=== PATIENT | female | born 1950 | race Caucasian/White ===

== ENCOUNTER 2019-06-22 16:59 | Outpatient (CLI) | payer MEDICARE, SELFPAY ==
--- NOTE | 2019-06-22 17:41 | XR_ITS ---
WS: [id number] ABDOMEN KUB CLINICAL INFORMATION: Renal/ureteral calculi. COMPARISON: None. FINDINGS: Normal bowel gas pattern. Scattered air and normal caliber small and large bowel. No significant irina l distention. Surgical wires overlying the lower abdomen and pelvis. Right pelvic phlebolith. XR/XR KUB [id number] Impression: Normal bowel gas pattern
== END 2019-06-22 17:00 | disposition home or self-care (01) ==
PROVIDERS: Family Provider Family Medicine; PCP Family Medicine; Visit Provider Family Medicine
DX: R10.9 Unspecified abdominal pain (principal); R39.9 Unspecified symptoms and signs involving the genitourinary system
CPT/HCPCS: 74018

== ENCOUNTER 2019-08-09 11:44 | Inpatient (IN) | payer MEDICARE, SELFPAY ==
[2019-08-09] VITALS (12 sets, daily range): BP systolic 104–156; BP diastolic 58–124; PULSE 66–80; RESP 16–20; TEMP 36.8–37.3; O2SAT 92–98; BMI 39.9
--- NOTE | 2019-08-09 11:59 | CT_ITS ---
WS: [id number] CT ABDOMEN AND PELVIS WITH CONTRAST HISTORY: diffuse abdominal pain; hx of SBO, history of cervical and ovarian carcinoma. TECHNIQUE: Imaging performed of the abdomen and pelvis with IV contrast. Single phase imaging of the abdomen. Coronal and sagittal reformats are submitted. All CT scans at [facility] use at least one of these dose optimization techniques: automated exposure control; mA and/or kV adjustment per patient size (includes targeted exams where dose is matched to clinical indication); or iterativ e reconstruction. IV CONTRAST: Omnipaque 300; 95 mL IV. Oral contrast: No DLP: 2051.66 mGy.cm COMPARISON: None available. Lower thorax: Dependent changes and atelectasis at the lung bases. Heart is normal size. Small hiatal hernia. Liver/biliary system: Normal size liver. Low-attenuation mass in the periphery of the RIGHT lobe betina ures 10 mm. Stable since 09/20/2013. Gallbladder: Normal. No gallstones or wall thickening. No pericholecystic fluid. Pancreas: Fatty replacement of the pancreas. No evidence for acute pancreatitis. Spleen: Normal. Adrenal glands: Normal. Right kidney: Several hypodensities. No solid mass or obstruction. Left kidney: Several hypodensities with no solid mass or obstruction. Aorta: Normal. Lymphadenopathy: None. Free fluid: Small amount of free fluid in the pelvis on the RIGHT. GI tract: There is marked dilatation of the stomach with fluid. Proximal and mid small bowel was dila margarita. Distal small bowel is collapsed. Findings are consistent with a high-grade distal small bowel ob struction. Transition point is probably in the RIGHT lower quadrant. The appendix is not identified. Abdominal wall: Surgical clips along the anterior abdominal wall. Pelvis: Small amount of free fluid. Urinary bladder is negative. No adenopathy. Prior hysterectomy. Bones: Increase in the lumbar lordosis. Mild thoracolumbar curvature. CT/CT abdomen pelvis w con* [id number] IMPRESSION: 1. High-grade distal small bowel obstruction. May be due to adhesions. No mass es are identified. 2. No adenopathy. 3. Small amount of free fluid in the pelvis. 4. Prior hysterectomy.
--- NOTE | 2019-08-09 12:00 | ED_ITS ---
HPI - Abdominal Pain General: Chief Complaint: Abdominal Pain Stated Complaint: ABD PAIN, VOMIT BLOOD Time Seen by Provider: 08/09/19 11:45 Source: patient Mode of arrival: ambulatory Limitations: no limitations History of Present Illness: HPI narrative: Patient is a 69-year-old female who presents to ED today with a complaint of diffuse abdominal pain that began approximately 2 days ago. She tells me she had 3 episodes of what she believes to be a bloody vomit yesterday (reports red streaking) and 2 episodes today. She has had normal bowel movements. She tells me she has an extensive history of small bowel obstructions. She reports 9 previous abdominal surgeries (lysis of adhesions, bowel resections, hysterectomy). Patient is anticoagulated on Coumadin for atrial fibrillation. Her last INR was checked yesterday and was 3.5. Other PMH includes asthma, TIA, HTN, DM2, and essential tremor. MD elicited complaint: abdominal pain Pertinent past history: other (SBO) Onset (ago): day(s) Pain Consistency: constant Location: Diffuse Quality: cramping and aching Radiation: none Migration to: no migration Relieving factors: nothing Associated Symptoms: Reports hematemesis, nausea and vomiting; Denies change in stool character, chills, coffee ground emesis, constipation, diarrhea, dysuria, fever(s), heartburn, hematochezia, melena and syncope Review of Systems Const: Denies: fever(s), chills, body aches, fatigue or malaise Eyes: Denies: change in vision or blurry vision Card: Denies: chest pain, palpitations, irregular heart rhythm, lightheadedness, syncope or dyspnea on exertion Resp: Denies: dyspnea, productive cough or pain on inspiration GI: Reports: abdominal pain, nausea, vomiting and hematemesis; Denies: coffee ground emesis, dysphagia, heartburn, diarrhea, constipation, change in stool character, hematochezia, melena, white/light colored stool or steatorrhea : Denies: flank pain, difficulty voiding, dysuria, urinary frequency or urinary urgency Musc: Denies: neck pain, back pain or joint pain Skin/Breast: Denies: rash Neuro: Denies: headache(s), numbness in extremities, weakness in extremities or sensory changes PFS ED PFSH: Medical History (Updated 08/09/19 @ 16:18 by OLIVIER Irene) Atrial fibrillation SVT (supraventricular tachycardia) Family History Sister Asthma Brother Asthma Cancer Grandmother Asthma Father Cancer Emphysema lung Social History Smoking and tobacco status: never smoked Physical Exam Const: COMMON NORMALS: no acute distress, patient oriented x3, no limitations and alert GENERAL APPEARANCE: cooperative NUTRITIONAL APPEARANCE: obese morbidly obese Resp: COMMON NORMALS: normal respiratory effort and clear to auscultation bilaterally AUSCULTATION: clear to auscultation bilaterally Cardio: COMMON NORMALS: regular rate and regular rhythm RATE: regular rate RHYTHM: regular rhythm GI: COMMON NORMALS: Soft to palpation AUSCULTATION: Yes normoactive bowel sounds PALPATION: Yes Soft to palpation, Yes Tenderness to palpation present (GI) (diffuse) and Yes Guarding due to palpation present (GI) (diffuse) OTHER: exam limited due to morbid obesity : COMMON NORMALS: Yes no CVA tenderness BLADDER/KIDNEY EXAM: Yes no CVA tenderness Back/Pelvis: COMMON NORMALS: no CVA tenderness Extremity: COMMON NORMALS: normal to inspection Neuro: COMMON NORMALS: patient oriented x3 SENSORIUM/ORIENTATION: Yes alert Skin: COMMON NORMALS: no rashes or lesions noted GENERAL SKIN EXAM: no rash es or lesions noted Course ED course: pt had extremely small amount of mucous vomit in bag upon arrival; this was gastrocculted and faintly positive Vital Signs: Vital signs: Vital Signs Temperature 98.2 F 08/09/19 12:02 Pulse Rate 74 08/09/19 12:02 Respiratory Rate 18 08/09/19 14:55 Blood Pressure 140/87 08/09/19 12:02 Pulse Oximetry 94 08/09/19 14:55 MDM - Abdominal Pain MDM Narrative: Medical decision making narrative: spoke to Dr. Ervin who will see patient and speak to surgeon and hospitalist for admission Lab Data: Labs: Lab Results 08/09/19 08/09/19 08/09/19 Range/Units 12:27 12:27 12:27 WBC 10.3 H (4.0-10.0) 10^3/ uL RBC 4.80 (4.1-5.3) 10^6/u L Hgb 14.7 (11.5-15.3) g/dL Hct 44.0 (37.0-47.0) % MCV 91.7 (81-99) fL MCH 30.6 (28.0-34.0) pg MCHC 33.4 (30.0-36.0) g/dL RDW 13.1 (12.1-15.1) % Plt Count 235 (130-400) 10^3/c mm MPV 11.1 H (7.4-10.4) fL Neut % (Auto) 77.6 % Lymph % (Auto) 12.3 % Jenkins % (Auto) 8.1 % Eos % (Auto) 1.4 % Baso % (Auto) 0.3 % Neut # (Auto) 8.0 H (1.8-7.7) 10^3/u L Lymph # (Auto) 1.3 (0.8-4.8) 10^3/u L Jenkins # (Auto) 0.8 (0.2-0.9) 10^3/u L Eos # (Auto) 0.1 (0.0-0.8) 10^3/u L Baso # (Auto) 0.0 (0.0-0.1) 10^3/u L Nucleated RBC % (a uto) 0 % Nucleated RBCs # 0.0 /100WBC PT 24.60 H (10.5-13.3) SECO NDS INR 2.13 H (0.8-1.2) APTT 38.0 H (23.9-36.7) SECO NDS Sodium 140 (136-145) mmol/L Potassium 3.9 (3.5-5.1) mmol/L Chloride 98 (98-107) mmol/L Carbon Dioxide 26 (22-29) mmol/L Anion Gap 19.9 H (5-19) BUN 19 (8-23) mg/dL Creatinine 0.7 (0.5-0.9) mg/dL GFR Calculation 82.7 L (90-130) mL/min Glucose 179 H (65-115) mg/dL Calculated Osmolal ity 291 (285-295) mOsm/k g Lactate (0.5-2.2) mmol/L Calcium 9.8 (8.5-10.5) mg/dL Total Bilirubin 0.3 (0.15-1.2) mg/dL AST 19 (0-32) U/L ALT 19 (0-33) U/L Alkaline Phosphata se 80 (35-105) IU/L Total Protein 5.9 L (6.6-8.7) g/dL Albumin 4.3 (3.5-5.2) g/dL Globulin 1.6 (1.3-4.6) g/dL Lipase 22 (13-60) U/L Urine Color (Yellow) Urine Appearance (CLEAR) Urine pH (5-7) Ur Specific Gravit y (1.005-1.030) Urine Protein (Negative) Urine Glucose (UA) (Normal) Urine Ketones (Negative) Urine Blood (Negative) Urine Nitrate (Negative) Urine Bilirubin (NEGATIVE) Urine Urobilinogen (Negative) mg/dL Ur Leukocyte Apoorva ase (Negative) Urine RBC (0-2) /hpf Urine WBC (0-5) /hpf Ur Squamous Epith Cells (0-5) Urine Bacteria (NONE) Urine Mucus 08/09/19 08/09/19 Range/Units 12:58 13:24 WBC (4.0-10.0) 10^3/ uL RBC (4.1-5.3) 10^6/u L Hgb (11.5-15.3) g/dL Hct (37.0-47.0) % MCV (81-99) fL MCH (28.0-34.0) pg MCHC (30.0-36.0) g/dL RDW (12.1-15.1) % Plt Count (130-400) 10^3/c mm MPV (7.4-10.4) fL Neut % (Auto) % Lymph % (Auto) % Jenkins % (Auto) % Eos % (Auto) % Baso % (Auto) % Neut # (Auto) (1.8-7.7) 10^3/u L Lymph # (Auto) (0.8-4.8) 10^3/u L Jenkins # (Auto) (0.2-0.9) 10^3/u L Eos # (Auto) (0.0-0.8) 10^3/u L Baso # (Auto) (0.0-0.1) 10^3/u L Nucleated RBC % (a uto) % Nucleated RBCs # /100WBC PT (10.5-13.3) SECO NDS INR (0.8-1.2) APTT (23.9-36.7) SECO NDS Sodium (136-145) mmol/L Potassium (3.5-5.1) mmol/L Chloride (98-107) mmol/L Carbon Dioxide (22-29) mmol/L Anion Gap (5-19) BUN (8-23) mg/dL Creatinine (0.5-0.9) mg/dL GFR Calculation (90-130) mL/min Glucose (65-115) mg/dL Calculated Osmolal ity (285-295) mOsm/k g Lactate 1.5 (0.5-2.2) mmol/L Calcium (8.5-10.5) mg/dL Total Bilirubin (0.15-1.2) mg/dL AST (0-32) U/L ALT (0-33) U/L Alkaline Phosphata se (35-105) IU/L Total Protein (6.6-8.7) g/dL Albumin (3.5-5.2) g/dL Globulin (1.3-4.6) g/dL Lipase (13-60) U/L Urine Color Yellow (Yellow) Urine Appearance Clear (CLEAR) Urine pH 5 (5-7) Ur Specific Gravit y 1.015 (1.005-1.030) Urine Protein Neg (Negative) Urine Glucose (UA) Norm (Normal) Urine Ketones Negative (Negative) Urine Blood Neg (Negative) Urine Nitrate Negative (Negative) Urine Bilirubin Neg (NEGATIVE) Urine Urobilinogen Neg (Negative) mg/dL Ur Leukocyte Apoorva ase 1+ H (Negative) Urine RBC None (0-2) /hpf Urine WBC 5-10 H (0-5) /hpf Ur Squamous Epith Cells 5-10 H (0-5) Urine Bacteria Trace (NONE) Urine Mucus 1+ Imaging Data ^: CT Abd/Pel: Radiologist's impression: [address] [id number] [address] Scan Report Signed Patient: Nathaly Jiang Unit #: [id number] : 1950 Age/Sex: 69 / F ADM Date: 08/09/19 Loc: ER Room/Bed: Attending Dr: Ordering Provider/Ordering MD: Ruma Mcmahan Date of Service: 08/09/19 Procedure(s): CT abdomen pelvis w con* [id number] Accession Number(s): [id number] Report Number: [id number] WS: [id number] CT ABDOMEN AND PELVIS WITH CONTRAST HISTORY: diffuse abdominal pain; hx of SBO, history of cervical and ovarian carcinoma. TECHNIQUE: Imaging performed of the abdomen and pelvis with IV contrast. Single phase imaging of the abdomen. Coronal and sagittal reformats are submitted. All CT scans at [facility] use at least one of these dose optimization techniques: automated exposure control; mA and/or kV adjustment per patient size (includes targeted exams where dose is matched to clinical indication); or iterative reconstruction. IV CONTRAST: Omnipaque 300; 95 mL IV. Oral contrast: No DLP: 2051.66 mGy.cm COMPARISON: None available. Lower thorax: Dependent changes and atelectasis at the lung bases. Heart is normal size. Small hiatal hernia. Liver/biliary system: Normal size liver. Low-attenuation mass in the periphery of the RIGHT lobe measures 10 mm. Stable since 09/20/2013. Gallbladder: Normal. No gallstones or wall thickening. No pericholecystic fluid. Pancreas: Fatty replacement of the pancreas. No evidence for acute pancrea titis. Spleen: Normal. Adrenal glands: Normal. Right kidney: Several hypodensities. No solid mass or obstruction. Left kidney: Several hypodensities with no solid mass or obstruction. Aorta: Normal. Lymphadenopathy: None. Free fluid: Small amount of free fluid in the pelvis on the RIGHT. GI tract: There is marked dilatation of the stomach with fluid. Proximal and mid small bowel was dilated. Distal small bowel is collapsed. Findings are consistent with a high- grade distal small bowel obstruction. Transition point is probably in the RIGHT lower quadrant. The appendix is not identified. Abdominal wall: Surgical clips along the anterior abdominal wall. Pelvis: Small amount of free fluid. Urinary bladder is negative. No adenopathy. Prior hysterectomy. Bones: Increase in the lumbar lordosis. Mild thoracolumbar curvature. CT/CT abdomen pelvis w con* [id number] IMPRESSION: 1. High-grade distal small bowel obstruction. May be due to adhesions. No masses are identified. 2. No adenopathy. 3. Small amount of free fluid in the pelvis. 4. Prior hysterectomy. Dictated By: Cande Mares DO Signed By: Cande Mares DO Signed Date/Time: 08/09/191518 DD/ 10 Discharge Plan Discharge Patient Disposition: Admitted As Inpatient Clinical Impression: SBO (small bowel obstruction) Condition: Stable Referrals: Masha Carrillo MD [Primary Care Provider] - Coding Level of Care Code ED Mental Health Program Manager for Chg Fwd Exam Detailed
[2019-08-09 12:33] LABS: Basophils % 0.3 %; Eosinophils # 0.1 10^3/uL (0.0-0.8); Eosinophils % 1.4 %; Hemoglobin 14.7 g/dL (11.5-15.3); Lymphocytes # 1.3 10^3/uL (0.8-4.8); Lymphocytes % 12.3 %; Mean Corpuscular HGB Conc 33.4 g/dL (30.0-36.0); Mean Corpuscular Hemoglobin 30.6 pg (28.0-34.0); Mean Corpuscular Volume 91.7 fL (81-99); Mean Platelet Volume 11.1 fL (7.4-10.4); Monocytes # 0.8 10^3/uL (0.2-0.9); Monocytes % 8.1 %; Neutrophils % 77.6 %; Nucleated Red Blood Cells % 0 %; Platelet Count 235 10^3/cmm (130-400); Red Cell Distribution Width 13.1 % (12.1-15.1); White Blood Count 10.3 10^3/uL (4.0-10.0)
[2019-08-09 12:47] LABS: INR 2.13 (0.8-1.2)
[2019-08-09 13:00] LABS: Alanine Aminotransferase 19 U/L (0-33); Albumin Level 4.3 g/dL (3.5-5.2); Alkaline Phosphatase 80 IU/L (35-105); Anion Gap 19.9 (5-19); Aspartate Amino Transferase 19 U/L (0-32); Blood Urea Nitrogen 19 mg/dL (8-23); Calcium 9.8 mg/dL (8.5-10.5); Carbon Dioxide 26 mmol/L (22-29); Chloride 98 mmol/L (98-107); Creatinine Clr Calc Pharmacy 80.3093; Globulin 1.6 g/dL (1.3-4.6); Glomerular Filtration Rate 82.7 mL/min (90-130); Glucose 179 mg/dL (65-115); Lipase 22 U/L (13-60); Osmolality Calculated 291 mOsm/kg (285-295); Potassium 3.9 mmol/L (3.5-5.1); Sodium 140 mmol/L (136-145); Total Bilirubin 0.3 mg/dL (0.15-1.2); Total Protein 5.9 g/dL (6.6-8.7)
[2019-08-09] MEDS: morphine 4 mg/mL SDV 1 mL IVP ×2 (13:16→17:22)
[2019-08-09] MEDS: ondansetron 2 mg/ML SDV 2 mL 4 MG IVP ×3 (13:16→17:21)
[2019-08-09 13:24] LABS: Add Urine Microscopic? YES; Bilirubin Urine Neg (NEGATIVE); Blood Urine Neg (Negative); Glucose Urine UA Norm (Normal); Ketones Urine Negative (Negative); Leukocyte Esterase Urine 1+ (Negative); Nitrate Urine Negative (Negative); Protein Urine Neg (Negative); Specific Gravity, Urine 1.015 (1.005-1.030); Urine Appearance Clear (CLEAR); Urine Color Yellow (Yellow); Urobilinogen Urine Neg (Negative); pH Urine 5 (5-7)
[2019-08-09 13:30] LABS: Add Urine Culture? No; Bacteria Urine TRACE; Mucus Urine 1+
[2019-08-09 13:46] LABS: Lactate (Lactic Acid level) 1.5 mmol/L (0.5-2.2)
[2019-08-09] MEDS: iohexol 300 mg/mL 100 mL Btl IV (14:26)
[2019-08-09] MEDS: HYDROmorphone 1 mg/mL INJ 1 mL 0.5 MG IVP (14:55)
--- NOTE | 2019-08-09 18:13 | P.HP_ITS ---
Providers/Chief Complaint Admitting Physician: Tyree Fraser MD Primary Care Provider: Masha Carrillo MD Chief Complaint: ABD PAIN, VOMIT BLOOD History of Present Illness Nathaly Jiang is a 69 year old female type 2 diabetes mellitus on insulin, bilateral lower extremity on Lasix, diastolic heart failure, history of atrial fibrillation on Coumadin, hypertension, history of TIA, depression anxiety, history of multiple small bowel obstructions in the past status post surgical interventions who presents to [facility] due to a 4-day history of nausea, vomiting, abdominal pain. Patient states that starting on Wednesday, she started to develop diffuse abdominal pain, associate with nausea, vomiting, decreased appetite. No fevers, no chills, no recent travel, no exposure to COVID-19, no history of food poisoning. Patient states that abdominal pain has worsened, feels nauseous after every meal, last meal was last night and was unable to keep it down, is having bowel movements, last bowel movement was last night, is passing gas today. Has not been able to keep down liquids. Patient states that roughly 30 years ago she had a hysterectomy, but had complications from the hysterectomy including internal bleeding, graft rejection, requiring multiple surgeries, including bowel perforation. Patient has had multiple small bowel obstructions she says, she has had roughly 10 last small bowel obstruction was 6 years ago, she is required lysis of adhesions in roughly 2013 for her small bowel obstruction. Review of Systems Const: Denies: fever(s), chills, fatigue or malaise Eyes: Denies: change in vision or blurry vision ENMT: Denies: nasal congestion Resp: Denies: dyspnea, productive cough, non-productive cough or wheezing GI: Reports: abdominal pain, nausea and vomiting; Denies: hematemesis, diarrhea, constipation, hematochezia or melena : Denies: flank pain, dysuria or urinary frequency Musc: Denies: neck pain or back pain Skin/Breast: Denies: rash Neuro: Denies: headache(s), dizziness or vertigo Psych: Denies: anxiety or depression Endo: Denies: polyuria or polydipsia Medications/Allergies Home Medications Medication Instructions Recorded Confirmed Last Taken Type warfarin 6 mg tablet 6 mg PO DAILY tab 03/06/19 08/09/19 08/08/19 History isosorbide mononitrate 60 mg 60 mg PO DAILY 90 Days #90 tab 05/17/19 08/09/19 08/09/19 Rx tablet,extended release 24 hr albuterol sulfate 2.5 mg INHALATION Q4H PRN 07/26/19 08/09/19 Unknown History aspirin 81 mg tablet,delayed 81 mg PO DAILY 07/26/19 08/09/19 08/08/19 History release fluticasone furoate 100 1 inh INHALATION DAILY PRN 07/26/19 08/09/19 08/09/19 History mcg-vilanterol 25 mcg/dose inhalation powder furosemide 40 mg tablet 80 mg PO BID tab 07/26/19 08/09/19 08/09/19 History glimepiride 2 mg tablet 8 mg PO DAILY tab 07/26/19 08/09/19 08/09/19 History hydrocodone 5 mg-acetaminophen 325 1 tab PO Q6H PRN 07/26/19 08/09/19 08/09/19 History mg tablet insulin glargine 100 unit/mL 34 unit SUBCUT BEDTIME ml 07/26/19 08/09/19 08/08/19 History subcutaneous solution montelukast 10 mg tablet 10 mg PO DAILY 07/26/19 08/09/19 08/09/19 History nitroglycerin 0.4 mg sublingual 0.4 mg SUBLINGUAL Q5M PRN 07/26/19 08/09/19 Unknown History tablet omeprazole 20 mg capsule,delayed 20 mg PO DAILY 07/26/19 08/09/19 08/09/19 History release primidone 50 mg tablet 300 mg PO DAILY tab 07/26/19 08/09/19 08/08/19 History propranolol 10 mg tablet 10 mg PO TID 07/26/19 08/09/19 08/09/19 History ropinirole 1 mg tablet 1 mg PO DAILY 07/26/19 08/09/19 08/09/19 History sertraline 50 mg tablet 100 mg PO DAILY tab 07/26/19 08/09/19 08/09/19 History verapamil 360 mg 24 hr 360 mg PO DAILY 90 Days #90 cap 07/27/19 08/09/19 08/09/19 Rx capsule,extended release Allergies Allergy/AdvReac Type Severity Reaction Status Date / Time budesonide Allergy Unknown Verified 08/09/19 12:06 metformin Allergy Unknown Unverified 03/06/19 14:02 penicillin V Allergy Unknown Unverified 03/06/19 14:02 propoxyphene Allergy Unknown Unverified 03/06/19 14:02 [From ByronC[facility]] streptomycin Allergy Unknown Verified 08/09/19 12:06 PFSH Acute PFSH: Medical History (Updated 08/09/19 @ 18:21 by Tyree Fraser MD) Atrial fibrillation Bilateral lower extremity edema Diabetes mellitus Diastolic heart failure GERD (gastroesophageal reflux disease) History of stroke Hx of small bowel obstruction Hyperlipidemia Migraines SVT (supraventricular tachycardia) Surgical History (Updated 08/09/19 @ 18:20 by Tyree Fraser MD) S/P hysterectomy Family History Sister Asthma Brother Asthma Cancer Grandmother Asthma Father Cancer Emphysema lung Social History Smoking and tobacco status: never smoked Vitals/I&O/Wt Last Vital Signs Temp 98.2 F 08/09/19 12:02 Pulse 74 08/09/19 12:02 Resp 17 08/09/19 17:22 BP 140/87 08/09/19 12:02 Pulse Ox 98 08/09/19 17:22 Weight last 48 hrs Weight 108.862 kg Physical Exam Const: COMMON NORMALS: no acute distress and patient oriented x3 HENMT: COMMON NORMALS: normocephalic HEAD & SCALP: normocephalic Neck/C-Spine: COMMON NORMALS: no JVD Resp: COMMON NORMALS: normal respiratory effort, No retractions, No use of accessory muscles and clear to auscultation bilaterally AUSCULTATION: clear to auscultation bilaterally Cardio: COMMON NORMALS: no JVD, regular rate, regular rhythm, S1 normal heart sound present and S2 normal heart sound present RATE: regular rate RHYTHM: regular rhythm HEART SOUNDS: S1 normal heart sound present and S2 normal heart sound present GI: COMMON NORMALS: No hepatosplenomegaly present and no bruits INSPECTION: Yes abdominal distension AUSCULTATION: Yes Hypoactive bowel sounds present PALPATION: Yes Soft to palpation, Yes Tenderness to palpation present (GI), No Guarding due to palpation present (GI), No Rigid due to palpation, Yes No hepatosplenomegaly present and No Rebound tenderness present PERCUSSION: tympanic to percussion OTHER: Abdomen distended Extremity: COMMON NORMALS: capillary refill normal, no clubbing, cyanosis or edema, no calf tenderness and no pedal edema Neuro: COMMON NORMALS: patient oriented x3 Psych: COMMON NORMALS: mental status grossly normal Data : 08/09/19 12:27 08/09/19 12:27 A&P Assessment and plan (1) SBO (small bowel obstruction): -History of multiple small bowel obstructions in the past, history of lysis of adhesions surgeries -Likely etiology of small bowel obstruction is multiple surgeries, abdominal -Does have a family history of colon cancer,, had a colonoscopy a few months ago which was unremarkable -CT scan shows high-grade distal small bowel obstruction Plan; -Very gentle IV hydration given diastolic heart failure and bilateral lower extremity edema -NG tube placement -Pain control, nausea control -Keep n.p.o. -Surgery has been consulted by the ER, Dr. Díaz on consult Status: Acute (2) Atrial fibrillation: -INR 2.0, takes 10 to 12 mg of Coumadin daily -Start therapeutic Lovenox tomorrow, no plans for surgery at this time Status: Acute Qualifiers: Atrial fibrillation type: longstanding persistent Qualified Code(s): I48.11 - Longstanding persistent atrial fibrillation (3) Diabetes mellitus: -Uses Lantus 34 units at bedtime, hold as n.p.o. -Low-dose sliding scale Status: Acute (4) Hyperlipidemia: Status: Acute (5) GERD (gastroesophageal reflux disease): Status: Acute (6) History of Coumadin therapy: Status: Acute Attestations Medical Necessity Statement*: Patient requires hospitalization, inpatient, greater than 2 midnights for distal small bowel obstruction Coding Level of Care Code Acute Clothing Busheler for [facility] Diagnoses SBO (small bowel obstruction) K56.609 Atrial fibrillation I48.11 Atrial fibrillation type: longstanding persistent Diabetes mellitus E11.9 Hyperlipidemia E78.5 GERD (gastroesophageal reflux disease) K21.9 History of Coumadin therapy Z92.29
[2019-08-09] MEDS: dextrose 5%-sod chloride 0.45% 1,000 ML 50 ML IV (20:26)
[2019-08-09] MEDS: morphine 4 mg/mL SDV 1 mL 2 MG IVP (21:00)
[2019-08-09] MEDS: pantoprazole 40 mg SDV IVP (21:03)
[2019-08-09 21:06] LABS: Glucose Point of Care 145 mg/dL (70-110)
[2019-08-09] MEDS: nitroglycerin 0.4 mg sublingual Tablet SUBLINGUAL ×2 (22:08→22:15)
[2019-08-10] VITALS (10 sets, daily range): BP systolic 95–125; BP diastolic 56–81; PULSE 67–82; RESP 16–20; TEMP 36.7–37.2; O2SAT 89–93
[2019-08-10] MEDS: morphine 4 mg/mL SDV 1 mL 2 MG IVP ×2 (01:23→06:12)
[2019-08-10] MEDS: ondansetron 2 mg/ML SDV 2 mL 4 MG IVP ×4 (01:23→20:01)
--- NOTE | 2019-08-10 03:00 | ECG_ITS ---
Measurements Intervals [place] Rate: 72 P: 17 WA: 158 QRS: -24 QRSD: 88 T: 18 QT: 373 QTc: 408 SINUS RHYTHM BORDERLINE LEFT AXIS DEVIATION [QRS AXIS < -20] MODERATE VOLTAGE CRITERIA FOR LVH, CONSIDER NORMAL VARIANT [MEETS CRITERIA IN ONE OF: R(aVL), S(V1), R(V5), R(V5/V6)+S(V1)] NONSPECIFIC ST & T-WAVE ABNORMALITY Compared to ECG 01/25/2019 15:47:04 T-wave abnormality now present Electronically Signed On 08-10-2019 20:53:36 CDT by Renata Kan M.D. [email or web address]
--- NOTE | 2019-08-10 03:01 | PC.NURSE ---
Chest Pain Patient experiencing chest pain she describes as 8/10 stabbing, crushing pain over the sternum area. No radiating of pain to other areas. Patient given Nitro SL tabs x2, 5 minutes apart with pain decreasing to 3/10. All vital signs normal. EKG ordered for as no EKG was performed in ER. Patient did state she had to take Nitro SL at home on Sunday 08/06 for chest pain which was alleviated with 2 doses.
[2019-08-10 04:21] LABS: Basophils % 0.3 %; Eosinophils # 0.2 10^3/uL (0.0-0.8); Eosinophils % 2.2 %; Hematocrit 48.1 % (37.0-47.0); Hemoglobin 15.9 g/dL (11.5-15.3); Lymphocytes # 1.3 10^3/uL (0.8-4.8); Lymphocytes % 16.9 %; Mean Corpuscular HGB Conc 33.1 g/dL (30.0-36.0); Mean Corpuscular Hemoglobin 30.9 pg (28.0-34.0); Mean Corpuscular Volume 93.4 fL (81-99); Mean Platelet Volume 11.8 fL (7.4-10.4); Monocytes # 0.7 10^3/uL (0.2-0.9); Monocytes % 9.7 %; Neutrophils # 5.2 10^3/uL (1.8-7.7); Neutrophils % 70.8 %; Nucleated Red Blood Cells % 0 %; Platelet Count 132 10^3/cmm (130-400); Red Blood Count 5.15 10^6/uL (4.1-5.3); Red Cell Distribution Width 13.2 % (12.1-15.1); White Blood Count 7.4 10^3/uL (4.0-10.0)
[2019-08-10 04:26] LABS: INR 2.06 (0.8-1.2)
[2019-08-10 04:33] LABS: Alanine Aminotransferase 24 U/L (0-33); Alkaline Phosphatase 70 IU/L (35-105); Anion Gap 15.6 (5-19); Aspartate Amino Transferase 26 U/L (0-32); Blood Urea Nitrogen 19 mg/dL (8-23); Calcium 10.2 mg/dL (8.5-10.5); Carbon Dioxide 29 mmol/L (22-29); Chloride 98 mmol/L (98-107); Creatinine Clr Calc Pharmacy 80.3093; Globulin 1.6 g/dL (1.3-4.6); Glomerular Filtration Rate 82.7 mL/min (90-130); Glucose 156 mg/dL (65-115); Magnesium 1.9 mg/dL (1.7-2.3); Osmolality Calculated 288 mOsm/kg (285-295); Phosphorus 4.4 mg/dL (2.5-4.5); Potassium 3.6 mmol/L (3.5-5.1); Sodium 139 mmol/L (136-145); Total Bilirubin 0.4 mg/dL (0.15-1.2); Total Protein 5.6 g/dL (6.6-8.7)
[2019-08-10 06:22] LABS: Glucose Point of Care 173 mg/dL (70-110)
--- NOTE | 2019-08-10 06:49 | XR_ITS ---
WS: [id number] Abdomen series, Flat and upright 08/10/2019 Clinical Data: sbo Comparison: KUB, 06/22/2019. CT abdomen and pelvis, 08/09/2019 Findings: There are air-fluid levels in the stomach small bowel and colon. The nasogastric tube barel y enters the fundus of the stomach. The proximal small bowel loops are still dilated. No abnormal int ra-abdominal masses or calcifications are seen. There are midline abdominal sutures. Contrast materia l is within the bladder from the CT abdomen pelvis. XR/XR abdomen min 2V [id number] Impression: 1. Small bowel obstruction with dilatation of the small bowel up to 5 cm but th ere is now distal air within the colon. 2. Nasogastric tube barely ends within the fundus of the stomach and may be adv anced 5 cm.
[2019-08-10] MEDS: verapamil ER 180 mg Tablet 360 MG PO (08:37)
[2019-08-10] MEDS: propranolol 20 mg Tablet 10 MG PO ×2 (08:37→20:03)
[2019-08-10] MEDS: FUROsemide 40 mg Tablet 80 MG PO ×2 (08:38→17:07)
[2019-08-10] MEDS: montelukast sodium 10 mg Tablet PO (08:38)
[2019-08-10] MEDS: isosorbide mononitrate ER 60 mg Tablet PO (08:39)
[2019-08-10] MEDS: ropinirole 1 mg Tablet PO (08:39)
[2019-08-10] MEDS: primidone 50 mg Tablet PO (08:39)
[2019-08-10] MEDS: pantoprazole DR 40 mg Tablet PO (08:39)
[2019-08-10] MEDS: sertraline 50 mg Tablet 100 MG PO (08:39)
[2019-08-10] MEDS: enoxaparin 120 mg/0.8 mL Syringe 110 MG SUBCUT ×2 (08:40→20:01)
[2019-08-10] MEDS: HYDROmorphone 1 mg/mL INJ 1 mL 0.5 MG IVP (09:32)
[2019-08-10 12:12] LABS: Glucose Point of Care 142 mg/dL (70-110)
--- NOTE | 2019-08-10 16:01 | P.PN_ITS ---
Subjective Subjective: Interval history: This morning patient states that she continues to have abdominal pain, she did pass gas, no fevers, no chills, no nausea, no vomiting Vitals/I&O/Wt Last Vital Signs Temp 98.0 F 08/10/19 15:43 Pulse 67 08/10/19 15:43 Resp 18 08/10/19 15:43 BP 120/74 08/10/19 15:43 Pulse Ox 90 08/10/19 15:43 08/10/19 08/10/19 08/10/19 06:59 14:59 22:59 Output Total 700 / 700 Balance -700 / -700 Weight last 48 hrs Weight 108.862 kg Physical Exam Const: COMMON NORMALS: no acute distress and patient oriented x3 HENMT: COMMON NORMALS: normocephalic HEAD & SCALP: normocephalic Neck/C-Spine: COMMON NORMALS: no JVD Resp: COMMON NORMALS: normal respiratory effort, No retractions, No use of ac cessory muscles and clear to auscultation bilaterally AUSCULTATION: clear to auscultation bilaterally Cardio: COMMON NORMALS: no JVD, regular rate, regular rhythm, S1 normal heart sound present and S2 normal heart sound present RATE: regular rate RHYTHM: regular rhythm HEART SOUNDS: S1 normal heart sound present and S2 normal heart sound present GI: COMMON NORMALS: No hepatosplenomegaly present and no bruits INSPECTION: Yes abdominal distension AUSCULTATION: Yes Hypoactive bowel sounds present PALPATION: Yes Tenderness to palpation present (GI), No Guarding due to palpation present (GI), No Rigid due to palpation, Yes No hepatosplenomegaly present and No Rebound tenderness present PERCUSSION: tympanic to percussion OTHER: Abdomen distended Extremity: COMMON NORMALS: capillary refill normal, no clubbing, cyanosis or edema, no calf tenderness and no pedal edema Neuro: COMMON NORMALS: patient oriented x3 Psych: COMMON NORMALS: mental status grossly normal Data : 08/10/19 03:47 08/10/19 03:47 A&P Assessment and plan (1) SBO (small bowel obstruction): -History of multiple small bowel obstructions in the past, history of lysis of adhesions surgeries -Likely etiology of small bowel obstruction is multiple surgeries, abdominal -Does have a family history of colon cancer,, had a colonoscopy a few months ago which was unremarkable -CT scan shows high-grade distal small bowel obstruction Plan; -Very gentle IV hydration given diastolic heart failure and bilateral lower extremity edema -NG tube placement -Pain control, nausea control -Keep n.p.o. -Surgery has been consulted by the ER, Dr. Díaz on consult Status: Acute (2) Atrial fibrillation: -INR 2.0, takes 10 to 12 mg of Coumadin daily -Start therapeutic Lovenox tomorrow, no plans for surgery at this time Status: Acute Qualifiers: Atrial fibrillation type: longstanding persistent Qualified Code(s): I48.11 - Longstanding persistent atrial fibrillation (3) Diabetes mellitus: -Uses Lantus 34 units at bedtime, hold as n.p.o. -Low-dose sliding scale Status: Acute (4) Hyperlipidemia: Status: Acute (5) GERD (gastroesophageal reflux disease): Status: Acute (6) History of Coumadin therapy: Status: Acute Attestations Medical Necessity Statement*: Patient requires continued hospitalization for small bowel obstruction Coding Level of Care Code Acute Fitness Floor Attendant for [facility] F[facility] Diagnoses SBO (small bowel obstruction) K56.609 Atrial fibrillation I48.11 Atrial fibrillation type: longstanding persistent Diabetes mellitus E11.9 Hyperlipidemia E78.5 GERD (gastroesophageal reflux disease) K21.9 History of Coumadin therapy Z92.29
[2019-08-10] MEDS: morphine 4 mg/mL SDV 1 mL IVP ×2 (16:12→20:02)
[2019-08-10 16:36] LABS: Glucose Point of Care 138 mg/dL (70-110)
[2019-08-10] MEDS: dextrose 5%-sod chloride 0.45% 1,000 ML 50 ML IV (17:06)
--- NOTE | 2019-08-10 17:07 | PM.CONSULT ---
Providers/Reason For Consult Consulting Physican/Specialty*: Tyree Fraser MD Reason for Consult*: Small bowel obstruction Attending Physician: Tyree Fraser MD Primary Care Provider: Masha Carrillo MD History of Present Illness History of Present Illness Nathaly Jiang is a 69 year old female who presented to the ER with severe generalized abdominal pain, distention, nausea and vomiting. Patient states that she has had 10 hospitalizations for small bowel obstruction and required surgery on 4 occasions. Her last surgery was in 2013. She states that she usually has 2 bowel movements a day and she had 3 bowel movements a day before she was admitted. She continues to pass flatus and today she had a loose bowel movement. No nausea or vomiting. Review of Systems General: Reports: 10 or more systems reviewed and unremarkable except in HPI and below Meds/Allergies Home Medications and Allergies Home Medications Medication Instructions Recorded Confirmed Last Taken Type warfarin 6 mg tablet 6 mg PO DAILY tab 03/06/19 08/09/19 08/08/19 History isosorbide mononitrate 60 mg 60 mg PO DAILY 90 Days #90 tab 05/17/19 08/09/19 08/09/19 Rx tablet,extended release 24 hr albuterol sulfate 2.5 mg INHALATION Q4H PRN 07/26/19 08/09/19 Unknown History aspirin 81 mg tablet,delayed 81 mg PO DAILY 07/26/19 08/09/19 08/08/19 History release fluticasone furoate 100 1 inh INHALATION DAILY PRN 07/26/19 08/09/19 08/09/19 History mcg-vilanterol 25 mcg/dose inhalation powder furosemide 40 mg tablet 80 mg PO BID tab 07/26/19 08/09/19 08/09/19 History glimepiride 2 mg tablet 8 mg PO DAILY tab 07/26/19 08/09/19 08/09/19 History hydrocodone 5 mg-acetaminophen 325 1 tab PO Q6H PRN 07/26/19 08/09/19 08/09/19 History mg tablet insulin glargine 100 unit/mL 34 unit SUBCUT BEDTIME ml 07/26/19 08/09/19 08/08/19 History subcutaneous solution montelukast 10 mg tablet 10 mg PO DAILY 07/26/19 08/09/19 08/09/19 History nitroglycerin 0.4 mg sublingual 0.4 mg SUBLINGUAL Q5M PRN 07/26/19 08/09/19 Unknown History tablet omeprazole 20 mg capsule,delayed 20 mg PO DAILY 07/26/19 08/09/19 08/09/19 History release primidone 50 mg tablet 300 mg PO DAILY tab 07/26/19 08/09/19 08/08/19 History propranolol 10 mg tablet 10 mg PO TID 07/26/19 08/09/19 08/09/19 History ropinirole 1 mg tablet 1 mg PO DAILY 07/26/19 08/09/19 08/09/19 History sertraline 50 mg tablet 100 mg PO DAILY tab 07/26/19 08/09/19 08/09/19 History verapamil 360 mg 24 hr 360 mg PO DAILY 90 Days #90 cap 07/27/19 08/09/19 08/09/19 Rx capsule,extended release Allergies Allergy/AdvReac Type Severity Reaction Status Date / Time budesonide Allergy Unknown Verified 08/09/19 12:06 metformin Allergy Unknown Unverified 03/06/19 14:02 penicillin V Allergy Unknown Unverified 03/06/19 14:02 propoxyphene Allergy Unknown Unverified 03/06/19 14:02 [From ByronCindy] streptomycin Allergy Unknown Verified 08/09/19 12:06 Current Medications Current Medications Generic Name Dose Route Start Last Admin Trade Name Freq PRN Reason Stop Dose Admin Enoxaparin Sodium 110 mg 08/10/19 09:00 08/10/19 08:40 Lovenox SUBCUT 110 mg Q12H SHERIDAN Administration Furosemide 80 mg 08/10/19 09:00 08/10/19 17:07 Lasix PO 80 mg BID SHERIDAN Administration Dextrose/Sodium Chloride 1,000 mls @ 50 mls/hr 08/09/19 19:57 08/10/19 17:06 Dextrose 5%-Sod Chloride 0.45% IV 50 mls/hr .Q20H SHERIDAN Administration Insulin Aspart 0 unit 08/10/19 08:00 08/10/19 16:51 Novolog SUBCUT Not Given TIDWM SHERIDAN Protocol Isosorbide Mononitrate 60 mg 08/10/19 09:00 08/10/19 08:39 Imdur PO 60 mg DAILY SHERIDAN Administration Montelukast Sodium 10 mg 08/10/19 09:00 08/10/19 08:38 Singulair PO 10 mg DAILY SHERIDAN Administration Morphine Sulfate 4 mg 08/10/19 16:04 08/10/19 16:12 Morphine IVP 4 mg Q4H PRN Administration SEVERE PAIN Nitroglycerin 0.4 mg 08/09/19 19:57 08/09/19 22:15 Nitrostat SUBLINGUAL 1 tab Q5M PRN Administration Chest Pain Ondansetron HCl 4 mg 08/09/19 20:55 08/10/19 12:26 Zofran IVP 4 mg Q6H PRN Administration NAUSEA AND VOMITING Pantoprazole Sodium 40 mg 08/10/19 09:00 08/10/19 08:39 Protonix PO 40 mg DAILY SHERIDAN Administration Pantoprazole Sodium 40 mg 08/09/19 21:00 08/10/19 08:40 Protonix IVP Not Given Q12H SHERIDAN Primidone 250 mg 08/10/19 09:00 08/10/19 08:43 Mysoline PO 250 mg DAILY SHERIDAN Administration Primidone 50 mg 08/10/19 09:00 08/10/19 08:39 Mysoline PO 50 mg DAILY SHERIDAN Administration Propranolol HCl 10 mg 08/09/19 21:00 08/10/19 14:57 Inderal PO Not Given TID SHERIDAN Ropinirole HCl 1 mg 08/10/19 09:00 08/10/19 08:39 Requip PO 1 mg DAILY SHERIDAN Administration Sertraline HCl 100 mg 08/10/19 09:00 08/10/19 08:39 Zoloft PO 100 mg DAILY SHERIDAN Administration Verapamil HCl 360 mg 08/10/19 09:00 08/10/19 08:37 Verapamil Er PO 360 mg DAILY SHERIDAN Administration PFSH Acute PFSH: Medical History Atrial fibrillation Bilateral lower extremity edema Diabetes mellitus Diastolic heart failure GERD (gastroesophageal reflux disease) History of stroke Hx of small bowel obstruction Hyperlipidemia Migraines SVT (supraventricular tachycardia) Surgical History S/P hysterectomy Family History Sister Asthma Brother Asthma Cancer Grandmother Asthma Father Cancer Emphysema lung Social History Smoking and tobacco status: never smoked Vitals/I&O/Wt Last Vital Signs Temp 98.0 F 08/10/19 15:43 Pulse 67 08/10/19 15:43 Resp 18 08/10/19 16:12 BP 120/74 08/10/19 15:43 Pulse Ox 90 08/10/19 15:43 08/10/19 08/10/19 08/10/19 06:59 14:59 22:59 Intake Total 1000 / 1000 Output Total 700 / 700 Balance -700 / -700 1000 / 1000 Weight last 48 hrs Weight 240 lb Physical Exam Narrative: EXAM NARRATIVE: HEENT: Normocephalic Eye: Sclera /conjunctiva normal Respiratory and chest: Bilateral clear breath sounds on auscultation Cardiovascular: Normal S1 and S2 heart sounds Abdomen: Soft to palpation, generalized tenderness, no guarding or rigidity, well-healed midline laparotomy scar Neurological: Oriented to place person and time Skin: Intact, no lesions appreciated on gross exam A&P Assessment and plan (1) SBO (small bowel obstruction): This is a 69-year-old female who has had 10 previous admissions for small bowel obstructions secondary to adhesions from prior laparotomy. She has had surgery on 4 occasions. Today she presents with persistent abdominal pain nausea and vomiting and CT scan findings consistent with obstruction. Patient is tender but no guarding or rigidity. At this point there is no indication for surgical intervention and will try to manage her conservatively Bowel rest with NG tube IV fluids Protonix for GI prophylaxis Lovenox for DVT prophylaxis Ambulate with physical therapy Abdominal series in the morning Status: Acute Coding Level of Care Code Acute Protective Services Case Worker for [facility] Diagnoses SBO (small bowel obstruction) K56.609
[2019-08-10] MEDS: pantoprazole 40 mg SDV IVP (20:02)
[2019-08-10 21:19] LABS: Glucose Point of Care 149 mg/dL (70-110)
[2019-08-11] VITALS (14 sets, daily range): BP systolic 96–137; BP diastolic 56–78; PULSE 60–78; RESP 14–20; TEMP 36.9–38.1; O2SAT 87–97
[2019-08-11] MEDS: morphine 4 mg/mL SDV 1 mL IVP ×6 (00:07→21:20)
[2019-08-11] MEDS: ondansetron 2 mg/ML SDV 2 mL 4 MG IVP ×2 (02:19→09:42)
[2019-08-11 06:10] LABS: Glucose Point of Care 140 mg/dL (70-110)
[2019-08-11 06:38] LABS: Basophils % 0.3 %; Eosinophils # 0.2 10^3/uL (0.0-0.8); Eosinophils % 2.6 %; Hematocrit 40.9 % (37.0-47.0); Lymphocytes # 1.8 10^3/uL (0.8-4.8); Lymphocytes % 25.8 %; Mean Corpuscular HGB Conc 31.8 g/dL (30.0-36.0); Mean Corpuscular Hemoglobin 30.7 pg (28.0-34.0); Mean Corpuscular Volume 96.7 fL (81-99); Monocytes # 0.9 10^3/uL (0.2-0.9); Monocytes % 12.7 %; Neutrophils # 4.1 10^3/uL (1.8-7.7); Neutrophils % 58.3 %; Nucleated Red Blood Cells % 0 %; Platelet Count 181 10^3/cmm (130-400); Red Blood Count 4.23 10^6/uL (4.1-5.3); Red Cell Distribution Width 13.2 % (12.1-15.1); White Blood Count 6.9 10^3/uL (4.0-10.0)
[2019-08-11 06:51] LABS: Alanine Aminotransferase 28 U/L (0-33); Albumin Level 3.9 g/dL (3.5-5.2); Alkaline Phosphatase 73 IU/L (35-105); Anion Gap 13.9 (5-19); Aspartate Amino Transferase 24 U/L (0-32); Blood Urea Nitrogen 11 mg/dL (8-23); Calcium 8.9 mg/dL (8.5-10.5); Carbon Dioxide 27 mmol/L (22-29); Chloride 104 mmol/L (98-107); Creatinine Clr Calc Pharmacy 80.3093; Globulin 1.6 g/dL (1.3-4.6); Glomerular Filtration Rate 98.8 mL/min (90-130); Glucose 151 mg/dL (65-115); Magnesium 1.9 mg/dL (1.7-2.3); Osmolality Calculated 291 mOsm/kg (285-295); Phosphorus 2.1 mg/dL (2.5-4.5); Potassium 3.9 mmol/L (3.5-5.1); Sodium 141 mmol/L (136-145); Total Bilirubin 0.3 mg/dL (0.15-1.2); Total Protein 5.5 g/dL (6.6-8.7)
--- NOTE | 2019-08-11 07:03 | XR_ITS ---
WS: [id number] ABDOMEN 2 VIEW(S) HISTORY: sbo COMPARISON: 08/10/[address] has been place with tip in the stomach. Proximal port is at the level of the diaphra gm. Continued small bowel dilatation with a few air-fluid levels in the RIGHT lower quadrant. Small bowel dilatation has very slightly improved. No free air is identified. There is a row prior surgical sutu res along the mid abdomen. Mild LEFT convex curvature lumbar spine. XR/XR abdomen min 2V [id number] IMPRESSION: Persistent high-grade small bowel obstruction but slightly improved. Recommend advancing nasogastric tube 10 cm.
[2019-08-11] MEDS: propranolol 20 mg Tablet 10 MG PO ×3 (08:57→21:21)
[2019-08-11] MEDS: ropinirole 1 mg Tablet PO (08:57)
[2019-08-11] MEDS: sertraline 50 mg Tablet 100 MG PO (08:58)
[2019-08-11] MEDS: primidone 50 mg Tablet PO (08:58)
[2019-08-11] MEDS: pantoprazole DR 40 mg Tablet PO (08:58)
[2019-08-11] MEDS: FUROsemide 40 mg Tablet 80 MG PO ×2 (08:58→17:43)
[2019-08-11] MEDS: isosorbide mononitrate ER 60 mg Tablet PO (08:58)
[2019-08-11] MEDS: montelukast sodium 10 mg Tablet PO (08:58)
[2019-08-11] MEDS: verapamil ER 180 mg Tablet 360 MG PO (09:02)
[2019-08-11] MEDS: pantoprazole 40 mg SDV IVP ×2 (09:40→21:20)
--- NOTE | 2019-08-11 09:42 | PC.CHAP ---
Pastoral Care Encounter/Spiritual Assessment Type of Contact [] Declined instructional technology director visit [] Patient/Family/Request visit [] Outpatient visit [] Follow-up visit [] Physician referral [] Code/Alert [x] Routine visit [] Staff referral [] Actively dying [] Patient sleeping [] Family support [] [] Out of room [] Palliative care [] [] Receiving care in room [] Pre-surgical visit [] Trauma [] Long length of stay [] ICU visit [] Other: Relational/Emotional Strength [] Patient feels connected with others/family/visitors/staff [] Distress [] Loneliness/isolation [] Abandonment Spirituality of Patient [] Person of Sanjuana [] Attends Restorationism of their Sanjuana [] Believes in Prayer [] Reads Bible or Yazidism materials [] There are Spiritual issues to be addressed Assistant Clinical Director Interventions [x] Prayer [] Active listening [] Non-anxious presence [] Spiritual/emotional support [] Crisis/trauma care [] Spiritual counseling [] Bereavement support [] Provided bereavement packet [] Provided Bible/devotional materials [] Provided toy/stuffed animal, coloring book to patient or family member [] Provided Communion [] Anointing/[place] [] Salvation [x] Completed spiritual assessment [] Other: Impact on Illness or Injury [] Angry [] Fearful [] Anxious [] Often cries [] Exhaustion [] Unable to work [] Unable to attend mormonism [] Unable to walk/stand [] Unable to read [] Unable to drive [] Unable to eat/drink [] Unable to sleep [] Unable to be with family [] Patient intubated [] Other: Summary Visited with Patient. She resting ok Time spent with patient 5 min
[2019-08-11] MEDS: enoxaparin 120 mg/0.8 mL Syringe 110 MG SUBCUT ×2 (09:47→20:44)
--- NOTE | 2019-08-11 10:45 | XRR_ITS ---
PROCEDURE INFORMATION: Exam: XR Chest, 1 View Exam date and time: 08/11/2019 12:06 PM Age: 69 years old Clinical indication: Shortness of breath; Prior surgery; Surgery type: Heart; Additional info: SOB TECHNIQUE: Imaging protocol: XR of the chest Views: 1 view. COMPARISON: No relevant prior studies available. FINDINGS: Tubes, catheters and devices: Nasogastric tube overlies the body of the stomach. Lungs: Mild airspace disease within the left lung base. Pleural space: Unremarkable. No pleural effusion. No pneumothorax. Heart/Mediastinum: Unremarkable. No cardiomegaly. Bones/joints: Unremarkable. XR/XR chest 1V portable [id number] IMPRESSION: Mild airspace disease within the left lung base. Small subpulmonic effusion.
[2019-08-11 11:50] LABS: Glucose Point of Care 125 mg/dL (70-110)
[2019-08-11] MEDS: ciprofloxacin 400 MG/200 ML PREMIX 200 MG IV ×2 (12:16→23:45)
[2019-08-11] MEDS: metroNIDAZOLE IV 500 MG/100 ML PREMIX 100 MG IV ×2 (13:44→20:44)
--- NOTE | 2019-08-11 14:27 | XR_ITS ---
WS: [id number] PORTABLE CHEST HISTORY: NG PLACEMENT COMPARISON: None available. Nasogastric tube is been placed with tip extending below the GE junction. Tip is within the fundus of the stomach. Nasogastric tube has been advanced since 08/11/2019 at 11:58 AM. Lung volumes are decreased. Slight elevation of the LEFT hemidiaphragm. No pleural effusion or pneumo thorax. Cardiac size: Mildly enlarged cardiac silhouette. Mediastinum/Aorta: Ectatic aorta. Diffuse osteopenia. XR/XR chest 1V portable [id number] IMPRESSION: Nasogastric tube has been advanced with tip in the stomach.
--- NOTE | 2019-08-11 15:08 | PM.PN ---
Subjective Subjective: Interval history: Patient continues to complain of abdominal pain, passing flatus, 250 cc through the NG tube. No BM Vitals/I&O/Wt Last Vital Signs Temp 99.4 F 08/11/19 12:00 Pulse 62 08/11/19 12:00 Resp 20 H 08/11/19 12:13 BP 119/70 08/11/19 12:00 Pulse Ox 96 08/11/19 12:13 08/11/19 08/11/19 08/11/19 06:59 14:59 22:59 Output Total 100 / 370 200 / 200 Balance -100 / 684.167 -200 / -200 Physical Exam Narrative: EXAM NARRATIVE: Abdomen: Soft, nondistended, tender right lower quadrant Data : 08/11/19 06:16 08/11/19 06:16 Micro: Microbiology 08/11/19 12:30 Blood Culture - Preliminary Blood SPECIMEN COLLECTED 08/11/19 12:27 Blood Culture - Preliminary Blood SPECIMEN COLLECTED A&P Assessment and plan (1) SBO (small bowel obstruction): 69-year-old female with multiple episodes of small bowel obstruction who continues to have right lower quadrant pain. NG output is minimal. There is more air noted in the colon though she still has dilated small bowel loops. I will clamp her NG tube, start clear liquid diet, give milk of molasses enema and 1 bottle of magnesium citrate to see if we can get her to open up Status: Acute Attestations Medical Necessity Statement*: Small bowel obstruction Coding Level of Care Code Acute Bus Operator for [facility] Diagnoses SBO (small bowel obstruction) K56.609
--- NOTE | 2019-08-11 16:34 | P.PN_ITS ---
Subjective Subjective: Interval history: Patient states that she continues to have abdominal pain this morning, continues to have abdominal distention, passing gas, has not had a bowel movement, has had T-max of 100.5, no nausea, no vomiting, has a headache, states that the pain medication does not last long enough, Vitals/I&O/Wt Last Vital Signs Temp 98.9 F 08/11/19 15:20 Pulse 60 08/11/19 15:20 Resp 18 08/11/19 15:20 BP 107/60 08/11/19 15:20 Pulse Ox 92 08/11/19 15:20 08/11/19 08/11/19 08/11/19 06:59 14:59 22:59 Output Total 100 / 370 200 / 200 Balance -100 / 684.167 -200 / -200 Physical Exam Const: COMMON NORMALS: no acute distress and patient oriented x3 HENMT: COMMON NORMALS: normocephalic HEAD & SCALP: normocephalic Neck/C-Spine: COMMON NORMALS: no JVD Resp: COMMON NORMALS: normal respiratory effort, No retractions, No use of accessory muscles and clear to auscultation bilaterally AUSCULTATION: clear to auscultation bilaterally Cardio: COMMON NORMALS: no JVD, regular rate, regular rhythm, S1 normal heart sound present and S2 normal heart sound present RATE: regular rate RHYTHM: regular rhythm HEART SOUNDS: S1 normal heart sound present and S2 normal heart sound present GI: COMMON NORMALS: Normal to inspection, nondistended, normoactive bowel sounds present, Soft to palpation, non-tender, No hepatosplenomegaly present, no masses and no bruits PALPATION: Yes Soft to palpation and Yes No hepatosplenomegaly present Extremity: COMMON NORMALS: capillary refill normal, no clubbing, cyanosis or edema, no calf tenderness and no pedal edema Neuro: COMMON NORMALS: patient oriented x3 Psych: COMMON NORMALS: mental status grossly normal Data : 08/11/19 06:16 08/11/19 06:16 Micro: Microbiology 08/11/19 12:30 Blood Culture - Preliminary Blood SPECIMEN COLLECTED 08/11/19 12:27 Blood Culture - Preliminary Blood SPECIMEN COLLECTED A&P Assessment and plan (1) SBO (small bowel obstruction): -History of multiple small bowel obstructions in the past, history of lysis of adhesions surgeries -Likely etiology of small bowel obstruction is multiple surgeries, abdominal -Does have a family history of colon cancer,, had a colonoscopy a few months ago which was unremarkable -CT scan shows high-grade distal small bowel obstruction Plan; -Very gentle IV hydration given diastolic heart failure and bilateral lower ext remity edema -NG tube placement -Pain control, nausea control -Keep n.p.o. -Given her her fevers, start Cipro and Flagyl -Surgery has been consulted by the ER, Dr. Díaz on consult Status: Acute (2) Atrial fibrillation: -INR 2.0, takes 10 to 12 mg of Coumadin daily -Start therapeutic Lovenox today, no plans for surgery at this time Status: Acute Qualifiers: Atrial fibrillation type: longstanding persistent Qualified Code(s): I48.11 - Longstanding persistent atrial fibrillation (3) Diabetes mellitus: -Uses Lantus 34 units at bedtime, hold as n.p.o. -Low-dose sliding scale Status: Acute (4) Hyperlipidemia: Status: Acute (5) GERD (gastroesophageal reflux disease): Status: Acute (6) History of Coumadin therapy: Status: Acute Attestations Medical Necessity Statement*: Patient requires continued hospitalization for small bowel obstruction Coding Level of Care Code Acute Medical Typist for [facility] Diagnoses SBO (small bowel obstruction) K56.609 Atrial fibrillation I48.11 Atrial fibrillation type: longstanding persistent Diabetes mellitus E11.9 Hyperlipidemia E78.5 GERD (gastroesophageal reflux disease) K21.9 History of Coumadin therapy Z92.29
[2019-08-11] MEDS: magnesium citrate Btl 296 mL 150 ML PO (17:43)
[2019-08-11 17:46] LABS: Glucose Point of Care 164 mg/dL (70-110)
[2019-08-11 22:41] LABS: Glucose Point of Care 132 mg/dL (70-110)
[2019-08-12] VITALS (10 sets, daily range): BP systolic 92–122; BP diastolic 53–79; PULSE 59–66; RESP 16–19; TEMP 36.8–37.1; O2SAT 92–97
[2019-08-12] MEDS: morphine 4 mg/mL SDV 1 mL IVP ×4 (00:23→11:52)
[2019-08-12] MEDS: ondansetron 2 mg/ML SDV 2 mL 4 MG IVP ×2 (02:35→08:46)
[2019-08-12] MEDS: metroNIDAZOLE IV 500 MG/100 ML PREMIX 100 MG IV ×3 (04:17→20:18)
--- NOTE | 2019-08-12 04:26 | PC.NURSE ---
pt stated that he tape and NG seemed to be slipping - while advancing the patient started to gag and through up, with charge nurse, we discovered the tubing was coiled in the back of her throat after shining a light to look. Due to the NG starting to come out of he mouth we pulled the NG tube. Pt refused to have it put back in unless she was sedated. Hospitalist notified. Patient currently comfortable and trying to rest.
[2019-08-12 05:45] LABS: Basophils % 0.4 %; Eosinophils # 0.1 10^3/uL (0.0-0.8); Eosinophils % 1.3 %; Hematocrit 40.3 % (37.0-47.0); Lymphocytes # 2.1 10^3/uL (0.8-4.8); Lymphocytes % 24.8 %; Mean Corpuscular HGB Conc 32.3 g/dL (30.0-36.0); Mean Corpuscular Hemoglobin 30.6 pg (28.0-34.0); Mean Corpuscular Volume 94.8 fL (81-99); Mean Platelet Volume 11.4 fL (7.4-10.4); Monocytes # 0.9 10^3/uL (0.2-0.9); Monocytes % 10.4 %; Neutrophils # 5.4 10^3/uL (1.8-7.7); Neutrophils % 62.9 %; Nucleated Red Blood Cells % 0 %; Platelet Count 252 10^3/cmm (130-400); Red Blood Count 4.25 10^6/uL (4.1-5.3); White Blood Count 8.5 10^3/uL (4.0-10.0)
--- NOTE | 2019-08-12 06:11 | XRR_ITS ---
PROCEDURE INFORMATION: Exam: XR Abdomen, 2 Views Exam date and time: 08/12/2019 6:17 AM Age: 69 years old Clinical indication: Other: Sbo; Prior surgery; Surgery date: 6+ months; Surgery type: Hystorectomy TECHNIQUE: Imaging protocol: XR of the abdomen. Views: 2 Views. COMPARISON: No relevant prior studies available. FINDINGS: Gastrointestinal tract: Small bowel dilatation and air-fluid levels, in a pattern suggesting small bowel obstruction. Intraperitoneal space: Left-sided surgical sutures. Vasculature: Subcentimeter pelvic calcifications, presumably vascular in etiology. Bones/joints: Osteopenia, degenerative change, and scoliosis. XR/XR abdomen min 2V [id number] IMPRESSION: Small bowel dilatation and air-fluid levels, in a pattern suggesting small bowel obstruction.
[2019-08-12 06:12] LABS: Alanine Aminotransferase 30 U/L (0-33); Albumin Level 3.9 g/dL (3.5-5.2); Alkaline Phosphatase 75 IU/L (35-105); Anion Gap 19.1 (5-19); Aspartate Amino Transferase 26 U/L (0-32); Blood Urea Nitrogen 8 mg/dL (8-23); Calcium 9.1 mg/dL (8.5-10.5); Carbon Dioxide 27 mmol/L (22-29); Chloride 100 mmol/L (98-107); Creatinine Clr Calc Pharmacy 80.3093; Globulin 2.3 g/dL (1.3-4.6); Glomerular Filtration Rate 98.8 mL/min (90-130); Glucose 154 mg/dL (65-115); Magnesium 2.5 mg/dL (1.7-2.3); Osmolality Calculated 295 mOsm/kg (285-295); Phosphorus 1.5 mg/dL (2.5-4.5); Potassium 3.1 mmol/L (3.5-5.1); Sodium 143 mmol/L (136-145); Total Bilirubin 0.3 mg/dL (0.15-1.2); Total Protein 6.2 g/dL (6.6-8.7)
[2019-08-12 06:55] LABS: Glucose Point of Care 127 mg/dL (70-110)
[2019-08-12] MEDS: FUROsemide 40 mg Tablet 80 MG PO ×2 (08:04→15:57)
[2019-08-12] MEDS: enoxaparin 120 mg/0.8 mL Syringe 110 MG SUBCUT ×2 (08:04→20:19)
[2019-08-12] MEDS: ropinirole 1 mg Tablet PO (08:04)
[2019-08-12] MEDS: sertraline 50 mg Tablet 100 MG PO (08:05)
[2019-08-12] MEDS: propranolol 20 mg Tablet 10 MG PO ×3 (08:05→20:19)
[2019-08-12] MEDS: isosorbide mononitrate ER 60 mg Tablet PO (08:06)
[2019-08-12] MEDS: primidone 50 mg Tablet PO (08:06)
[2019-08-12] MEDS: pantoprazole DR 40 mg Tablet PO (08:06)
[2019-08-12] MEDS: verapamil ER 180 mg Tablet 360 MG PO (08:06)
[2019-08-12] MEDS: montelukast sodium 10 mg Tablet PO (08:06)
[2019-08-12] MEDS: dextrose 5%-sod chloride 0.45% 1,000 ML 50 ML IV (08:08)
[2019-08-12] MEDS: pantoprazole 40 mg SDV IVP (08:46)
[2019-08-12 11:17] LABS: Glucose Point of Care 157 mg/dL (70-110)
--- NOTE | 2019-08-12 11:30 | PM.PN ---
Subjective Subjective: Interval history: Patient had couple of bowel movements today, no nausea or vomiting, still has some abdominal pain but feeling better. She pulled out her NG tube today by mistake and does not want it back Vitals/I&O/Wt Last Vital Signs Temp 98.2 F 08/12/19 11:28 Pulse 59 L 08/12/19 11:28 Resp 18 08/12/19 11:28 BP 105/69 08/12/19 11:28 Pulse Ox 96 08/12/19 11:28 08/11/19 08/12/19 08/12/19 22:59 06:59 14:59 Intake Total 100 / 1545.833 200 / 0081.823 5751 / 1000 Output Total 1200 / 1400 Balance 100 / 145.833 -1000 / 834.890 5841 / 1000 Physical Exam Narrative: EXAM NARRATIVE: Abdomen: Soft, tender right lower quadrant, no, less distended today Data : 08/12/19 05:05 08/12/19 05:05 Micro: Microbiology 08/11/19 12:30 Blood Culture - Preliminary Blood SPECIMEN COLLECTED 08/11/19 12:27 Blood Culture - Preliminary Blood SPECIMEN COLLECTED A&P Assessment and plan (1) SBO (small bowel obstruction): 69-year-old female with multiple episodes of small bowel obstruction who continues to have right lower quadrant pain., She tolerated the clamping of NG tube well and now she is having bowel movements continue clear liquid diet, give milk of molasses enema and 1 bottle of magnesium citrate to see if we can get her to open up Status: Acute Attestations Medical Necessity Statement*: Small bowel obstruction requiring continued inpatient stay Coding Level of Care Code Acute [place] Strip Inspector for [facility] Diagnoses SBO (small bowel obstruction) K56.609
[2019-08-12] MEDS: magnesium citrate Btl 296 mL PO (11:53)
[2019-08-12] MEDS: ciprofloxacin 400 MG/200 ML PREMIX 200 MG IV ×3 (11:53→22:08)
--- NOTE | 2019-08-12 11:53 | PC.SOCIAL ---
IMM Update Pg. 2 of IMM given and explained to patient, who verbalized understanding. Initialed, dated, and timed and placed in chart.
--- NOTE | 2019-08-12 13:39 | P.PN_ITS ---
Subjective Subjective: Interval history: This morning patient is feeling a bit better, had 2 bowel movements, feels a bit nauseous, passing gas, abdomen is still distended, bowel sounds have improved, feels better after the enema, remains afebrile Vitals/I&O/Wt Last Vital Signs Temp 98.2 F 08/12/19 11:28 Pulse 59 L 08/12/19 11:28 Resp 18 08/12/19 11:52 BP 105/69 08/12/19 11:28 Pulse Ox 97 08/12/19 11:52 08/11/19 08/12/19 08/12/19 22:59 06:59 14:59 Intake Total 100 / 1345.833 500 / 0172.466 0130 / 1000 Output Total 1200 / 1400 Balance 100 / 1145.833 -700 / 983.209 3139 / 1000 Physical Exam Const: COMMON NORMALS: no acute distress and patient oriented x3 HENMT: COMMON NORMALS: normocephalic HEAD & SCALP: normocephalic Neck/C-Spine: COMMON NORMALS: no JVD Resp: COMMON NORMALS: normal respiratory effort, No retractions, No use of accessory muscles and clear to auscultation bilaterally AUSCULTATION: clear to auscultation bilaterally Cardio: COMMON NORMALS: no JVD, regular rate, regular rhythm, S1 normal heart sound present and S2 normal heart sound present RATE: regular rate RHYTHM: regular rhythm HEART SOUNDS: S1 normal heart sound present and S2 normal heart sound present GI: COMMON NORMALS: Soft to palpation, non-tender, No hepatosplenomegaly present, no masses and no bruits INSPECTION: Yes abdominal distension AUSCULTATION: Yes normoactive bowel sounds PALPATION: Yes Soft to palpation, Yes Tenderness to palpation present (GI), No Guarding due to palpation present (GI), No Rigid due to palpation, Yes No hepatosplenomegaly present and No Ping ound tenderness present PERCUSSION: tympanic to percussion OTHER: Abdomen distended Extremity: COMMON NORMALS: capillary refill normal, no clubbing, cyanosis or edema, no calf tenderness and no pedal edema Neuro: COMMON NORMALS: patient oriented x3 Psych: COMMON NORMALS: mental status grossly normal Data : 08/12/19 05:05 08/12/19 05:05 Micro: Microbiology 08/11/19 12:30 Blood Culture - Preliminary Blood NEGATIVE TO DATE 08/11/19 12:27 Blood Culture - Preliminary Blood NEGATIVE TO DATE A&P Assessment and plan (1) SBO (small bowel obstruction): -History of multiple small bowel obstructions in the past, history of lysis of adhesions surgeries -Likely etiology of small bowel obstruction is multiple surgeries, abdominal -Does have a family history of colon cancer,, had a colonoscopy a few months ago which was unremarkable -CT scan shows high-grade distal small bowel obstruction, repeat KUB shows small bowel dilatation with air-fluid levels, in a pattern suggesting small bowel obstruction -Has had 2 bowel movements, responded to enema, feeling better, afebrile Plan; -Replace potassium phosphate today -Very gentle IV hydration given diastolic heart failure and bilateral lower extremity edema -NG tube placement -Pain control, nausea control -Transition to clear liquids -Continue Cipro Flagyl for the next 24 hours -Surgery has been consulted by the ER, Dr. Díaz on consult Status: Acute (2) Atrial fibrillation: -INR 2.0, takes 10 to 12 mg of Coumadin daily -Continue therapeutic Lovenox today, no plans for surgery at this time Status: Acute Qualifiers: Atrial fibrillation type: longstanding persistent Qualified Code(s): I4 8.11 - Longstanding persistent atrial fibrillation (3) Diabetes mellitus: -Uses Lantus 34 units at bedtime, hold as n.p.o. -Low-dose sliding scale Status: Acute (4) Hyperlipidemia: Status: Acute (5) GERD (gastroesophageal reflux disease): Status: Acute (6) History of Coumadin therapy: Status: Acute Attestations Medical Necessity Statement*: Patient requires continued hospitalization due to small bowel obstruction Coding Level of Care Code Acute Pharmacy Associate for [facility] Diagnoses SBO (small bowel obstruction) K56.609 Atrial fibrillation I48.11 Atrial fibrillation type: longstanding persistent Diabetes mellitus E11.9 Hyperlipidemia E78.5 GERD (gastroesophageal reflux disease) K21.9 History of Coumadin therapy Z92.29
[2019-08-12 14:29] LABS: Add Urine Microscopic? NO
[2019-08-12 14:40] LABS: Urine Appearance Clear (CLEAR); Urine Color Straw (Yellow); pH Urine 7 (5-7)
[2019-08-12 14:42] LABS: Bilirubin Urine Neg (NEGATIVE); Blood Urine Neg (Negative); Glucose Urine UA Norm (Normal); Ketones Urine Negative (Negative); Leukocyte Esterase Urine Negative (Negative); Nitrate Urine Negative (Negative); Protein Urine Neg (Negative); Urobilinogen Urine Norm (Negative)
[2019-08-12 16:55] LABS: Glucose Point of Care 158 mg/dL (70-110)
[2019-08-12] MEDS: lactulose oral liq 20 gm/30 mL UDC 10 GM PO (18:31)
[2019-08-12] MEDS: zolpidem 5 mg Tablet PO (20:23)
[2019-08-12 21:32] LABS: Glucose Point of Care 159 mg/dL (70-110)
[2019-08-13] VITALS (11 sets, daily range): BP systolic 100–142; BP diastolic 51–76; PULSE 56–62; RESP 16–24; TEMP 36.9–37.2; O2SAT 90–97
[2019-08-13] MEDS: metroNIDAZOLE IV 500 MG/100 ML PREMIX 100 MG IV ×2 (04:27→17:32)
[2019-08-13] MEDS: morphine 4 mg/mL SDV 1 mL IVP ×5 (05:34→22:35)
[2019-08-13] MEDS: ondansetron 2 mg/ML SDV 2 mL 4 MG IVP ×3 (05:34→22:38)
[2019-08-13] MEDS: lactulose oral liq 20 gm/30 mL UDC 10 GM PO ×2 (05:47→17:43)
[2019-08-13 06:10] LABS: Basophils % 0.3 %; Eosinophils # 0.3 10^3/uL (0.0-0.8); Eosinophils % 4.3 %; Hematocrit 39.9 % (37.0-47.0); Hemoglobin 12.8 g/dL (11.5-15.3); Lymphocytes # 1.9 10^3/uL (0.8-4.8); Lymphocytes % 29.4 %; Mean Corpuscular HGB Conc 32.1 g/dL (30.0-36.0); Mean Corpuscular Hemoglobin 30.5 pg (28.0-34.0); Mean Corpuscular Volume 95.2 fL (81-99); Mean Platelet Volume 11.4 fL (7.4-10.4); Monocytes # 0.5 10^3/uL (0.2-0.9); Monocytes % 7.8 %; Neutrophils # 3.8 10^3/uL (1.8-7.7); Neutrophils % 57.7 %; Nucleated Red Blood Cells % 0 %; Platelet Count 221 10^3/cmm (130-400); Red Blood Count 4.19 10^6/uL (4.1-5.3); White Blood Count 6.5 10^3/uL (4.0-10.0)
[2019-08-13 06:13] LABS: Glucose Point of Care 108 mg/dL (70-110)
[2019-08-13 06:38] LABS: Alanine Aminotransferase 29 U/L (0-33); Albumin Level 3.6 g/dL (3.5-5.2); Alkaline Phosphatase 67 IU/L (35-105); Anion Gap 14.8 (5-19); Aspartate Amino Transferase 27 U/L (0-32); Blood Urea Nitrogen 6 mg/dL (8-23); Calcium 9.4 mg/dL (8.5-10.5); Carbon Dioxide 29 mmol/L (22-29); Chloride 103 mmol/L (98-107); Creatinine Clr Calc Pharmacy 80.3093; Globulin 2.8 g/dL (1.3-4.6); Glucose 141 mg/dL (65-115); Magnesium 2.3 mg/dL (1.7-2.3); Osmolality Calculated 296 mOsm/kg (285-295); Phosphorus 1.7 mg/dL (2.5-4.5); Sodium 144 mmol/L (136-145); Total Bilirubin 0.2 mg/dL (0.15-1.2); Total Protein 6.4 g/dL (6.6-8.7)
[2019-08-13 06:46] LABS: Potassium 2.8 mmol/L (3.5-5.1)
--- NOTE | 2019-08-13 07:55 | CTR_ITS ---
PROCEDURE INFORMATION: Exam: CT Abdomen And Pelvis With Contrast Exam date and time: 08/13/2019 3:49 PM Age: 69 years old Clinical indication: Abdominal pain; Localized; Right lower quadrant (rlq); Prior surgery; Surgery date: 6+ months; Surgery type: Hyst, colon; Patient HX: Rlq pain w sbo; Additional info: Sbo with rlq pain TECHNIQUE: Imaging protocol: Computed tomography of the abdomen and pelvis with intravenous contrast. Radiation optimization: All CT scans at this facility use at least one of these dose optimization techniques: automated exposure control; mA and/or kV adjustment per patient size (includes targeted exams where dose is matched to clinical indication); or iterative reconstruction. Contrast material: OMNI 300; Contrast volume: 95 ml; Contrast route: 20G; Other contrast: Oral, dilute Omni 300, 450ml; COMPARISON: CR XR abdomen min 2V [id number] 08/12/2019 9:44 AM RADIATION DOSE METRICS: Total DLP: 2006.06 mGy-cm FINDINGS: Liver: 10 mm low density at the posterior aspect of the right hepatic lobe has benign features. No follow-up is necessary. Gallbladder and bile ducts: Normal. No calcified stones. No ductal dilation. Pancreas: Moderate fatty atrophy of the pancreas. Spleen: Normal. No splenomegaly. Adrenals: Normal. No mass. Kidneys and ureters: There are subcentimeter bilateral renal cysts with benign features. No follow-up is necessary. Stomach and bowel: There is diverticulosis of the colon without evidence of diverticulitis. There is fluid in multiple nondilated small bowel loops. Mildly dilated small bowel loops are present in the left upper quadrant, consistent with residual partial mid small bowel obstruction. This to be less prominent when compared to the prior abdominal radiographs from 08/12/2019. Appendix: No evidence of appendicitis. Intraperitoneal space: Unremarkable. No free air. No significant fluid collection. Vasculature: Unremarkable. No abdominal aortic aneurysm. Lymph nodes: Unremarkable. No enlarged lymph nodes. Bladder: Unremarkable as visualized. Reproductive: The uterus is not visualized, consistent with hysterectomy. Bones/joints: Unremarkable. No acute fracture. Soft tissues: There are postoperative changes in the ventral abdominal wall. There is hematoma and emphysema in the subcutaneous soft tissues of the right lower quadrant ventral abdomen consistent with a recent injection sites. Multiple left prominent injection sites are present in the ventral abdominal subcutaneous soft tissues. CT/CT abdomen pelvis w con* [id number] IMPRESSION: Findings as stated above are consistent with partial mid small bowel obstruction which is less prominent when compared to the prior abdominal radiographs. Radiation Dose CTDIVOL = (mGy): DLP = 2006.06 (mGy-cm)
--- NOTE | 2019-08-13 07:56 | P.PN_ITS ---
Subjective Subjective: Interval history: Patient appears to have worsening abdominal pain today, had bowel movements yesterday. Denies any nausea or vomiting Vitals/I&O/Wt Last Vital Signs Temp 98.5 F 08/13/19 07:50 Pulse 62 08/13/19 07:50 Resp 18 08/13/19 07:50 BP 131/66 08/13/19 07:50 Pulse Ox 93 08/13/19 07:50 08/12/19 08/13/19 08/13/19 22:59 06:59 14:59 Intake Total 1443.334 / 3583.334 600 / 3583.334 Output Total 2650 / 2650 Balance -1206.666 / 933.334 600 / 933.334 Physical Exam Narrative: EXAM NARRATIVE: Abdomen: Soft, nondistended, tender Data : 08/14/19 03:35 08/14/19 03:35 Micro: Microbiology 08/11/19 12:30 Blood Culture - Preliminary Blood NEGATIVE TO DATE 08/11/19 12:27 Blood Culture - Preliminary Blood NEGATIVE TO DATE A&P Assessment and plan (1) SBO (small bowel obstruction): 69-year-old female with multiple episodes of small bowel obstruction who continues to have right lower quadrant pain., Today she complains of worsening right lower quadrant pain, passing flatus. Will obtain CT abdomen pelvis with p.o. and IV contrast Status: Acute Attestations Medical Necessity Statement*: Small bowel obstruction requiring continued inpatient stay Coding Level of Care Code Acute Loop Machine Operator for [facility] Diagnoses SBO (small bowel obstruction) K56.609
[2019-08-13] MEDS: montelukast sodium 10 mg Tablet PO (09:14)
[2019-08-13] MEDS: verapamil ER 180 mg Tablet 360 MG PO (09:14)
[2019-08-13] MEDS: primidone 50 mg Tablet PO (09:14)
[2019-08-13] MEDS: ropinirole 1 mg Tablet PO (09:14)
[2019-08-13] MEDS: sertraline 50 mg Tablet 100 MG PO (09:14)
[2019-08-13] MEDS: isosorbide mononitrate ER 60 mg Tablet PO (09:14)
[2019-08-13] MEDS: propranolol 20 mg Tablet 10 MG PO ×3 (09:15→22:48)
[2019-08-13] MEDS: FUROsemide 40 mg Tablet 80 MG PO ×2 (09:15→17:40)
[2019-08-13] MEDS: pantoprazole DR 40 mg Tablet PO (09:15)
[2019-08-13] MEDS: enoxaparin 120 mg/0.8 mL Syringe 110 MG SUBCUT ×2 (09:15→22:50)
[2019-08-13] MEDS: lidocaine 1% INJ 20 mL 5 ML IV (10:22)
[2019-08-13 11:22] LABS: Glucose Point of Care 185 mg/dL (70-110)
[2019-08-13] MEDS: ciprofloxacin 400 MG/200 ML PREMIX 200 MG IV ×2 (11:53→23:00)
--- NOTE | 2019-08-13 12:50 | PM.PN ---
Subjective Subjective: Interval history: Patient was afebrile overnight, but has not had a bowel movement in the last 24 hours, did not really respond to that enemas, abdomen is a bit more distended today, abdominal pain persistence has slightly worsened, she is not feeling well this morning Vitals/I&O/Wt Last Vital Signs Temp 98.7 F 08/13/19 11:51 Pulse 59 L 08/13/19 11:51 Resp 17 08/13/19 11:51 BP 117/68 08/13/19 11:51 Pulse Ox 92 08/13/19 11:51 08/12/19 08/13/19 08/13/19 22:59 06:59 14:59 Intake Total 1443.334 / 2983.334 600 / 3583.334 Output Total 2650 / 2650 Balance -1206.666 / 333.334 600 / 933.334 Physical Exam Const: COMMON NORMALS: no acute distress and patient oriented x3 Neck/C-Spine: COMMON NORMALS: no JVD Resp: COMMON NORMALS: normal respiratory effort, No retractions, No use of accessory muscles and clear to auscultation bilaterally AUSCULTATION: clear to auscultation bilaterally Cardio: COMMON NORMALS: no JVD, regular rate, regular rhythm, S1 normal heart sound present and S2 normal heart sound present RATE: regular rate RHYTHM: regular rhythm HEART SOUNDS: S1 normal heart sound present and S2 normal heart sound present GI: COMMON NORMALS: Soft to palpation, No hepatosplenomegaly present, no masses and no bruits INSPECTION: Yes abdominal distension AUSCULTATION: Yes normoactive bowel sounds PALPATION: Yes Soft to palpation, Yes Tenderness to palpation present (GI), No Guarding due to palpation present (GI), No Rigid due to palpation, Yes No hepatosplenomegaly present and No Rebound tenderness present PERCUSSION: tympanic to percussion OTHER: Abdomen distended Extremity: COMMON NORMALS: capillary refill normal, no clubbing, cyanosis or edema, no calf tenderness and no pedal edema Neuro: COMMON NORMALS: patient oriented x3 Psych: COMMON NORMALS: mental status grossly normal Data : 08/13/19 05:33 08/13/19 05:33 Micro: Microbiology 08/11/19 12:30 Blood Culture - Preliminary Blood NEGATIVE TO DATE 08/11/19 12:27 Blood Culture - Preliminary Blood NEGATIVE TO DATE A&P Assessment and plan (1) SBO (small bowel obstruction): -History of multiple small bowel obstructions in the past, history of lysis of adhesions surgeries -Likely etiology of small bowel obstruction is multiple surgeries, abdominal -Does have a family history of colon cancer,, had a colonoscopy a few months ago which was unremarkable -CT scan shows high-grade distal small bowel obstruction, repeat KUB shows small bowel dilatation with air-fluid levels, in a pattern suggesting small bowel obstruction -Has had 2 bowel movements after 2 enemas yesterday morning, is feeling better, but has slid backwards -Worsening abdominal pain this morning, abdominal distention, no bowel movements in the last 24 hours Plan; -Replace potassium phosphate today -Very gentle IV hydration given diastolic heart failure and bilateral lower extremity edema -Pain control, nausea control -Keep n.p.o. -Continue Cipro and Flagyl, but afebrile for the last 24 hours -Repeat CT scan today -Surgery has been consulted by the ER, Dr. Díaz on consult Status: Acute (2) Atrial fibrillation: -INR 2.0, takes 10 to 12 mg of Coumadin daily -Continue therapeutic Lovenox today, hold evening dose of Lovenox if there is plans for surgery Status: Acute Qualifiers: Atrial fibrillation type: longstanding persistent Qualified Code(s): I48.11 - Longstanding persistent atrial fibrillation (3) Diabetes mellitus: -Uses Lantus 34 units at bedtime, hold as n.p.o. -Low-dose sliding scale Status: Acute (4) Hyperlipidemia: Status: Acute (5) GERD (gastroesophageal reflux disease): Status: Acute (6) History of Coumadin therapy: Status: Acute Attestations Medical Necessity Statement*: Patient requires continued hospitalization due to small bowel obstruction Coding Level of Care Code Acute Social Studies Department Chair for [facility] Diagnoses SBO (small bowel obstruction) K56.609 Atrial fibrillation I48.11 Atrial fibrillation type: longstanding persistent Diabetes mellitus E11.9 Hyperlipidemia E78.5 GERD (gastroesophageal reflux disease) K21.9 History of Coumadin therapy Z92.29
[2019-08-13 16:49] LABS: Glucose Point of Care 127 mg/dL (70-110)
[2019-08-13] MEDS: iohexol 300 mg/mL 100 mL Btl IV (20:20)
[2019-08-13 21:34] LABS: Glucose Point of Care 151 mg/dL (70-110)
[2019-08-13] MEDS: zolpidem 5 mg Tablet PO (22:50)
[2019-08-14] VITALS (10 sets, daily range): BP systolic 105–132; BP diastolic 61–73; PULSE 51–62; RESP 16–20; TEMP 36.6–37; O2SAT 92–95
[2019-08-14] MEDS: metroNIDAZOLE IV 500 MG/100 ML PREMIX 100 MG IV ×3 (00:17→17:39)
[2019-08-14 04:24] LABS: Basophils % 0.5 %; Eosinophils # 0.3 10^3/uL (0.0-0.8); Eosinophils % 3.3 %; Hematocrit 38.6 % (37.0-47.0); Hemoglobin 12.1 g/dL (11.5-15.3); Lymphocytes # 2.8 10^3/uL (0.8-4.8); Lymphocytes % 35.8 %; Mean Corpuscular HGB Conc 31.3 g/dL (30.0-36.0); Mean Corpuscular Hemoglobin 29.6 pg (28.0-34.0); Mean Corpuscular Volume 94.4 fL (81-99); Mean Platelet Volume 11.4 fL (7.4-10.4); Monocytes # 0.7 10^3/uL (0.2-0.9); Monocytes % 8.6 %; Neutrophils % 51.4 %; Nucleated Red Blood Cells % 0 %; Platelet Count 229 10^3/cmm (130-400); Red Blood Count 4.09 10^6/uL (4.1-5.3); White Blood Count 7.8 10^3/uL (4.0-10.0)
[2019-08-14 04:43] LABS: Alanine Aminotransferase 28 U/L (0-33); Albumin Level 3.5 g/dL (3.5-5.2); Alkaline Phosphatase 68 IU/L (35-105); Aspartate Amino Transferase 31 U/L (0-32); Blood Urea Nitrogen 5 mg/dL (8-23); Calcium 8.9 mg/dL (8.5-10.5); Carbon Dioxide 28 mmol/L (22-29); Chloride 104 mmol/L (98-107); Creatinine Clr Calc Pharmacy 80.3093; Globulin 1.9 g/dL (1.3-4.6); Glomerular Filtration Rate 98.8 mL/min (90-130); Glucose 136 mg/dL (65-115); Magnesium 1.9 mg/dL (1.7-2.3); Osmolality Calculated 294 mOsm/kg (285-295); Sodium 143 mmol/L (136-145); Total Bilirubin 0.2 mg/dL (0.15-1.2); Total Protein 5.4 g/dL (6.6-8.7)
[2019-08-14 06:54] LABS: Glucose Point of Care 135 mg/dL (70-110)
[2019-08-14] MEDS: FUROsemide 40 mg Tablet 80 MG PO ×2 (08:34→17:38)
[2019-08-14] MEDS: isosorbide mononitrate ER 60 mg Tablet PO (08:34)
[2019-08-14] MEDS: lactulose oral liq 20 gm/30 mL UDC 10 GM PO ×2 (08:36→21:09)
[2019-08-14] MEDS: pantoprazole DR 40 mg Tablet PO (08:37)
[2019-08-14] MEDS: montelukast sodium 10 mg Tablet PO (08:37)
[2019-08-14] MEDS: propranolol 20 mg Tablet 10 MG PO ×3 (08:37→21:09)
[2019-08-14] MEDS: sertraline 50 mg Tablet 100 MG PO (08:38)
[2019-08-14] MEDS: ropinirole 1 mg Tablet PO (08:38)
[2019-08-14] MEDS: verapamil ER 180 mg Tablet 360 MG PO (08:45)
[2019-08-14] MEDS: morphine 4 mg/mL SDV 1 mL IVP ×4 (08:49→20:57)
[2019-08-14] MEDS: ondansetron 2 mg/ML SDV 2 mL 4 MG IVP (08:49)
[2019-08-14] MEDS: ciprofloxacin 400 MG/200 ML PREMIX 200 MG IV ×2 (10:00→23:10)
[2019-08-14 12:06] LABS: Glucose Point of Care 225 mg/dL (70-110)
--- NOTE | 2019-08-14 12:08 | PC.SOCIAL ---
IMM Updated Pg 2 of IMM given and explained to patient who verbalized understanding. Initialed, dated, and timed, and placed in chart. Copy provided.
--- NOTE | 2019-08-14 13:58 | PM.PN ---
Subjective Subjective: Interval history: She had a CT abdomen pelvis yesterday which showed improvement in her small bowel obstruction with contrast in the colon. No nausea or vomiting. No history of abdominal pain, had couple of bowel movements Vitals/I&O/Wt Last Vital Signs Temp 97.9 F 08/14/19 11:43 Pulse 62 08/14/19 11:43 Resp 19 H 08/14/19 11:43 BP 112/62 08/14/19 11:43 Pulse Ox 92 08/14/19 11:43 08/13/19 08/14/19 08/14/19 22:59 06:59 14:59 Intake Total 100 / 709.0909 300 / 709.0909 860 / 860 Output Total 0 / 0 400 / 400 Balance 100 / 709.0909 300 / 709.0909 460 / 460 Physical Exam Narrative: EXAM NARRATIVE: Abdomen: Soft, tender right lower quadrant, no guarding or rigidity Data : 08/14/19 03:35 08/14/19 03:35 A&P Assessment and plan (1) SBO (small bowel obstruction): 69-year-old female with multiple episodes of small bowel obstruction who continues to have right lower quadrant pain. CT abdomen pelvis revealed improvement in her bowel obstruction with contrast in the colon. Discussed the findings with the patient and she thinks that she might be ready to go home tomorrow. Patient states that she usually has a few days of abdominal pain after hospitalization and this is kind of normal for her. Status: Acute Attestations Medical Necessity Statement*: Small bowel obstruction, improved Coding Level of Care Code Acute Workforce Consultant for [facility] Diagnoses SBO (small bowel obstruction) K56.609
[2019-08-14 16:31] LABS: Glucose Point of Care 154 mg/dL (70-110)
--- NOTE | 2019-08-14 17:34 | PM.PN ---
Subjective Subjective: Interval history: Continues to have ongoing pain, particularly R side of abdomen. S/p repeat CT abdomen pelvis yesterday which showed improvement in her small bowel obstruction with contrast in the colon. No nausea or vomiting. Able to pass flatus, no BM. Was able to walk 4 laps in the hallway today without issues Medications: Reviewed: Yes Vitals/I&O/Wt Last Vital Signs Temp 98.4 F 08/14/19 15:48 Pulse 55 L 08/14/19 15:48 Resp 16 08/14/19 15:48 BP 105/61 08/14/19 15:48 Pulse Ox 92 08/14/19 15:48 08/14/19 08/14/19 08/14/19 06:59 14:59 22:59 Intake Total 300 / 709.0909 860 / 860 Output Total 400 / 400 Balance 300 / 709.0909 460 / 460 Physical Exam Narrative: EXAM NARRATIVE: GEN: Awake, alert and oriented, no acute distress CVS: S1S2 N RS: CTA B/L Abd: Soft, non distended, TTP R periumbilical area without guarding or rigidity HEALTH SCIENCES PROGRAM COORDINATOR: no focal neuro deficits Data : 08/14/19 03:35 08/14/19 03:35 A&P Assessment and plan (1) SBO (small bowel obstruction): -History of multiple small bowel obstructions in the past, history of lysis of adhesions surgeries -Likely etiology of small bowel obstruction is multiple surgeries, abdominal -Very gentle IV hydration given diastolic heart failure and bilateral lower extremity edema -Pain control, nausea control -Currently tolerating full liquid diet, continue same for now -Repeat CT scan with improving SBO, passage of contrast -Appreciate gen/surg recommendations-no current acute surgical intervention planned Status: Acute (2) Atrial fibrillation: -INR 2.0, takes 10 to 12 mg of Coumadin daily -Continue therapeutic Lovenox today for now, INR with am labs Status: Acute Qualifiers: Atrial fibrillation type: longstanding persistent Qualified Code(s): I48.11 - Longstanding persistent atrial fibrillation (3) Diabetes mellitus: -Currently on insulin sliding scale Status: Acute (4) Hyperlipidemia: Status: Acute (5) GERD (gastroesophageal reflux disease): Status: Acute (6) History of Coumadin therapy: Status: Acute Attestations Medical Necessity Statement*: awaiting improvement in bowel function Coding Level of Care Code 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
[2019-08-14] MEDS: enoxaparin 120 mg/0.8 mL Syringe 110 MG SUBCUT (21:05)
[2019-08-14] MEDS: zolpidem 5 mg Tablet PO (21:05)
[2019-08-14 21:44] LABS: Glucose Point of Care 167 mg/dL (70-110)
[2019-08-15] VITALS (8 sets, daily range): BP systolic 99–137; BP diastolic 62–76; PULSE 54–76; RESP 16–24; TEMP 36.7–37.2; O2SAT 93–98
[2019-08-15] MEDS: morphine 4 mg/mL SDV 1 mL IVP ×2 (00:24→08:25)
[2019-08-15] MEDS: metroNIDAZOLE IV 500 MG/100 ML PREMIX 100 MG IV ×2 (01:25→08:36)
[2019-08-15 05:26] LABS: Basophils % 0.5 %; Eosinophils # 0.3 10^3/uL (0.0-0.8); Eosinophils % 3.2 %; Hematocrit 40.8 % (37.0-47.0); Lymphocytes # 2.4 10^3/uL (0.8-4.8); Lymphocytes % 28.5 %; Mean Corpuscular HGB Conc 31.9 g/dL (30.0-36.0); Mean Corpuscular Hemoglobin 29.9 pg (28.0-34.0); Mean Corpuscular Volume 93.8 fL (81-99); Mean Platelet Volume 11.4 fL (7.4-10.4); Monocytes # 0.6 10^3/uL (0.2-0.9); Monocytes % 7.5 %; Neutrophils # 5.1 10^3/uL (1.8-7.7); Neutrophils % 59.6 %; Nucleated Red Blood Cells % 0 %; Platelet Count 227 10^3/cmm (130-400); Red Blood Count 4.35 10^6/uL (4.1-5.3); Red Cell Distribution Width 12.9 % (12.1-15.1); White Blood Count 8.6 10^3/uL (4.0-10.0)
[2019-08-15 06:06] LABS: Alanine Aminotransferase 48 U/L (0-33); Albumin Level 3.4 g/dL (3.5-5.2); Alkaline Phosphatase 70 IU/L (35-105); Aspartate Amino Transferase 50 U/L (0-32); Blood Urea Nitrogen 4 mg/dL (8-23); Calcium 8.9 mg/dL (8.5-10.5); Carbon Dioxide 27 mmol/L (22-29); Creatinine Clr Calc Pharmacy 80.3093; Globulin 2.5 g/dL (1.3-4.6); Glomerular Filtration Rate 98.8 mL/min (90-130); Glucose 176 mg/dL (65-115); Magnesium 1.7 mg/dL (1.7-2.3); Phosphorus 3.4 mg/dL (2.5-4.5); Total Bilirubin 0.2 mg/dL (0.15-1.2); Total Protein 5.9 g/dL (6.6-8.7)
[2019-08-15 06:26] LABS: Anion Gap 16.6 (5-19); Chloride 101 mmol/L (98-107); Osmolality Calculated 294 mOsm/kg (285-295); Sodium 142 mmol/L (136-145)
[2019-08-15 06:32] LABS: Potassium 2.6 mmol/L (3.5-5.1)
--- NOTE | 2019-08-15 06:49 | PC.NURSE ---
SHIFT SUMMARY Rested well. Received IV Morphine X2 for abd pain c/o. No c/o nausea this shift. Is hoping to go home today. Critical BUN 83 and K+ 2.6 this am reported to
[2019-08-15 07:09] LABS: Glucose Point of Care 174 mg/dL (70-110)
[2019-08-15] MEDS: potassium chloride ER 10 mEq Tablet 40 MEQ PO (07:14)
[2019-08-15] MEDS: enoxaparin 120 mg/0.8 mL Syringe 110 MG SUBCUT ×2 (08:27→20:26)
[2019-08-15] MEDS: montelukast sodium 10 mg Tablet PO (08:29)
[2019-08-15] MEDS: verapamil ER 180 mg Tablet 360 MG PO (08:29)
[2019-08-15] MEDS: sertraline 50 mg Tablet 100 MG PO (08:30)
[2019-08-15] MEDS: propranolol 20 mg Tablet 10 MG PO ×3 (08:30→20:24)
[2019-08-15] MEDS: ropinirole 1 mg Tablet PO (08:30)
[2019-08-15] MEDS: isosorbide mononitrate ER 60 mg Tablet PO (08:30)
[2019-08-15] MEDS: FUROsemide 40 mg Tablet 80 MG PO ×2 (08:31→17:22)
[2019-08-15] MEDS: lactulose oral liq 20 gm/30 mL UDC 10 GM PO ×2 (08:31→20:25)
[2019-08-15] MEDS: pantoprazole DR 40 mg Tablet PO (08:31)
[2019-08-15] MEDS: ciprofloxacin 400 MG/200 ML PREMIX 200 MG IV (10:10)
[2019-08-15 11:45] LABS: Glucose Point of Care 203 mg/dL (70-110)
--- NOTE | 2019-08-15 12:16 | P.PN_ITS ---
Subjective Subjective: Interval history: Feels better today. States appetite is improving. would like to advance diet today beyond full liquid. Potassium this mornign at 2.6, supplemented, recheck this afternoon. No vomiting. Nausea persisting but better. had 2 BM which were semi soft, no tenesmus or pain. No bleeding with stools. RLQ pain persisting, unchanged, however states this feels similar to previous episodes. Medications: Reviewed: Yes Vitals/I&O/Wt Last Vital Signs Temp 98.5 F 08/15/19 11:36 Pulse 61 08/15/19 11:36 Resp 18 08/15/19 11:36 BP 99/62 08/15/19 11:36 Pulse Ox 95 08/15/19 11:36 08/14/19 08/15/19 08/15/19 22:59 06:59 14:59 Intake Total 820 / 1980 600 / 2580 480 / 480 Output Total 800 / 1200 Balance 20 / 780 600 / 1380 480 / 480 Physical Exam Narrative: EXAM NARRATIVE: GEN: Awake, alert and oriented, no acute distress, clinically euvolemic CVS: S1S2 N RS: CTA B/L Abd: Soft, non distended, mild TTP RLQ, no focal guarding or tenderness REHABILITATOR: no focal neuro deficits Data : 08/15/19 04:35 08/15/19 04:35 A&P Assessment and plan (1) SBO (small bowel obstruction): -History of multiple small bowel obstructions in the past, history of lysis of adhesions surgeries -Likely etiology of small bowel obstruction is multiple surgeries, abdominal -Discontinued iv hydration, tolerating po intake consistently, would like to try advancing diet to GI soft -Pain control, nausea control -Repeat CT scan on 08/12 with improving SBO, passage of contrast -Appreciate gen/surg recommendations-no current acute surgical intervention planned - had 2 BM today - overall improving - discontinue empiric antibiotics today (day 5) Status: Acute (2) Atrial fibrillation: -INR 2.0, takes 10 to 12 mg of Coumadin daily -Continue therapeutic Lovenox today for now, INR with next labs -currently rate is well controlled, mostly ranging between 55-60, asymptomatic - continue propranolol and diltiazem Status: Acute Qualifiers: Atrial fibrillation type: longstanding persistent Qualified Code(s): I48.11 - Longstanding persistent atrial fibrillation (3) Diabetes mellitus: -Currently on insulin sliding scale, fingersticks well controlled Status: Acute (4) Hyperlipidemia: Do not currently see any statins on her medication list, willl need to confirm Status: Acute (5) GERD (gastroesophageal reflux disease): continue protonix 40mg po qd Status: Acute (6) History of Coumadin therapy: Status: Acute (7) Hypokalemia: Supplement 80 meq po today, recheck at 4pm Status: Acute (8) H/O CHF: Currently euvolemic on home dose of lasix 80mg BID Continue Imdur 60mg qd Status: Acute Attestations Medical Necessity Statement*: replete potassium, slowly improving bowel function Coding Level of Care Code Acute 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
[2019-08-15] MEDS: potassium chloride oral liq 20 mEq/15 mL UDC 40 MEQ PO (13:01)
[2019-08-15] MEDS: HYDROcodone-acetaminophen 5-325 mg Tablet 1 TAB PO ×3 (14:46→23:37)
[2019-08-15 16:29] LABS: INR 0.98 (0.8-1.2)
[2019-08-15 16:34] LABS: Potassium 3.4 mmol/L (3.5-5.1)
[2019-08-15 16:46] LABS: Glucose Point of Care 198 mg/dL (70-110)
[2019-08-15] MEDS: dextrose 5%-sod chloride 0.45% 1,000 ML 50 ML IV (19:03)
[2019-08-15] MEDS: zolpidem 5 mg Tablet PO (20:25)
[2019-08-15 22:04] LABS: Glucose Point of Care 198 mg/dL (70-110)
[2019-08-16] VITALS: BP 167/92; PULSE 62; RESP 20; TEMP 37.1; O2SAT 94
[2019-08-16 04:00] VITALS: BP 152/88; PULSE 55; RESP 20; TEMP 36.9; O2SAT 96
[2019-08-16 05:47] LABS: Basophils # 0.1 10^3/uL (0.0-0.1); Basophils % 0.8 %; Eosinophils # 0.2 10^3/uL (0.0-0.8); Eosinophils % 2.8 %; Hematocrit 44.4 % (37.0-47.0); Hemoglobin 14.4 g/dL (11.5-15.3); Lymphocytes # 2.5 10^3/uL (0.8-4.8); Lymphocytes % 30.7 %; Mean Corpuscular HGB Conc 32.4 g/dL (30.0-36.0); Mean Corpuscular Hemoglobin 30.5 pg (28.0-34.0); Mean Corpuscular Volume 94.1 fL (81-99); Mean Platelet Volume 11.4 fL (7.4-10.4); Monocytes # 0.6 10^3/uL (0.2-0.9); Monocytes % 7.5 %; Neutrophils # 4.6 10^3/uL (1.8-7.7); Neutrophils % 57.2 %; Nucleated Red Blood Cells % 0 %; Platelet Count 222 10^3/cmm (130-400); Red Blood Count 4.72 10^6/uL (4.1-5.3); Red Cell Distribution Width 13.2 % (12.1-15.1)
[2019-08-16 06:00] LABS: INR 0.95 (0.8-1.2)
[2019-08-16 06:11] LABS: Alanine Aminotransferase 67 U/L (0-33); Albumin Level 3.4 g/dL (3.5-5.2); Alkaline Phosphatase 86 IU/L (35-105); Anion Gap 17.6 (5-19); Aspartate Amino Transferase 52 U/L (0-32); Blood Urea Nitrogen 6 mg/dL (8-23); Calcium 9.3 mg/dL (8.5-10.5); Carbon Dioxide 25 mmol/L (22-29); Chloride 102 mmol/L (98-107); Chol HDL Ratio 6.68 mg/dL (0.0-4.40); Cholesterol 167 mg/dL (0-200); Creatinine Clr Calc Pharmacy 80.3093; Glucose 213 mg/dL (65-115); HDL Cholesterol 25 mg/dL (60-100); LDL Cholesterol Calculated 87 mg/dL (50-129); LDL HDL Ratio 3.48 RATIO (0.00-3.22); Osmolality Calculated 296 mOsm/kg (285-295); Sodium 142 mmol/L (136-145); Total Bilirubin 0.2 mg/dL (0.15-1.2); Total Protein 6.4 g/dL (6.6-8.7); Triglycerides 276 mg/dL (0-150)
[2019-08-16 06:14] LABS: Potassium 2.6 mmol/L (3.5-5.1)
[2019-08-16] MEDS: potassium chloride oral liq 20 mEq/15 mL UDC 40 MEQ PO ×2 (06:26→08:17)
[2019-08-16 06:41] LABS: Glucose Point of Care 207 mg/dL (70-110)
[2019-08-16 07:29] VITALS: BP 167/83; PULSE 63; RESP 18; TEMP 37; O2SAT 97
[2019-08-16] MEDS: enoxaparin 120 mg/0.8 mL Syringe 110 MG SUBCUT (08:15)
[2019-08-16] MEDS: FUROsemide 40 mg Tablet 80 MG PO (08:16)
[2019-08-16] MEDS: propranolol 20 mg Tablet 10 MG PO ×2 (08:17→14:12)
[2019-08-16] MEDS: pantoprazole DR 40 mg Tablet PO (08:17)
[2019-08-16] MEDS: ropinirole 1 mg Tablet PO (08:17)
[2019-08-16] MEDS: sertraline 50 mg Tablet 100 MG PO (08:17)
[2019-08-16] MEDS: montelukast sodium 10 mg Tablet PO (08:18)
[2019-08-16] MEDS: lactulose oral liq 20 gm/30 mL UDC 10 GM PO (08:18)
[2019-08-16] MEDS: isosorbide mononitrate ER 60 mg Tablet PO (08:18)
[2019-08-16] MEDS: verapamil ER 180 mg Tablet 360 MG PO (08:25)
--- NOTE | 2019-08-16 10:18 | DCPLANNER ---
Pg 2 of IM updated and reviewed with pt. She is very familiar with it, no questions, copy provided.
--- NOTE | 2019-08-16 10:52 | PM.PN ---
Subjective Subjective: Interval history: Patient has been doing well, had 4 bowel movements this morning, she has a right lower quadrant pain but no nausea or vomiting Vitals/I&O/Wt Last Vital Signs Temp 98.6 F 08/16/19 07:29 Pulse 63 08/16/19 07:29 Resp 18 08/16/19 07:29 BP 167/83 08/16/19 07:29 Pulse Ox 97 08/16/19 07:29 08/15/19 08/16/19 08/16/19 22:59 06:59 14:59 Intake Total 300 / 1260 480 / 480 Output Total 500 / 500 400 / 400 Balance 300 / 760 -500 / 760 80 / 80 Physical Exam Narrative: EXAM NARRATIVE: Abdomen: Soft, slightly tender right lower quadrant, no guarding or rigidity Data : 08/16/19 05:18 08/16/19 05:18 A&P Assessment and plan (1) SBO (small bowel obstruction): 69-year-old female with multiple episodes of small bowel obstruction who continues to have right lower quadrant pain. CT abdomen pelvis revealed improvement in her bowel obstruction with contrast in the colon. History appears to have resolved with conservative measures DC home today on aggressive bowel regimen. She is up-to-date on her colonoscopy. She does not need to follow-up with me. Status: Acute Attestations Medical Necessity Statement*: Small bowel obstruction, resolved Coding Level of Care Code Acute Maintenance Technician [address] Shift for [facility] Diagnoses SBO (small bowel obstruction) K56.609
[2019-08-16 11:18] VITALS: BP 135/79; PULSE 72; RESP 18; TEMP 36.8; O2SAT 96
[2019-08-16 11:33] LABS: Glucose Point of Care 219 mg/dL (70-110)
[2019-08-16] MEDS: potassium chloride oral liq 20 mEq/15 mL UDC 60 MEQ PO (14:11)
--- NOTE | 2019-08-16 14:12 | PM.DCS ---
Discharge Providers Date of Admission: 08/09/19 16:43 Date of Discharge: August 16, 2019 Attending Provider at Admission: Tyree Fraser MD Attending Provider at Discharge: Yesenia Reed MD Primary Care Provider: Masha Carrillo MD Diagnoses at Discharge Discharge Diagnosis (1) SBO (small bowel obstruction): Status: Acute (2) H/O CHF: Status: Acute (3) Hypokalemia: Status: Acute (4) Diastolic heart failure: Status: Acute (5) History of Coumadin therapy: Status: Acute (6) GERD (gastroesophageal reflux disease): Status: Acute (7) Hyperlipidemia: Status: Acute (8) Diabetes mellitus: Status: Acute (9) Atrial fibrillation: Status: Acute Qualifiers: Atrial fibrillation type: longstanding persistent Qualified Code(s): I48.11 - Longstanding persistent atrial fibrillation Reason for Visit Reason for Visit: ABD PAIN, VOMIT BLOOD Hospital Course Discharge Summary: 69 year old female type 2 diabetes mellitus on insulin, bilateral lower extremity on Lasix, diastolic heart failure, history of atrial fibrillation on Coumadin, hypertension, history of TIA, depression anxiety, history of multiple small bowel obstructions in the past status post surgical interventions who presents to [facility] due to a 4-day history of nausea, vomiting, abdominal pain in the setting of having had multiple abdominal surgeries and SBO in the past. CT abdomen showed evidence of SBO. She was managed conservatively, initially with bowel rest, IV fluids and showed improvement. Diet has been slowly advanced, she is currently tolerating GI soft diet. Abdominal pain has improved./ there is nop more vomiting. She is able to pass flatus and feces- last had 4 BM today. She is feeling well overall. Other hospital course notable for low grade fever on 08/12 with some increased pain at which point C abdomen was repeated and was overall showing improvement. She received a short course of ciprofloxacin and flagyl since the fever, however this has since been discontinued after an empiric 5 day course. Her coumadin had bene on hold during admisison in case she needs surgical intervention and therefore INR has dropped to subtherpeutic. She received full dose lovenox inpatient and is being discharged now back on COumadin. Advised to take 10mg po qd for now and recheck INR in 2 days. of note, LFT trending up to AST/ALT of 48/67 without any rise in T.bili or ALP. GB, pancreas and liver appear normal on recent CT. May be related to antibiotic use which has since been discontinued. This test would also need to be repeated in 2 days. Above discussed with patient's daughter. Dose of Lasix being reduced to 40mg BID for now with f/up with PCP in 2 days. Patient has been euvolemic during her course of admission here. Physical Exam Narrative: EXAM NARRATIVE: GEN: Awake, alert and oriented, no acute distress CVS: S1S2 N RS: CTA B/L Abd: Soft, nt/nd , bs+, mild discomfort to palpation RLQ area, otherwise unremarkable SECONDARY MARKET MANAGER: no focal neuro deficits Discharge Data Data Completed and Pending: Completed Studies During Hospitalization Category Date Time Status CT abdomen pelvis w con* [id number] Rout ine Cat Scan 08/13/19 07:[address] abdomen pelvis w con* [id number] Urge nt Cat Scan 08/09/19 11:59 Completed XR abdomen min 2V [id number] Routine Exams 08/10/19 06:49 Completed XR abdomen min 2V [id number] Routine Exams 08/11/19 07:03 Completed XR abdomen min 2V [id number] Routine Exams 08/12/19 06:11 Completed XR chest 1V branden ble [id number] Routine Exams 08/11/19 10:45 Completed XR chest 1V branden ble [id number] Stat Exams 08/11/19 14:27 Completed Labs from last 24 hours 08/16/19 08/16/19 08/16/19 11:17 06:24 05:18 WBC RBC Hgb Hct MCV MCH MCHC RDW Plt Count MPV Neut % (Auto) Lymph % (Auto) [place] % (Auto) Eos % (Auto) Baso % (Auto) Neut # (Auto) Lymph # (Auto) [place] # (Auto) Eos # (Auto) Baso # (Auto) Nucleated RBC % (a uto) Nucleated RBCs # PT INR Sodium 142 Potassium 2.6 L* D Chloride 102 Carbon Dioxide 25 Anion Gap 17.6 BUN 6 L Creatinine 0.5 GFR Calculation 122.0 Glucose 213 H POC Glucose 219 207 Calculated Osmolal ity 296 H Calcium 9.3 Total Bilirubin 0.2 AST 52 H ALT 67 H Alkaline Phosphata se 86 Total Protein 6.4 L Albumin 3.4 L Globulin 3.0 Triglycerides 276 H Cholesterol 167 LDL Cholesterol, C alc 87 HDL Cholesterol 25 L LDL/HDL Ratio 3.48 H Cholesterol/HDL Ra alisia 6.68 H 08/16/19 08/16/19 08/15/19 05:18 05:18 20:14 WBC 8.0 RBC 4.72 Hgb 14.4 Hct 44.4 MCV 94.1 MCH 30.5 MCHC 32.4 RDW 13.2 Plt Count 222 MPV 11.4 H Neut % (Auto) 57.2 Lymph % (Auto) 30.7 [place] % (Auto) 7.5 Eos % (Auto) 2.8 Baso % (Auto) 0.8 Neut # (Auto) 4.6 Lymph # (Auto) 2.5 [place] # (Auto) 0.6 Eos # (Auto) 0.2 Baso # (Auto) 0.1 Nucleated RBC % (a uto) 0 Nucleated RBCs # 0.0 PT 13.00 INR 0.95 Sodium Potassium Chloride Carbon Dioxide Anion Gap BUN Creatinine GFR Calculation Glucose POC Glucose 198 Calculated Osmolal ity Calcium Total Bilirubin AST ALT Alkaline Phosphata se Total Protein Albumin Globulin Triglycerides Cholesterol LDL Cholesterol, C alc HDL Cholesterol LDL/HDL Ratio Cholesterol/HDL Ra alisia 08/15/19 08/15/19 08/15/19 16:32 16:10 16:10 WBC RBC Hgb Hct MCV MCH MCHC RDW Plt Count MPV Neut % (Auto) Lymph % (Auto) [place] % (Auto) Eos % (Auto) Baso % (Auto) Neut # (Auto) Lymph # (Auto) [place] # (Auto) Eos # (Auto) Baso # (Auto) Nucleated RBC % (a uto) Nucleated RBCs # PT 13.20 INR 0.98 Sodium Potassium 3.4 L Chloride Carbon Dioxide Anion Gap BUN Creatinine GFR Calculation Glucose POC Glucose 198 Calculated Osmolal ity Calcium Total Bilirubin AST ALT Alkaline Phosphata se Total Protein Albumin Globulin Triglycerides Cholesterol LDL Cholesterol, C alc HDL Cholesterol LDL/HDL Ratio Cholesterol/HDL Ra alisia Vitals: Last Vital Signs Temp 98.2 F 08/16/19 11:18 Pulse 72 08/16/19 11:18 Resp 18 08/16/19 11:18 BP 135/79 08/16/19 11:18 Pulse Ox 96 08/16/19 11:18 Discharge Plan Discharge Patient Disposition: Home, Self-Care Condition: Stable Prescriptions: New potassium chloride 20 mEq tablet,ER particles/crystals 20 meq PO BID 14 Days Qty: 28 RF: 0 lactulose 20 gram/30 mL Solution 10 g PO Q12H PRN (Reason: prn) 14 Days Qty: 14 RF: 0 Continued omeprazole 20 mg capsule,delayed release(DR/EC) 20 mg PO DAILY RF: 0 ropinirole 1 mg tablet 1 mg PO DAILY RF: 0 montelukast 10 mg tablet 10 mg PO DAILY RF: 0 propranolol 10 mg tablet 10 mg PO TID RF: 0 aspirin [Adult Low Dose Aspirin] 81 mg tablet,delayed release (DR/EC) 81 mg PO DAILY RF: 0 albuterol sulfate 2.5 mg /3 mL (0.083 %) solution for nebulization 2.5 mg INHALATION Q4H PRN (Reason: Shortness Of Breath) RF: 0 hydrocodone-acetaminophen 5-325 mg tablet 1 tab PO Q6H PRN (Reason: Pain) RF: 0 nitroglycerin [Nitrostat] 0.4 mg tablet, sublingual 0.4 mg SUBLINGUAL Q5M PRN (Reason: Chest Pain) RF: 0 Breo Ellipta 100-25 mcg/dose blister with device 1 inh INHALATION DAILY PRN (Reason: Shortness Of Breath) RF: 0 glimepiride 2 mg tablet 8 mg PO DAILY RF: 0 primidone 50 mg tablet 300 mg PO DAILY RF: 0 sertraline 50 mg tablet 100 mg PO DAILY RF: 0 Lantus U-100 Insulin 100 unit/mL solution 34 unit SUBCUT BEDTIME RF: 0 isosorbide mononitrate 60 mg tablet extended release 24 hr 60 mg PO DAILY 90 Days Qty: 90 RF: 3 verapamil 360 mg capsule,ext rel. pellets 24 hr 360 mg PO DAILY 90 Days Qty: 90 RF: 3 Changed furosemide 40 mg tablet 40 mg PO BID Qty: 0 RF: 0 warfarin 6 mg tablet 10 mg PO DAILY 3 Days Qty: 0 RF: 0 Discharge Orders: Discharge Order (Routine); Ordered 08/16/19 Ordered By: Yesenia Reed Other Ambulatory Orders: Liver Panel (Routine) Timeframe: 20190818 Location: Determined by Patient Ordered By: Yesenia Reed Prothrombin Time INR (Routine) Timeframe: 20190818 Location: Determined by Patient Ordered By: Yesenia Reed Referrals: Masha Carrillo MD [Primary Care Provider] - 1-3 days Discharge Diet: GI Soft Discharge Activity: Resume usual activity Discharge Attestations Time Spent in Discharge Care*: greater than 30 min Quality Metrics Clinical Quality Measures During this hospital stay, did patient experience: None Coding Level of Care Code Acute Customer Supply Chain Analyst for Chg Fwd Diagnoses SBO (small bowel obstruction) K56.609 H/O CHF Z86.79 Hypokalemia E87.6 Diastolic heart failure I50.30 History of Coumadin therapy Z92.29 GERD (gastroesophageal reflux disease) K21.9 Hyperlipidemia E78.5 Diabetes mellitus E11.9 Atrial fibrillation I48.11 Atrial fibrillation type: longstanding persistent
[2019-08-16] MEDS: warfarin 10 mg Tablet PO (14:28)
[2019-08-16 15:52] VITALS: BP 135/79; PULSE 72; RESP 18; TEMP 36.8; O2SAT 96
== END 2019-08-16 19:00 | disposition home or self-care (01) | DRG 389 ==
LOC: ER 16:19 → MEDSURG 17:12
PROVIDERS: Family Medicine; Physician Assistant; Admitting Provider Family Medicine; PCP Family Medicine; Visit Provider Student in an Organized Health Care Education/Training Program
DX: K56.609 Unspecified intestinal obstruction, unspecified as to partial versus complete obstruction (principal); I48.11 Longstanding persistent atrial fibrillation; E11.9 Type 2 diabetes mellitus without complications; Z79.4 Long term (current) use of insulin; I50.9 Heart failure, unspecified; I11.0 Hypertensive heart disease with heart failure; Z79.01 Long term (current) use of anticoagulants; Z86.73 Personal history of transient ischemic attack (TIA), and cerebral infarction without residual deficits; F41.8 Other specified anxiety disorders; K21.9 Gastro-esophageal reflux disease without esophagitis; E78.5 Hyperlipidemia, unspecified; E87.6 Hypokalemia; Z79.82 Long term (current) use of aspirin; Z79.891 Long term (current) use of opiate analgesic
CPT/HCPCS: 12345; 36415; 36416; 71045; 74019; 74177; 80053; 80061; 81001; 81003; 82962; 83605; 83690; 83735; 84100; 84132; 85025; 85610; 85730; 87040; 93005; 94664; 96372; 96375; 97116; 97161; 97165; 97530; 97535; 99282; C9113; J0744; J1170; J1650; J1815; J2001; J2270; J2405; J7799; Q9967; S0030

== ENCOUNTER 2019-11-08 11:48 | Inpatient (IN) | payer MEDICARE, SELFPAY ==
[2019-11-08] VITALS (9 sets, daily range): BP systolic 135–202; BP diastolic 67–147; PULSE 69–86; RESP 15–28; TEMP 36.6–37.3; O2SAT 95–98; BMI 39.9
--- NOTE | 2019-11-08 11:50 | XRR_ITS ---
PROCEDURE INFORMATION: Exam: XR Chest, 1 View Exam date and time: 11/08/2019 12:29 PM Age: 69 years old Clinical indication: Dyspnea; Prior surgery; Surgery type: Heart; Additional info: Dyspnea x 5 weeks TECHNIQUE: Imaging protocol: XR of the chest Views: 1 view. COMPARISON: CR XR chest 1V portable [id number] 08/11/2019 2:34 PM FINDINGS: Lungs: Unremarkable. No consolidation. Pleural space: Unremarkable. No pleural effusion. No pneumothorax. Heart/Mediastinum: Unremarkable. No cardiomegaly. Bones/joints: Unremarkable. XR/XR chest 1V portable [id number] IMPRESSION: No acute findings.
--- NOTE | 2019-11-08 11:51 | ECG_ITS ---
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 Measurements Intervals [place] Rate: 84 P: -20 NV: 155 QRS: -36 QRSD: 134 T: 33 QT: 403 QTc: 477 Interpretive Statements SINUS RHYTHM MARKED LEFT AXIS DEVIATION [QRS AXIS < -30] RIGHT BUNDLE BRANCH BLOCK [120+ ms QRS DURATION, UPRIGHT V1, 40+ ms S IN I/aVL/V4/V5/V6] MODERATE VOLTAGE CRITERIA FOR LVH, CONSIDER NORMAL VARIANT [MEETS CRITERIA IN ONE OF: R(aVL), S(V1), R(V5), R(V5/V6)+S(V1)] POSSIBLE SEPTAL MYOCARDIAL INFARCTION [30 ms Q WAVE IN V1/V2], OF INDETERMINATE AGE Compared to ECG 08/10/2019 03:35:46 Right bundle-branch block now present Myocardial infarct finding now present T-wave abnormality no longer present Electronically Signed On 11-08-2019 19:53:18 CDT by Renata Kan M.D. [id number] f
--- NOTE | 2019-11-08 12:56 | ED_ITS ---
Documented by User: Dino Guevara DO 11/08/19 15:49 HPI - Chest Pain General: Chief Complaint: Chest Pain Stated Complaint: heart problems Time Seen by Provider: 11/08/19 12:48 History of Present Illness: HPI narrative: -year-old female presents to the emergency room with complaints of irregular heart rate and occasional chest discomfort. She was directed here by Dr. Blas to be admitted for possible cardioversion or starting antiarrhythmic after failure of other routine medications. She denies any recent illness no respiratory symptoms no sinus congestion no fever she has no known exposure to COVID and she is asymptomatic. Including no GI symptoms. MD complaint: chest discomfort Pertinent past history: other (Atrial fibrillation) Onset (ago): week(s) Timing of current episode: episodic Prior episodes: Yes Onset: during rest Relieving factors: nothing Exacerbating factors: nothing Associated symptoms: Reports dyspnea and palpitations; Deny abdominal pain, diaphoresis, fever(s), leg edema, nausea, sense of impending doom, syncope or vomiting Treatment prior to arrival: none Review of Systems Const: Denies: fever(s) or diaphoresis ENMT: Denies: throat pain, ear or mastoid pain, nasal discharge or nasal congestion Card: Reports: palpitations; Denies: syncope Resp: Reports: dyspnea GI: Denies: abdominal pain, nausea or vomiting : Denies: flank pain, difficulty voiding, dysuria, urinary frequency or urinary urgency Skin/Breast: Denies: rash or pruritus [facility] ED PFSH: Medical History Atrial fibrillation Bilateral lower extremity edema Diabetes mellitus Diastolic heart failure GERD (gastroesophageal reflux disease) History of stroke Hx of small bowel obstruction Hyperlipidemia Migraines SVT (supraventricular tachycardia) Surgical History S/P hysterectomy Family History Sister Asthma Brother Asthma Cancer Grandmother Asthma Father Cancer Emphysema lung Social History Smoking and tobacco status: never smoked Physical Exam Const: COMMON NORMALS: no acute distress GENERAL APPEARANCE: cooperative and comfortable ORIENTATION/CONSCIOUSNESS: Yes awake, Yes oriented to person, Yes oriented to place and Yes oriented to time HENMT: COMMON NORMALS: normocephalic, atraumatic and hearing grossly normal bilaterally HEAD & SCALP: normocephalic and atraumatic Neck/C-Spine: COMMON NORMALS: no JVD Resp: COMMON NORMALS: normal respiratory effort, No retractions, No use of accessory muscles and clear to auscultation bilaterally AUSCULTATION: clear to auscultation bilaterally Cardio: COMMON NORMALS: no JVD, regular rate, regular rhythm and No murmurs present (Cardio) RATE: regular rate RHYTHM: regular rhythm GI: COMMON NORMALS: Soft to palpation and No hepatosplenomegaly present AUSCULTATION: Yes normoactive bowel sounds PALPATION: Yes Soft to palpation, No Tenderness to palpation present (GI), No Guarding due to palpation present (GI) and Yes No hepatosplenomegaly present Extremity: COMMON NORMALS: normal to inspection, capillary refill normal, no clubbing, cyanosis or edema, no calf tenderness and no pedal edema Neuro: SENSORIUM/ORIENTATION: Yes oriented to person, Yes oriented to place and Yes oriented to time Skin: COMMON NORMALS: no rashes or lesions noted GENERAL SKIN EXAM: no rashes or lesions noted Course Vital Signs: Vital signs: Vital Signs Temperature 98.0 F 11/08/19 11:53 Pulse Rate 77 11/08/19 15:36 Respiratory Rate 19 H 11/08/19 15:36 Blood Pressure 135/67 11/08/19 15:36 Pulse Oximetry 97 11/08/19 13:24 MDM - Chest Pain MDM Narrative: Medical decision making narrative: Discussed with Dr. Blas he intended for the patient to be a direct admission. Will go ahead and write orders to the floor. She is not having any chest pain at this time. Lab Data: Labs: Lab Results 11/08/19 11/08/19 11/08/19 Range/Units 13:05 13:05 13:05 WBC 9.1 (4.0-10.0) 10^3/ uL RBC 4.45 (4.1-5.3) 10^6/u L Hgb 13.4 (11.5-15.3) g/dL Hct 42.0 (37.0-47.0) % MCV 94.4 (81-99) fL MCH 30.1 (28.0-34.0) pg MCHC 31.9 (30.0-36.0) g/dL RDW 13.6 (12.1-15.1) % Plt Count 233 (130-400) 10^3/c mm MPV 11.1 H (7.4-10.4) fL Neut % (Auto) 64.5 % Lymph % (Auto) 25.3 % [place] % (Auto) 6.7 % Eos % (Auto) 2.5 % Baso % (Auto) 0.6 % Neut # (Auto) 5.86 (1.8-7.7) 10^3/u L Lymph # (Auto) 2.3 (0.8-4.8) 10^3/u L [place] # (Auto) 0.6 (0.2-0.9) 10^3/u L Eos # (Auto) 0.2 (0.0-0.8) 10^3/u L Baso # (Auto) 0.1 (0.0-0.1) 10^3/u L Nucleated RBC % (a uto) 0 % Nucleated RBCs # 0.0 /100WBC PT 26.50 H (12.1-14.9) SECO NDS INR 2.33 H (0.8-1.2) Sodium 138 (136-145) mmol/L Potassium 3.8 (3.5-5.1) mmol/L Chloride 104 (98-107) mmol/L Carbon Dioxide 22 (22-29) mmol/L Anion Gap 15.8 (5-19) BUN 13 (8-23) mg/dL Creatinine 0.6 (0.5-0.9) mg/dL GFR Calculation 98.8 (90-130) mL/min Glucose 119 H (65-115) mg/dL Calculated Osmolal ity 283 L (285-295) mOsm/k g Calcium 10.1 (8.5-10.5) mg/dL Total Bilirubin 0.2 (0.15-1.2) mg/dL AST 13 (0-32) U/L ALT 16 (0-33) U/L Alkaline Phosphata se 89 (35-105) IU/L Troponin T Baselin e (0-10) ng/L NT-Pro-B Natriuret Pep 159 H (0-125) pg/mL Total Protein 6.8 (6.6-8.7) g/dL Albumin 4.2 (3.5-5.2) g/dL Globulin 2.6 (1.3-4.6) g/dL Lipase 29 (13-60) U/L 11/08/19 Range/Units 13:05 WBC (4.0-10.0) 10^3/ uL RBC (4.1-5.3) 10^6/u L Hgb (11.5-15.3) g/dL Hct (37.0-47.0) % MCV (81-99) fL MCH (28.0-34.0) pg MCHC (30.0-36.0) g/dL RDW (12.1-15.1) % Plt Count (130-400) 10^3/c mm MPV (7.4-10.4) fL Neut % (Auto) % Lymph % (Auto) % [place] % (Auto) % Eos % (Auto) % Baso % (Auto) % Neut # (Auto) (1.8-7.7) 10^3/u L Lymph # (Auto) (0.8-4.8) 10^3/u L [place] # (Auto) (0.2-0.9) 10^3/u L Eos # (Auto) (0.0-0.8) 10^3/u L Baso # (Auto) (0.0-0.1) 10^3/u L Nucleated RBC % (a uto) % Nucleated RBCs # /100WBC PT (12.1-14.9) SECO NDS INR (0.8-1.2) Sodium (136-145) mmol/L Potassium (3.5-5.1) mmol/L Chloride (98-107) mmol/L Carbon Dioxide (22-29) mmol/L Anion Gap (5-19) BUN (8-23) mg/dL Creatinine (0.5-0.9) mg/dL GFR Calculation (90-130) mL/min Glucose (65-115) mg/dL Calculated Osmolal ity (285-295) mOsm/k g Calcium (8.5-10.5) mg/dL Total Bilirubin (0.15-1.2) mg/dL AST (0-32) U/L ALT (0-33) U/L Alkaline Phosphata se (35-105) IU/L Troponin T Baselin e 10 (0-10) ng/L NT-Pro-B Natriuret Pep (0-125) pg/mL Total Protein (6.6-8.7) g/dL Albumin (3.5-5.2) g/dL Globulin (1.3-4.6) g/dL Lipase (13-60) U/L Discharge Plan Discharge Patient Disposition: Admitted As Inpatient Admit Provider: Janeth Monson Clinical Impression: Atrial fibrillation Condition: Stable Interventions: ED Discharge Assessment Last Done: 11/08/19 15:42 ED Charges Last Done: 11/08/19 15:42 Discharge Date/Time: 11/08/19 15:48 Coding Level of Care Code ED Churn Operator Margarine for Chg Fwd Exam Comprehensive Documented by User: Vanda Wall 11/08/19 13:56 HPI - Chest Pain General: Chief Complaint: Chest Pain Stated Complaint: heart problems Time Seen by Provider: 11/08/19 12:48 PFSH ED PFSH: Medical History Atrial fibrillation Bilateral lower extremity edema Diabetes mellitus Diastolic heart failure GERD (gastroesophageal reflux disease) History of stroke Hx of small bowel obstruction Hyperlipidemia Migraines SVT (supraventricular tachycardia) Surgical History S/P hysterectomy Family History Sister Asthma Brother Asthma Cancer Grandmother Asthma Father Cancer Emphysema lung Social History Smoking and tobacco status: never smoked Procedures EJ/Peripheral Line Arm R: Time Out Performed: Yes Skin Cleansed in Sterile Fashion: Yes Size (gauge): 18 IV Secured and Dressing Applied: Yes Patient Tolerated Procedure: well and no complications Additional Comments: Ultrasound utilized throughout the procedure. Catheter is seen advancing into the needle. Good blood return and flush present. Course Vital Signs: Vital signs: Vital Signs Temperature 98.0 F 11/08/19 11:53 Pulse Rate 77 11/08/19 15:36 Respiratory Rate 19 H 11/08/19 15:36 Blood Pressure 135/67 11/08/19 15:36 Pulse Oximetry 97 11/08/19 13:24 MDM - Chest Pain Lab Data: Labs: Lab Results 11/08/19 11/08/19 11/08/19 Range/Units 13:05 13:05 13:05 WBC 9.1 (4.0-10.0) 10^3/ uL RBC 4.45 (4.1-5.3) 10^6/u L Hgb 13.4 (11.5-15.3) g/dL Hct 42.0 (37.0-47.0) % MCV 94.4 (81-99) fL MCH 30.1 (28.0-34.0) pg MCHC 31.9 (30.0-36.0) g/dL RDW 13.6 (12.1-15.1) % Plt Count 233 (130-400) 10^3/c mm MPV 11.1 H (7.4-10.4) fL Neut % (Auto) 64.5 % Lymph % (Auto) 25.3 % [place] % (Auto) 6.7 % Eos % (Auto) 2.5 % Baso % (Auto) 0.6 % Neut # (Auto) 5.86 (1.8-7.7) 10^3/u L Lymph # (Auto) 2.3 (0.8-4.8) 10^3/u L [place] # (Auto) 0.6 (0.2-0.9) 10^3/u L Eos # (Auto) 0.2 (0.0-0.8) 10^3/u L Baso # (Auto) 0.1 (0.0-0.1) 10^3/u L Nucleated RBC % (a uto) 0 % Nucleated RBCs # 0.0 /100WBC PT 26.50 H (12.1-14.9) SECO NDS INR 2.33 H (0.8-1.2) Sodium 138 (136-145) mmol/L Potassium 3.8 (3.5-5.1) mmol/L Chloride 104 (98-107) mmol/L Carbon Dioxide 22 (22-29) mmol/L Anion Gap 15.8 (5-19) BUN 13 (8-23) mg/dL Creatinine 0.6 (0.5-0.9) mg/dL GFR Calculation 98.8 (90-130) mL/min Glucose 119 H (65-115) mg/dL Calculated Osmolal ity 283 L (285-295) mOsm/k g Calcium 10.1 (8.5-10.5) mg/dL Total Bilirubin 0.2 (0.15-1.2) mg/dL AST 13 (0-32) U/L ALT 16 (0-33) U/L Alkaline Phosphata se 89 (35-105) IU/L Troponin T Baselin e (0-10) ng/L NT-Pro-B Natriuret Pep 159 H (0-125) pg/mL Total Protein 6.8 (6.6-8.7) g/dL Albumin 4.2 (3.5-5.2) g/dL Globulin 2.6 (1.3-4.6) g/dL Lipase 29 (13-60) U/L /11/18 Range/Units 13:05 WBC (4.0-10.0) 10^3/ uL RBC (4.1-5.3) 10^6/u L Hgb (11.5-15.3) g/dL Hct (37.0-47.0) % MCV (81-99) fL MCH (28.0-34.0) pg MCHC (30.0-36.0) g/dL RDW (12.1-15.1) % Plt Count (130-400) 10^3/c mm MPV (7.4-10.4) fL Neut % (Auto) % Lymph % (Auto) % [place] % (Auto) % Eos % (Auto) % Baso % (Auto) % Neut # (Auto) (1.8-7.7) 10^3/u L Lymph # (Auto) (0.8-4.8) 10^3/u L [place] # (Auto) (0.2-0.9) 10^3/u L Eos # (Auto) (0.0-0.8) 10^3/u L Baso # (Auto) (0.0-0.1) 10^3/u L Nucleated RBC % (a uto) % Nucleated RBCs # /100WBC PT (12.1-14.9) SECO NDS INR (0.8-1.2) Sodium (136-145) mmol/L Potassium (3.5-5.1) mmol/L Chloride (98-107) mmol/L Carbon Dioxide (22-29) mmol/L Anion Gap (5-19) BUN (8-23) mg/dL Creatinine (0.5-0.9) mg/dL GFR Calculation (90-130) mL/min Glucose (65-115) mg/dL Calculated Osmolal ity (285-295) mOsm/k g Calcium (8.5-10.5) mg/dL Total Bilirubin (0.15-1.2) mg/dL AST (0-32) U/L ALT (0-33) U/L Alkaline Phosphata se (35-105) IU/L Troponin T Baselin e 10 (0-10) ng/L NT-Pro-B Natriuret Pep (0-125) pg/mL Total Protein (6.6-8.7) g/dL Albumin (3.5-5.2) g/dL Globulin (1.3-4.6) g/dL Lipase (13-60) U/L Discharge Plan Discharge Patient Disposition: Admitted As Inpatient Admit Provider: Janeth Monson Clinical Impression: Atrial fibrillation Condition: Stable Interventions: ED Discharge Assessment Last Done: 11/08/19 15:42 ED Charges Last Done: 11/08/19 15:42 Discharge Date/Time: 11/08/19 15:48 Coding Level of Care Code ED Churn Operator Margarine for Marva Fwd Exam Comprehensive
[2019-11-08 13:11] LABS: Basophils # 0.1 10^3/uL (0.0-0.1); Basophils % 0.6 %; Eosinophils # 0.2 10^3/uL (0.0-0.8); Eosinophils % 2.5 %; Hemoglobin 13.4 g/dL (11.5-15.3); Lymphocytes # 2.3 10^3/uL (0.8-4.8); Lymphocytes % 25.3 %; Mean Corpuscular HGB Conc 31.9 g/dL (30.0-36.0); Mean Corpuscular Hemoglobin 30.1 pg (28.0-34.0); Mean Corpuscular Volume 94.4 fL (81-99); Mean Platelet Volume 11.1 fL (7.4-10.4); Monocytes # 0.6 10^3/uL (0.2-0.9); Monocytes % 6.7 %; Neutrophils # 5.86 10^3/uL (1.8-7.7); Neutrophils % 64.5 %; Nucleated Red Blood Cells % 0 %; Platelet Count 233 10^3/cmm (130-400); Red Blood Count 4.45 10^6/uL (4.1-5.3); Red Cell Distribution Width 13.6 % (12.1-15.1); White Blood Count 9.1 10^3/uL (4.0-10.0)
[2019-11-08 13:29] LABS: INR 2.33 (0.8-1.2)
[2019-11-08 13:34] LABS: Troponin(5th) Baseline 10 ng/L (0-10)
[2019-11-08 13:41] LABS: Alanine Aminotransferase 16 U/L (0-33); Albumin Level 4.2 g/dL (3.5-5.2); Alkaline Phosphatase 89 IU/L (35-105); Anion Gap 15.8 (5-19); Aspartate Amino Transferase 13 U/L (0-32); Blood Urea Nitrogen 13 mg/dL (8-23); Calcium 10.1 mg/dL (8.5-10.5); Carbon Dioxide 22 mmol/L (22-29); Chloride 104 mmol/L (98-107); Creatinine Clr Calc Pharmacy 80.3093; Globulin 2.6 g/dL (1.3-4.6); Glomerular Filtration Rate 98.8 mL/min (90-130); Glucose 119 mg/dL (65-115); Lipase 29 U/L (13-60); NT Pro B Type Natriuretic Pept 159 pg/mL (0-125); Osmolality Calculated 283 mOsm/kg (285-295); Potassium 3.8 mmol/L (3.5-5.1); Sodium 138 mmol/L (136-145); Total Bilirubin 0.2 mg/dL (0.15-1.2); Total Protein 6.8 g/dL (6.6-8.7)
--- NOTE | 2019-11-08 13:51 | ECG_ITS ---
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 Measurements Intervals [place] Rate: 74 P: 50 TX: 200 QRS: -30 QRSD: 134 T: 23 QT: 412 QTc: 457 Interpretive Statements SINUS RHYTHM RIGHT BUNDLE BRANCH BLOCK [120+ ms QRS DURATION, UPRIGHT V1, 40+ ms S IN I/aVL/V4/V5/V6] MODERATE VOLTAGE CRITERIA FOR LVH, CONSIDER NORMAL VARIANT [MEETS CRITERIA IN ONE OF: R(aVL), S(V1), R(V5), R(V5/V6)+S(V1)] POSSIBLE SEPTAL MYOCARDIAL INFARCTION , PROBABLY OLD [30 ms Q WAVE IN V1/V2] Compared to ECG 11/08/2019 11:58:21 Left-axis deviation no longer present Myocardial infarct finding still present Electronically Signed On 11-08-2019 20:06:19 CDT by Renata Kan M.D. [id number]
[2019-11-08 15:47] LABS: Troponin 5 2HR 8.72 ng/L (0-10)
[2019-11-08 15:49] LABS: Troponin 5 2HR Delta -1.28 ABS# (0-10)
--- NOTE | 2019-11-08 16:16 | PC.NURSE ---
Patient arrived to CSU from ER at 1600. VSS. Patient denies any chest pain or SOB at this time. Patient in NSR on telemetry. IV from ER was kinked. New IV was initiated. Patient tolerated well. Dr. Monson contacted via telephone to clarify fluid orders from ER. Order received to discontinue D5 1/2 NS c 20 KCL and intiate NS at 100 ml/hr. RBVO. Physician to put in additional orders after evaluating patient.
[2019-11-08] MEDS: sodium chloride 0.9% 1,000 ML 100 ML IV (16:36)
--- NOTE | 2019-11-08 17:51 | ECG_ITS ---
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 Measurements Intervals [place] Rate: 79 P: 38 AL: 190 QRS: -40 QRSD: 136 T: 30 QT: 415 QTc: 477 Interpretive Statements SINUS RHYTHM MARKED LEFT AXIS DEVIATION [QRS AXIS < -30] INTRAVENTRICULAR CONDUCTION DELAY [130+ ms QRS DURATION] MODERATE VOLTAGE CRITERIA FOR LVH, CONSIDER NORMAL VARIANT [MEETS CRITERIA IN ONE OF: R(aVL), S(V1), R(V5), R(V5/V6)+S(V1)] POSSIBLE SEPTAL MYOCARDIAL INFARCTION [30 ms Q WAVE IN V1/V2], OF INDETERMINATE AGE POSSIBLE LATERAL MYOCARDIAL INFARCTION [30 ms Q WAVE IN I/aVL/V5/V6], PROBABLY OLD WARNING: DATA QUALITY MAY AFFECT INTERPRETATION Compared to ECG 11/08/2019 13:43:00 Left-axis deviation now present Intraventricular conduction delay now present Right bundle-branch block no longer present Myocardial infarct finding still present Electronically Signed On 11-08-2019 20:14:09 CDT by Renata Kan M.D. [id number]
--- NOTE | 2019-11-08 19:30 | PC.NURSE ---
Dr. Monson gave telephone order to decrease NS fluid rate to KVO. RBVO. Nurse to continue to monitor.
[2019-11-08 19:38] LABS: Troponin 5 6HR 10.99 ng/L (0-10); Troponin 5 6HR Delta 0.99 ng/L (0-12)
--- NOTE | 2019-11-08 21:31 | PM.HP ---
Providers/Chief Complaint Admitting Physician: Janeth Monson MD Primary Care Provider: Masha Carrillo MD Chief Complaint: heart problems History of Present Illness Nathaly Jiang is a 69 year old female past medical history significant for chronic persistent difficult to control atrial fibrillation, obesity, diastolic heart failure insulin dependent diabetes mellitus, normal coronaries by angiogram in 2015, history of TIA stroke has been admitted for control of A. fib. Recently patient saw me in the clinic as an outpatient we have struggled in controlling her A. fib she go in and out of atrial fibrillation despite of controlled heart rate she does not tolerate the rhythm she goes into heart failure symptoms becomes short of breath complains of chest pressure and cannot walk beyond few 100 feet. We therefore decided to bring her to the hospital and load her with antiarrhythmics so that we can keep her in the sinus rhythm. Patient declined A. fib ablation. Upon admission she was also noted to be in sinus rhythm however it is matter a few hours she may will slip back into A. fib. I would therefore discontinue propanolol which she takes for tremor and verapamil 360 mg. I will switch her to sotalol as multaq is not available. Review of Systems Const: Denies: fever(s) or diaphoresis ENMT: Denies: throat pain, ear or mastoid pain, nasal discharge or nasal congestion Card: Reports: palpitations; Denies: syncope Resp: Reports: dyspnea GI: Denies: abdominal pain, nausea or vomiting : Denies: flank pain, difficulty voiding, dysuria, urinary frequency or urinary urgency Skin/Breast: Denies: rash or pruritus All/Imm: Denies: acute wheezing Medications/Allergies Home Medications Medication Instructions Recorded Confirmed Last Taken Type albuterol sulfate 2.5 mg INHALATION Q4H PRN 07/26/19 11/08/19 Unknown History aspirin 81 mg tablet,delayed 81 mg PO DAILY 07/26/19 11/08/19 11/07/19 History release fluticasone furoate 100 1 inh INHALATION DAILY 07/26/19 11/08/19 11/07/19 History mcg-vilanterol 25 mcg/dose inhalation powder glimepiride 2 mg tablet 8 mg PO DAILY tab 07/26/19 11/08/19 11/07/19 History hydrocodone 5 mg-acetaminophen 325 1 - 2 tab PO Q4H PRN 0511/08/19 08/09/19 History mg tablet insulin glargine 100 unit/mL 34 unit SUBCUT BEDTIME ml 07/26/19 11/08/19 11/07/19 History subcutaneous solution montelukast 10 mg tablet 10 mg PO DAILY 07/26/19 11/08/19 11/07/19 History omeprazole 20 mg capsule,delayed 20 mg PO DAILY 07/26/19 11/08/19 11/07/19 History release primidone 50 mg tablet 100 mg PO Q8H tab 07/26/19 11/08/19 11/07/19 History ropinirole 1 mg tablet 2 mg PO DAILY 07/26/19 11/08/19 11/07/19 History sertraline 50 mg tablet 100 mg PO DAILY tab 07/26/19 11/08/19 11/07/19 History verapamil 360 mg 24 hr 360 mg PO DAILY 90 Days #90 cap 07/27/19 11/08/19 11/07/19 Rx capsule,extended release isosorbide mononitrate 60 mg 60 mg PO DAILY #90 tab 09/20/19 11/08/19 11/07/19 Rx tablet,extended release 24 hr nitroglycerin 0.4 mg sublingual 0.4 mg SUBLINGUAL Q5M PRN #25 tab 09/27/19 11/08/19 Unknown Rx tablet quetiapine 50 mg tablet 100 mg PO BEDTIME tab 10/24/19 11/08/19 11/07/19 History sumatriptan succinate 50 mg tablet 50 mg PO PRN PRN tab 10/24/19 11/08/19 Unknown History propranolol 20 mg tablet 20 mg PO TID #270 tab 10/25/19 11/08/19 11/07/19 Rx furosemide 80 mg PO QAM 11/08/19 11/08/19 11/07/19 History sulfamethoxazole-trimethoprim 1 tab PO BEDTIME 11/08/19 11/08/19 11/07/19 History warfarin 2 mg PO BEDTIME 11/08/19 11/08/19 11/07/19 History warfarin 6 mg PO BEDTIME 11/08/19 11/08/19 11/07/19 History Allergies Allergy/AdvReac Type Severity Reaction Status Date / Time budesonide Allergy Unknown Verified 11/08/19 13:29 metformin Allergy Unknown Verified 11/08/19 13:29 penicillin V Allergy Unknown Verified 11/08/19 13:29 propoxyphene Allergy Unknown Verified 11/08/19 13:29 [From [facility]-N] streptomycin Allergy Unknown Verified 11/08/19 13:29 PFSH Acute PFSH: Medical History Atrial fibrillation Bilateral lower extremity edema Diabetes mellitus Diastolic heart failure GERD (gastroesophageal reflux disease) History of stroke Hx of small bowel obstruction Hyperlipidemia Migraines SVT (supraventricular tachycardia) Surgical History S/P hysterectomy Family History Sister Asthma Brother Asthma Cancer Grandmother Asthma Father Cancer Emphysema lung Social History Smoking and tobacco status: never smoked Vitals/I&O/Wt Last Vital Signs Temp 98 F 11/08/19 20:00 Pulse 80 11/08/19 20:00 Resp 19 H 11/08/19 20:00 BP 168/88 11/08/19 20:00 Pulse Ox 95 11/08/19 20:00 11/08/19 11/08/19 11/08/19 06:59 14:59 22:59 Intake Total 545 / 545 Balance 545 / 545 Weight last 48 hrs Weight 240 lb Physical Exam Narrative: EXAM NARRATIVE: GENERAL: Patient is alert, awake and oriented x3. NECK: No jugular vein distension. HEENT: No cyanosis. No icterus. No pallor. HEART: Regular S1 and S2. No murmur, rub or gallop. LUNGS: Clear to auscultate bilaterally. ABDOMEN: Soft, nontender and nondistended. Positive bowel sounds. No guarding, rebound or tenderness. CENTRAL NERVOUS SYSTEM: Grossly nonfocal. EXTREMITIES: Lower extremities withut edema bilaterally. Data : 11/08/19 13:05 11/08/19 13:05 A&P Assessment and plan (1) Atrial fibrillation: As above I will switch her to antiarrhythmic. She will be loaded with sotalol 80 mg twice a day we will watch her for QT QTC every 8 hours with EKG. Patient has been explained all risk benefit and alternative for the antiarrhythmic she would like to proceed with it. Continue warfarin Coumadin. I will check INR in the morning Status: Acute Qualifiers: Atrial fibrillation type: persistent (not longstanding) Qualified Code(s): I48.19 - Other persistent atrial fibrillation (2) Diastolic heart failure: Currently compensated continue diuretics Status: Acute Qualifiers: Heart failure chronicity: chronic Qualified Code(s): I50.32 - Chronic diastolic (congestive) heart failure (3) Diabetes mellitus: She will be covered with home insulin and sliding scale. Status: Acute Qualifiers: Diabetes mellitus type: type 2 Diabetes mellitus exterminator helper termite insulin use: with mcfp use Diabetes mellitus complication status: with diabetic arthropathy (4) Essential hypertension: I will losartan to the regimen Status: Acute Attestations Medical Necessity Statement*: I am expecting her stay to cross more than 2 midnights. She is here for antiarrhythmic monitoring and loading in order to provide life-threatening arrhythmia Coding Level of Care Code New Pt Acute Buckle Sewer Machine for Marva Leong Patient Type New History Detailed Exam Detailed Medical Decision Making Moderate Complexity Diagnoses Atrial fibrillation I48.19 Atrial fibrillation type: persistent (not longstanding) Diastolic heart failure I50.32 Heart failure chronicity: chronic Diabetes mellitus E11.9 Diabetes mellitus type: type 2 Diabetes mellitus exterminator helper termite insulin use: with mcfp use Diabetes mellitus complication status: with diabetic arthropathy Essential hypertension I10
[2019-11-08 21:56] LABS: Glucose Point of Care 157 mg/dL (70-110)
--- NOTE | 2019-11-08 22:00 | ECG_ITS ---
[facility] Test Date: 2019-11-08 Pat Name: Nathaly Jiang Department: Room: 112 Gender: Female Retail Sales Merchandiser Development: : 1950 Requested By: Janeth Monson Order Number: [id number] Kranthi MD: Janeth Monson M.D. Measurements Intervals [place] Rate: 67 P: 46 [place]: 198 QRS: -34 QRSD: 141 T: 27 QT: 421 QTc: 446 Interpretive Statements SINUS RHYTHM MARKED LEFT AXIS DEVIATION [QRS AXIS < -30] INTRAVENTRICULAR CONDUCTION DELAY [130+ ms QRS DURATION] POSSIBLE LEFT VENTRICULAR HYPERTROPHY [VOLTAGE CRITERIA PLUS LAE OR QRS WIDENING] POSSIBLE LATERAL MYOCARDIAL INFARCTION [30 ms Q WAVE IN I/aVL/V5/V6], PROBABLY OLD Compared to ECG 11/08/2019 18:02:43 No significant changes Electronically Signed On 11-09-2019 20:23:42 CDT by Janeth Monson M.D. [id number]
[2019-11-08] MEDS: ropinirole 2 mg Tablet PO (22:01)
[2019-11-08] MEDS: primidone 50 mg Tablet 100 MG PO (22:01)
[2019-11-08] MEDS: temazepam 15 mg Capsule PO (22:01)
[2019-11-08] MEDS: sotalol 80 mg Tablet PO (22:01)
[2019-11-08] MEDS: insulin glargine 100 units/1 mL 34 UNIT SUBCUT (22:42)
[2019-11-08] MEDS: SUMAtriptan 25 mg Tablet 50 MG PO (22:42)
--- NOTE | 2019-11-08 23:52 | PC.NURSE ---
Patient is currently resting with eyes closed. Will monitor.
[2019-11-09] VITALS (7 sets, daily range): BP systolic 117–160; BP diastolic 58–92; PULSE 54–76; RESP 16–24; TEMP 36.6–36.9; O2SAT 93–96
--- NOTE | 2019-11-09 01:00 | ECG_ITS ---
[facility] Test Date: 2019-11-09 Pat Name: Nathaly Jiang Department: Room: 112 Gender: Female Calender Runner: : 1950 Requested By: Janeth Monson Order Number: [id number] Kranthi MD: Janeth Monson M.D. Measurements Intervals [place] Rate: 65 P: 105 ME: 196 QRS: 214 QRSD: 138 T: 165 QT: 418 QTc: 436 Interpretive Statements SINUS RHYTHM ARM LEADS REVERSED [INVERTED P AND QRS IN I] ATYPICAL ECG Compared to ECG 11/08/2019 23:04:30 Left-axis deviation no longer present Intraventricular conduction delay no longer present Myocardial infarct finding no longer present Electronically Signed On 11-09-2019 20:24:33 CDT by Janeth Monson M.D. [id number]
[2019-11-09] MEDS: SUMAtriptan 25 mg Tablet 50 MG PO ×3 (01:26→14:08)
[2019-11-09] MEDS: acetaminophen 325 mg Tablet 650 MG PO (04:19)
[2019-11-09] MEDS: primidone 50 mg Tablet 100 MG PO ×3 (04:19→20:52)
--- NOTE | 2019-11-09 05:23 | ECG_ITS ---
[facility] Test Date: 2019-11-09 Pat Name: Nathaly Jiang Department: Room: 112 Gender: Female Relocation Specialist: : 1950 Requested By: Janeth Monson Order Number: [id number] Kranthi MD: Janeth Monson M.D. Measurements Intervals [place] Rate: 60 P: 63 PA: 200 QRS: -24 QRSD: 134 T: 26 QT: 435 QTc: 435 Interpretive Statements SINUS RHYTHM BORDERLINE LEFT AXIS DEVIATION [QRS AXIS < -20] RIGHT BUNDLE BRANCH BLOCK [120+ ms QRS DURATION, UPRIGHT V1, 40+ ms S IN I/aVL/V4/V5/V6] Compared to ECG 11/09/2019 01:20:30 Right bundle-branch block now present Electronically Signed On 11-09-2019 20:24:43 CDT by Janeth Monson M.D. [id number]
[2019-11-09] MEDS: FUROsemide 40 mg Tablet 80 MG PO (05:27)
--- NOTE | 2019-11-09 05:31 | PC.NURSE ---
Dr. Holguin notified of patient complaining of migraine with no relief from Tylenol or Imitrex.
[2019-11-09] MEDS: glimepiride 2 mg Tablet 8 MG PO (09:00)
[2019-11-09] MEDS: pantoprazole DR 40 mg Tablet PO (09:00)
[2019-11-09] MEDS: aspirin 81 mg EC Tablet PO (09:01)
[2019-11-09] MEDS: sertraline 100 mg Tablet PO (09:01)
[2019-11-09] MEDS: isosorbide mononitrate ER 60 mg Tablet PO (09:01)
[2019-11-09] MEDS: losartan 50 mg Tablet PO (09:01)
[2019-11-09] MEDS: sotalol 80 mg Tablet PO ×2 (09:03→20:52)
--- NOTE | 2019-11-09 11:37 | PC.CHAP ---
Pastoral Care Encounter/Spiritual Assessment Type of Contact [] Declined retail banking manager visit [] Patient/Family/Request visit [] Outpatient visit [] Follow-up visit [] Physician referral [] Code/Alert [x] Routine visit [] Staff referral [] Actively dying [] Patient sleeping [] Family support [] [] Out of room [] Palliative care [] [x] Receiving care in room [] Pre-surgical visit [] Trauma [] Long length of stay [] ICU visit [] Other: Relational/Emotional Strength [] Patient feels connected with others/family/visitors/staff [x] Distress [] Loneliness/isolation [] Abandonment Spirituality of Patient [x] Person of Sanjuana [] Attends Buddhist of their Sanjuana [x] Believes in Prayer [] Reads Bible or Hoahaoism materials [] There are Spiritual issues to be addressed Refrigeration Unit Repairer Interventions [x] Prayer [x] Active listening [x] Non-anxious presence [x] Spiritual/emotional support [] Crisis/trauma care [x] Spiritual counseling [] Bereavement support [] Provided bereavement packet [] Provided Bible/devotional materials [] Provided toy/stuffed animal, coloring book to patient or family member [] Provided Communion [] Anointing/Oto [] Salvation [x] Completed spiritual assessment [] Other: Impact on Illness or Injury [] Angry [] Fearful [x] Anxious [] Often cries [] Exhaustion [x] Unable to work [] Unable to attend rastafari [] Unable to walk/stand [] Unable to read [] Unable to drive [] Unable to eat/drink [] Unable to sleep [] Unable to be with family [] Patient intubated [] Other: Summary Has a migrain head ack, in pain, doesn't about meds or what needs to be done or when she will be able to go home, has a good attitude Time spent with patient 10 mins Pastoral Care Encounter/Spiritual Assessment Type of Contact [] Declined retail banking manager visit [] Patient/Family/Request visit [] Outpatient visit [] Follow-up visit [] Physician referral [] Code/Alert [] Routine visit [] Staff referral [] Actively dying [] Patient sleeping [] Family support [] [] Out of room [] Palliative care [] [] Receiving care in room [] Pre-surgical visit [] Trauma [] Long length of stay [] ICU visit [] Other: Relational/Emotional Strength [] Patient feels connected with others/family/visitors/staff [] Distress [] Loneliness/isolation [] Abandonment Spirituality of Patient [] Person of Sanjuana [] Attends Buddhist of their Sanjuana [] Believes in Prayer [] Reads Bible or Hoahaoism materials [] There are Spiritual issues to be addressed Refrigeration Unit Repairer Interventions [] Prayer [] Active listening [] Non-anxious presence [] Spiritual/emotional support [] Crisis/trauma care [] Spiritual counseling [] Bereavement support [] Provided bereavement packet [] Provided Bible/devotional materials [] Provided toy/stuffed animal, coloring book to patient or family member [] Provided Communion [] Anointing/Oto [] Salvation [] Completed spiritual assessment [] Other: Impact on Illness or Injury [] Angry [] Fearful [] Anxious [] Often cries [] Exhaustion [] Unable to work [] Unable to attend rastafari [] Unable to walk/stand [] Unable to read [] Unable to drive [] Unable to eat/drink [] Unable to sleep [] Unable to be with family [] Patient intubated [] Other: Summary Time spent with patient
[2019-11-09] MEDS: HYDROcodone-acetaminophen 5-325 mg Tablet PO (11:47)
--- NOTE | 2019-11-09 13:23 | ECG_ITS ---
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 Measurements Intervals [place] Rate: 60 P: 30 [place]: 187 QRS: -37 QRSD: 130 T: 6 QT: 444 QTc: 446 Interpretive Statements SINUS RHYTHM WITH SINUS ARRHYTHMIA MARKED LEFT AXIS DEVIATION [QRS AXIS < -30] RIGHT BUNDLE BRANCH BLOCK [120+ ms QRS DURATION, UPRIGHT V1, 40+ ms S IN I/aVL/V4/V5/V6] VOLTAGE CRITERIA FOR LVH [MEETS CRITERIA IN ONE OF: R(aVL), S(V1), R(V5), R(V5/V6)+S(V1)] Compared to ECG 11/09/2019 05:36:20 Left ventricular hypertrophy now present Electronically Signed On 11-09-2019 20:25:03 CDT by Janeth Monson M.D. [id number]
--- NOTE | 2019-11-09 16:30 | PC.NURSE ---
Dr. Monson notified patient has received max amount of Imitrex for 24 hours. Order received for IV Toradol. Nurse to continue to monitor.
[2019-11-09] MEDS: ketorolac 30 mg/mL INJ IVP (17:02)
--- NOTE | 2019-11-09 19:01 | PC.NURSE ---
VTE clarified with Dr. Monson. Telephone order received to continue home dose of warfarin. RBVO. Physician notified that a PT/INR has not been obtained in [address] Monson gave telephone order to administer dose this evening without lab. Draw PT/INR along with BMP for morning labs, RBVO.
[2019-11-09] MEDS: warfarin 3 mg Tablet PO (19:20)
[2019-11-09] MEDS: warfarin 5 mg Tablet PO (19:20)
--- NOTE | 2019-11-09 20:07 | P.PN_ITS ---
Subjective Subjective: Interval history: Remains in sinus rhythm patient has been started on sotalol verapamil was discontinued as also propranolol. She had episodes of severe migraine this morning. QT QTC is within normal limit Vitals/I&O/Wt Last Vital Signs Temp 98.5 F 11/09/19 15:02 Pulse 54 L 11/09/19 15:02 Resp 17 11/09/19 15:02 BP 133/71 11/09/19 15:02 Pulse Ox 93 11/09/19 15:02 11/09/19 11/09/19 11/09/19 06:59 14:59 22:59 Intake Total 600 / 600 240 / 840 Balance 600 / 600 240 / 840 Weight last 48 hrs Weight 240 lb Physical Exam Narrative: EXAM NARRATIVE: GENERAL: Patient is alert, awake and oriented x3. NECK: No jugular vein distension. HEENT: No cyanosis. No icterus. No pallor. HEART: Regular S1 and S2. No murmur, rub or gallop. LUNGS: Clear to auscultate bilaterally. ABDOMEN: Soft, nontender and nondistended. Positive bowel sounds. No guarding, rebound or tenderness. CENTRAL NERVOUS SYSTEM: Grossly nonfocal. EXTREMITIES: Lower extremities withut edema bilaterally. Data : 11/08/19 13:05 11/08/19 13:05 A&P Assessment and plan (1) Atrial fibrillation: Patient is in sinus rhythm. QT QTC is within normal limits. Continue to monitor continue sotalol 80 mg twice a day. Continue warfarin. Check INR in the morning Status: Acute Qualifiers: Atrial fibrillation type: persistent (not longstanding) Qualified Code(s): I48.19 - Other persistent atrial fibrillation (2) Diastolic heart failure: Well compensated continue current regimen of diuretic. BMP in the morning Status: Acute Qualifiers: Heart failure chronicity: chronic Qualified Code(s): I50.32 - Chronic diastolic (congestive) heart failure (3) Diabetes mellitus: She will be covered with home insulin and sliding scale. Status: Acute Qualifiers: Diabetes mellitus type: type 2 Diabetes mellitus terminal operator insulin use: with care home use Diabetes mellitus complication status: with diabetic arthropathy (4) Essential hypertension: Continue current regimen Status: Acute (5) Migraine: Imitrex was reinstituted. Continue pain medicine Toradol will be given. Status: Acute Attestations Medical Necessity Statement*: Require continuation hospitalization for above defined care. Coding Level of Care Code Established Pt Acute Cryptographic Center Specialist for Chg Fwd Patient Type Established History Expanded Problem Focused Exam Expanded Problem Focused Medical Decision Making Moderate Complexity Diagnoses Atrial fibrillation I48.19 Atrial fibrillation type: persistent (not longstanding) Diastolic heart failure I50.32 Heart failure chronicity: chronic Diabetes mellitus E11.9 Diabetes mellitus type: type 2 Diabetes mellitus terminal operator insulin use: with terminal operator use Diabetes mellitus complication status: with diabetic arthropathy Essential hypertension I10 Migraine G43.909
[2019-11-09 20:41] LABS: Glucose Point of Care 162 mg/dL (70-110)
[2019-11-09] MEDS: temazepam 15 mg Capsule PO (20:52)
[2019-11-09] MEDS: insulin glargine 100 units/1 mL 34 UNIT SUBCUT (20:52)
[2019-11-09] MEDS: quetiapine 100 mg Tablet PO (20:52)
[2019-11-09] MEDS: montelukast sodium 10 mg Tablet PO (20:52)
[2019-11-09] MEDS: ropinirole 2 mg Tablet PO (20:52)
--- NOTE | 2019-11-09 21:23 | ECG_ITS ---
[facility] Test Date: 2019-11-09 Pat Name: Nathaly Jiang Department: Room: 112 Gender: Female Marine Superintendent: stephon KAYB: 1950 Requested By: Janeth Monson Order Number: [id number] Kranthi MD: Dony Simons M.D. Measurements Intervals [place] Rate: 56 P: 65 [place]: 202 QRS: -22 QRSD: 129 T: 37 QT: 467 QTc: 453 Interpretive Statements SINUS BRADYCARDIA POSSIBLE RIGHT VENTRICULAR CONDUCTION DELAY [RSR (QR) IN V1/V2] MINIMAL VOLTAGE CRITERIA FOR LVH, CONSIDER NORMAL VARIANT [MEETS CRITERIA IN ONE OF: R(aVL), S(V1), R(V5), R(V5/V6)+S(V1)] POSSIBLE ANTERIOR MYOCARDIAL INFARCTION [30 ms Q WAVE IN V3/V4, OR R < 0.2 mV IN V4], PROBABLY OLD Compared to ECG 11/09/2019 13:11:33 Myocardial infarct finding now present Sinus rhythm no longer present Sinus arrhythmia no longer present Left-axis deviation no longer present Right bundle-branch block no longer present Electronically Signed On 11-10-2019 15:13:05 CDT by Dony Simons M.D. [id number]
--- NOTE | 2019-11-09 22:46 | PC.NURSE ---
Patient still complaints of headache. Ice provided per patient request. Patient asks for Imitrex when next dose is due.
[2019-11-10] VITALS (7 sets, daily range): BP systolic 123–160; BP diastolic 78–90; PULSE 54–68; RESP 15–25; TEMP 36.6–36.9; O2SAT 92–98
[2019-11-10] MEDS: SUMAtriptan 25 mg Tablet 50 MG PO ×4 (00:17→11:35)
--- NOTE | 2019-11-10 01:49 | PC.NURSE ---
Patient is currently resting with eyes closed. Will monitor.
[2019-11-10] MEDS: FUROsemide 40 mg Tablet 80 MG PO (05:14)
[2019-11-10] MEDS: primidone 50 mg Tablet 100 MG PO (05:14)
--- NOTE | 2019-11-10 05:23 | ECG_ITS ---
[facility] Test Date: 2019-11-10 Pat Name: Nathaly Jiang Department: Room: 112 Gender: Female Calciner Feeder: stephon KAYB: 1950 Requested By: Janeth Monson Order Number: [id number] Kranthi MD: Dony Simons M.D. Measurements Intervals [place] Rate: 53 P: 79 [place]: 200 QRS: -10 QRSD: 133 T: 59 QT: 470 QTc: 443 Interpretive Statements SINUS BRADYCARDIA RIGHT BUNDLE BRANCH BLOCK [120+ ms QRS DURATION, UPRIGHT V1, 40+ ms S IN I/aVL/V4/V5/V6] Compared to ECG 11/09/2019 22:01:15 Right bundle-branch block now present Myocardial infarct finding no longer present Electronically Signed On 11-10-2019 15:12:18 CDT by Dony Simons M.D. [id number]
[2019-11-10 06:04] LABS: INR 1.34 (0.8-1.2)
[2019-11-10 06:33] LABS: Glucose Point of Care 148 mg/dL (70-110)
[2019-11-10 07:52] LABS: Anion Gap 16.1 (5-19); Blood Urea Nitrogen 28 mg/dL (8-23); Calcium 9.7 mg/dL (8.5-10.5); Carbon Dioxide 24 mmol/L (22-29); Chloride 105 mmol/L (98-107); Glomerular Filtration Rate 82.7 mL/min (90-130); Glucose 157 mg/dL (65-115); Osmolality Calculated 292 mOsm/kg (285-295); Potassium 4.1 mmol/L (3.5-5.1); Sodium 141 mmol/L (136-145)
[2019-11-10] MEDS: glimepiride 2 mg Tablet 8 MG PO (08:47)
[2019-11-10] MEDS: isosorbide mononitrate ER 60 mg Tablet PO (08:48)
[2019-11-10] MEDS: losartan 50 mg Tablet PO (08:48)
[2019-11-10] MEDS: aspirin 81 mg EC Tablet PO (08:48)
[2019-11-10] MEDS: sertraline 100 mg Tablet PO (08:48)
[2019-11-10] MEDS: pantoprazole DR 40 mg Tablet PO (08:48)
[2019-11-10] MEDS: HYDROcodone-acetaminophen 5-325 mg Tablet PO (08:51)
[2019-11-10] MEDS: sotalol 80 mg Tablet PO (08:55)
--- NOTE | 2019-11-10 11:27 | P.DS_ITS ---
Discharge Providers Date of Admission: 11/08/19 12:55 Date of Discharge: November 10, 2019 Attending Provider at Admission: Janeth Monson MD Attending Provider at Discharge: Janeth Monson MD Primary Care Provider: Masha Carrillo MD Diagnoses at Discharge Discharge Diagnosis (1) Atrial fibrillation: Status: Acute Qualifiers: Atrial fibrillation type: persistent (not longstanding) Qualified Code(s): I48.19 - Other persistent atrial fibrillation (2) Diastolic heart failure: Status: Acute Qualifiers: Heart failure chronicity: chronic Qualified Code(s): I50.32 - Chronic diastolic (congestive) heart failure (3) Diabetes mellitus: Status: Acute Qualifiers: Diabetes mellitus type: type 2 Diabetes mellitus director of payroll insulin use: with director of payroll use Diabetes mellitus complication status: with diabetic arthropathy (4) Essential hypertension: Status: Acute (5) Migraine: Status: Acute Reason for Visit Reason for Visit: heart problems Hospital Course Discharge Summary: 69-year-old female past medical history significant for hypertension hyperlipidemia diastolic heart failure difficult to control atrial fibrillation, migrainous headaches obesity was admitted for antiarrhythmic loading since patient had difficult to control persistent atrial fibrillation sometimes she gets out of A. fib but within few hours she is back in it. She does not tolerate rate control strategy becomes short of breath fatigue easily. Patient was admitted to the hospital day before yesterday upon arrival she was in sinus rhythm however since she has paroxysmal A. fib and difficult to control we decided to load her with sotalol. Verapamil propanolol but discontinued patient was also complaining of worse headaches due to migraine. She was treated for migrainous headaches with analgesics and Imitrex. Patient tolerated sotalol 80 mg twice daily well QT/QTC is within normal limit and has not increased. This morning she is feeling much better she did not have another episode of A. fib. Blood pressure fluctuates but mostly is under control. INR was subtherapeutic we will increase the dose of warfarin. She will be discharged home with a goal of INR of 2-3. Patient denies chest pain PND orthopnea presyncope syncope. Physical Exam Narrative: EXAM NARRATIVE: GENERAL: Patient is alert, awake and oriented x3. NECK: No jugular vein distension. HEENT: No cyanosis. No icterus. No pallor. HEART: Regular S1 and S2. No murmur, rub or gallop. LUNGS: Clear to auscultate bilaterally. ABDOMEN: Soft, nontender and nondistended. Positive bowel sounds. No guarding, rebound or tenderness. CENTRAL NERVOUS SYSTEM: Grossly nonfocal. EXTREMITIES: Lower extremities without edema bilaterally. Discharge Data Data Completed and Pending: Completed Studies During Hospitalization Category Date Time Status XR chest 1V branden ble [id number] Stat Exams 11/08/19 11:50 Completed Labs from last 24 hours 11/10/19 11/10/19 11/10/19 06:54 06:28 05:24 PT 17.00 H INR 1.34 H Sodium 141 Potassium 4.1 Chloride 105 Carbon Dioxide 24 Anion Gap 16.1 BUN 28 H Creatinine 0.7 GFR Calculation 82.7 L Glucose 157 H POC Glucose 148 Calculated Osmolal ity 292 Calcium 9.7 11/09/19 20:28 PT INR Sodium Potassium Chloride Carbon Dioxide Anion Gap BUN Creatinine GFR Calculation Glucose POC Glucose 162 Calculated Osmolal ity Calcium Vitals: Last Vital Signs Temp 98.2 F 11/10/19 08:00 Pulse 65 11/10/19 08:00 Resp 18 11/10/19 08:00 BP 160/90 11/10/19 08:48 Pulse Ox 97 11/10/19 08:00 Discharge Plan Discharge Patient Disposition: Home Condition: Stable Prescriptions: New sotalol 80 mg Tablet 80 mg PO BID@0900,2100 Qty: 60 RF: 4 Continued sumatriptan succinate 50 mg tablet 50 mg PO PRN PRN (Reason: migraine headache) RF: 0 quetiapine 50 mg tablet 100 mg PO BEDTIME RF: 0 omeprazole 20 mg capsule,delayed release(DR/EC) 20 mg PO DAILY RF: 0 ropinirole 1 mg tablet 2 mg PO DAILY RF: 0 montelukast 10 mg tablet 10 mg PO DAILY RF: 0 aspirin [Adult Low Dose Aspirin] 81 mg tablet,delayed release (DR/EC) 81 mg PO DAILY RF: 0 albuterol sulfate 2.5 mg /3 mL (0.083 %) solution for nebulization 2.5 mg INHALATION Q4H PRN (Reason: Shortness Of Breath) RF: 0 hydrocodone-acetaminophen 5-325 mg tablet 1 - 2 tab PO Q4H PRN (Reason: Pain) RF: 0 Breo Ellipta 100-25 mcg/dose blister with device 1 inh INHALATION DAILY RF: 0 glimepiride 2 mg tablet 8 mg PO DAILY RF: 0 primidone 50 mg tablet 100 mg PO Q8H RF: 0 sertraline 50 mg tablet 100 mg PO DAILY RF: 0 Lantus U-100 Insulin 100 unit/mL solution 34 unit SUBCUT BEDTIME RF: 0 isosorbide mononitrate 60 mg tablet extended release 24 hr 60 mg PO DAILY Qty: 90 RF: 3 nitroglycerin [Nitrostat] 0.4 mg tablet, sublingual 0.4 mg SUBLINGUAL Q5M PRN (Reason: Chest Pain) Qty: 25 RF: 6 warfarin 1 mg tablet 2 mg PO BEDTIME RF: 0 furosemide 40 mg tablet 80 mg PO QAM RF: 0 sulfamethoxazole-trimethoprim 800-160 mg tablet 1 tab PO BEDTIME RF: 0 warfarin 6 mg tablet 6 mg PO BEDTIME Qty: 0 RF: 0 Discontinued propranolol 20 mg tablet 20 mg PO TID Qty: 270 RF: 3 verapamil 360 mg capsule,ext rel. pellets 24 hr 360 mg PO DAILY 90 Days Qty: 90 RF: 3 Discharge Orders: Discharge Order (Routine); Ordered 11/10/19 Ordered By: Janeth Monson Discharge Diet: Low Salt Discharge Activity: Increase activity as tolerated Activity Restrictions/Additional Instructions: Follow-up with Yolanda Jean in 7 days, EKG in 7 days at cardiology clinic with Yloanda Jean. Follow-up with Dr. Monson in 3 months. Follow-up with INR clinic, INR goal is 2-3 Discharge Attestations Time Spent in Discharge Care*: greater than 30 min Specific Discharge Activities: Specific discharge activities: educating patient, educating and/or supporting family/caregiver and documenting/other paperwork Quality Metrics Clinical Quality Measures During this hospital stay, did patient experience: None Coding Level of Care Code Acute Bliss Press Operator for g Fwd Diagnoses Atrial fibrillation I48.19 Atrial fibrillation type: persistent (not longstanding) Diastolic heart failure I50.32 Heart failure chronicity: chronic Diabetes mellitus E11.9 Diabetes mellitus type: type 2 Diabetes mellitus [facility] insulin use: with [facility] use Diabetes mellitus complication status: with diabetic arthropathy Essential hypertension I10 Migraine G43.909
--- NOTE | 2019-11-10 11:35 | PC.CHAP ---
Pastoral Care Encounter/Spiritual Assessment Type of Contact [] Declined volunteer fire fighter visit [] Patient/Family/Request visit [] Outpatient visit [] Follow-up visit [] Physician referral [] Code/Alert [xx] Routine visit [] Staff referral [] Actively dying [] Patient sleeping [] Family support [] [] Out of room [] Palliative care [] [] Receiving care in room [] Pre-surgical visit [] Trauma [] Long length of stay [] ICU visit [] Other: Relational/Emotional Strength [xx] Patient feels connected with others/family/visitors/staff [] Distress [] Loneliness/isolation [] Abandonment Spirituality of Patient [xx] Person of Sanjuana [xx] Attends Hinduism of their Sanjuana [xx] Believes in Prayer [xx] Reads Bible or Quaker materials [] There are Spiritual issues to be addressed Corporate Quality Engineer Interventions [xx] Prayer [xx] Active listening [xx] Non-anxious presence [] Spiritual/emotional support [] Crisis/trauma care [] Spiritual counseling [] Bereavement support [] Provided bereavement packet [] Provided Bible/devotional materials [] Provided toy/stuffed animal, coloring book to patient or family member [] Provided Communion [] Anointing/[place] [] Salvation [xx] Completed spiritual assessment [] Other: Impact on Illness or Injury [] Angry [] Fearful [] Anxious [] Often cries [] Exhaustion [] Unable to work [] Unable to attend restorationism [] Unable to walk/stand [] Unable to read [] Unable to drive [] Unable to eat/drink [] Unable to sleep [] Unable to be with family [] Patient intubated [] Other: Summary Pt is older retired lady. She stated first thing that God answered one of her prayers yesterday to not need certain invasive tests that were planned and she did not need to have them after all. She gives God the glory. She will still need minimal testing required but she should be discharged by end of today. Great conversationalist. Time spent with patient 12 minutes Corporate Quality Engineer Megan Grajeda
--- NOTE | 2019-11-10 14:52 | PC.NURSE ---
Discharge to home w/caregiver Instructed pt to follow-up with her marketing traffic coordinator. Educated pt on new medication action, possible side effects, dosing and timing. Discharge packet provided to pt.
== END 2019-11-10 13:36 | disposition home or self-care (01) | DRG 309 ==
LOC: ER 12:48 → CSU 15:40
PROVIDERS: Emergency Medicine; Admitting Provider Internal Medicine Cardiovascular Disease; PCP Family Medicine; Visit Provider Internal Medicine Cardiovascular Disease
DX: I48.19 Other persistent atrial fibrillation (principal); I50.32 Chronic diastolic (congestive) heart failure; Z68.41 Body mass index [BMI] 40.0-44.9, adult; I11.0 Hypertensive heart disease with heart failure; E11.618 Type 2 diabetes mellitus with other diabetic arthropathy; Z79.4 Long term (current) use of insulin; E78.5 Hyperlipidemia, unspecified; E66.9 Obesity, unspecified; Z79.82 Long term (current) use of aspirin; Z79.01 Long term (current) use of anticoagulants; Z86.73 Personal history of transient ischemic attack (TIA), and cerebral infarction without residual deficits; K21.9 Gastro-esophageal reflux disease without esophagitis
CPT/HCPCS: 12345; 36415; 36416; 71045; 80048; 80053; 82962; 83690; 83880; 84484; 85025; 85610; 93005; 96372; 96375; 99283; J1815; J1885; J7030

== ENCOUNTER → 2019-12-12 10:57 | Outpatient (BNVA) | payer MEDICARE, SELFPAY | PROVIDERS: PCP Family Medicine; Visit Provider Nurse Practitioner Family | DX: I48.19 Other persistent atrial fibrillation (principal) | CPT/HCPCS: 85610 ==

== ENCOUNTER 2019-12-26 08:49 | Outpatient (CLI) | payer MEDICARE, SELFPAY ==
--- NOTE | 2019-12-26 09:10 | XR_ITS ---
WS: [id number] KNEE LEFT TECHNIQUE: 3 views of the left knee CLINICAL INFORMATION: LEFT KNEE PAIN COMPARISON: None. FINDINGS: Left knee is normal in appearance. No evidence of acute fracture dislocation. Tiny suprapatellar effu caro. Patella is normal. Mild tricompartmental arthritis. Chondrocalcinosis. XR/XR knee LT 3V* [id number] IMPRESSION: Mild tricompartmental arthritis. Tiny suprapatellar effusion.
== END 2019-12-26 08:50 | disposition home or self-care (01) ==
LOC: RADWPI 08:55
PROVIDERS: Family Provider Family Medicine; PCP Family Medicine; Visit Provider Family Medicine
DX: M17.12 Unilateral primary osteoarthritis, left knee (principal); M25.462 Effusion, left knee
CPT/HCPCS: 73562

== ENCOUNTER 2020-01-04 15:25 | Outpatient (CLI) | payer MEDICARE, SELFPAY ==
--- NOTE | 2020-01-04 15:31 | MR_ITS ---
WS: [id number] MRI LEFT KNEE NONCONTRAST TECHNIQUE: Axial PD, coronal PD fat sat, coronal PD, sagittal PD, and sagittal PD fat-sat images obta ined. CLINICAL INFORMATION: LEFT KNEE PAIN AFTER FALL;MILD ARTHRITIS ON XRAY COMPARISON: None. FINDINGS: Normal anterior cruciate ligament. Normal PCL. Distal quadriceps and patella tendons are intact. Hype rtrophic patella. Small amount of prepatellar and infrapatellar soft tissue edema. Chronic thinning o f the medial and lateral meniscus. No acute appearing meniscal tears. Moderate chondromalacia patella worse involving the lateral patella facet. Small suprapatellar effusi on. Normal medial and lateral patellar retinaculum. Small popliteal cyst measuring 1.7 x 0.7 x 3.3 cm AP by transverse by craniocaudal. Moderate joint space narrowing involving the medial and lateral adolfo int compartments. Moderate chondromalacia. No subchondral edema. Normal medial and lateral collateral ligaments. MR/MR knee LT wo con* [id number] IMPRESSION: 1. Normal ACL and PCL. 2. No acute appearing meniscal tears. Chronic thinning of the medial and later al meniscus. 3. Moderate to advanced chondromalacia patella worse involving the lateral pat willie facet. 4. Lobulated popliteal cyst measuring 1.7 x 0.7 x 3.3 CM. 5. Mild diffuse soft tissue edema about the knee. 6. Moderate joint space narrowing involving the medial and lateral joint julee rtments with chondromalacia.
== END 2020-01-04 15:26 | disposition home or self-care (01) ==
LOC: RADSHAW 15:30
PROVIDERS: PCP Family Medicine; Visit Provider Family Medicine
DX: R60.0 Localized edema (principal); M71.22 Synovial cyst of popliteal space [Baker], left knee; M22.42 Chondromalacia patellae, left knee; W19.XXXA Unspecified fall, initial encounter
CPT/HCPCS: 73721

== ENCOUNTER 2020-02-07 14:15 | Outpatient (CLI) | payer MEDICARE, SELFPAY ==
--- NOTE | 2020-02-07 14:22 | XR_ITS ---
WS: [id number] SCREENING DEXA SCAN [employer] CLINICAL INFORMATION: ASYMPTOMATIC MENOPAUSAL STATE COMPARISON: 018 FINDINGS: The L1-L4 bone mineral density measures 1.043 g/cm2. This corresponds to a T score score of -1.1 and Z score of -0.6. Left femoral neck bone mineral density measures 0.710 g/cm2. This corresponds to a T score of -2.4 an d Z score of -1.7. Right femoral neck bone mineral density measures 0.801 g/cm2. This corresponds to a T score -1.6of an d Z score of -1.0. Mean femoral neck bone mineral density measures 0.756 g/cm2. This corresponds to a T score of -2.0 an d Z score of -1.3. XR/XR DEXA axial skeleton* [id number] IMPRESSION: Osteopenia in the lumbar spine and femoral necks. Upper end of the range in the femoral necks. Patient's FRAX calculated 10 year probability for major osteoporotic fracture i s 21.4 % and osteoporotic hip fracture is 5.4%.
== END 2020-02-07 14:16 | disposition home or self-care (01) ==
LOC: RADWPI 14:19
PROVIDERS: PCP Family Medicine; Visit Provider Family Medicine
DX: Z78.0 Asymptomatic menopausal state (principal); M85.88 Other specified disorders of bone density and structure, other site
CPT/HCPCS: 77080

== ENCOUNTER → 2020-02-15 10:30 | Outpatient (BNVA) | payer MEDICARE, SELFPAY | PROVIDERS: PCP Family Medicine; Referring Provider Family Medicine; Visit Provider Specialist | DX: M17.12 Unilateral primary osteoarthritis, left knee (principal); M25.562 Pain in left knee | CPT/HCPCS: 73560; 73565 ==

== ENCOUNTER → 2020-03-06 10:26 | Outpatient (BNVA) | payer MEDICARE, SELFPAY | PROVIDERS: PCP Family Medicine; Visit Provider Internal Medicine Cardiovascular Disease | DX: I48.19 Other persistent atrial fibrillation (principal) | CPT/HCPCS: 85610 ==

== ENCOUNTER 2020-03-07 13:38 | Outpatient (RCR) | payer MEDICARE, SELFPAY | END 2020-03-31 23:59 | disposition home or self-care (01) | LOC: SPT 13:38 | PROVIDERS: PCP Family Medicine; Referring Provider Specialist; Visit Provider Specialist | DX: M17.12 Unilateral primary osteoarthritis, left knee (principal) | CPT/HCPCS: 97110; 97162 ==

== ENCOUNTER 2020-03-25 14:04 | Outpatient (CLI) | payer MEDICARE, SELFPAY ==
--- NOTE | 2020-03-25 14:10 | USCV_ITS ---
JiangNahtaly Age: 69 Gender: F : 1950 Exam Date: 03/25/2020 14:05 Ordering Phys: Masha Carrillo MD Technologist: Yanira Mei [place] [facility] [place]: PAIN LT KNEE AND CALF HISTORY: Pain Lt knee and calf PROCEDURES: Venous duplex imaging was performed in only the left lower extremity. The following venous structures were evaluated: common femoral vein, profunda vein, proximal portion of the greater saphenous vein, superficial femoral vein, and the popliteal vein. In addition, the posterior tibial and peroneal trunk were evaluated. Serial compression, augmentation maneuvers, and spectral Doppler flow evaluation were performed. FINDINGS: No DVT seen in any vessel examined Question of Garcia's Cyst or ruptured Garcia's cyst. It does correspond to area of pain CONCLUSIONS No evidence of left lower extremity DVT. Elongated Bakers cyst with internal debris measuring 15-20 cm in length. This corresponds to area of pain. Gonzales Escobar MD (Electronically Signed) Final Date: 25 March 2020 16:51 S
== END 2020-03-25 14:05 | disposition home or self-care (01) ==
LOC: RAD 14:08
PROVIDERS: PCP Family Medicine; Visit Provider Family Medicine
DX: M79.662 Pain in left lower leg (principal)
CPT/HCPCS: 93971

== ENCOUNTER → 2020-05-20 13:55 | Outpatient (BNVA) | payer MEDICARE, SELFPAY | PROVIDERS: PCP Family Medicine; Visit Provider Internal Medicine Cardiovascular Disease | DX: I48.19 Other persistent atrial fibrillation (principal); I50.32 Chronic diastolic (congestive) heart failure; Z86.79 Personal history of other diseases of the circulatory system; I10 Essential (primary) hypertension | CPT/HCPCS: 80048; 85025 ==

== ENCOUNTER 2020-06-12 08:44 | Emergency (ER) | payer MEDICARE, SELFPAY ==
[2020-06-12 08:55] VITALS: BP 190/91; PULSE 71; RESP 16; TEMP 36.2; O2SAT 97; BMI 39.6
--- NOTE | 2020-06-12 09:02 | CT_ITS ---
WS: [id number] CT ABDOMEN AND PELVIS NONCONTRAST HISTORY: left flank pain TECHNIQUE: Imaging performed through the abdomen and pelvis. Coronal and sagittal reformats are submi tted. All CT scans at [facility] use at least one of these dose optimization techniques: automated exposure control; mA and/or kV adjustment per patient size (includes targeted exams where d ose is matched to clinical indication); or iterative reconstruction. DLP: 2186.83 mGy.cm COMPARISON: 08/13/2019 Lower thorax: Lung bases are clear. Visualized heart is normal. Small hiatal hernia. Liver: Moderate hepatomegaly with decreased attenuation from hepatic steatosis. 1.0 cm low-attenuatio n lesion is stable in the RIGHT lobe of the liver. Gallbladder: Normal gallbladder. Pancreas: Moderate diffuse fatty replacement of the pancreas. No pancreatitis. Spleen: Normal. Adrenal glands: Normal. No mass. Right kidney: Normal size kidney with no mass or hydronephrosis. Left kidney: Normal size kidney with no mass or hydronephrosis. Aorta: Normal abdominal aorta, no aneurysm or atherosclerosis. No free fluid, intraperitoneal air or significant lymphadenopathy. GI tract: Appendix is normal. Mild diffuse fecal retention. No evidence for acute diverticulitis or o bstruction. A few scattered sigmoid diverticula without diverticulitis. Abdominal wall: Postsurgical sutures along the anterior abdominal wall. Pelvis: Prior hysterectomy. Urinary bladder is negative. No adenopathy or fluid. Osseous structures: Mild thoracolumbar curvature. No destructive bone lesions. CT/CT kidney stone [id number] IMPRESSION: 1. No renal or ureteral calcification or obstruction. 2. Hepatic steatosis and hepatomegaly. 3. A few scattered sigmoid diverticula without diverticulitis. 4. Normal appendix.
[2020-06-12 09:12] VITALS: BP 190/91; PULSE 64; O2SAT 98
--- NOTE | 2020-06-12 09:17 | W.ED.FEMALGU ---
HPI - Female Genitourinary General: Chief complaint: Urogenital-Female Stated complaint: POSS KIDNEY STONES Time Seen by Provider: 06/12/20 09:00 History of Present Illness: HPI Narrative: Patient complains of left-sided flank pain ongoing since her recent diagnosis of 5 stones in her kidney. She has had multiple surgeries to have stones removed in the past. Patient also has sciatica type pain that runs down her left hip into her left thigh and she is using her cane and favoring that hip. Denies hematuria says she does feel nauseated. Said she is not passable stones since she was seen 3 weeks ago by her specialist. MD elicited complaint: back pain and flank pain Pertinent past history: other (History of stones and sciatica) Onset (ago): week(s) Location of symptoms: flank Severity: severe Female Urogenital Radiation: LLQ Severity scale (1-10): 8 Quality of pain: sharp Consistency: constant and progressively worsening Vaginal discharge: none Vaginal bleeding: none Exacerbating factors: movement Associated symptoms: Reports abdominal pain and nausea; Deny headache(s) Treatment prior to arrival: NSAIDs Sexual activity: No Review of Systems Const: Denies: fever(s), chills or body aches Eyes: Denies: change in vision or blurry vision ENMT: Denies: throat pain or nasal congestion Card: Denies: chest pain or dyspnea on exertion Resp: Denies: dyspnea, productive cough or non-productive cough GI: Reports: abdominal pain and nausea : Reports: flank pain Musc: Reports: back pain; Denies: extremity pain Skin/Breast: Denies: rash Neuro: Denies: headache(s) Psych: Denies: anxiety or depression Arnie/Lymph: Denies: easy bruising PFSH ED PFSH: Medical History Atrial fibrillation Bilateral lower extremity edema Diabetes mellitus Diastolic heart failure Essential hypertension GERD (gastroesophageal reflux disease) History of stroke Hx of small bowel obstruction Hyperlipidemia Migraines SVT (supraventricular tachycardia) Surgical History S/P hysterectomy Family History Sister Asthma Brother Asthma Cancer Grandmother Asthma Father Cancer Emphysema lung Social History Smoking and tobacco status: never smoked Second hand smoke exposure: Yes Alcohol intake: never Physical Exam Const: COMMON NORMALS: no acute distress, average body habitus and patient oriented x3 HENMT: COMMON NORMALS: normocephalic HEAD & SCALP: normal to inspection and normocephalic FACE & SINUS: normal facial exam Eye: COMMON NORMALS: conjunctivae normal GENERAL EYE: appearance normal, both eyes and all related structures CONJUNCTIVA: Yes conjunctivae normal Neck/C-Spine: COMMON NORMALS: no JVD Chest: COMMONS NORMALS: normal inspection of the chest Resp: COMMON NORMALS: normal respiratory effort and clear to auscultation bilaterally AUSCULTATION: clear to auscultation bilaterally Cardio: COMMON NORMALS: no JVD, regular rate and regular rhythm RATE: regular rate RHYTHM: regular rhythm GI: COMMON NORMALS: Normal to inspection, nondistended, normoactive bowel sounds present : BLADDER/KIDNEY EXAM: Yes CVA tenderness on the left Back/Pelvis: GENERAL BACK: Yes CVA tenderness LUMBAR SPINE/LOWER BACK: Yes paraspinal muscle tenderness OTHER: SI joint and nerve tender left hip left thigh with palpation patient is limping favoring that side Extremity: COMMON NORMALS: normal to inspection and full ROM Neuro: COMMON NORMALS: patient oriented x3 Course Vital Signs: Vital signs: Vital Signs Temperature 97.2 F L 06/12/20 08:55 Pulse Rate 64 06/12/20 09:12 Respiratory Rate 16 06/12/20 08:55 Blood Pressure 190/91 06/12/20 09:12 Pulse Oximetry 98 06/12/20 09:12 Discharge Plan Discharge Prescriptions: No Action sumatriptan succinate 50 mg tablet 50 mg PO PRN PRN (Reason: migraine headache) RF: 0 quetiapine 50 mg tablet 100 mg PO BEDTIME RF: 0 omeprazole 20 mg capsule,delayed release(DR/EC) 20 mg PO DAILY RF: 0 ropinirole 1 mg tablet 2 mg PO DAILY RF: 0 montelukast 10 mg tablet 10 mg PO DAILY RF: 0 aspirin [Adult Low Dose Aspirin] 81 mg tablet,delayed release (DR/EC) 81 mg PO DAILY RF: 0 albuterol sulfate 2.5 mg /3 mL (0.083 %) solution for nebulization 2.5 mg INHALATION Q4H PRN (Reason: Shortness Of Breath) RF: 0 hydrocodone-acetaminophen 5-325 mg tablet 1 - 2 tab PO Q4H PRN (Reason: Pain) RF: 0 Breo Ellipta 100-25 mcg/dose blister with device 1 inh INHALATION DAILY RF: 0 glimepiride 2 mg tablet 8 mg PO DAILY RF: 0 primidone 50 mg tablet 100 mg PO Q8H RF: 0 Lantus U-100 Insulin 100 unit/mL solution 34 unit SUBCUT BEDTIME RF: 0 warfarin 1 mg tablet 2 mg PO BEDTIME Qty: 30 RF: 2 nitroglycerin [Nitrostat] 0.4 mg tablet, sublingual 0.4 mg SUBLINGUAL Q5M PRN (Reason: Chest Pain) Qty: 25 RF: 6 amlodipine 5 mg tablet 5 mg PO DAILY Qty: 90 RF: 1 sotalol 80 mg tablet 80 mg PO BID@0900,2100 Qty: 240 RF: 3 valsartan 80 mg tablet 80 mg PO DAILY Qty: 90 RF: 3 isosorbide mononitrate 60 mg tablet extended release 24 hr 60 mg PO DAILY Qty: 90 RF: 3 warfarin 10 mg tablet 10 mg PO DAILY Qty: 30 RF: 3 warfarin 6 mg tablet 6 mg PO DAILY Qty: 90 RF: 0 warfarin 1 mg tablet 1 mg PO DAILY Qty: 90 RF: 1 furosemide 40 mg tablet 80 mg PO QAM RF: 0 sulfamethoxazole-trimethoprim 800-160 mg tablet 1 tab PO BEDTIME RF: 0 Coding Level of Care Code ED Machine Edge Bander for Marva Leong
[2020-06-12 09:20] VITALS: O2SAT 97
[2020-06-12 09:30] LABS: Bilirubin Urine Neg (Negative); Blood Urine Neg (Negative); Glucose Urine UA Norm (Normal); Ketones Urine Negative (Negative); Nitrate Urine Negative (Negative); Protein Urine Neg (Negative); Urine Appearance Clear (CLEAR); Urine Color Yellow (Yellow); pH Urine 7 (5-7)
[2020-06-12 09:31] LABS: Add Urine Culture? No; Add Urine Microscopic? YES; Bacteria Urine TRACE /hpf; Leukocyte Esterase Urine 1+ (Negative); Urobilinogen Urine Norm (Negative); WBC Urine 0-4 /hpf (0-5)
[2020-06-12] MEDS: sodium chloride 0.9% 1,000 ML 999 ML IV (09:46)
[2020-06-12] MEDS: ondansetron 2 mg/ML SDV 2 mL 4 MG IVP (09:48)
[2020-06-12] MEDS: morphine 4 mg/mL SDV 1 mL IVP (09:52)
[2020-06-12 09:59] LABS: Basophils # 0.1 10^3/uL (0.0-0.1); Basophils % 0.6 %; Eosinophils # 0.2 10^3/uL (0.0-0.8); Eosinophils % 2.7 %; Hematocrit 44.3 % (37.0-47.0); Hemoglobin 14.5 g/dL (11.5-15.3); Lymphocytes # 2.4 10^3/uL (0.8-4.8); Lymphocytes % 31.1 %; Mean Corpuscular HGB Conc 32.7 g/dL (30.0-36.0); Mean Corpuscular Hemoglobin 30.4 pg (28.0-34.0); Mean Corpuscular Volume 92.9 fL (81-99); Mean Platelet Volume 11.5 fL (7.4-10.4); Monocytes # 0.6 10^3/uL (0.2-0.9); Monocytes % 7.6 %; Neutrophils # 4.49 10^3/uL (1.8-7.7); Neutrophils % 57.9 %; Nucleated Red Blood Cells % 0 %; Platelet Count 229 10^3/cmm (130-400); Red Blood Count 4.77 10^6/uL (4.1-5.3); Red Cell Distribution Width 12.4 % (12.1-15.1); White Blood Count 7.8 10^3/uL (4.0-10.0)
[2020-06-12 10:11] VITALS: BP 142/75; PULSE 59; O2SAT 96
[2020-06-12 10:19] LABS: Alanine Aminotransferase 15 U/L (0-33); Albumin Level 4.2 g/dL (3.5-5.2); Alkaline Phosphatase 86 IU/L (35-105); Aspartate Amino Transferase 14 U/L (0-32); Blood Urea Nitrogen 18 mg/dL (8-23); Calcium 9.5 mg/dL (8.5-10.5); Carbon Dioxide 27 mmol/L (22-29); Chloride 101 mmol/L (98-107); Globulin 2.3 g/dL (1.3-4.6); Glomerular Filtration Rate 98.8 mL/min (90-130); Glucose 187 mg/dL (65-115); Osmolality Calculated 293 mOsm/kg (285-295); Sodium 138 mmol/L (136-145); Total Bilirubin 0.2 mg/dL (0.15-1.2); Total Protein 6.5 g/dL (6.6-8.7)
[2020-06-12 10:59] VITALS: BP 128/73; PULSE 66; O2SAT 94
== END 2020-06-12 10:59 | disposition home or self-care (01) ==
PROVIDERS: Emergency Provider Nurse Practitioner Family; PCP Family Medicine
DX: R10.9 Unspecified abdominal pain (principal); Z79.01 Long term (current) use of anticoagulants; Z79.82 Long term (current) use of aspirin; Z79.4 Long term (current) use of insulin; I48.91 Unspecified atrial fibrillation; E11.9 Type 2 diabetes mellitus without complications; I11.0 Hypertensive heart disease with heart failure; I50.30 Unspecified diastolic (congestive) heart failure; E78.5 Hyperlipidemia, unspecified; Z77.22 Contact with and (suspected) exposure to environmental tobacco smoke (acute) (chronic)
CPT/HCPCS: 74176; 80053; 81001; 85025; 96361; 96374; 96375; J2270; J2405; J7030

== ENCOUNTER → 2020-07-30 08:27 | Outpatient (BNVA) | payer MEDICARE, SELFPAY | PROVIDERS: PCP Family Medicine; Referring Provider Family Medicine; Visit Provider Anesthesiology Pain Medicine | DX: M54.42 Lumbago with sciatica, left side (principal); M54.9 Dorsalgia, unspecified; M54.16 Radiculopathy, lumbar region; M47.816 Spondylosis without myelopathy or radiculopathy, lumbar region; Z79.891 Long term (current) use of opiate analgesic | CPT/HCPCS: 99204 ==

== ENCOUNTER 2020-09-05 12:09 | Outpatient (CLI) | payer MEDICARE, SELFPAY ==
--- NOTE | 2020-09-05 12:41 | XR_ITS ---
WS: [id number] KUB, AP view, 09/05/2020 Clinical Data: URETERAL CALCULUS Comparison: KUB, 08/11/2018. Findings: No abnormal intraabdominal masses or calcifications are seen. There is no dilatated small bowel or ev idence of obstruction. There are left paramedian surgical sutures in the abdomen and pelvis. There is a large amount of feca l material in colon. XR/XR KUB [id number] Impression: Negative KUB.
== END 2020-09-05 12:10 | disposition home or self-care (01) ==
PROVIDERS: PCP Family Medicine; Visit Provider Urology
DX: N20.1 Calculus of ureter (principal)
CPT/HCPCS: 74018; 81003

== ENCOUNTER → 2020-11-25 14:04 | Outpatient (BNVA) | payer MEDICARE, SELFPAY | PROVIDERS: PCP Family Medicine; Visit Provider Internal Medicine Cardiovascular Disease | DX: I48.19 Other persistent atrial fibrillation (principal); I50.32 Chronic diastolic (congestive) heart failure; I10 Essential (primary) hypertension; Z86.79 Personal history of other diseases of the circulatory system | CPT/HCPCS: 80048; 85025 ==

== ENCOUNTER → 2021-01-15 12:46 | Outpatient (BNVA) | payer MEDICARE, SELFPAY | PROVIDERS: PCP Family Medicine; Visit Provider Urology | DX: N39.0 Urinary tract infection, site not specified (principal) | CPT/HCPCS: 81003 ==

== ENCOUNTER 2021-03-02 09:26 | Emergency (ER) | payer MEDICARE, SELFPAY ==
[2021-03-02 09:36] VITALS: BP 172/89; PULSE 59; RESP 24; TEMP 36.8; O2SAT 94; BMI 39.9
--- NOTE | 2021-03-02 10:48 | ECG_ITS ---
[facility] Test Date: 2021-03-02 Pat Name: Nathaly Jiang Department: Room: Gender: Female Conveyor Belt Operator: : 1950 Requested By: Cintia Keller Order Number: [id number] Crisostomo MD: Renata Kan M.D. Measurements Intervals [place] Rate: 57 P: -27 MT: 141 QRS: -30 QRSD: 140 T: 58 QT: 471 QTc: 460 Interpretive Statements Possible ectopic atrial rhythm INTRAVENTRICULAR CONDUCTION DELAY [130+ ms QRS DURATION] LEFT VENTRICULAR HYPERTROPHY AND ST-T CHANGE [VOLTAGE CRITERIA PLUS ST/T ABNORMALITY] POSSIBLE SEPTAL MYOCARDIAL INFARCTION , OF INDETERMINATE AGE [30 ms Q WAVE IN V1/V2] PROBABLE LATERAL MYOCARDIAL INFARCTION , OF INDETERMINATE AGE [35 ms Q WAVE IN I/aVL/V5/V6] Compared to ECG 11/10/2019 06:06:18 Intraventricular conduction delay now present.Left ventricular hypertrophy now present.ST (T wave) deviation now present.Myocardial infarct finding now present Right bundle-branch block no longer present Electronically Signed On 03-02-2021 20:20:29 MECHANICAL DESIGNER by Renata Kan M.D. [id number]
--- NOTE | 2021-03-02 10:50 | XRR_ITS ---
PROCEDURE INFORMATION: Exam: XR Chest Exam date and time: 03/02/2021 10:50 AM Age: 70 years old Clinical indication: Cough and shortness of breath; Additional info: Cough, dyspnea TECHNIQUE: Imaging protocol: XR of the chest. Views: 1 view. COMPARISON: CR XR knees AP WB w LT lmt ORTH 02/15/2020 10:36 AM FINDINGS: Lungs: Unremarkable. No consolidation. Pleural spaces: Unremarkable. No pleural effusion. No pneumothorax. Heart/Mediastinum: Unremarkable. No cardiomegaly. Bones/joints: Unremarkable. XR/XR chest 1V portable [id number] IMPRESSION: No acute findings.
[2021-03-02 11:49] LABS: Basophils % 0.4 %; Eosinophils # 0.2 10^3/uL (0.0-0.8); Eosinophils % 3.3 %; Hematocrit 44.4 % (37.0-47.0); Hemoglobin 14.8 g/dL (11.5-15.3); Lymphocytes # 1.6 10^3/uL (0.8-4.8); Lymphocytes % 21.4 %; Mean Corpuscular HGB Conc 33.3 g/dL (30.0-36.0); Mean Corpuscular Hemoglobin 30.3 pg (28.0-34.0); Mean Corpuscular Volume 90.8 fl (81-99); Mean Platelet Volume 11.7 fL (7.4-10.4); Monocytes # 0.5 10^3/uL (0.2-0.9); Monocytes % 7.3 %; Neutrophils # 4.86 10^3/uL (1.8-7.7); Neutrophils % 67.2 %; Nucleated Red Blood Cells % 0 %; Platelet Count 202 10^3/cmm (130-400); Red Blood Count 4.89 10^6/uL (4.1-5.3); Red Cell Distribution Width 13.2 % (12.1-15.1); White Blood Count 7.2 10^3/uL (4.0-10.0)
[2021-03-02 12:02] LABS: Influenza A by IFA Negative (Negative); Influenza B by IFA Negative (Negative)
--- NOTE | 2021-03-02 13:05 | ED_ITS ---
HPI - URI/Sore Throat General: Chief Complaint: Shortness of Breath/Dyspnea Stated Complaint: SOB; COUGH Time Seen by Provider: 03/02/21 10:48 Source: patient Mode of arrival: EMS Limitations: no limitations History of Present Illness: HPI Narrative: 70-year-old complaining of cough, congestion, wheezing, and sore throat for the past week. She has a history of asthma, and has been using her inhaler more frequently. She does have history of insulin-dependent diabetes, last time she had to take steroids was over a year ago. MD elicited complaint: cough, sore throat, rhinorrhea and nasal congestion Associated symptoms: Reports chills, chest pain and fever(s); Deny headache(s), nausea or vomiting Review of Systems General: Reports: 10 or more systems reviewed and unremarkable except in HPI and below Const: Reports: fever(s), chills, change in appetite, fatigue and malaise ENMT: Reports: throat pain, odynophagia, hoarseness and dry mouth Card: Reports: chest pain Resp: Reports: dyspnea, productive cough, wheezing, stridor, pain on inspiration and chest congestion GI: Denies: nausea or vomiting Neuro: Denies: headache(s), numbness in extremities or weakness in extremities Psych: Denies: anxiety PFSH ED PFSH: Medical History Atrial fibrillation Bilateral lower extremity edema Diabetes mellitus Diastolic heart failure Essential hypertension GERD (gastroesophageal reflux disease) History of kidney stones History of stroke History of throat cancer Hx of ovarian cancer Hx of small bowel obstruction Hyperlipidemia Migraines Recurrent UTI SVT (supraventricular tachycardia) Surgical History History of colon resection S/P hysterectomy Family History Sister Asthma Brother Asthma Cancer Grandmother Asthma Father Cancer Emphysema lung Social History Second hand smoke exposure: Yes Alcohol intake: never Lives independently: Yes Marital status: Current occupational status: retired History of recent travel: No Physical Exam Const: COMMON NORMALS: no acute distress and average body habitus NUTRITIONAL APPEARANCE: obese morbidly obese ORIENTATION/CONSCIOUSNESS: Yes awake and Yes oriented to person HENMT: COMMON NORMALS: normocephalic, atraumatic and TM's normal bilaterally HEAD & SCALP: normocephalic and atraumatic FACE & SINUS: normal facial exam and face symmetric TYMPANIC MEMBRANE: TM's normal bilaterally MOUTH: other (Hoarse voice, barking cough); no drooling THROAT: postnasal drainage Eye: COMMON NORMALS: Equal, round and reactive pupils present, EOMs intact bilaterally, conjunctivae normal and no scleral icterus CONJUNCTIVA: Yes conjunctivae normal PUPIL: Yes Equal, round and reactive pupils present Neck/C-Spine: COMMON NORMALS: full ROM, no lymphadenopathy and supple Lymph: LYMPHATIC: no lymphadenopathy noted Resp: COMMON NORMALS: normal respiratory effort and No use of accessory muscles EFFORT & INSPECTION: Yes able to speak in complete sentences, No respiratory distress, No labored, Yes Actively coughing barking, croupy and hoarse and Yes audible wheezes Cardio: COMMON NORMALS: S1 normal heart sound present and S2 normal heart sound present HEART SOUNDS: S1 normal heart sound present and S2 normal heart sound present Extremity: COMMON NORMALS: normal to inspection and full ROM GENERAL: No edema Neuro: SENSORIUM/ORIENTATION: Yes oriented to person Skin: COMMON NORMALS: no rashes or lesions noted, no wounds, turgor normal and no jaundice GENERAL SKIN EXAM: no rashes or lesions noted and turgor normal Course Vital Signs: Vital signs: Vital Signs Temperature 98.2 F 03/02/21 09:36 Pulse Rate 59 L 03/02/21 09:36 Respiratory Rate 24 H 03/02/21 09:36 Blood Pressure 172/89 03/02/21 09:36 Pulse Oximetry 94 03/02/21 09:36 MDM - URI/Sore Throat MDM Narrative: Medical decision making narrative: 70-year-old female with upper respiratory infection, underlying diabetes and asthma. Croupy-like cough, Parainfluenza 2+ on respiratory panel. Covid and influenza negative Decadron 8 mg IV x1 DuoNeb treatment Doxycycline 100 mg p.o. x1 Continue doxycycline for 7 days, prednisone for 5 days. Increase Lantus to 40 units at night for the next 3 nights. Continue neb treatments Follow-up with PCP in 3 to 5 days. Differential Diagnosis: Upper Respiratory Differential Diagnosis: Likely upper respiratory infection, croup, viral infection, bronchitis, influenza and pharyngitis Medical Records: Attestation: I reviewed the patient's medical records. Lab Data: Attestation: I reviewed the patient's lab results. Labs: Lab Results 03/02/21 03/02/21 03/02/21 10:59 10:59 11:40 WBC 7.2 10^3/uL 10^3/ uL (4.0-10.0) RBC 4.89 10^6/uL 10^6 /uL (4.1-5.3) Hgb 14.8 g/dL g/dL (11.5-15.3) Hct 44.4 % % (37.0-47.0) MCV 90.8 fl fl (81-99) MCH 30.3 pg pg (28.0-34.0) MCHC 33.3 g/dL g/dL (30.0-36.0) RDW 13.2 % % (12.1-15.1) Plt Count 202 10^3/cmm 10^3 /cmm (130-400) MPV 11.7 fL H fL (7.4-10.4) Neut % (Auto) 67.2 % % Lymph % (Auto) 21.4 % % [place] % (Auto) 7.3 % % Eos % (Auto) 3.3 % % Baso % (Auto) 0.4 % % Neut # (Auto) 4.86 10^3/uL 10^3 /uL (1.8-7.7) Lymph # (Auto) 1.6 10^3/uL 10^3/ uL (0.8-4.8) [place] # (Auto) 0.5 10^3/uL 10^3/ uL (0.2-0.9) Eos # (Auto) 0.2 10^3/uL 10^3/ uL (0.0-0.8) Baso # (Auto) 0.0 10^3/uL 10^3/ uL (0.0-0.1) Nucleated RBC % (a uto) 0 % % Nucleated RBCs # 0.0 /100WBC /100W BC Sodium Potassium Chloride Carbon Dioxide Anion Gap BUN Creatinine GFR Calculation Glucose Calculated Osmolal ity Calcium Total Bilirubin AST ALT Alkaline Phosphata se C-Reactive Protein Total Protein Albumin Globulin Coronavirus 229E ( PCR) Not detected (NOT DETECT) Influenza Type A A g Negative (Negative) Influenza Type B A g Negative (Negative) Parainfluenza 1 (P CR) Parainfluenza 2 (P CR) Parainfluenza 3 (P CR) Parainfluenza 4 (P CR) SARS-CoV-2 (PCR) Not detected (NOT DETECT) 03/02/21 03/02/21 03/02/21 11:40 12:32 13:34 WBC RBC Hgb Hct MCV MCH MCHC RDW Plt Count MPV Neut % (Auto) Lymph % (Auto) [place] % (Auto) Eos % (Auto) Baso % (Auto) Neut # (Auto) Lymph # (Auto) [place] # (Auto) Eos # (Auto) Baso # (Auto) Nucleated RBC % (a uto) Nucleated RBCs # Sodium Cancelled 142 mmol/L mmol/L (136-145) Potassium Cancelled 3.5 mmol/L mmol/L (3.5-5.1) Chloride Cancelled 102 mmol/L mmol/L (98-107) Carbon Dioxide Cancelled 30 mmol/L H mmol/ L (22-29) Anion Gap Cancelled 13.5 (5-19) BUN Cancelled 11 mg/dL mg/dL (8-23) Creatinine Cancelled 0.5 mg/dL mg/dL (0.5-0.9) GFR Calculation Cancelled Not Reportable Glucose Cancelled 163 mg/dL H mg/dL (65-115) Calculated Osmolal ity Cancelled 297 mOsm/kg H mOs m/kg (285-295) Calcium Cancelled 9.0 mg/dL mg/dL (8.5-10.5) Total Bilirubin Cancelled 0.2 mg/dL mg/dL (0.15-1.2) AST Cancelled 18 U/L U/L (0-32) ALT Cancelled 17 U/L U/L (0-33) Alkaline Phosphata se Cancelled 76 IU/L IU/L (35-105) C-Reactive Protein Cancelled 19.9 mg/L H mg/L (0.0-4.9) Total Protein Cancelled 6.7 g/dL g/dL (6.6-8.7) Albumin Cancelled 4.0 g/dL g/dL (3.5-5.2) Globulin Cancelled 2.7 g/dL g/dL (1.3-4.6) Coronavirus 229E ( PCR) Influenza Type A A g Influenza Type B A g Parainfluenza 1 (P CR) Not detected (NOT DETECT) Parainfluenza 2 (P CR) Detected A (NOT DETECT) Parainfluenza 3 (P CR) Not detected (NOT DETECT) Parainfluenza 4 (P CR) Not detected (NOT DETECT) SARS-CoV-2 (PCR) Discharge Plan Discharge Patient Disposition: Home Clinical Impression: Parainfluenza virus laryngotracheitis, History of asthma Condition: Stable Prescriptions: New doxycycline hyclate 100 mg capsule 100 mg PO BID 7 Days Qty: 14 RF: 0 prednisone 20 mg tablet 60 mg PO DAILY 5 Days Qty: 15 RF: 0 No Action sumatriptan succinate 50 mg tablet 50 mg PO PRN PRN (Reason: migraine headache) RF: 0 quetiapine 50 mg tablet 100 mg PO BEDTIME RF: 0 mirtazapine 15 mg tablet 30 mg PO .HS RF: 0 omeprazole 20 mg capsule,delayed release(DR/EC) 20 mg PO DAILY RF: 0 ropinirole 1 mg tablet 2 mg PO DAILY RF: 0 montelukast 10 mg tablet 10 mg PO DAILY RF: 0 aspirin [Adult Low Dose Aspirin] 81 mg tablet,delayed release (DR/EC) 81 mg PO DAILY RF: 0 albuterol sulfate 2.5 mg /3 mL (0.083 %) solution for nebulization 2.5 mg INHALATION Q4H PRN (Reason: Shortness Of Breath) RF: 0 hydrocodone-acetaminophen 5-325 mg tablet 1 - 2 tab PO Q4H PRN (Reason: Pain) RF: 0 Breo Ellipta 100-25 mcg/dose blister with device 1 inh INHALATION DAILY RF: 0 glimepiride 2 mg tablet 8 mg PO DAILY RF: 0 primidone 50 mg tablet 100 mg PO Q8H RF: 0 Lantus U-100 Insulin 100 unit/mL solution 34 unit SUBCUT BEDTIME RF: 0 warfarin 1 mg tablet 2 mg PO BEDTIME Qty: 30 RF: 2 nitroglycerin [Nitrostat] 0.4 mg tablet, sublingual 0.4 mg SUBLINGUAL Q5M PRN (Reason: Chest Pain) Qty: 25 RF: 6 sotalol 80 mg tablet 80 mg PO BID@0900,2100 Qty: 240 RF: 3 valsartan 80 mg tablet 80 mg PO DAILY Qty: 90 RF: 3 Hold Instructions: hypotension methocarbamol 750 mg tablet 750 mg PO BID PRNRF: 0 ascorbate calcium (vitamin C) 500 mg tablet 500 mg PO DAILY RF: 0 ciprofloxacin HCl 500 mg tablet 500 mg PO BID Qty: 28 RF: 1 amlodipine 5 mg tablet 5 mg PO DAILY Qty: 90 RF: 3 Hold Instructions: Patient No Longer Taking warfarin 1 mg tablet 1 mg PO DAILY Qty: 90 RF: 1 warfarin 6 mg tablet 6 mg PO DAILY Qty: 90 RF: 0 sulfamethoxazole-trimethoprim 800-160 mg tablet See Rx Instructions .ROUTE .COMPLEX Qty: 30 RF: 3 warfarin 10 mg tablet See Rx Instructions mg .ROUTE .COMPLEX Qty: 90 RF: 1 isosorbide mononitrate 60 mg tablet extended release 24 hr See Rx Instructions .ROUTE .COMPLEX Qty: 90 RF: 3 furosemide 40 mg tablet 80 mg PO QAM RF: 0 Discharge Orders: Discharge ED (Routine); Ordered 03/02/21 Ordered By: Cintia Keller Referrals: Masha Carrillo MD [Primary Care Provider] - Discharge Diet: Advance as tolerated Discharge Activity: Increase activity as tolerated Patient Instructions: Acute Laryngitis - Adult Activity Restrictions/Additional Instructions: Rest, drink plenty of fluids. Increase your Lantus dose to 40 units at night for the next week since your blood sugars may run higher than usual due to the steroids. Follow-up with your primary care doctor in 3 days for recheck. Return immediately to the ER if you develop worsening difficulty breathing. Coding Level of Care Code ED Rubber Washer for Marva Fwd Exam Comprehensive
[2021-03-02 13:10] LABS: Alanine Aminotransferase 17 U/L (0-33); Alkaline Phosphatase 76 IU/L (35-105); Anion Gap 13.5 (5-19); Aspartate Amino Transferase 18 U/L (0-32); Blood Urea Nitrogen 11 mg/dL (8-23); C Reactive Protein 19.9 mg/L (0.0-4.9); Carbon Dioxide 30 mmol/L (22-29); Chloride 102 mmol/L (98-107); Globulin 2.7 g/dL (1.3-4.6); Glucose 163 mg/dL (65-115); Osmolality Calculated 297 mOsm/kg (285-295); Potassium 3.5 mmol/L (3.5-5.1); Sodium 142 mmol/L (136-145); Total Bilirubin 0.2 mg/dL (0.15-1.2); Total Protein 6.7 g/dL (6.6-8.7)
[2021-03-02 13:31] LABS: Adenovirus Not Detected (NOT DETECT); Chlamydia Pneumoniae Not Detected (NOT DETECT); Coronavirus 229E,HKU1,NL63,OC4 Not Detected (NOT DETECT); Human Metapneumovirus Not Detected (NOT DETECT); Human Rhinovirus/Enterovirus Not Detected (NOT DETECT); Influenza A Not Detected (NOT DETECT); Influenza A H1 Not Detected (NOT DETECT); Influenza A H1-2009 Not Detected (NOT DETECT); Influenza A H3 Not Detected (NOT DETECT); Influenza B Not Detected (NOT DETECT); Mycoplasma Pneumoniae Not Detected (NOT DETECT); Parainfluenza Virus Type 1 Not Detected (NOT DETECT); Parainfluenza Virus Type 2 Detected (NOT DETECT); Parainfluenza Virus Type 3 Not Detected (NOT DETECT); Parainfluenza Virus Type 4 Not Detected (NOT DETECT); Respiratory Syncytial Virus A Not Detected (NOT DETECT); Respiratory Syncytial Virus B Not Detected (NOT DETECT); SARS-COV-2 Not Detected (NOT DETECT)
[2021-03-02] MEDS: acetaminophen 500 mg Tablet 1000 MG PO (13:32)
[2021-03-02] MEDS: doxycycline 100 mg Tablet PO (13:33)
[2021-03-02 13:34] LABS: Parainfluenza Virus Type 1 Not Detected (NOT DETECT); Parainfluenza Virus Type 2 Detected (NOT DETECT); Parainfluenza Virus Type 3 Not Detected (NOT DETECT); Parainfluenza Virus Type 4 Not Detected (NOT DETECT); Results from Genmark
[2021-03-02] MEDS: dexamethasone 4 mg/mL INJ 8 MG IVP (13:34)
[2021-03-02] MEDS: ipratropium-albuterol 3 mL Neb INHALATION (14:26)
[2021-03-02 14:27] VITALS: PULSE 81; RESP 22; O2SAT 96
[2021-03-02 14:34] VITALS: PULSE 82
== END 2021-03-02 14:52 | disposition home or self-care (01) ==
PROVIDERS: Emergency Provider Family Medicine; PCP Family Medicine
DX: J20.4 Acute bronchitis due to parainfluenza virus (principal); J45.909 Unspecified asthma, uncomplicated; E11.9 Type 2 diabetes mellitus without complications; I11.0 Hypertensive heart disease with heart failure; I50.30 Unspecified diastolic (congestive) heart failure; Z86.73 Personal history of transient ischemic attack (TIA), and cerebral infarction without residual deficits; Z85.89 Personal history of malignant neoplasm of other organs and systems; Z85.43 Personal history of malignant neoplasm of ovary; E78.5 Hyperlipidemia, unspecified; Z77.22 Contact with and (suspected) exposure to environmental tobacco smoke (acute) (chronic); Z20.822 Contact with and (suspected) exposure to COVID-19; Z79.82 Long term (current) use of aspirin; Z79.01 Long term (current) use of anticoagulants; Z79.84 Long term (current) use of oral hypoglycemic drugs; Z79.4 Long term (current) use of insulin
CPT/HCPCS: 71045; 80053; 85025; 86140; 87631; 87635; 87804; 93005; 94640; 96374; 99284; 99291; J1100

== ENCOUNTER 2021-03-31 11:09 | Inpatient (IN) | payer MEDICARE, SELFPAY ==
--- NOTE | 2021-03-31 11:19 | CT_ITS ---
WS: [id number] CTA HEAD AND NECK TECHNIQUE: Contrast enhanced CTA of the head and neck with coronal and sagittal reformatted images an d maximum intensity projection (MIP) images. NASCET criteria utilized. CLINICAL INFORMATION: tia/stroke COMPARISON: DLP: 2611.[address] scans at [facility] use at least one of these dose optimization techniques: automated e xposure control; mA and/or kV adjustment per patient size (includes targeted exams where dose is matc hed to clinical indication); or iterative reconstruction. FINDINGS: RIGHT: Right common carotid artery is patent. Mild calcified atheromatous plaque right carotid bulb e xtending into the ICA. No significant right ICA stenosis. Retropharyngeal course of the right cervica l ICA which is patent to the skull base. Tortuous right cervical ICA at the skull base. LEFT: Left common carotid artery is patent. Mild calcified atheromatous plaque left carotid bulb exte nding into the ICA. No significant left ICA stenosis. Retropharyngeal course of the left cervical ICA . Left ICA is patent to the skull base. Tortuous left cervical ICA. INTRACRANIAL CTA: Right dominant vertebral artery. Smaller but patent left vertebral artery. Basilar artery is patent. Normal vascularity to the D[employer] territory bilaterally. Both ICAs are patent at the skull base. Patent anterior communicating artery. Normal vascularity to t he WALKER and MCA territories bilaterally. No evidence of high-grade proximal stenosis or aneurysm. Lung apices are well aerated. Tiny right thyroid nodule. Paranasal sinuses and mastoid air cells well aerated. Normal posterior nasopharynx. Disc osteophyte complex C6-C7 with mild central canal stenosi s. CT/CT angio headneck* [id number] IMPRESSION: 1. No significant ICA stenosis bilaterally. 2. Normal intracranial CTA. 3. Right dominant vertebral artery. Smaller but patent left vertebral artery. 4. Retropharyngeal course to both cervical ICAs.
--- NOTE | 2021-03-31 11:19 | CT_ITS ---
WS: [id number] CT HEAD TECHNIQUE: Noncontrast CT of the head obtained from the skullbase to the vertex. CLINICAL INFORMATION: Symptoms of Acute Stroke COMPARISON: 4 10,017 DLP: 1008.[address] scans at [facility] use at least one of these dose optimization techniques: automated e xposure control; mA and/or kV adjustment per patient size (includes targeted exams where dose is matc hed to clinical indication); or iterative reconstruction. FINDINGS: No evidence of intracranial hemorrhage or mass effect. Ventricular system and basal cisterns are thompson nt. Mild small vessel changes with moderate parenchymal volume loss. No extra-axial fluid collections . No evidence of mass or mass effect. Normal lee-white differentiation. Paranasal sinuses and mastoid air cells are well aerated. .Normal visualized soft tissues. CT/CT head wo con* [id number] IMPRESSION: 1. No evidence of intracranial hemorrhage or mass effect. 2. Mild small vessel changes. Moderate parenchymal volume loss. 3. No acute intracranial findings. Attempted notification Phyllis Patel MD at 03/31/2021 1:21 PM.
--- NOTE | 2021-03-31 11:19 | ECG_ITS ---
[facility] Test Date: 2021-03-31 Pat Name: Nathaly Jiang Department: Room: Gender: Female [employer]: : 1950 Requested By: Phyllis Patel Order Number: [id number] Reading MD: DENNIS MCCAULEY Measurements Intervals Daisy Rate: 68 P: 16 MA: 173 QRS: -43 QRSD: 134 T: 18 QT: 455 QTc: 484 Interpretive Statements SINUS RHYTHM WITH SINUS ARRHYTHMIA LEFT AXIS DEVIATION [QRS AXIS < -30] INTRAVENTRICULAR CONDUCTION DELAY [130+ ms QRS DURATION] VOLTAGE CRITERIA FOR LVH [MEETS CRITERIA IN ONE OF: R(aVL), S(V1), R(V5), R(V5/V6)+S(V1)] PROBABLE LATERAL MYOCARDIAL INFARCTION , PROBABLY OLD [35 ms Q WAVE IN I/aVL/V5/V6] Compared to ECG 03/02/2021 11:04:56 Left-axis deviation now present ST (T wave) deviation no longer present Myocardial infarct finding still present Electronically Signed On 03-31-2021 19:50:28 TE[employer]AG [employer]ACKER by DENNIS MCCAULEY [email or web address]
[2021-03-31 11:23] VITALS: BP 128/107; PULSE 72; RESP 16; O2SAT 95
--- NOTE | 2021-03-31 11:24 | ED_ITS ---
HPI - General Adult General: Chief complaint: Neuro Symptoms/Deficit Stated complaint: STROKE LIKE SYMPTOMS Time Seen by Provider: 03/31/21 11:10 History of Present Illness: Patient is a 70-year-old female with history atrial fibrillation on warfarin, TIA, diabetes diabetic retinopathy, presenting to the emergency room for evaluation of new onset of neurological symptoms including worsening left eye blurriness, left-sided headache, and transient left-sided weakness. Per patient, she is currently follow-up by Dr. Nye and is due for surgery in the left eye. Since yesterday morning at 10 AM, patient has had left-sided eye blurriness. Denies amaurosis fugax, double vision, eye pain, visual field deficits or scotoma. 39, patient experienced left-sided facial droop that resolved on its own. Earlier this morning at 3 AM, patient noticed left-sided weakness that improved at 930 this morning and ongoing L sided headache. No hx of GCA, axial/truncal pain or numbness in the AM, or jaw claudication. Patient called EMS was brought to the emergency room for evaluation. In route, patient had glucose of 212. Patient on arrival has NIH stroke scale of 0. Onset: 1 day ago Duration:1 day Location:home Severity:moderate/severe Associated symptoms: Deny chest pain, dyspnea, nausea, rash, palpitations or vomiting Review of Systems Const: Denies: fever(s) or chills Eyes: Reports: change in vision (+Leye visual blurriness) ENMT: Denies: mouth pain Card: Denies: chest pain or palpitations Resp: Denies: dyspnea or non-productive cough GI: Denies: abdominal pain, nausea, vomiting or diarrhea : Denies: dysuria Musc: Denies: extremity pain Skin/Breast: Denies: rash or new lesions Neuro: Reports: weakness in extremities (+transient L sided weakness today, and +transient L sided facial droop yest) and other (+headache) Psych: Reports: other (Normal mood) Arnie/Lymph: Denies: easy bruising PFS ED PFSH: Medical History (Updated 03/31/21 @ 18:30 by Lucius Dutton MD) Atrial fibrillation Bilateral lower extremity edema Diabetes mellitus Diastolic heart failure Essential hypertension GERD (gastroesophageal reflux disease) History of hematuria History of kidney stones History of stroke History of throat cancer Hx of ovarian cancer Hx of small bowel obstruction Hyperlipidemia Migraines MEIR (obstructive sleep apnea) Recurrent UTI SVT (supraventricular tachycardia) Tremor Ureter, calculus Surgical History History of colon resection S/P hysterectomy Family History Sister Asthma Brother Asthma Cancer Grandmother Asthma Father Cancer Emphysema lung Social History Smoking and tobacco status: never smoked Second hand smoke exposure: Yes Alcohol intake: never Substance/Drug Use: never Lives independently: Yes Household members: spouse Marital status: Current occupational status: retired History of recent travel: No Physical Exam Const: COMMON NORMALS: alert HENMT: COMMON NORMALS: atraumatic HEAD & SCALP: atraumatic MOUTH: moist mucous membranes not abnormal Eye: COMMON NORMALS: EOMs intact bilaterally and conjunctivae normal VISUAL ACUITY: Yes other (20/70R eye and 20/200 L eye) CONJUNCTIVA: Yes conjunctivae normal OTHER: occular pressure of 20 L eye, no corneal haziness or fixed pupil Neck/C-Spine: COMMON NORMALS: full ROM and supple Resp: COMMON NORMALS: normal respiratory effort and clear to auscultation oliver aterally AUSCULTATION: clear to auscultation bilaterally Cardio: COMMON NORMALS: regular rate RATE: regular rate GI: COMMON NORMALS: Soft to palpation and non-tender PALPATION: Yes Soft to palpation Extremity: COMMON NORMALS: full ROM Neuro: SENSORIUM/ORIENTATION: Yes alert OTHER: Mental status? Awake, alert, and oriented to self, year, month, location, and situation.? Following simple axial and appendicular commands.? Has appropriate fund of knowledge, comprehension, and insight.? Able to recall and understands pertinent aspects of medical history and current treatment status.? ? Language? Speech is fluent without word-finding difficulties.? Intact naming, expression, information receptionist, and repetition.? ? Cranial nerves? 2,3,4,6: PERRL, EOMI with no nystagmus. 5: Intact sensation to light touch, symmetric? 7: Smile symmetrical, no facial droop.? 8: Hearing grossly intact.? 9,10: Normal palate movement.? 11: Normal strength in trapezius bilaterally 12: Tongue protrudes midline.? ? Motor examination? Normal bulk & tone. Strength as follows (R/L): Delts (5/5), Biceps (5/5), Triceps (5/5), Wrist ext (5/5), hip flexors (5/5), plantarflexors (5/5), dorsiflexors (5/5). ? Reflexs? Deep tendon examination (R/L): Biceps (2+/2+), Brachialis (2+/2+), Triceps (2 +/2+), Knee jerk (2+/2+), Ankle Jerk (1+, 1+), Plantars (down/down) ? Sensation? Light Touch: Grossly intact and equal in upper and lower extremities bilaterally? Romberg: Negative.? Distal joint position sense intact ? Coordination? Vigyme-is-izyg-finger movements intact without dysmetria or past-pointing.? Rapid fingertaps: preserved amplitude without decriment.? No tremor, myoclonus or truncal ataxia.? ? Gait/stance? Steady, normal narrow base gait with appropriate arm swing and turning.? Tandem gait without hesitation or loss of balance. Psych: COMMON NORMALS: speech normal SPEECH: Yes normal speech MOOD & AFFECT: Yes euthymic mood Course Vital Signs: Vital signs: Vital Signs Temperature 98.6 F 04/01/21 12:00 Pulse Rate 59 L 04/01/21 12:00 Respiratory Rate 17 04/01/21 12:00 Blood Pressure 128/82 04/01/21 12:00 Pulse Oximetry 92 04/01/21 12:00 [facility] - General Adult Medical Decision Making 70-year-old female presents emergency room for concerns of bilateral headache, left-sided visual blurriness, transient left facial droop, and transient sided weakness x1 day. On exam, patient is neurologically intact. NIHSS score of 0 currently. Patient has 20/70 on the right eye and 20/200 left eye. Patient's ocular pressures within normal limit of the left eye. Bedside ultrasound of the left eye did not show any signs of active retinal detachment. However there is vitreous debris is noted in the eyes bilaterally. Given concerns of transient weakness of the left side history of atrial fibrillation, decision was made to work-up patient for TIA. She is not a candidate for TPA as patient does not have any persistent ongoing neurological deficit within the time window. Patient has 1 day onset of worsening left-sided vision change. Patient has had a prior history of cataract in the left eye with multiple laser procedure performed. I have discussed case with Dr. Nye will follow the patient. Given ESR is within normal limit in the setting of headache and vision change, I do not suspect that this is GCA currently. Imaging studies negative for any large vessel occlusion or brain bleed. Patient will be admitted to hospital for TIA work-up. Case discussed with Dr. Nye from Opthalmology who will evaluate patient upon admission. Disposition: Admission Lab Data : 04/01/21 05:03 04/01/21 05:[address] 03/31/21 11:19 IMPRESSION: 1. No evidence of intracranial hemorrhage or mass effect. 2. Mild small vessel changes. Moderate parenchymal volume loss. 3. No acute intracranial findings. Attempted notification Phyllis Patel MD at 03/31/2021 1:21 PM. Head/Neck CTA 03/31/21 11:19 IMPRESSION: 1. No significant ICA stenosis bilaterally. 2. Normal intracranial CTA. 3. Right dominant vertebral artery. Smaller but patent left vertebral artery. 4. Retropharyngeal course to both cervical ICAs. Laboratory Results WBC 6.6 10^3/uL (4.0-10.0) 03/31/21 12:00 RBC 4.51 10^6/uL (4.1-5.3) 03/31/21 12:00 Hgb 13.5 g/dL (11.5-15.3) 03/31/21 12:00 Hct 40.7 % (37.0-47.0) 03/31/21 12:00 MCV 90.2 fl (81-99) 03/31/21 12:00 MCH 29.9 pg (28.0-34.0) 03/31/21 12:00 MCHC 33.2 g/dL (30.0-36.0) 03/31/21 12:00 RDW 13.3 % (12.1-15.1) 03/31/21 12:00 Plt Count 231 10^3/cmm (130-400) 03/31/21 12:00 MPV 11.3 fL (7.4-10.4) H 03/31/21 12:00 Neut % (Auto) 60.5 % 03/31/21 12:00 Lymph % (Auto) 27.1 % 03/31/21 12:00 [place] % (Auto) 10.1 % 03/31/21 12:00 Eos % (Auto) 1.8 % 03/31/21 12:00 Baso % (Auto) 0.3 % 03/31/21 12:00 Neut # (Auto) 3.97 10^3/uL (1.8-7.7) 03/31/21 12:00 Lymph # (Auto) 1.8 10^3/uL (0.8-4.8) 03/31/21 12:00 [place] # (Auto) 0.7 10^3/uL (0.2-0.9) 03/31/21 12:00 Eos # (Auto) 0.1 10^3/uL (0.0-0.8) 03/31/21 12:00 Baso # (Auto) 0.0 10^3/uL (0.0-0.1) 03/31/21 12:00 Nucleated RBC % (auto) 0 % 03/31/21 12:00 Nucleated RBCs # 0.0 /100WBC 03/31/21 12:00 ESR 5 mm/hr (0-15) 03/31/21 12:00 PT 12.80 SECONDS (12.1-14.9) 03/31/21 12:00 INR 0.94 (0.8-1.2) 03/31/21 12:00 APTT 26.1 SECONDS (23.9-36.7) 03/31/21 12:00 Sodium 143 mmol/L (136-145) 03/31/21 12:00 Potassium 3.4 mmol/L (3.5-5.1) L 03/31/21 12:00 Chloride 104 mmol/L (98-107) 03/31/21 12:00 Carbon Dioxide 26 mmol/L (22-29) 03/31/21 12:00 Anion Gap 16.4 (5-19) 03/31/21 12:00 BUN 16 mg/dL (8-23) 03/31/21 12:00 Creatinine 0.6 mg/dL (0.5-0.9) 03/31/21 12:00 GFR Calculation Not Reportable 03/31/21 12:00 Glucose 199 mg/dL (65-115) H 03/31/21 12:00 Calculated Osmolality 303 mOsm/kg (285-295) H 03/31/21 12:00 Calcium 9.0 mg/dL (8.5-10.5) 03/31/21 12:00 Total Bilirubin 0.2 mg/dL (0.15-1.2) 03/31/21 12:00 AST 14 U/L (0-32) 03/31/21 12:00 ALT 13 U/L (0-33) 03/31/21 12:00 Alkaline Phosphatase 71 IU/L (35-105) 03/31/21 12:00 Troponin T Baseline 15 ng/L (0-10) H 03/31/21 12:00 Total Protein 5.6 g/dL (6.6-8.7) L 03/31/21 12:00 Albumin 3.8 g/dL (3.5-5.2) 03/31/21 12:00 Globulin 1.8 g/dL (1.3-4.6) 03/31/21 12:00 Discharge Plan Discharge Patient Disposition: Admitted As Inpatient Admit Provider: Lucius Dutton Clinical Impression: Brain TIA, Visual blurriness, Headache Condition: Stable Coding Level of Care Code ED Lockstitch Topstitcher for Chg Fwd Exam Comprehensive
[2021-03-31 12:13] LABS: Basophils % 0.3 %; Eosinophils # 0.1 10^3/uL (0.0-0.8); Eosinophils % 1.8 %; Hematocrit 40.7 % (37.0-47.0); Hemoglobin 13.5 g/dL (11.5-15.3); Lymphocytes # 1.8 10^3/uL (0.8-4.8); Lymphocytes % 27.1 %; Mean Corpuscular HGB Conc 33.2 g/dL (30.0-36.0); Mean Corpuscular Hemoglobin 29.9 pg (28.0-34.0); Mean Corpuscular Volume 90.2 fl (81-99); Mean Platelet Volume 11.3 fL (7.4-10.4); Monocytes # 0.7 10^3/uL (0.2-0.9); Monocytes % 10.1 %; Neutrophils # 3.97 10^3/uL (1.8-7.7); Neutrophils % 60.5 %; Nucleated Red Blood Cells % 0 %; Platelet Count 231 10^3/cmm (130-400); Red Blood Count 4.51 10^6/uL (4.1-5.3); Red Cell Distribution Width 13.3 % (12.1-15.1); White Blood Count 6.6 10^3/uL (4.0-10.0)
[2021-03-31 12:21] LABS: Erythrocyte Sedimentation Rate 5 mm/hr (0-15)
[2021-03-31 12:22] LABS: INR 0.94 (0.8-1.2)
[2021-03-31 12:23] LABS: Partial Thromboplastin Time 26.1 SECONDS (23.9-36.7)
[2021-03-31 12:35] LABS: Troponin(5th) Baseline 15 ng/L (0-10)
[2021-03-31 12:38] LABS: Alanine Aminotransferase 13 U/L (0-33); Albumin Level 3.8 g/dL (3.5-5.2); Alkaline Phosphatase 71 IU/L (35-105); Aspartate Amino Transferase 14 U/L (0-32); Blood Urea Nitrogen 16 mg/dL (8-23); Carbon Dioxide 26 mmol/L (22-29); Chloride 104 mmol/L (98-107); Globulin 1.8 g/dL (1.3-4.6); Glucose 199 mg/dL (65-115); Osmolality Calculated 303 mOsm/kg (285-295); Sodium 143 mmol/L (136-145); Total Bilirubin 0.2 mg/dL (0.15-1.2); Total Protein 5.6 g/dL (6.6-8.7)
[2021-03-31 12:44] LABS: Anion Gap 16.4 (5-19); Potassium 3.4 mmol/L (3.5-5.1)
[2021-03-31 12:53] VITALS: RESP 16
[2021-03-31] MEDS: morphine 4 mg/mL SDV 1 mL IVP (12:53)
[2021-03-31] MEDS: sodium chloride 0.9% 500 ML IV (12:54)
[2021-03-31] MEDS: metoclopramide 5 mg/mL SDV 2 mL 10 MG IVP (12:54)
[2021-03-31] MEDS: diphenhydrAMINE 50 mg/mL SDV 1mL IVP (12:54)
[2021-03-31] MEDS: magnesium sulfate premix 2 GM/50 ML PIGGYBACK IV (12:55)
[2021-03-31] MEDS: iohexol 350 mg/mL 100 mL Btl IV (13:21)
--- NOTE | 2021-03-31 18:08 | PM.HP ---
Providers/Chief Complaint Admitting Physician: Lucius Dutton Primary Care Provider: Masha Carrillo MD Chief Complaint: STROKE LIKE SYMPTOMS History of Present Illness Pleasant 70-year-old lady with history of migraines, TIA, A. fib on chronic anticoagulation with Coumadin, although dose was recently decreased due to supratherapeutic levels, diastolic CHF, left eye cataract surgery, other chronic medical problems presented, other chronic medical problems presented due to progressive neurologic symptoms starting yesterday with blurry vision left eye, no pain, no erythema, no flashing lights, but this was followed by left-sided facial numbness and facial droop, associated with word finding difficulty, then around 2-3 AM this morning left side numbness in upper and lower extremity, weakness which mostly abated around 9-9:30 AM. Ophthalmology was contacted from ER given visual acuity decline in prior surgical history. ESR was checked and was normal, with low suspicion for GCA. At home she is already on aspirin, and Coumadin, although INR is found subtherapeutic. CT of the head on presentation without evidence of hemorrhage or mass-effect. Mild small vessel changes. Moderate parenchymal volume loss. CT angiogram of head and neck obtained with no significant ICA stenosis bilaterally. Normal intracranial CTA. Right dominant vertebral artery was smaller but patent left vertebral artery. Retropharyngeal course to both cervical ICAs. She reports left-sided headache, otherwise denies fevers, chills, although had pneumonia several weeks ago. Denies COVID-19. Denies any rashes. Denies any tick bite. Review of Systems Const: Denies: fever(s), chills, body aches or malaise Eyes: Reports: change in vision; Denies: eye redness ENMT: Denies: throat pain, oral sores or ear or mastoid pain Card: Denies: chest pain, edema, pre-syncope or dyspnea on exertion Resp: Denies: dyspnea, productive cough, change in phlegm color or hemoptysis GI: Denies: abdominal pain, nausea, vomiting, diarrhea, constipation, hematochezia or melena : Denies: flank pain, urinary frequency or hematuria Musc: Denies: back pain, joint swelling or joint redness Skin/Breast: Denies: rash, sores or new lesions Neuro: Reports: headache(s), numbness in extremities, weakness in extremities, sensory changes, Slurred speech present and difficulty communicating thoughts; Denies: dizziness, vertigo, confusion or seizure-like activity Endo: Denies: polyuria or polydipsia Arnie/Lymph: Denies: easy bleeding or purpura All/Imm: Denies: urticaria, throat swelling or tongue swelling Medications/Allergies Home Medications Medication Instructions Recorded Confirmed Last Taken Type albuterol sulfate 2.5 mg INHALATION Q4H PRN 07/26/19 03/31/21 Unknown History aspirin 81 mg tablet,delayed 81 mg PO DAILY 07/26/19 03/31/21 11/07/19 History release (Adult Low Dose Aspirin) fluticasone furoate 100 1 inh INHALATION DAILY 07/26/19 03/31/21 11/07/19 History mcg-vilanterol 25 mcg/dose inhalation powder (Breo Ellipta) glimepiride 2 mg tablet 8 mg PO DAILY tab 07/26/19 03/31/21 11/07/19 History montelukast 10 mg tablet 10 mg PO DAILY 07/26/19 03/31/21 11/07/19 History omeprazole 20 mg capsule,delayed 20 mg PO DAILY 07/26/19 03/31/21 11/07/19 History release primidone 50 mg tablet 100 mg PO Q8H tab 07/26/19 03/31/21 11/07/19 History ropinirole 1 mg tablet 2 mg PO DAILY 07/26/19 03/31/21 11/07/19 History quetiapine 50 mg tablet 100 mg PO BEDTIME tab 10/24/19 03/31/21 11/07/19 History sumatriptan succinate 50 mg tablet 50 mg PO PRN PRN tab 10/24/19 03/31/21 Unknown History furosemide 40 mg tablet 80 mg PO QAM 11/08/19 03/31/21 11/07/19 History nitroglycerin 0.4 mg sublingual 0.4 mg SUBLINGUAL Q5M PRN #25 tab 05/20/20 03/31/21 Unknown Rx tablet (Nitrostat) sotalol 80 mg tablet 80 mg PO BID@0900,2100 #240 tab 05/20/20 03/31/21 Unknown Rx methocarbamol 750 mg tablet 750 mg PO BID PRN tab 07/30/20 03/31/21 Unknown History ascorbate calcium (vitamin C) 500 500 mg PO DAILY 09/05/20 03/31/21 Unknown History mg tablet mirtazapine 15 mg tablet 30 mg PO BEDTIME tab 11/25/20 03/31/21 Unknown History ciprofloxacin HCl 500 mg tablet 500 mg PO BID PRN tab 03/12/21 03/31/21 Unknown History insulin glargine 100 unit/mL 45 unit SUBCUT BEDTIME ml 03/12/21 03/31/21 Unknown History subcutaneous solution (Lantus U-100 Insulin) hydrocodone 5 mg-acetaminophen 325 1 - 2 tab PO Q4H PRN 3 Days #14 tab 03/19/21 03/31/21 Unknown Rx mg tablet Mag-Zinc Tablet 2 tab PO BEDTIME 03/31/21 03/31/21 Unknown History isosorbide mononitrate 60 mg 60 mg PO DAILY 03/31/21 03/31/21 Unknown History tablet,extended release 24 hr sulfamethoxazole 800 1 tab PO BEDTIME 03/31/21 03/31/21 Unknown History mg-trimethoprim 160 mg tablet warfarin 6 mg tablet 12 mg PO BEDTIME 03/31/21 03/31/21 Unknown History Allergies Allergy/AdvReac Type Severity Reaction Status Date / Time budesonide Allergy PT STATES Verified 03/31/21 14:15 IT CAUSED PARALISIS metformin Allergy N/V Verified 03/31/21 14:15 penicillin V Allergy HIVES. Verified 03/31/21 14:15 ITCHING propoxyphene Allergy HIVES. Verified 03/31/21 14:15 [From Daremmacet-N] SWELLING streptomycin AdvReac ITCHING/ Verified 03/31/21 14:15 SWELLING PFSH Acute PFSH: Medical History (Updated 03/31/21 @ 18:30 by Lucius Dutton MD) Atrial fibrillation Bilateral lower extremity edema Diabetes mellitus Diastolic heart failure Essential hypertension GERD (gastroesophageal reflux disease) History of hematuria History of kidney stones History of stroke History of throat cancer Hx of ovarian cancer Hx of small bowel obstruction Hyperlipidemia Migraines MEIR (obstructive sleep apnea) Recurrent UTI SVT (supraventricular tachycardia) Tremor Ureter, calculus Surgical History History of colon resection S/P hysterectomy Family History Sister Asthma Brother Asthma Cancer Grandmother Asthma Father Cancer Emphysema lung Social History Smoking and tobacco status: never smoked Second hand smoke exposure: Yes Alcohol intake: never Substance/Drug Use: never Lives independently: Yes Household members: spouse Marital status: Current occupational status: retired History of recent travel: No Vitals/I&O/Wt Last Vital Signs Pulse 72 03/31/21 11:23 Resp 16 03/31/21 12:53 BP 128/107 03/31/21 11:23 Pulse Ox 95 03/31/21 11:23 Weight last 48 hrs Weight 107.955 kg Physical Exam Const: COMMON NORMALS: no acute distress and patient oriented x3 NUTRITIONAL APPEARANCE: obese HENMT: COMMON NORMALS: oropharynx normal Neck/C-Spine: COMMON NORMALS: no JVD Resp: COMMON NORMALS: normal respiratory effort and clear to auscultation bilaterally AUSCULTATION: clear to auscultation bilaterally Cardio: COMMON NORMALS: no JVD, regular rhythm, S1 normal heart sound present, S2 normal heart sound present and No murmurs present (Cardio) RHYTHM: regular rhythm HEART SOUNDS: S1 normal heart sound present and S2 normal heart sound present GI: COMMON NORMALS: Normal to inspection, nondistended, normoactive bowel sounds present, Soft to palpation and non-tender PALPATION: Yes Soft to palpation Extremity: COMMON NORMALS: no joint enlargement and no pedal edema Neuro: COMMON NORMALS: patient oriented x3 and moves all extremities COORDINATION/BALANCE: [id number] test normal (slow) and No [id number] test normal (L side takes more effort) SPEECH: abnormal speech Details: slurred (Minimally) and expressive aphasia (Mild) SENSORY EXAM: Yes Normal double simultaneous stimulation for sensation; No sensory level loss detected MOTOR EXAM: Pronator motor function not present and Other motor observations present (4/5 L upper and lower) OTHER: Awake alert, readily responding. No trouble tracking. Visual jacobs full to confrontation on the right, on the left narrowed visual jacobs to about 45 degrees. Skin: COMMON NORMALS: no rashes or lesions noted GENERAL SKIN EXAM: no rashes or lesions noted Data : 03/31/21 12:00 03/31/21 12:00 A&P Assessment and plan (1) CVA (cerebral vascular accident): Improving symptoms with improving numbness on the left side of the face, improving power in left upper and lower extremity, resolved numbness in extremities. Residual mild to moderate dysmetria in the left lower extremity. Residual visual field deficits left eye. Also decreased visual acuity left eye. Resume warfarin w AFib, monitor on telelemtry and assess TTE. Permissive HTN Continue ASA and statin, but discussed with her will change statin to high intensity with atorvastatin 40 mg at least. 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 Discussed with her that she does have residual symptoms suggestive of actual CVA. Discussed hemiplegic migraines may put her at risk of CVA which is higher than average population. Encouraged her to follow-up again with her neurologist whom she sees in [place] and follows with him due to tremor. PT, OT, as well as ST assessment due to residual dysarthria and aphasia. 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 Symptoms since yesterday. Received Tylenol in ER without much help. Not much response to morphine. Takes hydrocodone at home, but this does not help her headaches. Would avoid NSAIDs at this time. Unclear that she would derive benefit at this time from migraine agent, with concern of also present CVA. Will try tramadol as discussed with her. Encouraged her to follow-up with neurology after discharge. Status: Acute (3) Visual blurriness: Pending additional assessment by ophthalmology. ESR is normal, not suggestive of GCA. History of prior procedures on the left eye. Status: Acute (4) Tremor: Follows with neurology, was started on primidone. Status: Acute (5) Atrial fibrillation: On warfarin anticoagulation, although subtherapeutic INR, currently normal. Reports that recently dose was decreased to 11 mg daily due to supratherapeutic INR, prior to that was taking 12 mg 4 days, and then 11 mg 3 days. Resume anticoagulation. Continue sotalol. Status: Acute Qualifiers: Atrial fibrillation type: persistent (not longstanding) Qualified Code(s): I48.19 - Other persistent atrial fibrillation (6) MEIR (obstructive sleep apnea): Untreated MEIR as she is intolerant of CPAP. Has had a prior sleep study. Discussed with her to further follow-up with primary provider, in case obstructive sleep apnea, consideration of referral to ENT for consideration of surgical treatment due to intolerance of CPAP. She verbalized understanding and agreement. Status: Acute Plan DM2 History of diastolic heart failure, not in exacerbation HTN HLD GERD Other chronic medical problems noted. Attestations Medical Necessity Statement*: Admission of over 2 midnights is anticipated for assessment management of acute CVA Coding Level of Care Code Acute Metal Burrer for [facility] [place] Fwd Exam Comprehensive Diagnoses CVA (cerebral vascular accident) I63.9 Headache R51.9 Visual blurriness H53.8 Tremor R25.1 Atrial fibrillation I48.19 Atrial fibrillation type: persistent (not longstanding) MEIR (obstructive sleep apnea) G47.33
[2021-03-31 19:40] VITALS: RESP 20
[2021-03-31] MEDS: morphine 4 mg/mL SDV 1 mL 2 MG IVP (19:40)
[2021-03-31 20:09] LABS: Troponin 5 6HR 15.43 ng/L (0-10)
[2021-03-31 20:10] LABS: Troponin 5 6HR Delta 0.43 ng/L (0-12)
[2021-03-31 20:12] VITALS: BP 126/97; PULSE 76; RESP 16; O2SAT 94
[2021-03-31 21:14] VITALS: BP 109/57; PULSE 67; RESP 17; TEMP 36.3; O2SAT 92
[2021-03-31 21:48] LABS: Glucose Point of Care 177 mg/dL (70-110)
[2021-03-31] MEDS: primidone 50 mg Tablet 100 MG PO (22:01)
[2021-03-31] MEDS: quetiapine 100 mg Tablet PO (22:01)
[2021-03-31] MEDS: sotalol 80 mg Tablet PO (22:01)
[2021-03-31] MEDS: mirtazapine 15 mg Tablet 30 MG PO (22:01)
[2021-03-31] MEDS: enoxaparin 40 mg/0.4 mL Syringe SUBCUT (22:01)
[2021-03-31] MEDS: atorvastatin 40 mg Tablet PO (22:01)
[2021-03-31] MEDS: methocarbamol 750 mg Tablet PO (22:57)
[2021-03-31] MEDS: warfarin 6 mg Tablet 12 MG PO (22:58)
[2021-03-31] MEDS: insulin glargine 100 units/1 mL 35 UNIT SUBCUT (22:58)
[2021-03-31] MEDS: montelukast sodium 10 mg Tablet PO (22:58)
[2021-04-01] VITALS: BP 125/73; PULSE 64; RESP 17; TEMP 36.6; O2SAT 95
[2021-04-01] MEDS: TRAMadol 50 mg Tablet PO ×3 (00:55→20:01)
[2021-04-01 04:00] VITALS: BP 151/83; PULSE 66; RESP 16; TEMP 36.6; O2SAT 90
[2021-04-01 05:16] LABS: Basophils % 0.4 %; Eosinophils # 0.3 10^3/uL (0.0-0.8); Eosinophils % 3.9 %; Hematocrit 41.2 % (37.0-47.0); Hemoglobin 13.1 g/dL (11.5-15.3); Lymphocytes # 2.6 10^3/uL (0.8-4.8); Lymphocytes % 37.1 %; Mean Corpuscular HGB Conc 31.8 g/dL (30.0-36.0); Mean Corpuscular Hemoglobin 30.4 pg (28.0-34.0); Mean Corpuscular Volume 95.6 fl (81-99); Mean Platelet Volume 11.5 fL (7.4-10.4); Monocytes # 0.8 10^3/uL (0.2-0.9); Monocytes % 11.4 %; Neutrophils # 3.27 10^3/uL (1.8-7.7); Neutrophils % 47.1 %; Nucleated Red Blood Cells % 0 %; Platelet Count 204 10^3/cmm (130-400); Red Blood Count 4.31 10^6/uL (4.1-5.3); Red Cell Distribution Width 13.7 % (12.1-15.1)
[2021-04-01 05:33] LABS: Estmated Average Glucose 183
[2021-04-01] MEDS: primidone 50 mg Tablet 100 MG PO ×3 (05:58→22:11)
[2021-04-01] MEDS: FUROsemide 40 mg Tablet 80 MG PO (05:58)
[2021-04-01] MEDS: acetaminophen 325 mg Tablet 650 MG PO ×3 (06:00→20:00)
[2021-04-01 06:06] LABS: Alanine Aminotransferase 12 U/L (0-33); Albumin Level 3.4 g/dL (3.5-5.2); Alkaline Phosphatase 63 IU/L (35-105); Aspartate Amino Transferase 17 U/L (0-32); Blood Urea Nitrogen 15 mg/dL (8-23); Calcium 8.6 mg/dL (8.5-10.5); Carbon Dioxide 26 mmol/L (22-29); Chloride 104 mmol/L (98-107); Creatine Phosphokinase 76 U/L (26-192); Globulin 2.1 g/dL (1.3-4.6); Glucose 107 mg/dL (65-115); Osmolality Calculated 289 mOsm/kg (285-295); Sodium 139 mmol/L (136-145); Total Bilirubin 0.2 mg/dL (0.15-1.2); Total Protein 5.5 g/dL (6.6-8.7)
[2021-04-01 06:12] LABS: Anion Gap 12.1 (5-19); Potassium 3.1 mmol/L (3.5-5.1)
[2021-04-01 08:00] VITALS: BP 117/70; PULSE 58; RESP 16; TEMP 37; O2SAT 95
--- NOTE | 2021-04-01 08:35 | USCV_ITS ---
Jiang Nathaly Age: 70 Gender: F : 1950 Exam Date: 04/01/2021 12:02 Ordering Phys: Lucius Dutton MD Technologist: Chon Dejesus Exam Location: [facility] [place] Indication: CVA BP: 117 / 70 HR: 54 Rhythm: Sinus Technical Quality: Adequate MEASUREMENTS (Male / Female) Normal Values 2D ECHO LV Diastolic Diameter PLAX 2.4 cm 4.2 - 5.9 / 3.9 - 5.3 cm LV Systolic Diameter PLAX 1.7 cm IVS Diastolic Thickness 1.5 cm 0.6 - 1.0 / 0.6 - 0.9 cm IVS Systolic Thickness 1.6 cm LVPW Diastolic Thickness 2.1 cm 0.6 - 1.0 / 0.6 - 0.9 cm LVPW Systolic Thickness 2.5 cm LVOT Diameter 2.0 cm LV Ejection Fraction 2D Teich 62.0 % LV Ejection Fraction MOD 2C 76.2 % LV Ejection Fraction 2C AL 76.4 % LA Diameter 3.4 cm LA Width 3.1 cm LA Height 3.9 cm RA Width 3.2 cm RA Height 3.7 cm Aorta at Sinotubular Diameter 2.8 cm M-MODE Aortic Annulus Diameter 3.2 cm LA Ao Ratio MM 1.1 MV E Point Septal Separation 0.3 cm DOPPLER AV Peak Velocity 219.7 cm/s LVOT Peak Velocity 134.0 cm/s AV Area Cont Eq vti 2.1 cm squared AV Area Cont Eq pk 1.9 cm squared MV Area PHT 3.7 cm squared Mitral E to A Ratio 0.7 MV E' Velocity 31.0 cm/s Mitral E to MV E' Ratio 5.9 Mitral E to LV E' Lateral Ratio 5.4 Mitral E to LV E' Septal Ratio 6.6 TR Peak Velocity 166.2 cm/s TR Peak Gradient 11.0 mmHg TR Mean Velocity 117.5 cm/s TR Mean Gradient 6.0 mmHg TR Velocity Time Integral 36.6 cm Right Atrial Pressure 3.0 mmHg Pulmonary Artery Systolic Pressu 14.0 mmHg RV Acceleration Time 0.1 s RV Ejection Time 0.4 s RV AcT/ET 0.4 FINDINGS Left Ventricle Normal left ventricular size. LV systolic function is normal with EF of 55-60%. No regional wall motion abnormalities. Grade 1 diastolic dysfunction Right Ventricle The right ventricle is normal in size and function. Right Atrium The right atrium is normal in size. Left Atrium The left atrium is normal in size. Mitral Valve Grossly normal without significant stenosis or prolapse. There is mild mitral regurgitation. Aortic Valve Not well visualized. Mild aortic stenosis with mean gradient across the aortic valve of 10.2mmHg. There is no aortic regurgitation. Tricuspid Valve Not well visualized. Mild regurgitation. Pulmonary artery systolic pressure is normal. Pulmonic Valve Not well visualized Pericardium Normal pericardium without effusion. Aorta Normal ascending aorta dimension. CONCLUSIONS Technically limited quality echocardiogram because of poor ultrasonic windows. LV systolic function is normal with EF 55 to 60%. Grade 1 diastolic dysfunction. Mild mitral regurgitation. Aortic valve is not well visualized however mild aortic stenosis is noted with mean gradient across aortic valve of 10.2 mmHg. Mild tricuspid regurgitation. Compared to prior echocardiogram from 03/24/2016, mild aortic stenosis is now noted. Dony Simons MD (Electronically Signed) Final Date: 01 April 2021 15:37 S
[2021-04-01 09:00] VITALS: PULSE 61
[2021-04-01] MEDS: potassium chloride ER 20 mEq Tablet 40 MEQ PO (09:55)
[2021-04-01] MEDS: ropinirole 1 mg Tablet 2 MG PO (09:56)
[2021-04-01] MEDS: pantoprazole DR 40 mg Tablet PO (09:57)
[2021-04-01] MEDS: sotalol 80 mg Tablet PO ×2 (09:57→22:11)
[2021-04-01] MEDS: aspirin 81 mg EC Tablet PO (09:58)
[2021-04-01 10:06] LABS: Magnesium 2.2 mg/dL (1.7-2.3)
[2021-04-01 12:00] VITALS: BP 128/82; PULSE 59; RESP 17; TEMP 37; O2SAT 92
[2021-04-01 16:00] VITALS: BP 108/54; PULSE 58; RESP 16; TEMP 36.9; O2SAT 94
[2021-04-01] MEDS: montelukast sodium 10 mg Tablet PO (18:29)
--- NOTE | 2021-04-01 20:27 | P.PN_ITS ---
Subjective Subjective: Interval history: Persistent word finding difficulty. Numbness in the left side of the face almost entirely resolved. Persistent clumsiness in left upper and lower extremi ty. Vitals/I&O/Wt Last Vital Signs Temp 98.4 F 04/01/21 16:00 Pulse 58 L 04/01/21 16:00 Resp 16 04/01/21 16:00 BP 108/54 04/01/21 16:00 Pulse Ox 94 04/01/21 16:00 04/01/21 04/01/21 04/01/21 06:59 14:59 22:59 Intake Total 240 / 240 240 / 480 Output Total 300 / 300 Balance -60 / -60 240 / 180 Weight last 48 hrs Weight 107.955 kg Weight 107.955 kg Physical Exam Const: COMMON NORMALS: no acute distress and patient oriented x3 NUTRITIONAL APPEARANCE: obese HENMT: COMMON NORMALS: oropharynx normal Neck/C-Spine: COMMON NORMALS: no JVD Resp: COMMON NORMALS: normal respiratory effort and clear to auscultation bilaterally AUSCULTATION: clear to auscultation bilaterally Cardio: COMMON NORMALS: no JVD, regular rhythm, S1 normal heart sound present, S2 normal heart sound present and No murmurs present (Cardio) RHYTHM: regular rhythm HEART SOUNDS: S1 normal heart sound present and S2 normal heart sound present GI: COMMON NORMALS: Normal to inspection, nondistended, normoactive bowel sounds present, Soft to palpation and non-tender PALPATION: Yes Soft to palpation Extremity: COMMON NORMALS: no joint enlargement and no pedal edema Neuro: COMMON NORMALS: patient oriented x3 and moves all extremities COORDINATION/BALANCE: pfjuex-de-qvgo test normal (slow) and No lvec-wo-ngil test normal (L side takes more effort) SPEECH: abnormal speech Details: slurred (Minimally) and expressive aphasia (Mild) SENSORY EXAM: Yes Normal double simultaneous stimulation for sensation; No sensory level loss detected MOTOR EXAM: Pronator motor function not present and Other motor observations present (4/5 L upper and lower) COORDINATION: hhnwgi-ry-lmvz test normal (slow) and dppm-bc-hovg test abnormal (L side takes more effort) OTHER: Awake alert, readily responding. No trouble tracking. Visual jacobs full to confrontation on the right, on the left narrowed visual jacobs to about 45 degrees. Skin: COMMON NORMALS: no rashes or lesions noted GENERAL SKIN EXAM: no rashes or lesions noted Data : 04/01/21 05:03 04/01/21 05:03 A&P Assessment and plan (1) CVA (cerebral vascular accident): Further improving symptoms with resolution of numbness in the left side of the face. Persistent word finding difficulty, persistent left upper and lower extremity mild dysmetria. TTE obtained today, not optimal ultrasonic windows, but with noted normal ejection fraction, grade 1 diastolic function. Mild MR. Mean gradient across aortic valve 10.2 mmHg with mild aortic stenosis. Mild TVR. Atrial fibrillation, subtherapeutic warfarin dose, dose increased. Recheck INR. Continue ST, PT, OT. She would not want to go to longterm facility, would like to return home. Additionally pending ophthalmologic assessment. Blood pressure soft. Hold antihypertensives. Continue ASA and statin, but discussed with her will change statin to high i ntensity with atorvastatin 40 mg at least. A1c is 8. TSH normal. 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 Discussed with her that she does have residual symptoms suggestive of actual CVA. Discussed hemiplegic migraines may put her at risk of CVA which is higher than average population. Encouraged her to follow-up again with her neurologist whom she sees in [place] and follows with him due to tremor. 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 Finds tramadol is helping her symptoms. Encouraged her to follow-up with neurology after discharge. Status: Acute (3) Visual blurriness: Pending additional assessment by ophthalmology. ESR is normal, not suggestive of GCA. History of prior procedures on the left eye. Status: Acute (4) Tremor: Follows with neurology, was started on primidone. Status: Acute (5) Atrial fibrillation: Recheck INR. On warfarin anticoagulation, although subtherapeutic INR, currently normal. Reports that recently dose was decreased to 11 mg daily due to supratherapeutic INR, prior to that was taking 12 mg 4 days, and then 11 mg 3 days. Resume anticoagulation. Continue sotalol. Status: Acute Qualifiers: Atrial fibrillation type: persistent (not longstanding) Qualified Code(s): I48.19 - Other persistent atrial fibrillation (6) MEIR (obstructive sleep apnea): Untreated MEIR as she is intolerant of CPAP. Has had a prior sleep study. Discussed with her to further follow-up with primary provider, in case obstructive sleep apnea, consideration of referral to ENT for consideration of surgical treatment due to intolerance of CPAP. She verbalized understanding and agreement. Status: Acute Plan DM2 History of diastolic heart failure, not in exacerbation HTN HLD GERD Other chronic medical problems noted. Attestations Medical Necessity Statement*: Continue admission for assessment management of acute CVA. 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
[2021-04-01 21:25] LABS: Glucose Point of Care 156 mg/dL (70-110)
[2021-04-01] MEDS: enoxaparin 40 mg/0.4 mL Syringe SUBCUT (22:10)
[2021-04-01] MEDS: insulin glargine 100 units/1 mL 35 UNIT SUBCUT (22:11)
[2021-04-01] MEDS: quetiapine 100 mg Tablet PO (22:11)
[2021-04-01] MEDS: mirtazapine 15 mg Tablet 30 MG PO (22:11)
[2021-04-01] MEDS: atorvastatin 40 mg Tablet PO (22:11)
[2021-04-01] MEDS: warfarin 6 mg Tablet 12 MG PO (22:56)
[2021-04-02] VITALS: BP 139/77; PULSE 62; RESP 17; TEMP 36.7; O2SAT 90
[2021-04-02] MEDS: LORazepam 2 mg Tablet PO ×2 (01:59→14:07)
[2021-04-02 04:00] VITALS: BP 125/81; PULSE 58; RESP 16; TEMP 36.8; O2SAT 95
[2021-04-02] MEDS: FUROsemide 40 mg Tablet 80 MG PO (05:01)
[2021-04-02] MEDS: primidone 50 mg Tablet 100 MG PO ×3 (05:01→21:43)
[2021-04-02 06:06] LABS: Basophils % 0.3 %; Eosinophils # 0.2 10^3/uL (0.0-0.8); Eosinophils % 3.6 %; Hematocrit 42.6 % (37.0-47.0); Hemoglobin 13.3 g/dL (11.5-15.3); Lymphocytes # 2.6 10^3/uL (0.8-4.8); Lymphocytes % 44.8 %; Mean Corpuscular HGB Conc 31.2 g/dL (30.0-36.0); Mean Corpuscular Hemoglobin 29.8 pg (28.0-34.0); Mean Corpuscular Volume 95.5 fl (81-99); Mean Platelet Volume 12.5 fL (7.4-10.4); Monocytes # 0.5 10^3/uL (0.2-0.9); Monocytes % 9.2 %; Neutrophils # 2.41 10^3/uL (1.8-7.7); Neutrophils % 41.9 %; Nucleated Red Blood Cells % 0 %; Platelet Count 163 10^3/cmm (130-400); Red Blood Count 4.46 10^6/uL (4.1-5.3); Red Cell Distribution Width 13.4 % (12.1-15.1); White Blood Count 5.8 10^3/uL (4.0-10.0)
[2021-04-02 06:16] LABS: INR 1.06 (0.8-1.2)
[2021-04-02 06:22] LABS: Blood Urea Nitrogen 17 mg/dL (8-23); Calcium 8.7 mg/dL (8.5-10.5); Carbon Dioxide 25 mmol/L (22-29); Chloride 105 mmol/L (98-107); Creatine Phosphokinase 67 U/L (26-192); Glucose 158 mg/dL (65-115); Osmolality Calculated 299 mOsm/kg (285-295); Sodium 142 mmol/L (136-145)
[2021-04-02 06:25] LABS: Anion Gap 15.5 (5-19); Potassium 3.5 mmol/L (3.5-5.1)
[2021-04-02 07:37] LABS: Slide Review Slide Review Perform
[2021-04-02 07:49] VITALS: BP 137/76; PULSE 61; RESP 18; TEMP 36.6; O2SAT 93
[2021-04-02] MEDS: aspirin 81 mg EC Tablet PO (08:25)
[2021-04-02] MEDS: ropinirole 1 mg Tablet 2 MG PO (08:25)
[2021-04-02] MEDS: acetaminophen 325 mg Tablet 650 MG PO ×2 (08:26→21:48)
[2021-04-02] MEDS: pantoprazole DR 40 mg Tablet PO (08:26)
[2021-04-02] MEDS: TRAMadol 50 mg Tablet PO ×2 (08:28→21:50)
[2021-04-02] MEDS: sotalol 80 mg Tablet PO ×2 (08:43→21:41)
--- NOTE | 2021-04-02 10:13 | PC.OT ---
OT TREATMENT ATTEMPTED. PATIENT REPORTS SEVERE ROGERS AND HAD JUST RECEIVED PAIN MEDICATION. WILL ATTEMPT AGAIN IN P.M.
[2021-04-02 11:42] VITALS: BP 144/75; PULSE 59; RESP 18; TEMP 36.3; O2SAT 95
--- NOTE | 2021-04-02 13:15 | PC.OT ---
OT NOTE: ATTEMPTED OT TREATMENT TWICE TODAY. PATIENT REPORTS BOTH TIMES THAT SHE HAS BEEN OOB INDEPENDENTLY AND USING BATHROOM, FEEDING SELF ETC. C/O SEVERE HEADACHE AND IS TEARFUL REGARDING THE OF HER DAUGHTER 20ISH YEARS AGO; MURDER SHE STATES. PATIENT STATES THAT SHE REQUIRED ATIVAN LAST NIGHT AFTER BECOMING SO UPSET. PATIENT DOES NOT REQUIRE FURTHER SKILLED OT DUE TO ABILITY TO CARE FOR HER DAILY NEEDS. PATIENT IS IN AGREEMENT.
[2021-04-02 15:27] VITALS: BP 143/75; PULSE 61; RESP 18; TEMP 36.1; O2SAT 93
[2021-04-02] MEDS: montelukast sodium 10 mg Tablet PO (17:37)
[2021-04-02 20:00] VITALS: BP 129/77; PULSE 73; RESP 18; TEMP 36.6; O2SAT 95
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
[2021-04-02 21:33] LABS: Glucose Point of Care 222 mg/dL (70-110)
[2021-04-02] MEDS: insulin glargine 100 units/1 mL 35 UNIT SUBCUT (21:39)
[2021-04-02] MEDS: warfarin 5 mg Tablet 15 MG PO (21:41)
[2021-04-02] MEDS: mirtazapine 15 mg Tablet 30 MG PO (21:43)
[2021-04-02] MEDS: atorvastatin 40 mg Tablet PO (21:43)
[2021-04-02] MEDS: quetiapine 100 mg Tablet PO (21:44)
[2021-04-03] VITALS (8 sets, daily range): BP systolic 117–161; BP diastolic 69–83; PULSE 36–90; RESP 15–18; TEMP 36.3–37.1; O2SAT 92–96
[2021-04-03] MEDS: primidone 50 mg Tablet 100 MG PO ×3 (05:47→20:16)
[2021-04-03] MEDS: FUROsemide 40 mg Tablet 80 MG PO (05:47)
[2021-04-03 06:18] LABS: Basophils % 0.6 %; Eosinophils # 0.3 10^3/uL (0.0-0.8); Eosinophils % 4.1 %; Hematocrit 44.4 % (37.0-47.0); Hemoglobin 14.1 g/dL (11.5-15.3); Lymphocytes # 2.8 10^3/uL (0.8-4.8); Lymphocytes % 40.8 %; Mean Corpuscular HGB Conc 31.8 g/dL (30.0-36.0); Mean Corpuscular Volume 94.5 fl (81-99); Mean Platelet Volume 11.6 fL (7.4-10.4); Monocytes # 0.6 10^3/uL (0.2-0.9); Monocytes % 8.6 %; Neutrophils # 3.08 10^3/uL (1.8-7.7); Neutrophils % 45.6 %; Nucleated Red Blood Cells % 0 %; Platelet Count 190 10^3/cmm (130-400); White Blood Count 6.8 10^3/uL (4.0-10.0)
[2021-04-03 06:19] LABS: Glucose Point of Care 182 mg/dL (70-110)
[2021-04-03 06:31] LABS: INR 1.23 (0.8-1.2)
[2021-04-03 06:51] LABS: Blood Urea Nitrogen 16 mg/dL (8-23); Carbon Dioxide 26 mmol/L (22-29); Chloride 104 mmol/L (98-107); Creatine Phosphokinase 189 U/L (26-192); Glucose 177 mg/dL (65-115); Osmolality Calculated 298 mOsm/kg (285-295); Sodium 141 mmol/L (136-145)
[2021-04-03 06:57] LABS: Anion Gap 14.8 (5-19); Potassium 3.8 mmol/L (3.5-5.1)
[2021-04-03] MEDS: pantoprazole DR 40 mg Tablet PO (09:05)
[2021-04-03] MEDS: ropinirole 1 mg Tablet 2 MG PO (09:05)
[2021-04-03] MEDS: aspirin 81 mg EC Tablet PO (09:05)
[2021-04-03] MEDS: sotalol 80 mg Tablet PO ×2 (09:05→20:16)
[2021-04-03] MEDS: TRAMadol 50 mg Tablet PO (11:08)
[2021-04-03] MEDS: acetaminophen 325 mg Tablet 650 MG PO ×2 (11:08→20:16)
[2021-04-03 12:00] LABS: Glucose Point of Care 265 mg/dL (70-110)
--- NOTE | 2021-04-03 12:58 | PC.SOCIAL ---
IMM Update pg 2 of IMM updated and reviewed w/ patient. Copy provided and Copy placed in chart.
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
[2021-04-03 17:40] LABS: Glucose Point of Care 148 mg/dL (70-110)
[2021-04-03] MEDS: montelukast sodium 10 mg Tablet PO (17:48)
[2021-04-03] MEDS: mirtazapine 15 mg Tablet 30 MG PO (20:15)
[2021-04-03] MEDS: atorvastatin 40 mg Tablet PO (20:16)
[2021-04-03] MEDS: warfarin 5 mg Tablet 15 MG PO (20:16)
[2021-04-03] MEDS: quetiapine 100 mg Tablet PO (20:16)
[2021-04-03] MEDS: insulin glargine 100 units/1 mL 35 UNIT SUBCUT (20:17)
[2021-04-03] MEDS: TRAMadol 50 mg Tablet 100 MG PO (20:17)
[2021-04-03 21:35] LABS: Glucose Point of Care 216 mg/dL (70-110)
[2021-04-03] MEDS: ALPRAZolam 0.5 mg Tablet PO (23:19)
[2021-04-04] VITALS (11 sets, daily range): BP systolic 124–151; BP diastolic 72–88; PULSE 54–89; RESP 15–20; TEMP 36.4–36.9; O2SAT 92–99
[2021-04-04] MEDS: acetaminophen 325 mg Tablet 650 MG PO ×2 (05:53→13:38)
[2021-04-04] MEDS: primidone 50 mg Tablet 100 MG PO ×3 (05:53→20:58)
[2021-04-04] MEDS: TRAMadol 50 mg Tablet 100 MG PO ×2 (05:54→13:38)
[2021-04-04] MEDS: FUROsemide 40 mg Tablet 80 MG PO (05:54)
[2021-04-04 06:49] LABS: Glucose Point of Care 192 mg/dL (70-110)
[2021-04-04 06:57] LABS: Basophils % 0.4 %; Eosinophils # 0.2 10^3/uL (0.0-0.8); Hematocrit 41.2 % (37.0-47.0); Hemoglobin 13.5 g/dL (11.5-15.3); Lymphocytes # 3.2 10^3/uL (0.8-4.8); Lymphocytes % 45.2 %; Mean Corpuscular HGB Conc 32.8 g/dL (30.0-36.0); Mean Corpuscular Hemoglobin 30.3 pg (28.0-34.0); Mean Corpuscular Volume 92.6 fl (81-99); Mean Platelet Volume 11.7 fL (7.4-10.4); Monocytes # 0.5 10^3/uL (0.2-0.9); Monocytes % 7.3 %; Neutrophils # 3.08 10^3/uL (1.8-7.7); Neutrophils % 43.8 %; Nucleated Red Blood Cells % 0 %; Platelet Count 229 10^3/cmm (130-400); Red Blood Count 4.45 10^6/uL (4.1-5.3); Red Cell Distribution Width 13.1 % (12.1-15.1)
[2021-04-04 07:02] LABS: INR 1.61 (0.8-1.2)
[2021-04-04 07:11] LABS: Blood Urea Nitrogen 18 mg/dL (8-23); Calcium 8.4 mg/dL (8.5-10.5); Carbon Dioxide 22 mmol/L (22-29); Chloride 104 mmol/L (98-107); Glucose 184 mg/dL (65-115); Osmolality Calculated 293 mOsm/kg (285-295); Sodium 138 mmol/L (136-145)
[2021-04-04 07:12] LABS: Anion Gap 15.6 (5-19); Potassium 3.6 mmol/L (3.5-5.1)
[2021-04-04] MEDS: aspirin 81 mg EC Tablet PO (08:25)
[2021-04-04] MEDS: pantoprazole DR 40 mg Tablet PO (08:25)
[2021-04-04] MEDS: ropinirole 1 mg Tablet 2 MG PO (08:25)
[2021-04-04] MEDS: sotalol 80 mg Tablet 40 MG PO ×2 (09:33→21:08)
--- NOTE | 2021-04-04 11:22 | MR_ITS ---
WS: [id number] MR VENOGRAPHY HEAD 3-D noncontrast imaging performed through the cerebral veins. All imaging is reviewed. HISTORY: cva, headache COMPARISON: MRI head 04/04/2021. Prior CT angiogram 03/31/2021 Good demonstration of the dural venous sinuses and cerebral veins. There are no filling defects to iglesias ggest acute or chronic thrombus. Superior sagittal sinus, straight sinus and transverse sinuses are all patent with no significant thrombus. MR/[place] [id number] IMPRESSION: Normal MR venogram cerebral veins.
--- NOTE | 2021-04-04 11:22 | MR_ITS ---
WS: [id number] MRI BRAIN WITH AND WITHOUT CONTRAST HISTORY: cva, headache COMPARISON: 04/20/2016 TECHNIQUE: Multiplanar imaging performed through the brain with MultiHance 20 ml's IV. No acute infarcts are seen. Cooper-white matter differentiation is well preserved. Very minimal chronic microvascular ischemic disease which is not significantly progressed since 2016. No prior infarct or hemorrhage. No susceptibility artifacts or prior lacunar infarcts. Ventricles and extra-axial spaces are normal. Empty sella turcica. Negative clivus. Visualized posterior fossa and brainstem are also normal. Postcontrast images are negative for masses or vascular malformations. Dural venous sinuses are normal. Paranasal sinuses: Well aerated with no significant disease. Mastoid air cells: Normal. Calvarium and scalp: Normal. MR/MR head wo/w con [id number] IMPRESSION: 1. No acute infarct or enhancing mass. 2. Very minimal stable chronic small vessel ischemic disease, similar to 2016.
[2021-04-04 12:20] LABS: Glucose Point of Care 186 mg/dL (70-110)
[2021-04-04] MEDS: morphine 4 mg/mL SDV 1 mL IVP (15:48)
[2021-04-04 18:02] LABS: Glucose Point of Care 140 mg/dL (70-110)
[2021-04-04] MEDS: diphenhydrAMINE 50 mg/mL SDV 1mL 25 MG IVP (18:16)
[2021-04-04] MEDS: montelukast sodium 10 mg Tablet PO (18:16)
[2021-04-04] MEDS: ondansetron 2 mg/ML SDV 2 mL 4 MG IVP (18:16)
[2021-04-04] MEDS: dihydroergotamine 1 mg/mL Inj IVP ×5 (18:25→19:28)
[2021-04-04] MEDS: warfarin 5 mg Tablet 15 MG PO (20:58)
[2021-04-04] MEDS: mirtazapine 15 mg Tablet 30 MG PO (20:58)
[2021-04-04] MEDS: quetiapine 100 mg Tablet PO (20:58)
[2021-04-04] MEDS: atorvastatin 40 mg Tablet PO (20:58)
[2021-04-04] MEDS: ALPRAZolam 0.5 mg Tablet PO (21:03)
[2021-04-04] MEDS: insulin glargine 100 units/1 mL 35 UNIT SUBCUT (21:04)
[2021-04-04 21:40] LABS: Glucose Point of Care 133 mg/dL (70-110)
--- NOTE | 2021-04-04 21:50 | P.PN_ITS ---
Subjective Subjective: Interval history: Persistent bothersome headache. Continue to gradually improve word finding difficulty. Persistent clumsiness in the left side. Persistent blurry vision in left eye with perhaps minute improvement. Vitals/I&O/Wt Last Vital Signs Temp 98.1 F 04/04/21 20:19 Pulse 72 04/04/21 20:19 Resp 16 04/04/21 20:19 BP 147/87 04/04/21 20:19 Pulse Ox 94 04/04/21 20:19 04/04/21 04/04/21 04/04/21 06:59 14:59 22:59 Intake Total 960 / 1320 360 / 360 Balance 960 / 1320 360 / 360 Weight last 48 hrs Weight 112.355 kg Physical Exam Const: COMMON NORMALS: no acute distress and patient oriented x3 NUTRITIONAL APPEARANCE: obese HENMT: COMMON NORMALS: oropharynx normal Neck/C-Spine: COMMON NORMALS: no JVD Resp: COMMON NORMALS: normal respiratory effort and clear to auscultation bilaterally AUSCULTATION: clear to auscultation bilaterally Cardio: COMMON NORMALS: no JVD, regular rhythm, S1 normal heart sound present, S2 normal heart sound present and No murmurs present (Cardio) RHYTHM: regular rhythm HEART SOUNDS: S1 normal heart sound present and S2 normal heart sound present GI: COMMON NORMALS: Normal to inspection, nondistended, normoactive bowel sounds present, Soft to palpation and non-tender PALPATION: Yes Soft to palpation Extremity: COMMON NORMALS: no joint enlargement and no pedal edema Neuro: COMMON NORMALS: patient oriented x3 and moves all extremities COORDINATION/BALANCE: [id number] test normal (slow, persistent mild dysmetria) SPEECH: abnormal speech Details: slurred (Minimally) and expressive aphasia (Mild) SENSORY EXAM: Yes Normal double simultaneous stimulation for sensation; No sensory level loss detected MOTOR EXAM: Pronator motor function not present and Other motor observations present (4/5 L upper and lower) COORDINATION: [id number] test normal (slow, persistent mild dysmetria) OTHER: Awake alert, readily responding. No trouble tracking. Diminished acuity, recognizing her shapes on the left. Skin: COMMON NORMALS: no rashes or lesions noted GENERAL SKIN EXAM: no rashes or lesions noted Data : 04/04/21 06:33 04/04/21 06:33 A&P Assessment and plan (1) Headache: Persistent headache with focal deficits, requested and assessed by MRI, MRV today. No stroke noted. Discussed with ophthalmology, with her. Discussed consideration of resuming Imitrex given persistent bothersome symptoms. She instead requests DHE protocol which she states has received previously with success given also that Imitrex did not work for her when she took it before arrival here at home. Discussed risks. Requested. Tramadol has not been working. Discontinue. Persistent migraine. Hemiplegic migraine Encouraged her to follow-up with neurology after discharge. Status: Acute (2) CVA (cerebral vascular accident): Persistent focal neurologic deficits with hemiplegic migraine. No CVA noted on MRI no thrombosis on MRV. Continue PT, OT, ST. Migraine treatment as above. Visual deficits in the left eye with decreased visual jacobs. Specifically in the left eye. Discussed with her consideration of possible retinal migraine. Discussed consideration of other causes including vitreal hemorrhage. Discussed hemiplegic migraines may put her at risk of CVA which is higher than average population. Encouraged her to follow-up again with her neurologist whom she sees in [place] and follows with him due to tremor. Status: Acute (3) Visual blurriness: As per discussion this evening will instruct to follow-up in office. Discussed with ophthalmology. Migraine treatment as above. Assess for response. ESR is normal, mild-mod elevation of CRP. Of not suggestive of GCA. History of prior procedures on the left eye. Status: Acute (4) Tremor: Follows with neurology, was started on primidone. Status: Acute (5) Atrial fibrillation: Increased warfarin dose to 15 mg. Gradually increasing INR. Still subtherapeutic. Continue same dose warfarin, recheck INR. Reports that recently dose was decreased to 11 mg daily due to supratherapeutic INR, prior to that was taking 12 mg 4 days, and then 11 mg 3 days. Continue sotalol. Status: Acute Qualifiers: Atrial fibrillation type: persistent (not longstanding) Qualified Code(s): I48.19 - Other persistent atrial fibrillation (6) MEIR (obstructive sleep apnea): Untreated MEIR as she is intolerant of CPAP. Has had a prior sleep study. Discussed with her to further follow-up with primary provider, in case obstructive sleep apnea, consideration of referral to ENT for consideration of surgical treatment due to intolerance of CPAP. She verbalized understanding and agreement. Status: Acute Plan DM2 History of diastolic heart failure, not in exacerbation HTN HLD GERD Other chronic medical problems noted. Attestations Medical Necessity Statement*: Continue admission for management of persistent hemiplegic migraine. 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
[2021-04-04] MEDS: ketorolac 30 mg/mL INJ 15 MG IVP (22:34)
[2021-04-05 04:00] VITALS: BP 145/91; PULSE 54; RESP 16; TEMP 36.3; O2SAT 94
[2021-04-05] MEDS: FUROsemide 40 mg Tablet 80 MG PO (06:18)
[2021-04-05] MEDS: primidone 50 mg Tablet 100 MG PO ×3 (06:18→22:16)
[2021-04-05 06:50] LABS: Glucose Point of Care 164 mg/dL (70-110)
[2021-04-05 08:00] VITALS: BP 157/89; PULSE 98; RESP 18; TEMP 36.8; O2SAT 94
[2021-04-05 08:45] VITALS: PULSE 55; RESP 18; O2SAT 94
[2021-04-05 11:15] LABS: Glucose Point of Care 215 mg/dL (70-110)
[2021-04-05 11:29] VITALS: BP 142/85; PULSE 67; RESP 16; TEMP 36.7; O2SAT 94
[2021-04-05] MEDS: aspirin 81 mg EC Tablet PO (11:58)
[2021-04-05] MEDS: ropinirole 1 mg Tablet 2 MG PO (11:58)
[2021-04-05] MEDS: pantoprazole DR 40 mg Tablet PO (11:59)
[2021-04-05] MEDS: sotalol 80 mg Tablet 40 MG PO ×2 (11:59→21:23)
[2021-04-05] MEDS: acetaminophen 325 mg Tablet 650 MG PO ×2 (11:59→16:55)
--- NOTE | 2021-04-05 12:35 | PC.SOCIAL ---
IMM UPDATED IMM dated and initialed and copy given to patient.
[2021-04-05 14:47] LABS: Basophils # 0.1 10^3/uL (0.0-0.1); Basophils % 0.6 %; Eosinophils # 0.2 10^3/uL (0.0-0.8); Eosinophils % 1.4 %; Hematocrit 49.4 % (37.0-47.0); Hemoglobin 15.9 g/dL (11.5-15.3); Lymphocytes # 2.7 10^3/uL (0.8-4.8); Lymphocytes % 25.2 %; Mean Corpuscular HGB Conc 32.2 g/dL (30.0-36.0); Mean Corpuscular Hemoglobin 30.3 pg (28.0-34.0); Mean Corpuscular Volume 94.1 fl (81-99); Mean Platelet Volume 11.7 fL (7.4-10.4); Monocytes # 0.8 10^3/uL (0.2-0.9); Monocytes % 7.1 %; Neutrophils % 65.5 %; Nucleated Red Blood Cells % 0 %; Platelet Count 242 10^3/cmm (130-400); Red Blood Count 5.25 10^6/uL (4.1-5.3); Red Cell Distribution Width 13.2 % (12.1-15.1); White Blood Count 10.5 10^3/uL (4.0-10.0)
[2021-04-05 14:58] LABS: INR 2.25 (0.8-1.2)
[2021-04-05 15:13] LABS: Albumin Level 3.8 g/dL (3.5-5.2); Alkaline Phosphatase 75 IU/L (35-105); Blood Urea Nitrogen 18 mg/dL (8-23); Calcium 9.6 mg/dL (8.5-10.5); Carbon Dioxide 21 mmol/L (22-29); Chloride 103 mmol/L (98-107); Globulin 2.5 g/dL (1.3-4.6); Glucose 203 mg/dL (65-115); Osmolality Calculated 298 mOsm/kg (285-295); Sodium 140 mmol/L (136-145); Total Bilirubin 0.2 mg/dL (0.15-1.2); Total Protein 6.3 g/dL (6.6-8.7)
[2021-04-05 15:18] LABS: Alanine Aminotransferase 17 U/L (0-33); Anion Gap 19.9 (5-19); Aspartate Amino Transferase 24 U/L (0-32); Potassium 3.9 mmol/L (3.5-5.1)
[2021-04-05 16:00] VITALS: BP 126/65; PULSE 65; RESP 16; TEMP 36.7; O2SAT 91
--- NOTE | 2021-04-05 16:04 | PM.CONSULT ---
Providers/Reason For Consult Consulting Physician/Specialty*: Dereje Nye Ophthalmology Reason for Consult*: Blurring left eye Attending Physician: Lucius Dutton Primary Care Provider: Masha Carrillo MD History of Present Illness History of Present Illness Nathaly Jiang is a 70 year old female with a hx of DM and previous CE bilaterally. Had a history of PRF left and PVD right eye. Presented with blurring of the left eye, mostly steady, not painful, and diffuse without horizontal or vertical distribution. Medications/Allergies Home Medications Medication Instructions Recorded Confirmed Last Taken Type albuterol sulfate 2.5 mg INHALATION Q4H PRN 07/26/19 03/31/21 Unknown History aspirin 81 mg tablet,delayed 81 mg PO DAILY 07/26/19 03/31/21 11/07/19 History release (Adult Low Dose Aspirin) fluticasone furoate 100 1 inh INHALATION DAILY 07/26/19 03/31/21 11/07/19 History mcg-vilanterol 25 mcg/dose inhalation powder (Breo Ellipta) glimepiride 2 mg tablet 8 mg PO DAILY tab 07/26/19 03/31/21 11/07/19 History montelukast 10 mg tablet 10 mg PO DAILY 07/26/19 03/31/21 11/07/19 History omeprazole 20 mg capsule,delayed 20 mg PO DAILY 07/26/19 03/31/21 11/07/19 History release primidone 50 mg tablet 100 mg PO Q8H tab 07/26/19 03/31/21 11/07/19 History ropinirole 1 mg tablet 2 mg PO DAILY 07/26/19 03/31/21 11/07/19 History quetiapine 50 mg tablet 100 mg PO BEDTIME tab 10/24/19 03/31/21 11/07/19 History sumatriptan succinate 50 mg tablet 50 mg PO PRN PRN tab 10/24/19 03/31/21 Unknown History furosemide 40 mg tablet 80 mg PO QAM 11/08/19 03/31/21 11/07/19 History nitroglycerin 0.4 mg sublingual 0.4 mg SUBLINGUAL Q5M PRN #25 tab 05/20/20 03/31/21 Unknown Rx tablet (Nitrostat) sotalol 80 mg tablet 80 mg PO BID@0900,2100 #240 tab 05/20/20 03/31/21 Unknown Rx methocarbamol 750 mg tablet 750 mg PO BID PRN tab 07/30/20 03/31/21 Unknown History ascorbate calcium (vitamin C) 500 500 mg PO DAILY 09/05/20 03/31/21 Unknown History mg tablet mirtazapine 15 mg tablet 30 mg PO BEDTIME tab 11/25/20 03/31/21 Unknown History ciprofloxacin HCl 500 mg tablet 500 mg PO BID PRN tab 03/12/21 03/31/21 Unknown History insulin glargine 100 unit/mL 45 unit SUBCUT BEDTIME ml 03/12/21 03/31/21 Unknown History subcutaneous solution (Lantus U-100 Insulin) hydrocodone 5 mg-acetaminophen 325 1 - 2 tab PO Q4H PRN 3 Days #14 tab 03/19/21 03/31/21 Unknown Rx mg tablet Mag-Zinc Tablet 2 tab PO BEDTIME 03/31/21 03/31/21 Unknown History isosorbide mononitrate 60 mg 60 mg PO DAILY 03/31/21 03/31/21 Unknown History tablet,extended release 24 hr sulfamethoxazole 800 1 tab PO BEDTIME 03/31/21 03/31/21 Unknown History mg-trimethoprim 160 mg tablet warfarin 6 mg tablet 12 mg PO BEDTIME 03/31/21 03/31/21 Unknown History Allergies Allergy/AdvReac Type Severity Reaction Status Date / Time budesonide Allergy PT STATES Verified 03/31/21 14:15 IT CAUSED PARALISIS metformin Allergy N/V Verified 03/31/21 14:15 penicillin V Allergy HIVES. Verified 03/31/21 14:15 ITCHING propoxyphene Allergy HIVES. Verified 03/31/21 14:15 [From Mu] SWELLING streptomycin AdvReac ITCHING/ Verified 03/31/21 14:15 SWELLING Current Medications Generic Name Dose Route Start Last Admin Trade Name Freq PRN Reason Stop Dose Admin Acetaminophen 650 mg 03/31/21 21:14 04/05/21 11:59 Acetaminophen 325 Mg Tablet PO 650 mg Q6H PRN Administration Mild/Mod Pain Or Temp >/= 101 Albuterol Sulfate 2.5 mg 03/31/21 21:14 04/03/21 10:09 Albuterol 2.5 Mg/0.5 Ml Neb INHALATION 2.5 mg Q4H PRN Administration Shortness Of Breath Alprazolam 0.5 mg 04/02/21 23:20 04/04/21 21:03 Alprazolam 0.5 Mg Tablet PO 0.5 mg TID PRN Administration ANXIETY Aspirin 81 mg 04/01/21 09:00 04/05/21 11:58 Aspirin 81 Mg Ec Tablet PO 81 mg DAILY SHERIDAN Administration Atorvastatin Calcium 40 mg 03/31/21 21:14 04/04/21 20:58 Atorvastatin 40 Mg Tablet PO 40 mg BEDTIME SHERIDAN Administration Dihydroergotamine Mesylate 0 mg 04/04/21 17:50 04/04/21 19:28 Dihydroergotamine 1 Mg/Ml Inj IVP 0.5 mg Q5M PRN Administration MIGRAINE HEADACHE Protocol Furosemide 80 mg 04/01/21 06:00 04/05/21 06:18 Furosemide 40 Mg Tablet PO 80 mg QAM SHERIDAN Administration Insulin Glargine 35 unit 03/31/21 21:14 04/04/21 21:04 Insulin Glargine 100 Units/1 Ml SUBCUT 35 unit BEDTIME SHERIDAN Administration Methocarbamol 750 mg 03/31/21 21:14 03/31/21 22:57 Methocarbamol 750 Mg Tablet PO 750 mg BID PRN Administration Muscle Spasm Mirtazapine 30 mg 03/31/21 21:14 04/04/21 20:58 Mirtazapine 15 Mg Tablet PO 30 mg BEDTIME SHERIDAN Administration Montelukast Sodium 10 mg 03/31/21 23:00 04/04/21 18:16 Montelukast Sodium 10 Mg Tablet PO 10 mg QPM SHERIDAN Administration Morphine Sulfate 4 mg 04/04/21 15:20 04/04/21 15:48 Morphine 4 Mg/Ml Sdv 1 Ml IVP 4 mg Q4H PRN Administration SEVERE PAIN Non-Formulary Medication 1 inh 04/01/21 09:00 04/05/21 11:52 Fluticasone Furoate-Vilanterol [Breo Ellipta] INHALATION Not Given DAILY SHERIDAN Pantoprazole Sodium 40 mg 04/01/21 09:00 04/05/21 11:[address] 40 Mg Tablet PO 40 mg DAILY SHERIDAN Administration Primidone 100 mg 03/31/21 21:14 04/05/21 06:18 Primidone 50 Mg Tablet PO 100 mg Q8H SHERIDAN Administration Quetiapine Fumarate 100 mg 03/31/21 21:14 04/04/21 20:58 Quetiapine 100 Mg Tablet PO 100 mg BEDTIME SHERIDAN Administration Ropinirole HCl 2 mg 04/01/21 09:00 04/05/21 11:58 Ropinirole 1 Mg Tablet PO 2 mg DAILY SHERIDAN Administration Sotalol HCl 40 mg 04/04/21 09:00 04/05/21 11:59 Sotalol 80 Mg Tablet PO 40 mg BID@0900,2100 SHERIDAN Administration Warfarin Sodium 15 mg 04/02/21 21:00 04/04/21 20:58 Warfarin 5 Mg Tablet PO 15 mg BEDTIME SHERIDAN Administration PFSH Acute PFSH: Medical History (Updated 04/05/21 @ 16:25 by Dereje Nye MD) Atrial fibrillation Bilateral lower extremity edema Diabetes mellitus Diastolic heart failure Essential hypertension GERD (gastroesophageal reflux disease) History of hematuria History of kidney stones History of stroke History of throat cancer Hx of ovarian cancer Hx of small bowel obstruction Hyperlipidemia Migraines MEIR (obstructive sleep apnea) Recurrent UTI SVT (supraventricular tachycardia) Tremor Ureter, calculus Surgical History History of colon resection S/P hysterectomy Family History Sister Asthma Brother Asthma Cancer Grandmother Asthma Father Cancer Emphysema lung Social History Smoking and tobacco status: never smoked Second hand smoke exposure: Yes Alcohol intake: never Substance/Drug Use: never Lives independently: Yes Household members: spouse Marital status: Current occupational status: retired History of recent travel: No Vitals/I&O/Wt Last Vital Signs Temp 98.1 F 04/05/21 11:29 Pulse 67 04/05/21 11:29 Resp 16 04/05/21 11:29 BP 142/85 04/05/21 11:29 Pulse Ox 94 04/05/21 11:29 04/05/21 04/05/21 04/05/21 06:59 14:59 22:59 Intake Total 200 / 800 720 / 720 Balance 200 / 800 720 / 720 Physical Exam Narrative: EXAM NARRATIVE: Elderly female in mild head pain but alert and oriented, conversant and cooperative Eye: COMMON NORMALS: Equal, round and reactive pupils present, conjunctivae normal and no papilledema GENERAL EYE: appearance normal, both eyes and all related structures and normal light reflex VISUAL ACUITY: Yes other (20/80 right and 20/100 left with near card and no glasses) ALIGNMENT: Yes alignment normal PERIORBITAL: periorbital findings normal EYELID: eyelids normal CONJUNCTIVA: Yes conjunctivae normal SCLERA: sclerae normal CORNEA: Yes corneas normal PUPIL: Yes Equal, round and reactive pupils present DIRECT OPHTHALMOSCOPY: Yes normal light reflex, Yes no papilledema and Yes macular abnormality Laterality of macular abnormality: positive left (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 No vascular occlusions or significant vitreous bleeding Brightness testing is 10 right and 6-8 left, but there's no disc pallor and the CDR is 3-4 ou. No left disc edema. Data : 04/05/21 14:14 04/05/21 14:14 A&P Assessment and plan (1) After cataract, bilateral: Status: Acute Plan The only physical finding for left eye blurring is the pre-retinal fibrosis and mild viteous debris over the macula. Additional in office testing for macular edema/folds is suggested when she's stable for discharge. Consult Attestations Medical Necessity Statement: c/o of vision loss in face of stroke-like symptoms. Time Spent in Patient Care: 45 minutes Coding Level of Care Code Acute Railroad Detective for Chg Fwd Diagnoses After cataract, bilateral H26.40
[2021-04-05] MEDS: montelukast sodium 10 mg Tablet PO (16:55)
[2021-04-05 16:58] LABS: Glucose Point of Care 195 mg/dL (70-110)
[2021-04-05 20:00] VITALS: BP 115/52; PULSE 69; RESP 20; TEMP 36.8; O2SAT 93
--- NOTE | 2021-04-05 20:19 | PM.PN ---
Subjective Subjective: Interval history: This morning migraine had responded to DHE protocol, discomfort down to 2/10. Persistent blurry vision in the left eye, with mild improvement, counting fingers at several foot distance. Clumsiness in the left arm and leg with improvement with mild residual symptoms remaining. In the afternoon again worsening headache symptoms. Vitals/I&O/Wt Last Vital Signs Temp 98.1 F 04/05/21 16:00 Pulse 65 04/05/21 16:00 Resp 16 04/05/21 16:00 BP 126/65 04/05/21 16:00 Pulse Ox 91 04/05/21 16:00 04/05/21 04/05/21 04/05/21 06:59 14:59 22:59 Intake Total 200 / 800 720 / 720 240 / 960 Balance 200 / 800 720 / 720 240 / 960 Physical Exam Const: COMMON NORMALS: no acute distress and patient oriented x3 NUTRITIONAL APPEARANCE: obese HENMT: COMMON NORMALS: oropharynx normal Neck/C-Spine: COMMON NORMALS: no JVD Resp: COMMON NORMALS: normal respiratory effort and clear to auscultation bilaterally AUSCULTATION: clear to auscultation bilaterally Cardio: COMMON NORMALS: no JVD, regular rhythm, S1 normal heart sound present, S2 normal heart sound present and No murmurs present (Cardio) RHYTHM: regular rhythm HEART SOUNDS: S1 normal heart sound present and S2 normal heart sound present GI: COMMON NORMALS: Normal to inspection, nondistended, normoactive bowel sounds present, Soft to palpation and non-tender PALPATION: Yes Soft to palpation Extremity: COMMON NORMALS: no joint enlargement and no pedal edema Neuro: COMMON NORMALS: patient oriented x3 and moves all extremities COORDINATION/BALANCE: [id number] test normal (slow, persistent mild dysmetria) SPEECH: abnormal speech Details: slurred (Minimally) and expressive aphasia (Mild) SENSORY EXAM: Yes Normal double simultaneous stimulation for sensation; No sensory level loss detected MOTOR EXAM: Pronator motor function not present and Other motor observations present (4/5 L upper and lower) COORDINATION: [id number]-[id number] test normal (slow, persistent mild dysmetria) OTHER: Awake alert, readily responding. No trouble tracking. Diminished acuity, recognizing her shapes on the left. Skin: COMMON NORMALS: no rashes or lesions noted GENERAL SKIN EXAM: no rashes or lesions noted Data : 04/05/21 14:14 04/05/21 14:14 A&P Assessment and plan (1) Headache: Initially responded to DHE protocol with resolution down to 2/10 of migraine. However, in the afternoon/evening again at least 5/10. Given Tylenol for response. Repeat Tylenol. Could not give additional DHE due to having had max dose within 24 hours. Consider additional DHE dose if persistent headache. Hemiplegic migraine Encouraged her to follow-up with neurology after discharge. Status: Acute (2) CVA (cerebral vascular accident): Persistent focal neurologic deficits with hemiplegic migraine. No CVA noted on MRI no thrombosis on MRV. Continue PT, OT, ST. Migraine treatment as above. Visual deficits in the left eye with decreased visual jacobs. Specifically in the left eye. Discussed with her consideration of possible retinal migraine. Discussed consideration of other causes including vitreal hemorrhage. Discussed hemiplegic migraines may put her at risk of CVA which is higher than average population. Encouraged her to follow-up again with her neurologist whom she sees in [place] and follows with him due to tremor. Status: Acute (3) Visual blurriness: Bedside assessment by ophthalmology due to persistent diminished visual acuity despite improvement in migraine this morning. No hemorrhage noted, some preretinal fibrosis visualized, mild vitreous debris over the macula. Follow-up in office for additional testing for macular edema/folds after discharge. ESR is normal, mild-mod elevation of CRP. Of not suggestive of GCA. History of prior procedures on the left eye. Status: Acute (4) Tremor: Follows with neurology, was started on primidone. Status: Acute (5) Atrial fibrillation: INR now therapeutic. Decrease warfarin back down to 12 mg. Recheck INR. Reports that recently dose was decreased to 11 mg daily due to supratherapeutic INR, prior to that was taking 12 mg 4 days, and then 11 mg 3 days. Continue sotalol. Status: Acute Qualifiers: Atrial fibrillation type: persistent (not longstanding) Qualified Code(s): I48.19 - Other persistent atrial fibrillation (6) MEIR (obstructive sleep apnea): Untreated MEIR as she is intolerant of CPAP. Has had a prior sleep study. Discussed with her to further follow-up with primary provider, in case obstructive sleep apnea, consideration of referral to ENT for consideration of surgical treatment due to intolerance of CPAP. She verbalized understanding and agreement. Status: Acute Plan DM2 History of diastolic heart failure, not in exacerbation HTN HLD GERD Other chronic medical problems noted. Attestations Medical Necessity Statement*: Admission continue due to again worsening migraine headache with hemiplegic migraine with persistent neurologic deficits. Coding Level of Care Code Acute Blockmason for Chg Fwd Diagnoses Headache R51.9 CVA (cerebral vascular accident) I63.9 Visual blurriness H53.8 Tremor R25.1 Atrial fibrillation I48.19 Atrial fibrillation type: persistent (not longstanding) MEIR (obstructive sleep apnea) G47.33
[2021-04-05 20:53] LABS: Glucose Point of Care 279 mg/dL (70-110)
[2021-04-05] MEDS: insulin glargine 100 units/1 mL 35 UNIT SUBCUT (21:22)
[2021-04-05] MEDS: mirtazapine 15 mg Tablet 30 MG PO (21:22)
[2021-04-05] MEDS: atorvastatin 40 mg Tablet PO (21:22)
[2021-04-05] MEDS: quetiapine 100 mg Tablet PO (21:23)
[2021-04-05] MEDS: warfarin 6 mg Tablet 12 MG PO (21:24)
[2021-04-05] MEDS: ALPRAZolam 0.5 mg Tablet PO (21:29)
[2021-04-06] VITALS: BP 118/67; PULSE 54; RESP 18; TEMP 36.8; O2SAT 90
[2021-04-06 04:00] VITALS: BP 141/83; PULSE 56; RESP 19; TEMP 36.5; O2SAT 95
[2021-04-06] MEDS: FUROsemide 40 mg Tablet 80 MG PO (05:25)
[2021-04-06] MEDS: primidone 50 mg Tablet 100 MG PO (05:27)
[2021-04-06 06:30] LABS: Glucose Point of Care 170 mg/dL (70-110)
[2021-04-06 07:15] VITALS: BP 144/79; PULSE 59; RESP 15; TEMP 36.9; O2SAT 93
[2021-04-06 07:35] VITALS: PULSE 60; RESP 16; O2SAT 96
[2021-04-06] MEDS: aspirin 81 mg EC Tablet PO (10:41)
[2021-04-06] MEDS: ropinirole 1 mg Tablet 2 MG PO (10:41)
[2021-04-06] MEDS: pantoprazole DR 40 mg Tablet PO (10:41)
[2021-04-06] MEDS: sotalol 80 mg Tablet 40 MG PO (10:41)
[2021-04-06] MEDS: acetaminophen 325 mg Tablet 650 MG PO (10:46)
[2021-04-06 11:09] LABS: Glucose Point of Care 227 mg/dL (70-110)
--- NOTE | 2021-04-06 11:19 | PM.DCS ---
Discharge Providers Date of Admission: 03/31/21 13:44 Date of Discharge: April 06, 2021 Attending Provider at Admission: Lucius Dutton Attending Provider at Discharge: Lucius Dutton Primary Care Provider: Masha Carrillo MD Diagnoses at Discharge Discharge Diagnosis (1) Headache: Status: Acute (2) CVA (cerebral vascular accident): Status: Acute (3) Visual blurriness: Status: Acute (4) Tremor: Status: Acute (5) Atrial fibrillation: Status: Acute Qualifiers: Atrial fibrillation type: persistent (not longstanding) Qualified Code(s): I48.19 - Other persistent atrial fibrillation (6) MEIR (obstructive sleep apnea): Status: Acute Reason for Visit Reason for Visit: STROKE LIKE SYMPTOMS Hospital Course Hospital Course 70-year-old lady with history of migraine headaches, TIA, A. fib, on chronic anticoagulation with Coumadin, but recently decreased dose due to supratherapeutic levels, diastolic CHF, left eye cardiac surgery, untreated MEIR due to intolerance of CPAP, other chronic medical problems was admitted for assessment management due to focal neurologic symptoms, with aphasia, left side facial numbness, left upper and lower extremity weakness, clumsiness, as well as blurry vision in the left eye to the point of seeing on a large shapes. Noncontrast CT head obtained on presentation without evidence of intracranial hemorrhage or mass-effect, with mild small vessel changes, moderate parenchymal volume loss. Head and neck CTA with no significant ICA stenosis bilaterally, normal intracranial CTA, right dominant vertebral artery, similar but patent left vertebral artery. Retropharyngeal course to both cervical ICAs. She was outside window for consideration of TPA. Received aspirin. Started on statin. On presentation with subtherapeutic INR, with history of atrial fibrillation was restarted on warfarin. With persistent focal deficits with suspected CVA additional testing included echocardiogram, which showed normal ejection fraction, grade 1 diastolic function, mild mitral regurg, mild aortic stenosis, moderate cuspid regurgitation. Inflammatory parameters were checked in ER, with normal ESR, moderate elevation of CRP at 19.9, not suggestive of GCA. Ophthalmologic evaluation was attempted but initially could not proceed due to equipment difficulties. She did also have persistent headache which was treated symptomatically. She took a dose of Imitrex on Wednesday without improvement. She was assessed by PT, OT, ST. Initially symptoms with improvement, with resolution of left-sided facial numbness, with improvement in power in upper lower extremity. With persistent aphasia, persistent mild dysmetria/continues left upper and lower extremity. Due to persistent headache and persistent focal neurologic deficits despite initial mild improvement in headache was assessed by MRI and MRV which did not show acute CVA, and with unremarkable MRV. 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 With lack of resolution, worsened benefits discussed of additional treatment and underwent course of treatment with DHE with good response, mild transient worsening headache again last night. Due to localized loss of visual acuity in the left eye, was additionally assessed ophthalmology at bedside with finding of preretinal fibrosis, vitreous debris of the macula, no vitreal hemorrhage or suggestion of retinal vessel occlusion. Given continued gradual improvement in headache, currently down to mild, gradually improving left upper and lower extremity symptoms, she feels comfortable returning home to continue her recovery there. She is referred to speech therapy due to persistence of aphasia. She is asked to follow-up with her neurologist for reassessment with hemiplegic migraine, persistent focal deficits, headache further consideration of operative strength agents, as well as migraine prophylaxis consideration. She is asked to follow-up with ophthalmology at soonest lobe appointment. Please reassess INR, last INR that could be drawn, yesterday was therapeutic at 2.25. Please also follow-up with her with regards to untreated sleep apnea due to intolerance of CPAP. Please review sleep study results, and in case of obstructive sleep apnea consider referral to ENT for assessment for alternative/non-CPAP treatments. Physical Exam Const: COMMON NORMALS: no acute distress and patient oriented x3 NUTRITIONAL APPEARANCE: obese HENMT: COMMON NORMALS: oropharynx normal Neck/C-Spine: COMMON NORMALS: no JVD Resp: COMMON NORMALS: normal respiratory effort and clear to auscultation bilaterally AUSCULTATION: clear to auscultation bilaterally Cardio: COMMON NORMALS: no JVD, regular rhythm, S1 normal heart sound present, S2 normal heart sound present and No murmurs present (Cardio) RHYTHM: regular rhythm HEART SOUNDS: S1 normal heart sound present and S2 normal heart sound present GI: COMMON NORMALS: Normal to inspection, nondistended, normoactive bowel sounds present, Soft to palpation and non-tender PALPATION: Yes Soft to palpation Extremity: COMMON NORMALS: no joint enlargement and no pedal edema Neuro: COMMON NORMALS: patient oriented x3 and moves all extremities COORDINATION/BALANCE: [id number] test normal (slow, minimal dysmetria) SPEECH: abnormal speech Details: slurred (Minimally) and expressive aphasia (Mild) SENSORY EXAM: Yes Normal double simultaneous stimulation for sensation; No sensory level loss detected MOTOR EXAM: Pronator motor function not present and Other motor observations present (4/5 L upper and lower) COORDINATION: [id number] test normal (slow, minimal dysmetria) OTHER: Awake alert, readily responding. No trouble tracking. Diminished acuity, counting fingers at 1 foot Skin: COMMON NORMALS: no rashes or lesions noted GENERAL SKIN EXAM: no rashes or lesions noted Discharge Data Studies Completed and Pending Completed Studies During Hospitalization Category Date Time Status CT head wo con* [id number] Stat Cat Scan 03/31/21 11:19 Completed CTA head neck [CT angio headneck* [id number]] Urgent Cat Scan 03/31/21 11:19 Completed MR head wo/w con [id number] Routine MRI 04/04/21 11:22 Completed MRV [[place] [id number]] Routine MRI 04/04/21 11:22 Completed CV. echo complete* [id number] Routine Ultrasound 04/01/21 08:35 Completed Pending at discharge Category Date Time Status Complete Blood Count w/Auto AM LABS Lab 04/06/21 04:00 Ordered Complete Blood Count w/Auto AM LABS Lab 04/07/21 04:00 Ordered Comprehensive Metabolic Panel AM LABS Lab 04/06/21 04:00 Ordered Comprehensive Metabolic Panel AM LABS Lab 04/07/21 04:00 Ordered Prothrombin Time INR AM LABS Lab 04/06/21 04:00 Ordered Prothrombin Time INR AM LABS Lab 04/07/21 04:00 Ordered Urinalysis Stat Lab 03/31/21 11:19 Uncollected Radiology Impressions Head CT 03/31/21 11:19 IMPRESSION: 1. No evidence of intracranial hemorrhage or mass effect. 2. Mild small vessel changes. Moderate parenchymal volume loss. 3. No acute intracranial findings. Attempted notification Phyllis Patel MD at 03/31/2021 1:21 PM. Head/Neck CTA 03/31/21 11:19 IMPRESSION: 1. No significant ICA stenosis bilaterally. 2. Normal intracranial CTA. 3. Right dominant vertebral artery. Smaller but patent left vertebral artery. 4. Retropharyngeal course to both cervical ICAs. Head MRI 04/04/21 11:22 IMPRESSION: 1. No acute infarct or enhancing mass. 2. Very minimal stable chronic small vessel ischemic disease, similar to 04/20/2016. Head/Brain Mag Res Venography 04/04/21 11:22 IMPRESSION: Normal MR venogram cerebral veins. Laboratory Results WBC 10.5 10^3/uL (4.0-10.0) H 04/05/21 14:14 RBC 5.25 10^6/uL (4.1-5.3) 04/05/21 14:14 Hgb 15.9 g/dL (11.5-15.3) H 04/05/21 14:14 Hct 49.4 % (37.0-47.0) H 04/05/21 14:14 MCV 94.1 fl (81-99) 04/05/21 14:14 MCH 30.3 pg (28.0-34.0) 04/05/21 14:14 MCHC 32.2 g/dL (30.0-36.0) 04/05/21 14:14 RDW 13.2 % (12.1-15.1) 04/05/21 14:14 Plt Count 242 10^3/cmm (130-400) 04/05/21 14:14 MPV 11.7 fL (7.4-10.4) H 04/05/21 14:14 Neut % (Auto) 65.5 % 04/05/21 14:14 Lymph % (Auto) 25.2 % 04/05/21 14:14 [place] % (Auto) 7.1 % 04/05/21 14:14 Eos % (Auto) 1.4 % 04/05/21 14:14 Baso % (Auto) 0.6 % 04/05/21 14:14 Neut # (Auto) 6.90 10^3/uL (1.8-7.7) 04/05/21 14:14 Lymph # (Auto) 2.7 10^3/uL (0.8-4.8) 04/05/21 14:14 [place] # (Auto) 0.8 10^3/uL (0.2-0.9) 04/05/21 14:14 Eos # (Auto) 0.2 10^3/uL (0.0-0.8) 04/05/21 14:14 Baso # (Auto) 0.1 10^3/uL (0.0-0.1) 04/05/21 14:14 Nucleated RBC % (auto) 0 % 04/05/21 14:14 Nucleated RBCs # 0.0 /100WBC 04/05/21 14:14 ESR 5 mm/hr (0-15) 03/31/21 12:00 PT 25.30 SECONDS (12.1-14.9) H 04/05/21 14:14 INR 2.25 (0.8-1.2) H 04/05/21 14:14 APTT 26.1 SECONDS (23.9-36.7) 03/31/21 12:00 Sodium 140 mmol/L (136-145) 04/05/21 14:14 Potassium 3.9 mmol/L (3.5-5.1) 04/05/21 14:14 Chloride 103 mmol/L (98-107) 04/05/21 14:14 Carbon Dioxide 21 mmol/L (22-29) L 04/05/21 14:14 Anion Gap 19.9 (5-19) H 04/05/21 14:14 BUN 18 mg/dL (8-23) 04/05/21 14:14 Creatinine 0.7 mg/dL (0.5-0.9) 04/05/21 14:14 GFR Calculation Not Reportable 04/05/21 14:14 Glucose 203 mg/dL (65-115) H 04/05/21 14:14 POC Glucose 227 mg/dL (70-110) H 04/06/21 11:03 Estimat Average Glucose 183 04/01/21 05:03 Hemoglobin A1c 8.0 % (4.0-6.0) H 04/01/21 05:03 Calculated Osmolality 298 mOsm/kg (285-295) H 04/05/21 14:14 Calcium 9.6 mg/dL (8.5-10.5) 04/05/21 14:14 Magnesium 2.2 mg/dL (1.7-2.3) 04/01/21 05:03 Total Bilirubin 0.2 mg/dL (0.15-1.2) 04/05/21 14:14 AST 24 U/L (0-32) 04/05/21 14:14 ALT 17 U/L (0-33) 04/05/21 14:14 Alkaline Phosphatase 75 IU/L (35-105) 04/05/21 14:14 Creatine Kinase 189 U/L (26-192) 04/03/21 05:56 Troponin T Baseline 15 ng/L (0-10) H 03/31/21 12:00 Troponin T 120 Minute 16.00 ng/L (0-10) H 03/31/21 14:22 Delta Troponin T 1.00 ABS# (0-10) 03/31/21 14:22 Troponin T Hi Sens 6Hr 15.43 ng/L (0-10) H 03/31/21 19:35 Troponin T Hi Sens 6Hr Delta 0.43 ng/L (0-12) 03/31/21 19:35 Total Protein 6.3 g/dL (6.6-8.7) L 04/05/21 14:14 Albumin 3.8 g/dL (3.5-5.2) 04/05/21 14:14 Globulin 2.5 g/dL (1.3-4.6) 04/05/21 14:14 TSH 4.10 uIU/mL (0.27-4.20) 04/01/21 05:03 Vitals Last Vital Signs Temp 98.5 F 04/06/21 07:15 Pulse 60 04/06/21 07:35 Resp 16 04/06/21 07:35 BP 144/79 04/06/21 07:15 Pulse Ox 96 04/06/21 07:35 Discharge Plan Discharge Patient Disposition: Home Condition: Stable Prescriptions: New atorvastatin 40 mg Tablet 40 mg PO BEDTIME Qty: 90 0RF sumatriptan 10 mg/actuation spray,non-aerosol 20 mg intranasal Q2H PRN (Reason: migraine headache) Qty: 1 0RF Rx Instructions: administer into one nostril as a single dose; if 2nd dose needed,administer into other nostril after at least 2 hrs, NTE 2 doses (40 mg) per episode Continued quetiapine 50 mg tablet 100 mg PO BEDTIME 0RF mirtazapine 15 mg tablet 30 mg PO BEDTIME 0RF omeprazole 20 mg capsule,delayed release(DR/EC) 20 mg PO DAILY 0RF ropinirole 1 mg tablet 2 mg PO DAILY 0RF montelukast 10 mg tablet 10 mg PO DAILY 0RF aspirin [Adult Low Dose Aspirin] 81 mg tablet,delayed release (DR/EC) 81 mg PO DAILY 0RF albuterol sulfate 2.5 mg /3 mL (0.083 %) solution for nebulization 2.5 mg INHALATION Q4H PRN (Reason: Shortness Of Breath) 0RF Rx Instructions: pt states she uses bid everyday and on bad days she uses tid Breo Ellipta 100-25 mcg/dose blister with device 1 inh INHALATION DAILY 0RF glimepiride 2 mg tablet 8 mg PO DAILY 0RF primidone 50 mg tablet 100 mg PO Q8H 0RF Lantus U-100 Insulin 100 unit/mL solution 45 unit SUBCUT BEDTIME 0RF nitroglycerin [Nitrostat] 0.4 mg tablet, sublingual 0.4 mg SUBLINGUAL Q5M PRN (Reason: Chest Pain) Qty: 25 6RF Rx Instructions: do not exceed 3 doses per episode sotalol 80 mg tablet 80 mg PO BID@0900,2100 Qty: 240 3RF Rx Instructions: take 1 1/2 tabs in AM and take 1 tab in PM methocarbamol 750 mg tablet 750 mg PO BID PRN (Reason: Muscle Spasm) 0RF ascorbate calcium (vitamin C) 500 mg tablet 500 mg PO DAILY 0RF hydrocodone-acetaminophen 5-325 mg tablet 1 - 2 tab PO Q4H PRN (Reason: Pain) 3 Days Qty: 14 0RF furosemide 40 mg tablet 80 mg PO QAM 0RF Mag-Zinc Tablet 2 tab PO BEDTIME 0RF isosorbide mononitrate 60 mg tablet extended release 24 hr 60 mg PO DAILY 0RF warfarin 6 mg tablet 12 mg PO BEDTIME 0RF Protocol: Dose Management Condition: Wednesday Dose/Route: 12 mg Instruction: 2 x 6 mg tablets Condition: Wednesday Dose/Route: 12 mg Instruction: 2 x 6 mg tablets Condition: Wednesday Dose/Route: 12 mg Instruction: 2 x 6 mg tablets Condition: Wednesday Dose/Route: 12 mg Instruction: 2 x 6 mg tablets Condition: Dose/Route: 12 mg Instruction: 2 x 6 mg tablets Condition: Wednesday Dose/Route: 12 mg Instruction: 2 x 6 mg tablets Condition: Wednesday Dose/Route: 12 mg Instruction: 2 x 6 mg tablets Protocol Text: Adjustment Start Date: Wednesday03/14/21 INR Value: 2.8 INR Date: 03/14/21 Recheck Date: 03/21/21 Discontinued sumatriptan succinate 50 mg tablet 50 mg PO PRN PRN (Reason: migraine headache) 0RF ciprofloxacin HCl 500 mg tablet 500 mg PO BID PRN (Reason: PT STATES NOT TAKING RX FILLED 03/20/21) 0RF sulfamethoxazole-trimethoprim 800-160 mg tablet 1 tab PO BEDTIME 0RF Discharge Orders: Discharge Order (Routine); Ordered 04/06/21 Ordered By: Lucius Dutton Other Ambulatory Orders: Speech Language Pathology Eval and Treat Outpatient (Order) Timeframe: 2 Days Facility: [facility] - Location: Speech Therapy [place] Ordered By: Lucius Dutton Referrals: Your, neurologist [Other] (Soonest available appointment) Masha Carrillo MD [Primary Care Provider] - 4-7 days (Please call Dr. Carrillo's office and schedule an appontment to be seen within 7 days.) Dereje Nye MD [Physician] - None (Please call Dr. Nye' office and schedule an appointment to be seen in their soonest available spot.) Discharge Diet: Cardiac and Diabetic Discharge Activity: Use walker/crutches as instructed Patient Instructions: Atorvastatin (By mouth), Sumatriptan (Into the nose), Migraine Headache (GEN), Aphasia (GEN), Opioid Safety Activity Restrictions/Additional Instructions: Follow-up with your endless belt finisher in office at soonest available appointment. Follow-up with your primary doctor as well as with your neurologist with regards to hemiplegic migraine. Discussed with your primary doctor and neurologist regarding migraine prophylaxis medication. Consider switching mirtazapine to amitriptyline for example. Follow-up with your primary doctor and almond pan finisher to reassess INR 3 tab daily for 3 days, then 2 tab for 3 days, then 1 tab for 3 days, then 1/2 tab for 3 days. INR yesterday with most recent labs was 2.25. Please resume your previous warfarin regimen before the dose was decreased. Please discuss with your primary doctor to follow-up regarding untreated sleep apnea. If sleep study indicates obstructive sleep apnea discussed referral to ENT for consideration of treatment alternatives to CPAP. Continue to optimize risk factors of cardiovascular disease. Started on statin. Discharge Attestations Time Spent in Discharge Care*: greater than 30 min Quality Metrics Clinical Quality Measures [ No reported AMI, CVA or VTE this stay] Coding Level of Care Code Acute g FW DC note Diagnoses Headache R51.9 CVA (cerebral vascular accident) I63.9 Visual blurriness H53.8 Tremor R25.1 Atrial fibrillation I48.19 Atrial fibrillation type: persistent (not longstanding) MEIR (obstructive sleep apnea) G47.33
[2021-04-06 12:00] VITALS: BP 132/76; PULSE 79; RESP 18; TEMP 36.7; O2SAT 97
[2021-04-06 15:48] VITALS: BP 132/76; PULSE 79; RESP 18; TEMP 36.7; O2SAT 97
== END 2021-04-06 15:48 | disposition home or self-care (01) | DRG 65 ==
LOC: ER 12:42 → ER IP 17:19 → MEDSURG 20:52
PROVIDERS: Admitting Provider Internal Medicine; Emergency Provider Emergency Medicine; PCP Family Medicine; Visit Provider Internal Medicine
DX: I63.9 Cerebral infarction, unspecified (principal); G81.94 Hemiplegia, unspecified affecting left nondominant side; I48.19 Other persistent atrial fibrillation; I50.32 Chronic diastolic (congestive) heart failure; I11.0 Hypertensive heart disease with heart failure; H53.8 Other visual disturbances; R47.01 Aphasia; R53.1 Weakness; R20.0 Anesthesia of skin; G43.409 Hemiplegic migraine, not intractable, without status migrainosus; G47.33 Obstructive sleep apnea (adult) (pediatric); E11.319 Type 2 diabetes mellitus with unspecified diabetic retinopathy without macular edema; E78.5 Hyperlipidemia, unspecified; R29.700 NIHSS score 0; K21.9 Gastro-esophageal reflux disease without esophagitis; R25.1 Tremor, unspecified; H26.40 Unspecified secondary cataract; Z79.4 Long term (current) use of insulin; Z79.84 Long term (current) use of oral hypoglycemic drugs; Z79.891 Long term (current) use of opiate analgesic; Z86.73 Personal history of transient ischemic attack (TIA), and cerebral infarction without residual deficits; Z85.819 Personal history of malignant neoplasm of unspecified site of lip, oral cavity, and pharynx; Z87.440 Personal history of urinary (tract) infections; Z90.49 Acquired absence of other specified parts of digestive tract; Z90.710 Acquired absence of both cervix and uterus; Z79.82 Long term (current) use of aspirin; Z79.01 Long term (current) use of anticoagulants
CPT/HCPCS: 12345; 36415; 36416; 70450; 70496; 70498; 70544; 70553; 80048; 80053; 82550; 82962; 83036; 83735; 84443; 84484; 85025; 85610; 85651; 85730; 92507; 92523; 92610; 93005; 93306; 94640; 96365; 96372; 96375; 97161; 97165; 99285; J1110; J1200; J1650; J1815; J1885; J2270; J2405; J2765; J3475; J7040; J7611; Q9967

== ENCOUNTER → 2021-04-22 16:30 | Outpatient (BNVA) | payer MEDICARE, SELFPAY | PROVIDERS: PCP Family Medicine; Visit Provider Internal Medicine Cardiovascular Disease | DX: I48.91 Unspecified atrial fibrillation (principal) | CPT/HCPCS: 81003; 85610 ==

== ENCOUNTER 2021-05-07 08:38 | Outpatient (RCR) | payer MEDICARE, SELFPAY | END 2021-05-29 23:59 | disposition home or self-care (01) | LOC: SST 08:38 | PROVIDERS: PCP Family Medicine; Referring Provider Internal Medicine; Visit Provider Internal Medicine | DX: R47.01 Aphasia (principal); G43.409 Hemiplegic migraine, not intractable, without status migrainosus | CPT/HCPCS: 96105 ==

== ENCOUNTER → 2021-05-14 13:06 | Outpatient (BNVA) | payer MEDICARE, SELFPAY | PROVIDERS: PCP Family Medicine; Visit Provider Internal Medicine Cardiovascular Disease | DX: Z79.01 Long term (current) use of anticoagulants (principal) ==

== ENCOUNTER → 2021-05-19 12:38 | Outpatient (BNVA) | payer MEDICARE, SELFPAY | PROVIDERS: PCP Family Medicine; Visit Provider Internal Medicine | DX: E11.65 Type 2 diabetes mellitus with hyperglycemia (principal); E78.5 Hyperlipidemia, unspecified; I50.32 Chronic diastolic (congestive) heart failure; E78.2 Mixed hyperlipidemia; Z86.73 Personal history of transient ischemic attack (TIA), and cerebral infarction without residual deficits; Z79.4 Long term (current) use of insulin | CPT/HCPCS: 99204 ==

== ENCOUNTER → 2021-05-23 09:26 | Outpatient (BNVA) | payer MEDICARE, SELFPAY | PROVIDERS: PCP Family Medicine; Visit Provider Internal Medicine Cardiovascular Disease | DX: Z79.01 Long term (current) use of anticoagulants (principal) ==

== ENCOUNTER → 2021-06-06 10:53 | Outpatient (BNVA) | payer MEDICARE, SELFPAY | PROVIDERS: PCP Family Medicine; Visit Provider Internal Medicine Cardiovascular Disease | DX: Z09 Encounter for follow-up examination after completed treatment for conditions other than malignant neoplasm (principal); Z86.73 Personal history of transient ischemic attack (TIA), and cerebral infarction without residual deficits; E78.2 Mixed hyperlipidemia; G43.409 Hemiplegic migraine, not intractable, without status migrainosus; R51.9 Headache, unspecified; H53.8 Other visual disturbances; I11.0 Hypertensive heart disease with heart failure; I50.32 Chronic diastolic (congestive) heart failure; E11.65 Type 2 diabetes mellitus with hyperglycemia; Z79.4 Long term (current) use of insulin; I48.19 Other persistent atrial fibrillation; Z79.01 Long term (current) use of anticoagulants; Z79.82 Long term (current) use of aspirin | CPT/HCPCS: 99214; 99215 ==

== ENCOUNTER → 2021-06-18 08:00 | Outpatient (BNVA) | payer MEDICARE, SELFPAY | PROVIDERS: PCP Family Medicine; Visit Provider Internal Medicine | DX: Z79.01 Long term (current) use of anticoagulants (principal) ==

== ENCOUNTER → 2021-06-27 09:10 | Outpatient (BNVA) | payer MEDICARE, SELFPAY | PROVIDERS: PCP Family Medicine; Visit Provider Internal Medicine | DX: Z79.01 Long term (current) use of anticoagulants (principal) ==

== ENCOUNTER → 2021-07-11 13:05 | Outpatient (BNVA) | payer MEDICARE, SELFPAY | PROVIDERS: PCP Family Medicine; Visit Provider Internal Medicine Cardiovascular Disease | DX: Z79.01 Long term (current) use of anticoagulants (principal) ==

== ENCOUNTER → 2021-07-25 13:01 | Outpatient (BNVA) | payer MEDICARE, SELFPAY | PROVIDERS: PCP Family Medicine; Visit Provider Internal Medicine Cardiovascular Disease | DX: Z79.01 Long term (current) use of anticoagulants (principal) ==

== ENCOUNTER → 2021-08-01 10:03 | Outpatient (BNVA) | payer MEDICARE, SELFPAY | PROVIDERS: PCP Family Medicine; Visit Provider Internal Medicine | DX: Z79.01 Long term (current) use of anticoagulants (principal) ==

== ENCOUNTER → 2021-08-08 09:11 | Outpatient (BNVA) | payer MEDICARE, SELFPAY | PROVIDERS: PCP Family Medicine; Visit Provider Internal Medicine | DX: Z79.01 Long term (current) use of anticoagulants (principal) ==

== ENCOUNTER → 2021-08-15 09:19 | Outpatient (BNVA) | payer MEDICARE, SELFPAY | PROVIDERS: PCP Family Medicine; Visit Provider Internal Medicine Cardiovascular Disease | DX: Z79.01 Long term (current) use of anticoagulants (principal) ==

== ENCOUNTER 2023-01-26 11:26 | Outpatient (RCR) | payer MEDICARE, SELFPAY | END 2023-01-28 23:59 | disposition home or self-care (01) | LOC: SPT 11:26 | PROVIDERS: Visit Provider Orthopaedic Surgery | DX: Z98.890 Other specified postprocedural states (principal) | CPT/HCPCS: 97110; 97161 ==

== ENCOUNTER 2023-01-29 06:00 | Outpatient (RCR) | payer MEDICARE, SELFPAY | END 2023-02-28 23:59 | disposition home or self-care (01) | LOC: SPT 06:00 | PROVIDERS: Visit Provider Orthopaedic Surgery | DX: Z47.89 Encounter for other orthopedic aftercare (principal) | CPT/HCPCS: 97110; 97530 ==

== ENCOUNTER 2023-03-01 06:00 | Outpatient (RCR) | payer MEDICARE, SELFPAY | END 2023-03-31 23:59 | disposition home or self-care (01) | LOC: SPT 06:00 | PROVIDERS: Visit Provider Orthopaedic Surgery | DX: Z47.89 Encounter for other orthopedic aftercare (principal) | CPT/HCPCS: 97110 ==

== ENCOUNTER 2023-10-14 16:54 | Emergency (ER) | payer MEDICARE, SELFPAY ==
[2023-10-14 16:57] VITALS: BP 156/78; PULSE 63; RESP 14; TEMP 36.7; O2SAT 94; BMI 39.6
[2023-10-14 18:35] VITALS: BP 135/86; PULSE 64; RESP 14; O2SAT 98
--- NOTE | 2023-10-14 18:35 | ED_ITS ---
HPI - Recheck/Abnormal Lab/Rx 2 General: Chief Complaint: Recheck/Abnormal Lab/Rx Stated Complaint: RAPID RESPONSE Time Seen by Provider: 10/14/23 18:32 History of Present Illness: 73-year-old female comes in today for co ncerns of low blood sugar. 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 Patient believes it is most likely due to her staying up late last night. Patient believes that she ate appropriately today. Patient appears nontoxic. Patient reports no chest pain or difficulty breathing. Patient reports no nausea vomiting or diarrhea. Related Data Home Medications Medication Instructions Recorded Confirmed albuterol sulfate 2.5 mg/3 mL 2.5 mg inhalation Q4H PRN 07/26/19 06/06/21 (0.083 %) solution for nebulization Shortness Of Breath aspirin 81 mg tablet,delayed 81 mg PO DAILY 07/26/19 06/06/21 release (Adult Low Dose Aspirin) fluticasone furoate 100 1 inh inhalation DAILY 07/26/19 06/06/21 mcg-vilanterol 25 mcg/dose inhalation powder (Breo Ellipta) montelukast 10 mg tablet 10 mg PO DAILY 07/26/19 06/06/21 omeprazole 20 mg capsule,delayed 20 mg PO DAILY 07/26/19 06/06/21 release primidone 50 mg tablet 100 mg PO Q8H 07/26/19 06/06/21 ropinirole 1 mg tablet 2 mg PO DAILY 07/26/19 06/06/21 quetiapine 50 mg tablet 100 mg PO BEDTIME 10/24/19 06/06/21 furosemide 40 mg tablet 80 mg PO QAM 11/08/19 06/06/21 methocarbamol 750 mg tablet 750 mg PO BID PRN Muscle Spasm 07/30/20 06/06/21 ascorbate calcium (vitamin C) 500 500 mg PO DAILY 09/05/20 06/06/21 mg tablet mirtazapine 15 mg tablet 30 mg PO BEDTIME 11/25/20 06/06/21 Mag-Zinc Tablet 2 tab PO BEDTIME 03/31/21 06/06/21 insulin lispro 100 unit/mL 5 unit SUBCUT TID 06/06/21 06/06/21 subcutaneous pen (Humalog KwikPen (U-100) Insulin) propranolol 20 mg tablet 20 mg PO TID 06/06/21 06/06/21 rimegepant 75 mg disintegrating 75 mg PO DAILY 06/06/21 06/06/21 tablet (Nurtec ODT) topiramate 50 mg tablet 100 mg PO BID 06/06/21 06/06/21 Previous Rx's Medication Instructions Recorded nitroglycerin 0.4 mg sublingual 0.4 mg sublingual Q5M PRN Chest 05/20/20 tablet (Nitrostat) Pain #25 tabs hydrocodone 5 mg-acetaminophen 325 1 - 2 tab PO Q4H PRN Pain 3 days 03/19/21 mg tablet #14 tabs atorvastatin 40 mg tablet 40 mg PO BEDTIME #90 tabs 04/06/21 insulin glargine 100 unit/mL (3 47 unit (0.47 mL) SUBCUT DAILY #30 06/25/21 mL) subcutaneous pen (Lantus mL Solostar U-100 Insulin) flash glucose sensor (FreeStyle #6 ea 06/26/21 Dasha 2 Sensor kit) warfarin 6 mg tablet See Rx Instructions .Route 07/24/21 .COMPLEX #90 tabs warfarin 10 mg tablet 5 mg PO DAILY #90 tabs 07/25/21 sotalol 80 mg tablet 80 mg PO BID@0900,2100 #240 tabs 07/30/21 warfarin 10 mg tablet 10 mg PO DAILY #90 tabs 07/30/21 warfarin 1 mg tablet 1 mg PO DAILY #90 tabs 08/01/21 isosorbide mononitrate 60 mg 60 mg PO DAILY #60 tabs 08/05/21 tablet,extended release 24 hr sulfamethoxazole 800 See Rx Instructions .Route 11/12/21 mg-trimethoprim 160 mg tablet .COMPLEX #90 tabs nitrofurantoin macrocrystal 100 mg 100 mg PO BID 3 days #6 caps 10/14/23 capsule Allergies Allergy/AdvReac Type Severity Reaction Status Date / Time budesonide Allergy PT STATES Verified 06/06/21 11:05 IT CAUSED PARALISIS metformin Allergy N/V Verified 06/06/21 11:05 penicillin V Allergy HIVES. Verified 06/06/21 11:05 ITCHING propoxyphene Allergy HIVES. Verified 06/06/21 11:05 [From Niranjant-N] SWELLING streptomycin AdvReac ITCHING/ Verified 06/06/21 11:05 SWELLING Review of Systems 2 General: Reports: 10 or more systems reviewed and unremarkable except in HPI and below GI: Denies: nausea, vomiting, diarrhea or constipation PFSH ED 2 PFSH: Medical History (Updated 10/14/23 @ 19:17 by MARÍA ELENA Soria) After cataract, bilateral MEIR (obstructive sleep apnea) Tremor Ureter, calculus History of hematuria History of throat cancer Hx of ovarian cancer History of kidney stones Recurrent UTI Essential hypertension Diastolic heart failure Bilateral lower extremity edema Hx of small bowel obstruction GERD (gastroesophageal reflux disease) Hyperlipidemia Migraines History of stroke Diabetes mellitus SVT (supraventricular tachycardia) Atrial fibrillation Surgical History History of colon resection S/P hysterectomy Family History Sister Asthma Brother Asthma Cancer Grandmother Asthma Father Cancer Emphysema lung Social History Smoking and tobacco/nicotine status: never used tobacco/nicotine Second hand smoke exposure: Yes Alcohol intake: never Substance/Drug Use: never Lives independently: Yes Household members: spouse Marital status: Current occupational status: retired Physical Exam 2 Const: COMMON NORMALS: alert HENMT: COMMON NORMALS: normocephalic HEAD & SCALP: normocephalic Neck/C-Spine: COMMON NORMALS: full ROM Resp: COMMON NORMALS: normal respiratory effort Cardio: COMMON NORMALS: regular rate RATE: regular rate GI: COMMON NORMALS: Soft to palpation and non-tender PALPATION: Yes Soft to palpation Back/Pelvis: COMMON NORMALS: thoracic and lumbar spine normal to inspection Extremity: COMMON NORMALS: full ROM Neuro: SENSORIUM/ORIENTATION: Yes alert Skin: COMMON NORMALS: turgor normal GENERAL SKIN EXAM: turgor normal Course 2 Vital Signs: Vital signs: Vital Signs Temperature 98.0 F 10/14/23 20:07 Pulse Rate 61 10/14/23 20:07 Respiratory Rate 16 10/14/23 20:07 Blood Pressure 131/84 10/14/23 20:07 Pulse Oximetry 99 10/14/23 20:07 Oxygen Delivery Me thod Room Air 10/14/23 18:35 MDM - Recheck/Abnormal Lab/Rx Medical Decision Making Patient comes in today for concerns of low blood glucose. 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 It was noted that patient's blood glucose was 62. Patient was given some juice and crackers and referred to the ER. Patient reports feeling better now. Blood glucose at this time on evaluation is 120. Abdomen soft nontender. Skin is warm and dry. Vital signs are normal. Differential diagnosis hypoglycemia due to diabetes mellitus, urinary tract infection, dehydration, electrolyte imbalance. Urine analysis noted some increased white blood cells and leukocyte esterases. CBC CMP was unremarkable. Reviewed exam with patient recommended treatment for a urinary tract infection which may be cause for her hypoglycemia. Otherwise patient should maintain routine care. Patient reports understanding agreed to plan. Lab Data 10/14/23 18:21 10/14/23 18:21 Laboratory Results WBC 11.36 10^3/uL (3.29-11.43) 10/14/23 18:21 RBC 4.51 10^6/uL (3.85-5.65) 10/14/23 18:21 Hgb 13.90 g/dL (11.27-16.99) 10/14/23 18:21 Hct 43.4 % (36-47) 10/14/23 18:21 MCV 96.2 fl (85-98) 10/14/23 18:21 MCH 30.8 pg (27-33) 10/14/23 18:21 MCHC 32.0 g/dL (30-55) 10/14/23 18:21 RDW 13.2 % (12.1-15.1) 10/14/23 18:21 Plt Count 231 10^3/cmm (157-399) 10/14/23 18:21 MPV 11.0 fL (7.4-10.4) H 10/14/23 18:21 Neut % (Auto) 62.7 % 10/14/23 18: Lymph % (Auto) 26.9 % 10/14/23 18:21 [place] % (Auto) 6.7 % 10/14/23 18:21 Eos % (Auto) 2.9 % 10/14/23 18:21 Baso % (Auto) 0.5 % 10/14/23 18: Neut # (Auto) 7.12 10^3/uL (1.8-7.7) 10/14/23 18:21 Lymph # (Auto) 3.1 10^3/uL (0.8-4.8) 10/14/23 18:21 [place] # (Auto) 0.8 10^3/uL (0.2-0.9) 10/14/23 18:21 Eos # (Auto) 0.3 10^3/uL (0.0-0.8) 10/14/23 18:21 Baso # (Auto) 0.1 10^3/uL (0.0-0.1) 10/14/23 18:21 Nucleated RBC % (auto) 0 % 10/14/23 18:21 Nucleated RBCs # 0.0 /100WBC 10/14/23 18:21 PT 12.80 SECONDS (12.1-14.9) 10/14/23 18:21 INR 0.94 (0.8-1.2) 10/14/23 18:21 Sodium 138 mmol/L (136-145) 10/14/23 18:21 Potassium 3.4 mmol/L (3.5-5.1) L 10/14/23 18:21 Chloride 105 mmol/L (98-107) 10/14/23 18:21 Carbon Dioxide 20 mmol/L (22-29) L 10/14/23 18:21 Anion Gap 16.4 (5-19) 10/14/23 18:21 BUN 20 mg/dL (8-23) 10/14/23 18:21 Creatinine 0.7 mg/dL (0.5-0.9) 10/14/23 18:21 GFR Calculation Not Reportable 10/14/23 18:21 Glucose 115 mg/dL (65-115) 10/14/23 18:21 POC Glucose 120 mg/dL (70-110) H 10/14/23 18:31 Calculated Osmolality 290 mOsm/kg (285-295) 10/14/23 18:21 Calcium 9.6 mg/dL (8.5-10.5) 10/14/23 18:21 Total Bilirubin 0.2 mg/dL (0.15-1.2) 10/14/23 18:21 AST 12 U/L (0-32) 10/14/23 18:21 ALT 14 U/L (0-33) 10/14/23 18:21 Alkaline Phosphatase 108 U/L (35-105) H 10/14/23 18:21 Total Protein 6.4 g/dL (6.6-8.7) L 10/14/23 18:21 Albumin 4.0 g/dL (3.5-5.2) 10/14/23 18:21 Globulin 2.4 g/dL (1.3-4.6) 10/14/23 18:21 Urine Color Yellow (Yellow) 10/14/23 18:54 Urine Appearance Clear (CLEAR) 10/14/23 18:54 Urine pH 7.0 (5-7) 10/14/23 18:54 Ur Specific [place] 1.018 (1.005-1.030) 10/14/23 18:54 Urine Protein Negative (Negative) 10/14/23 18:54 Urine Glucose (UA) Negative (Normal) 10/14/23 18:54 Urine Ketones Negative (Negative) 10/14/23 18:54 Urine Blood Negative (Negative) 10/14/23 18:54 Urine Nitrate Negative (Negative) 10/14/23 18:54 Urine Bilirubin Negative (Negative) 10/14/23 18:54 Urine Urobilinogen 1.0 mg/dL (Negative) 10/14/23 18:54 Ur Leukocyte Esterase 2+ (Negative) A 10/14/23 18:54 Urine RBC 0-2 /hpf (0-2) 10/14/23 18:54 Urine WBC 11-20 /hpf (0-5) H 10/14/23 18:54 Ur Squamous Epith Cells 0-5 /hpf (0-5) 10/14/23 18:54 Amorphous Sediment Not Reportable 10/14/23 18:54 Urine Bacteria None seen /hpf (NONE) 10/14/23 18:54 Hyaline Casts 0-4 /lpf H 10/14/23 18:54 No radiology studies performed this visit Discharge Plan Discharge Patient Disposition: Home Clinical Impression: Hypoglycemia due to insulin, Acute UTI Condition: Stable Prescriptions: New nitrofurantoin macrocrystal 100 mg capsule 100 mg PO BID 3 Days Qty: 6 0RF Rx Instructions: must administer with a meal/food No Action quetiapine 50 mg tablet 100 mg PO BEDTIME mirtazapine 15 mg tablet 30 mg PO BEDTIME insulin lispro [Humalog KwikPen Insulin] 100 unit/mL insulin pen 5 unit SUBCUT TID propranolol 20 mg tablet 20 mg PO TID topiramate 50 mg tablet 100 mg PO BID omeprazole 20 mg capsule,delayed release(DR/EC) 20 mg PO DAILY ropinirole 1 mg tablet 2 mg PO DAILY montelukast 10 mg tablet 10 mg PO DAILY aspirin [Adult Low Dose Aspirin] 81 mg tablet,delayed release (DR/EC) 81 mg PO DAILY albuterol sulfate 2.5 mg /3 mL (0.083 %) solution for nebulization 2.5 mg INHALATION Q4H PRN (Reason: Shortness Of Breath) Rx Instructions: pt states she uses bid everyday and on bad days she uses tid Breo Ellipta 100-25 mcg/dose blister with device 1 inh INHALATION DAILY primidone 50 mg tablet 100 mg PO Q8H nitroglycerin [Nitrostat] 0.4 mg tablet, sublingual 0.4 mg SUBLINGUAL Q5M PRN (Reason: Chest Pain) Qty: 25 6RF Rx Instructions: do not exceed 3 doses per episode methocarbamol 750 mg tablet 750 mg PO BID PRN (Reason: Muscle Spasm) ascorbate calcium (vitamin C) 500 mg tablet 500 mg PO DAILY Nurtec ODT 75 mg tablet,disintegrating 75 mg PO DAILY hydrocodone-acetaminophen 5-325 mg tablet 1 - 2 tab PO Q4H PRN (Reason: Pain) 3 Days Qty: 14 0RF Lantus Solostar U-100 Insulin 100 unit/mL (3 mL) insulin pen 47 unit SUBCUT DAILY Qty: 30 3RF (DME) FreeStyle Dasha 2 Sensor Kit See Rx Instructions .Route Qty: 6 3RF Rx Instructions: Change every 14 days. warfarin 6 mg tablet See Rx Instructions .ROUTE .COMPLEX Qty: 90 0RF Protocol: Dose Management Condition: Wednesday Dose/Route: 15 mg Instruction: 3 x 1 mg tablets, 2 x 6 mg tablets Condition: Wednesday Dose/Route: 15 mg Instruction: 3 x 1 mg tablets, 2 x 6 mg tablets Condition: Wednesday Dose/Route: 15 mg Instruction: 3 x 1 mg tablets, 2 x 6 mg tablets Condition: Wednesday Dose/Route: 15 mg Instruction: 3 x 1 mg tablets, 2 x 6 mg tablets Condition: Dose/Route: 12 mg Instruction: 2 x 6 mg tablets Condition: Wednesday Dose/Route: 15 mg Instruction: 3 x 1 mg tablets, 2 x 6 mg tablets Condition: Wednesday Dose/Route: 15 mg Instruction: 3 x 1 mg tablets, 2 x 6 mg tablets Protocol Text: Adjustment Start Date: Wednesday08/15/21 INR Value: 2.5 INR Date: 08/12/21 Recheck Date: 08/22/21 Dose Instruction: TAKE 1 TABLET BY MOUTH EVERY DAY DIRECTED Rx Instructions: TAKE 1 TABLET BY MOUTH EVERY DAY DIRECTED warfarin 10 mg tablet 5 mg PO DAILY Qty: 90 3RF Protocol: Dose Management Condition: Wednesday Dose/Route: 15 mg Instruction: 3 x 1 mg tablets, 2 x 6 mg tablets Condition: Wednesday Dose/Route: 15 mg Instruction: 3 x 1 mg tablets, 2 x 6 mg tablets Condition: Wednesday Dose/Route: 15 mg Instruction: 3 x 1 mg tablets, 2 x 6 mg tablets Condition: Wednesday Dose/Route: 15 mg Instruction: 3 x 1 mg tablets, 2 x 6 mg tablets Condition: Dose/Route: 12 mg Instruction: 2 x 6 mg tablets Condition: Wednesday Dose/Route: 15 mg Instruction: 3 x 1 mg tablets, 2 x 6 mg tablets Condition: Wednesday Dose/Route: 15 mg Instruction: 3 x 1 mg tablets, 2 x 6 mg tablets Protocol Text: Adjustment Start Date: Wednesday08/15/21 INR Value: 2.5 INR Date: 08/12/21 Recheck Date: 08/22/21 warfarin 10 mg tablet 10 mg PO DAILY Qty: 90 2RF Protocol: Dose Management Condition: Wednesday Dose/Route: 15 mg Instruction: 3 x 1 mg tablets, 2 x 6 mg tablets Condition: Wednesday Dose/Route: 15 mg Instruction: 3 x 1 mg tablets, 2 x 6 mg tablets Condition: Wednesday Dose/Route: 15 mg Instruction: 3 x 1 mg tablets, 2 x 6 mg tablets Condition: Wednesday Dose/Route: 15 mg Instruction: 3 x 1 mg tablets, 2 x 6 mg tablets Condition: Dose/Route: 12 mg Instruction: 2 x 6 mg tablets Condition: Wednesday Dose/Route: 15 mg Instruction: 3 x 1 mg tablets, 2 x 6 mg tablets Condition: Wednesday Dose/Route: 15 mg Instruction: 3 x 1 mg tablets, 2 x 6 mg tablets Protocol Text: Adjustment Start Date: Wednesday08/15/21 INR Value: 2.5 INR Date: 08/12/21 Recheck Date: 08/22/21 Rx Instructions: Take one tab as directed per INR results sotalol 80 mg tablet 80 mg PO BID@0900,2100 Qty: 240 3RF Rx Instructions: take 1 1/2 tabs in AM and take 1 tab in PM warfarin 1 mg tablet 1 mg PO DAILY Qty: 90 3RF Protocol: Dose Management Condition: Wednesday Dose/Route: 15 mg Instruction: 3 x 1 mg tablets, 2 x 6 mg tablets Condition: Wednesday Dose/Route: 15 mg Instruction: 3 x 1 mg tablets, 2 x 6 mg tablets Condition: Wednesday Dose/Route: 15 mg Instruction: 3 x 1 mg tablets, 2 x 6 mg tablets Condition: Wednesday Dose/Route: 15 mg Instruction: 3 x 1 mg tablets, 2 x 6 mg tablets Condition: Dose/Route: 12 mg Instruction: 2 x 6 mg tablets Condition: Wednesday Dose/Route: 15 mg Instruction: 3 x 1 mg tablets, 2 x 6 mg tablets Condition: Wednesday Dose/Route: 15 mg Instruction: 3 x 1 mg tablets, 2 x 6 mg tablets Protocol Text: Adjustment Start Date: Wednesday08/15/21 INR Value: 2.5 INR Date: 08/12/21 Recheck Date: 08/22/21 isosorbide mononitrate 60 mg tablet extended release 24 hr 60 mg PO DAILY Qty: 60 1RF sulfamethoxazole-trimethoprim 800-160 mg tablet See Rx Instructions .ROUTE .COMPLEX Qty: 90 1RF Dose Instruction: TAKE 1 TABLET BY MOUTH EVERYDAY AT BEDTIME Rx Instructions: TAKE 1 TABLET BY MOUTH EVERYDAY AT BEDTIME furosemide 40 mg tablet 80 mg PO QAM Mag-Zinc Tablet 2 tab PO BEDTIME atorvastatin 40 mg Tablet 40 mg PO BEDTIME Qty: 90 0RF Discharge Orders: Discharge ED (Routine); Ordered 10/14/23 Ordered By: Nelson Lepe Discharge Diet: Usual diet Discharge Activity: Increase activity as tolerated Patient Instructions: Hypoglycemia in Adolescents with Diabetes (ED) Activity Restrictions/Additional Instructions: Take antibiotic 1 capsule twice a day with a meal to avoid nausea. Follow-up with primary care in 1 week for recheck of urine. Return to ED for new concerns. Coding Level of Care Code ED Drupal Architect for Marva Leong
[2023-10-14 18:36] LABS: Glucose Point of Care 120 mg/dL (70-110)
[2023-10-14 18:56] LABS: Basophils # 0.1 10^3/uL (0.0-0.1); Basophils % 0.5 %; Eosinophils # 0.3 10^3/uL (0.0-0.8); Eosinophils % 2.9 %; Hematocrit 43.4 % (36-47); Lymphocytes # 3.1 10^3/uL (0.8-4.8); Lymphocytes % 26.9 %; Mean Corpuscular Hemoglobin 30.8 pg (27-33); Mean Corpuscular Volume 96.2 fl (85-98); Monocytes # 0.8 10^3/uL (0.2-0.9); Monocytes % 6.7 %; Neutrophils # 7.12 10^3/uL (1.8-7.7); Neutrophils % 62.7 %; Nucleated Red Blood Cells % 0 %; Platelet Count 231 10^3/cmm (157-399); Red Blood Count 4.51 10^6/uL (3.85-5.65); Red Cell Distribution Width 13.2 % (12.1-15.1); White Blood Count 11.36 10^3/uL (3.29-11.43)
[2023-10-14 19:04] LABS: Charge for UA Resulting for Rev
[2023-10-14 19:06] LABS: Bilirubin Urine Negative (Negative); Blood Urine Negative (Negative); Glucose Urine UA Negative (Normal); Ketones Urine Negative (Negative); Leukocyte Esterase Urine 2+ (Negative); Nitrate Urine Negative (Negative); Protein Urine Negative (Negative); Specific Gravity, Urine 1.018 (1.005-1.030); Urine Appearance Clear (CLEAR); Urine Color Yellow (Yellow)
[2023-10-14 19:11] LABS: Bacteria Urine None Seen /hpf; Hyaline Casts Urine 0-4 /lpf; RBC Urine 0-2 /hpf (0-2); Squamous Epithelial Cell Urine 0-5 /hpf (0-5)
[2023-10-14 19:12] LABS: Add Urine Culture? No
[2023-10-14 19:14] LABS: INR 0.94 (0.8-1.2)
[2023-10-14 19:20] LABS: Alanine Aminotransferase 14 U/L (0-33); Alkaline Phosphatase 108 U/L (35-105); Anion Gap 16.4 (5-19); Aspartate Amino Transferase 12 U/L (0-32); Blood Urea Nitrogen 20 mg/dL (8-23); Calcium 9.6 mg/dL (8.5-10.5); Carbon Dioxide 20 mmol/L (22-29); Chloride 105 mmol/L (98-107); Creatinine Clr Calc Pharmacy 75.3668; Globulin 2.4 g/dL (1.3-4.6); Glucose 115 mg/dL (65-115); Osmolality Calculated 290 mOsm/kg (285-295); Potassium 3.4 mmol/L (3.5-5.1); Sodium 138 mmol/L (136-145); Total Bilirubin 0.2 mg/dL (0.15-1.2); Total Protein 6.4 g/dL (6.6-8.7)
[2023-10-14] MEDS: nitrofurantoin SR (BID) 100 mg Capsule PO (19:56)
[2023-10-14 20:07] VITALS: BP 131/84; PULSE 61; RESP 16; TEMP 36.7; O2SAT 99
== END 2023-10-14 20:06 | disposition home or self-care (01) ==
PROVIDERS: Emergency Medicine; Emergency Provider Nurse Practitioner Family
DX: E11.649 Type 2 diabetes mellitus with hypoglycemia without coma (principal); T38.3X5A Adverse effect of insulin and oral hypoglycemic [antidiabetic] drugs, initial encounter; N39.0 Urinary tract infection, site not specified; Z79.4 Long term (current) use of insulin; Z79.82 Long term (current) use of aspirin; Z79.01 Long term (current) use of anticoagulants; Z77.22 Contact with and (suspected) exposure to environmental tobacco smoke (acute) (chronic); Z85.89 Personal history of malignant neoplasm of other organs and systems; Z85.43 Personal history of malignant neoplasm of ovary; I11.0 Hypertensive heart disease with heart failure; I50.30 Unspecified diastolic (congestive) heart failure; Z87.440 Personal history of urinary (tract) infections; E78.5 Hyperlipidemia, unspecified; Z86.73 Personal history of transient ischemic attack (TIA), and cerebral infarction without residual deficits
CPT/HCPCS: 36415; 36416; 80053; 81003; 81015; 82962; 85025; 85610; 99283

== ENCOUNTER 2024-03-14 15:59 | Emergency (ER) | payer MEDICARE, SELFPAY ==
--- NOTE | 2024-03-14 16:00 | ECG_ITS ---
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 Measurements Intervals [place] Rate: 92 P: 66 MN: 198 QRS: -38 QRSD: 136 T: 120 QT: 389 QTc: 482 Interpretive Statements SINUS RHYTHM POSSIBLE LEFT ATRIAL ENLARGEMENT [-0.1mV P-WAVE IN V1/V2] LEFT AXIS DEVIATION [QRS AXIS < -30] RIGHT BUNDLE BRANCH BLOCK [120+ ms QRS DURATION, UPRIGHT V1, 40+ ms S IN I/aVL/V4/V5/V6]. POSSIBLE LEFT VENTRICULAR HYPERTROPHY [VOLTAGE CRITERIA PLUS LAE OR QRS WIDENING]. ANTERIOR MYOCARDIAL INFARCTION , OF INDETERMINATE AGE [40+ ms Q WAVE AND/OR ST/T ABNORMALITY IN V3/V4]. MODERATE T-WAVE ABNORMALITY, CONSIDER LATERAL ISCHEMIA [-0.1+ mV T-WAVE IN I/aVL/V5/V6] Compared to ECG 03/31/2021 11:31:50 Right bundle-branch block now present. T-wave abnormality now present Possible ischemia now present .Sinus arrhythmia no longer present Electronically Signed On 03-14-2024 23:54:35 ADMINISTRATIVE AND PROGRAM SPECIALIST by Renata Kan M.D. [email or web address]
--- NOTE | 2024-03-14 16:04 | XRR_ITS ---
PROCEDURE INFORMATION: Exam: XR Chest Exam date and time: 03/14/2024 4:12 PM Age: 73 years old Clinical indication: Cough and dyspnea; Patient HX: N/v, HX of ovarian and throat cancer; Additional info: Dyspnea/cough TECHNIQUE: Imaging protocol: Radiologic exam of the chest. Views: 1 view. COMPARISON: CR (CHEST, ) 03/02/2021 10:59 AM FINDINGS: Lungs: Poor inspiration. No visualized consolidation. Pleural spaces: Small left pleural effusion. No pneumothorax. Heart/Mediastinum: Unremarkable. No cardiomegaly. Bones/joints: Unremarkable. XR/XR chest 1V portable [id number] IMPRESSION: 1. Small left pleural effusion. 2. Poor inspiration. No visualized consolidation.
[2024-03-14 16:05] VITALS: BP 180/108; PULSE 95; RESP 28; TEMP 37; O2SAT 89; BMI 41.5
--- NOTE | 2024-03-14 16:10 | CTR_ITS ---
PROCEDURE INFORMATION: Exam: CT Head Without Contrast Exam date and time: 03/14/2024 4:54 PM Age: 73 years old Clinical indication: Dizziness; Additional info: Dizziness nausea vomiting difficulty with speech TECHNIQUE: Imaging protocol: Computed tomography of the head without contrast. Radiation optimization: All CT scans at this facility use at least one of these dose optimization techniques: automated exposure control; mA and/or kV adjustment per patient size (includes targeted exams where dose is matched to clinical indication); or iterative reconstruction. COMPARISON: MR head wo/w con [id number] 04/04/2021 12:18 PM RADIATION DOSE METRICS: Total DLP (mGy-cm): 1157.38 FINDINGS: Brain: Similar generalized cortical volume loss. No hemorrhage. Mild periventricular and subcortical white matter hypodensities likely represent chronic small vessel ischemic changes. No mass effect. Cerebral ventricles: No ventriculomegaly. Paranasal sinuses: Visualized sinuses are unremarkable. No fluid levels. Mastoid air cells: Visualized mastoid air cells are well aerated. Orbital cavities: Bilateral lens replacements. Bones: Hyperostosis frontalis. No acute osseous findings. Soft tissues: Unremarkable. CT/CT head wo con* [id number] IMPRESSION: 1. No acute intracranial findings. 2. Chronic/age-related changes as above are similar to prior.
--- NOTE | 2024-03-14 16:11 | ED_ITS ---
Documented by User: Dino Guevara, 03/15/24 05:41 HPI - Nausea/Vomiting/Diarrhea 2 General: Chief complaint: Nausea/Vomiting/Diarrhea Stated complaint: N/V Abd pain Time Seen by Provider: 03/14/24 16:02 History of Present Illness: 73-year-old female presents emergency ro om via EMS with complaints of weakness nausea vomiting dizziness and chest pain. Patient states she last felt normal yesterday morning. She does have a history of stroke. EMS thought there was a left-sided facial droop which I could not appreciate. She does have some generalized weakness but it is bilateral she does have difficulty with speech. She reports some mild chest discomfort no sharp pain. She has had upper respiratory symptoms with month increased mildly productive cough and sinus congestion generalized aches and pains. She also describes a flutter in her chest. Initial EKG shows some mild changes see below Associated symtoms: Denies chest pain or dysuria Related Data Home Medications Medication Instructions Recorded Confirmed albuterol sulfate 2.5 mg/3 mL 2.5 mg inhalation Q4H PRN 07/26/19 03/14/24 (0.083 %) solution for nebulization Shortness Of Breath aspirin 81 mg tablet,delayed 81 mg PO DAILY 07/26/19 03/14/24 release (Adult Low Dose Aspirin) fluticasone furoate 100 1 inh inhalation DAILY 07/26/19 03/14/24 mcg-vilanterol 25 mcg/dose inhalation powder (Breo Ellipta) montelukast 10 mg tablet 10 mg PO DAILY 07/26/19 03/14/24 omeprazole 20 mg capsule,delayed 20 mg PO DAILY 07/26/19 03/14/24 release primidone 50 mg tablet 100 mg PO Q8H 07/26/19 03/14/24 ropinirole 1 mg tablet 2 mg PO DAILY 07/26/19 03/14/24 quetiapine 50 mg tablet 100 mg PO BEDTIME 10/24/19 03/14/24 furosemide 40 mg tablet 80 mg PO QAM 11/08/19 03/14/24 methocarbamol 750 mg tablet 750 mg PO BID PRN Muscle Spasm 07/30/20 03/14/24 ascorbate calcium (vitamin C) 500 500 mg PO DAILY 09/05/20 03/14/24 mg tablet mirtazapine 15 mg tablet 30 mg PO BEDTIME 11/25/20 03/14/24 Mag-Zinc Tablet 2 tab PO BEDTIME 03/31/21 03/14/24 insulin lispro 100 unit/mL 5 unit SUBCUT TID 06/06/21 03/14/24 subcutaneous pen (Humalog KwikPen (U-100) Insulin) propranolol 20 mg tablet 20 mg PO TID 06/06/21 03/14/24 rimegepant 75 mg disintegrating 75 mg PO DAILY 06/06/21 03/14/24 tablet (Nurtec ODT) topiramate 50 mg tablet 100 mg PO BID 06/06/21 03/14/24 lidocaine 5 % topical patch 1 patch transdermal Q12H 03/14/24 03/14/24 pregabalin 50 mg capsule 50 mg PO TID 03/14/24 03/14/24 Previous Rx's Medication Instructions Recorded nitroglycerin 0.4 mg sublingual 0.4 mg sublingual Q5M PRN Chest 05/20/20 tablet (Nitrostat) Pain #25 tabs hydrocodone 5 mg-acetaminophen 325 1 - 2 tab PO Q4H PRN Pain 3 days 03/19/21 mg tablet #14 tabs atorvastatin 40 mg tablet 40 mg PO BEDTIME #90 tabs 04/06/21 insulin glargine 100 unit/mL (3 47 unit (0.47 mL) SUBCUT DAILY #30 06/25/21 mL) subcutaneous pen (Lantus mL Solostar U-100 Insulin) flash glucose sensor (FreeStyle #6 ea 06/26/21 Dasha 2 Sensor kit) warfarin 6 mg tablet See Rx Instructions .Route 07/24/21 .COMPLEX #90 tabs warfarin 10 mg tablet 5 mg PO DAILY #90 tabs 07/25/21 sotalol 80 mg tablet 80 mg PO BID@0900,2100 #240 tabs 07/30/21 warfarin 10 mg tablet 10 mg PO DAILY #90 tabs 07/30/21 warfarin 1 mg tablet 1 mg PO DAILY #90 tabs 08/01/21 isosorbide mononitrate 60 mg 60 mg PO DAILY #60 tabs 08/05/21 tablet,extended release 24 hr sulfamethoxazole 800 See Rx Instructions .Route 11/12/21 mg-trimethoprim 160 mg tablet .COMPLEX #90 tabs ciprofloxacin HCl 500 mg tablet 500 mg PO Q12H #20 tabs 03/14/24 Allergies Allergy/AdvReac Type Severity Reaction Status Date / Time budesonide Allergy PT STATES Verified 06/06/21 11:05 IT CAUSED PARALISIS metformin Allergy N/V Verified 06/06/21 11:05 penicillin V Allergy HIVES. Verified 06/06/21 11:05 ITCHING propoxyphene Allergy HIVES. Verified 06/06/21 11:05 [From Darvocet-N] SWELLING streptomycin AdvReac ITCHING/ Verified 06/06/21 11:05 SWELLING Review of Systems 2 Const: Denies: fever(s) or chills Card: Denies: chest pain Resp: Denies: dyspnea GI: Denies: abdominal pain : Denies: dysuria, urinary frequency or urinary urgency Musc: Denies: neck pain or back pain Skin/Breast: Denies: rash PFSH ED 2 PFSH: Medical History (Updated 03/14/24 @ 20:32 by Eric Victoria DO) After cataract, bilateral MEIR (obstructive sleep apnea) Tremor Ureter, calculus History of hematuria History of throat cancer Hx of ovarian cancer History of kidney stones Recurrent UTI Essential hypertension Diastolic heart failure Bilateral lower extremity edema Hx of small bowel obstruction GERD (gastroesophageal reflux disease) Hyperlipidemia Migraines History of stroke Diabetes mellitus SVT (supraventricular tachycardia) Atrial fibrillation Surgical History History of colon resection S/P hysterectomy Family History Sister Asthma Brother Asthma Cancer Grandmother Asthma Father Cancer Emphysema lung Social History Smoking and tobacco/nicotine status: never used tobacco/nicotine Second hand smoke exposure: Yes Alcohol intake: never Substance/Drug Use: never Lives independently: Yes Household members: spouse Marital status: Current occupational status: retired Physical Exam 2 Const: GENERAL APPEARANCE: cooperative ORIENTATION/CONSCIOUSNESS: Yes awake, Yes oriented to person, Yes oriented to place and Yes oriented to time HENMT: COMMON NORMALS: normocephalic, atraumatic and hearing grossly normal bilaterally HEAD & SCALP: normocephalic and atraumatic Resp: COMMON NORMALS: normal respiratory effort, No retractions, No use of accessory muscles and clear to auscultation bilaterally AUSCULTATION: clear to auscultation bilaterally Cardio: COMMON NORMALS: regular rate, regular rhythm and No murmurs present (Cardio) RATE: regular rate RHYTHM: regular rhythm GI: COMMON NORMALS: Soft to palpation and No hepatosplenomegaly present A USCULTATION: Yes normoactive bowel sounds PALPATION: Yes Soft to palpation, No Tenderness to palpation present (GI), No Guarding due to palpation present (GI) and Yes No hepatosplenomegaly present Extremity: COMMON NORMALS: normal to inspection, capillary refill normal, no clubbing, cyanosis or edema, no calf tenderness and no pedal edema Neuro: SENSORIUM/ORIENTATION: Yes oriented to person, Yes oriented to place and Yes oriented to time OTHER: No facial asymmetry some difficulty with dysarthria equal strength bilaterally in the left and right arms and legs equal transport manager strength. Skin: COMMON NORMALS: no rashes or lesions noted GENERAL SKIN EXAM: no rashes or lesions noted Course 2 Vital Signs: Vital signs: Vital Signs Temperature 98.6 F 03/14/24 16:05 Pulse Rate 107 H 03/14/24 20:36 Respiratory Rate 16 03/14/24 20:36 Blood Pressure 142/103 03/14/24 20:36 Pulse Oximetry 93 03/14/24 20:36 Oxygen Delivery Me thod Room Air 03/14/24 18:30 MDM - Nausea/Vomiting/Diarrhea Medical Decision Making Care signed out to Dr. Victoria at change of shift. See final notes for diagnosis and disposition. Care transferred over to myself at shift change, lab work was reviewed white count 19,000, respiratory panel negative, urinalysis positive leukocyte esterase white blood cells, chest x-ray small left pleural effusion, head CT negative, patient be given antibiotic. Awaiting for all lab work to come back patient started ripping her IV and the monitor off of her patient says she is ready to get out of here. Patient will be discharged home. Lab Data 03/14/24 16:33 03/14/24 18:09 Radiology Impressions Chest X-Ray 03/14/24 16:04 IMPRESSION: 1. Small left pleural effusion. 2. Poor inspiration. No visualized consolidation. Head CT 03/14/24 16:10 IMPRESSION: 1. No acute intracranial findings. 2. Chronic/age-related changes as above are similar to prior. Laboratory Results WBC 19.82 10^3/uL (3.29-11.43) H 03/14/24 16: RBC 5.78 10^6/uL (3.85-5.65) H 03/14/24 16:33 Hgb 17.20 g/dL (11.27-16.99) H 03/14/24 16:33 Hct 51.5 % (36-47) H 03/14/24 16: MCV 89.1 fl (85-98) 03/14/24 16:33 MCH 29.8 pg (27-33) 03/14/24 16: MCHC 33.4 g/dL (30-55) 03/14/24 16: RDW 13.4 % (12.1-15.1) 03/14/24 16: Plt Count 314 10^3/cmm (157-399) 03/14/24 16: MPV 11.1 fL (7.4-10.4) H 03/14/24 16: Neut % (Auto) 86.4 % 03/14/24 16:33 Lymph % (Auto) 8.8 % 03/14/24 16:33 [place] % (Auto) 4.0 % 03/14/24 16:33 Eos % (Auto) 0.0 % 03/14/24 16:33 Baso % (Auto) 0.3 % 03/14/24 16:33 Neut # (Auto) 17.13 10^3/uL (1.8-7.7) H 03/14/24 16:33 Lymph # (Auto) 1.7 10^3/uL (0.8-4.8) 03/14/24 16:33 [place] # (Auto) 0.8 10^3/uL (0.2-0.9) 03/14/24 16:33 Eos # (Auto) 0.0 10^3/uL (0.0-0.8) 03/14/24 16:33 Baso # (Auto) 0.1 10^3/uL (0.0-0.1) 03/14/24 16:33 Nucleated RBC % (auto) 0 % 03/14/24 16: Nucleated RBCs # 0.0 /100WBC 03/14/24 16:33 Sodium 141 mmol/L (136-145) 03/14/24 18:09 Potassium 3.5 mmol/L (3.5-5.1) 03/14/24 18:09 Chloride 107 mmol/L (98-107) 03/14/24 18:09 Carbon Dioxide 17 mmol/L (22-29) L 03/14/24 18:09 Anion Gap 20.5 (5-19) H 03/14/24 18:09 BUN 17 mg/dL (8-23) 03/14/24 18:09 Creatinine 0.6 mg/dL (0.5-0.9) 03/14/24 18:09 GFR Calculation Not Reportable 03/14/24 18:09 Glucose 245 mg/dL (65-115) H 03/14/24 18:09 Calculated Osmolality 302 mOsm/kg (285-295) H 03/14/24 18:09 Calcium 11.4 mg/dL (8.5-10.5) H 03/14/24 18:09 Total Bilirubin 0.3 mg/dL (0.15-1.2) 03/14/24 18:09 AST 13 U/L (0-32) 03/14/24 18:09 ALT 12 U/L (0-33) 03/14/24 18:09 Alkaline Phosphatase 126 U/L (35-105) H 03/14/24 18:09 Troponin T Baseline 16 ng/L (0-10) H 03/14/24 16:33 Troponin T 120 Minute 16.56 ng/L (0-10) H 03/14/24 18:09 Delta Troponin T 0.56 ABS# (0-10) 03/14/24 18:09 Total Protein 7.7 g/dL (6.6-8.7) 03/14/24 18:09 Albumin 4.3 g/dL (3.5-5.2) 03/14/24 18:09 Globulin 3.4 g/dL (1.3-4.6) 03/14/24 18:09 Urine Color Yellow (Yellow) 03/14/24 19:21 Urine Appearance Turbid (CLEAR) A 03/14/24 19:21 Urine pH 7.5 (5-7) 03/14/24 19:21 Ur Specific [place] 1.020 (1.005-1.030) 03/14/24 19:21 Urine Protein 1+ (Negative) A 03/14/24 19:21 Urine Glucose (UA) Negative (Normal) 03/14/24 19:21 Urine Ketones Negative (Negative) 03/14/24 19:21 Urine Blood Negative (Negative) 03/14/24 19:21 Urine Nitrate Negative (Negative) 03/14/24 19:21 Urine Bilirubin Negative (Negative) 03/14/24 19:21 Urine Urobilinogen 0.2 mg/dL (Negative) 03/14/24 19:21 Ur Leukocyte Esterase 2+ (Negative) A 03/14/24 19:21 Urine RBC 3-5 /hpf (0-2) 03/14/24 19: Urine WBC 51-100 /hpf (0-5) H 03/14/24 19:21 Ur Squamous Epith Cells 0-5 /hpf (0-5) 03/14/24 19:21 Amorphous Sediment Not Reportable 03/14/24 19: Urine Bacteria Exceeds /hpf (NONE) 03/14/24 19: Hyaline Casts 21.46 /lpf 03/14/24 19:21 Adenovirus (PCR) Not detected (NOT DETECT) 03/14/24 17:44 C. pneumoniae DNA (PCR) Not detected (NOT DETECT) 03/14/24 17:44 Coronavirus 229E (PCR) Not detected (NOT DETECT) 03/14/24 17:44 Human Metapneumovir PCR Not detected (NOT DETECT) 03/14/24 17:44 Influenza A (H1) PCR Not detected (NOT DETECT) 03/14/24 17:44 Influ A (H1/09) PCR Not detected (NOT DETECT) 03/14/24 17:44 Influenza A (H3) PCR Not detected (NOT DETECT) 03/14/24 17:44 Influenza Type A (PCR) Not detected (NOT DETECT) 03/14/24 17:44 Influenza Type B (PCR) Not detected (NOT DETECT) 03/14/24 17:44 M. pneumoniae (PCR) Not detected (NOT DETECT) 03/14/24 17:44 Parainfluenza 1 (PCR) Not detected (NOT DETECT) 03/14/24 17:44 Parainfluenza 2 (PCR) Not detected (NOT DETECT) 03/14/24 17:44 Parainfluenza 3 (PCR) Not detected (NOT DETECT) 03/14/24 17:44 Parainfluenza 4 (PCR) Not detected (NOT DETECT) 03/14/24 17:44 RSV Type A (PCR) Not detected (NOT DETECT) 03/14/24 17:44 RSV Type B (PCR) Not detected (NOT DETECT) 03/14/24 17:44 Entero/Rhino (PCR) Not detected (NOT DETECT) 03/14/24 17:44 SARS-CoV-2 (PCR) Not detected (NOT DETECT) 03/14/24 17:44 EKG Data EKG 1: Interpretation: EKG shows a sinus rhythm with a right bundle branch block. T wave inversion in V1 to [address] depression. EKG has greater amplitude but overall similar to previous EKG in the chart. There are Q waves in V1 and 2. 1 and aVL also have mild depression and T wave inversion. No acute ST elevation Discharge Plan Discharge Patient Disposition: Home Clinical Impression: Gastroenteritis Urinary tract infection Qualifiers: Urinary tract infection type: acute cystitis Hematuria presence: with hematuria Qualified Code(s): N30.01 - Acute cystitis with hematuria Condition: Stable Prescriptions: New ciprofloxacin HCl 500 mg tablet 500 mg PO Q12H Qty: 20 0RF No Action quetiapine 50 mg tablet 100 mg PO BEDTIME mirtazapine 15 mg tablet 30 mg PO BEDTIME insulin lispro [Humalog KwikPen Insulin] 100 unit/mL insulin pen 5 unit SUBCUT TID propranolol 20 mg tablet 20 mg PO TID topiramate 50 mg tablet 100 mg PO BID omeprazole 20 mg capsule,delayed release(DR/EC) 20 mg PO DAILY ropinirole 1 mg tablet 2 mg PO DAILY montelukast 10 mg tablet 10 mg PO DAILY aspirin [Adult Low Dose Aspirin] 81 mg tablet,delayed release (DR/EC) 81 mg PO DAILY albuterol sulfate 2.5 mg /3 mL (0.083 %) solution for nebulization 2.5 mg INHALATION Q4H PRN (Reason: Shortness Of Breath) Rx Instructions: pt states she uses bid everyday and on bad days she uses tid Breo Ellipta 100-25 mcg/dose blister with device 1 inh INHALATION DAILY primidone 50 mg tablet 100 mg PO Q8H nitroglycerin [Nitrostat] 0.4 mg tablet, sublingual 0.4 mg SUBLINGUAL Q5M PRN (Reason: Chest Pain) Qty: 25 6RF Rx Instructions: do not exceed 3 doses per episode methocarbamol 750 mg tablet 750 mg PO BID PRN (Reason: Muscle Spasm) ascorbate calcium (vitamin C) 500 mg tablet 500 mg PO DAILY Nurtec ODT 75 mg tablet,disintegrating 75 mg PO DAILY hydrocodone-acetaminophen 5-325 mg tablet 1 - 2 tab PO Q4H PRN (Reason: Pain) 3 Days Qty: 14 0RF Lantus Solostar U-100 Insulin 100 unit/mL (3 mL) insulin pen 47 unit SUBCUT DAILY Qty: 30 3RF (DME) FreeStyle Dasha 2 Sensor Kit See Rx Instructions .Route Qty: 6 3RF Rx Instructions: Change every 14 days. warfarin 6 mg tablet See Rx Instructions .ROUTE .COMPLEX Qty: 90 0RF Protocol: Dose Management Condition: Wednesday Dose/Route: 15 mg Instruction: 3 x 1 mg tablets, 2 x 6 mg tablets Condition: Wednesday Dose/Route: 15 mg Instruction: 3 x 1 mg tablets, 2 x 6 mg tablets Condition: Wednesday Dose/Route: 15 mg Instruction: 3 x 1 mg tablets, 2 x 6 mg tablets Condition: Wednesday Dose/Route: 15 mg Instruction: 3 x 1 mg tablets, 2 x 6 mg tablets Condition: Dose/Route: 12 mg Instruction: 2 x 6 mg tablets Condition: Wednesday Dose/Route: 15 mg Instruction: 3 x 1 mg tablets, 2 x 6 mg tablets Condition: Wednesday Dose/Route: 15 mg Instruction: 3 x 1 mg tablets, 2 x 6 mg tablets Protocol Text: Adjustment Start Date: Wednesday08/15/21 INR Value: 2.5 INR Date: 08/12/21 Recheck Date: 08/22/21 Dose Instruction: TAKE 1 TABLET BY MOUTH EVERY DAY DIRECTED Rx Instructions: TAKE 1 TABLET BY MOUTH EVERY DAY DIRECTED warfarin 10 mg tablet 5 mg PO DAILY Qty: 90 3RF Protocol: Dose Management Condition: Wednesday Dose/Route: 15 mg Instruction: 3 x 1 mg tablets, 2 x 6 mg tablets Condition: Wednesday Dose/Route: 15 mg Instruction: 3 x 1 mg tablets, 2 x 6 mg tablets Condition: Wednesday Dose/Route: 15 mg Instruction: 3 x 1 mg tablets, 2 x 6 mg tablets Condition: Wednesday Dose/Route: 15 mg Instruction: 3 x 1 mg tablets, 2 x 6 mg tablets Condition: Dose/Route: 12 mg Instruction: 2 x 6 mg tablets Condition: Wednesday Dose/Route: 15 mg Instruction: 3 x 1 mg tablets, 2 x 6 mg tablets Condition: Wednesday Dose/Route: 15 mg Instruction: 3 x 1 mg tablets, 2 x 6 mg tablets Protocol Text: Adjustment Start Date: Wednesday08/15/21 INR Value: 2.5 INR Date: 08/12/21 Recheck Date: 08/22/21 warfarin 10 mg tablet 10 mg PO DAILY Qty: 90 2RF Protocol: Dose Management Condition: Wednesday Dose/Route: 15 mg Instruction: 3 x 1 mg tablets, 2 x 6 mg tablets Condition: Wednesday Dose/Route: 15 mg Instruction: 3 x 1 mg tablets, 2 x 6 mg tablets Condition: Wednesday Dose/Route: 15 mg Instruction: 3 x 1 mg tablets, 2 x 6 mg tablets Condition: Wednesday Dose/Route: 15 mg Instruction: 3 x 1 mg tablets, 2 x 6 mg tablets Condition: Dose/Route: 12 mg Instruction: 2 x 6 mg tablets Condition: Wednesday Dose/Route: 15 mg Instruction: 3 x 1 mg tablets, 2 x 6 mg tablets Condition: Wednesday Dose/Route: 15 mg Instruction: 3 x 1 mg tablets, 2 x 6 mg tablets Protocol Text: Adjustment Start Date: Wednesday08/15/21 INR Value: 2.5 INR Date: 08/12/21 Recheck Date: 08/22/21 Rx Instructions: Take one tab as directed per INR results sotalol 80 mg tablet 80 mg PO BID@0900,2100 Qty: 240 3RF Rx Instructions: take 1 1/2 tabs in AM and take 1 tab in PM warfarin 1 mg tablet 1 mg PO DAILY Qty: 90 3RF Protocol: Dose Management Condition: Wednesday Dose/Route: 15 mg Instruction: 3 x 1 mg tablets, 2 x 6 mg tablets Condition: Wednesday Dose/Route: 15 mg Instruction: 3 x 1 mg tablets, 2 x 6 mg tablets Condition: Wednesday Dose/Route: 15 mg Instruction: 3 x 1 mg tablets, 2 x 6 mg tablets Condition: Wednesday Dose/Route: 15 mg Instruction: 3 x 1 mg tablets, 2 x 6 mg tablets Condition: Dose/Route: 12 mg Instruction: 2 x 6 mg tablets Condition: Wednesday Dose/Route: 15 mg Instruction: 3 x 1 mg tablets, 2 x 6 mg tablets Condition: Wednesday Dose/Route: 15 mg Instruction: 3 x 1 mg tablets, 2 x 6 mg tablets Protocol Text: Adjustment Start Date: Wednesday08/15/21 INR Value: 2.5 INR Date: 08/12/21 Recheck Date: 08/22/21 isosorbide mononitrate 60 mg tablet extended release 24 hr 60 mg PO DAILY Qty: 60 1RF sulfamethoxazole-trimethoprim 800-160 mg tablet See Rx Instructions .ROUTE .COMPLEX Qty: 90 1RF Dose Instruction: TAKE 1 TABLET BY MOUTH EVERYDAY AT BEDTIME Rx Instructions: TAKE 1 TABLET BY MOUTH EVERYDAY AT BEDTIME furosemide 40 mg tablet 80 mg PO QAM Mag-Zinc Tablet 2 tab PO BEDTIME atorvastatin 40 mg Tablet 40 mg PO BEDTIME Qty: 90 0RF lidocaine 5 % adhesive patch,medicated 1 patch transdermal Q12H pregabalin 50 mg capsule 50 mg PO TID Discharge Orders: Discharge ED (Routine); Ordered 03/14/24 Ordered By: Eric Victoria Patient Instructions: Urinary Tract Infection in Women (ED), Acute Nausea and Vomiting (ED) Activity Restrictions/Additional Instructions: Your lab work revealed a pretty significant urinary tract infection along with an increase in your white blood cells. Please take all your antibiotics as directed. Please follow-up with your family practice physician within the next 7 days for further evaluation and treatment. If your symptoms worsen please feel free to return to the ER. Coding Level of Care Code ED Housetrailer Servicer for Chg Fwd Documented by User: Eric Victoria DO 03/14/24 20:34 HPI - Nausea/Vomiting/Diarrhea 2 General: Chief complaint: Nausea/Vomiting/Diarrhea Stated complaint: N/V Abd pain Time Seen by Provider: 03/14/24 16:02 Related Data Home Medications Medication Instructions Recorded Confirmed albuterol sulfate 2.5 mg/3 mL 2.5 mg inhalation Q4H PRN 07/26/19 03/14/24 (0.083 %) solution for nebulization Shortness Of Breath aspirin 81 mg tablet,delayed 81 mg PO DAILY 07/26/19 03/14/24 release (Adult Low Dose Aspirin) fluticasone furoate 100 1 inh inhalation DAILY 07/26/19 03/14/24 mcg-vilanterol 25 mcg/dose inhalation powder (Breo Ellipta) montelukast 10 mg tablet 10 mg PO DAILY 07/26/19 03/14/24 omeprazole 20 mg capsule,delayed 20 mg PO DAILY 07/26/19 03/14/24 release primidone 50 mg tablet 100 mg PO Q8H 07/26/19 03/14/24 ropinirole 1 mg tablet 2 mg PO DAILY 07/26/19 03/14/24 quetiapine 50 mg tablet 100 mg PO BEDTIME 10/24/19 03/14/24 furosemide 40 mg tablet 80 mg PO QAM 11/08/19 03/14/24 methocarbamol 750 mg tablet 750 mg PO BID PRN Muscle Spasm 07/30/20 03/14/24 ascorbate calcium (vitamin C) 500 500 mg PO DAILY 09/05/20 03/14/24 mg tablet mirtazapine 15 mg tablet 30 mg PO BEDTIME 11/25/20 03/14/24 Mag-Zinc Tablet 2 tab PO BEDTIME 03/31/21 03/14/24 insulin lispro 100 unit/mL 5 unit SUBCUT TID 06/06/21 03/14/24 subcutaneous pen (Humalog KwikPen (U-100) Insulin) propranolol 20 mg tablet 20 mg PO TID 06/06/21 03/14/24 rimegepant 75 mg disintegrating 75 mg PO DAILY 06/06/21 03/14/24 tablet (Nurtec ODT) topiramate 50 mg tablet 100 mg PO BID 06/06/21 03/14/24 lidocaine 5 % topical patch 1 patch transdermal Q12H 03/14/24 03/14/24 pregabalin 50 mg capsule 50 mg PO TID 03/14/24 03/14/24 Previous Rx's Medication Instructions Recorded nitroglycerin 0.4 mg sublingual 0.4 mg sublingual Q5M PRN Chest 05/20/20 tablet (Nitrostat) Pain #25 tabs hydrocodone 5 mg-acetaminophen 325 1 - 2 tab PO Q4H PRN Pain 3 days 03/19/21 mg tablet #14 tabs atorvastatin 40 mg tablet 40 mg PO BEDTIME #90 tabs 04/06/21 insulin glargine 100 unit/mL (3 47 unit (0.47 mL) SUBCUT DAILY #30 06/25/21 mL) subcutaneous pen (Lantus mL Solostar U-100 Insulin) flash glucose sensor (FreeStyle #6 ea 06/26/21 Dasha 2 Sensor kit) warfarin 6 mg tablet See Rx Instructions .Route 07/24/21 .COMPLEX #90 tabs warfarin 10 mg tablet 5 mg PO DAILY #90 tabs 07/25/21 sotalol 80 mg tablet 80 mg PO BID@0900,2100 #240 tabs 07/30/21 warfarin 10 mg tablet 10 mg PO DAILY #90 tabs 07/30/21 warfarin 1 mg tablet 1 mg PO DAILY #90 tabs 08/01/21 isosorbide mononitrate 60 mg 60 mg PO DAILY #60 tabs 08/05/21 tablet,extended release 24 hr sulfamethoxazole 800 See Rx Instructions .Route 11/12/21 mg-trimethoprim 160 mg tablet .COMPLEX #90 tabs ciprofloxacin HCl 500 mg tablet 500 mg PO Q12H #20 tabs 03/14/24 Allergies Allergy/AdvReac Type Severity Reaction Status Date / Time budesonide Allergy PT STATES Verified 06/06/21 11:05 IT CAUSED PARALISIS metformin Allergy N/V Verified 06/06/21 11:05 penicillin V Allergy HIVES. Verified 06/06/21 11:05 ITCHING propoxyphene Allergy HIVES. Verified 06/06/21 11:05 [From Darvocet-N] SWELLING streptomycin AdvReac ITCHING/ Verified 06/06/21 11:05 SWELLING PFSH ED 2 PFSH: Medical History (Updated 03/14/24 @ 20:32 by Eric Victoria DO) After cataract, bilateral MEIR (obstructive sleep apnea) Tremor Ureter, calculus History of hematuria History of throat cancer Hx of ovarian cancer History of kidney stones Recurrent UTI Essential hypertension Diastolic heart failure Bilateral lower extremity edema Hx of small bowel obstruction GERD (gastroesophageal reflux disease) Hyperlipidemia Migraines History of stroke Diabetes mellitus SVT (supraventricular tachycardia) Atrial fibrillation Surgical History History of colon resection S/P hysterectomy Family History Sister Asthma Brother Asthma Cancer Grandmother Asthma Father Cancer Emphysema lung Social History Smoking and tobacco/nicotine status: never used tobacco/nicotine Second hand smoke exposure: Yes Alcohol intake: never Substance/Drug Use: never Lives independently: Yes Household members: spouse Marital status: Current occupational status: retired Course 2 Vital Signs: Vital signs: Vital Signs Temperature 98.6 F 03/14/24 16:05 Pulse Rate 107 H 03/14/24 20:36 Respiratory Rate 16 03/14/24 20:36 Blood Pressure 142/103 03/14/24 20:36 Pulse Oximetry 93 03/14/24 20:36 Oxygen Delivery Me thod Room Air 03/14/24 18:30 MDM - Nausea/Vomiting/Diarrhea Medical Decision Making Care transferred over to myself at shift change, lab work was reviewed white count 19,000, respiratory panel negative, urinalysis positive leukocyte esterase white blood cells, chest x-ray small left pleural effusion, head CT negative, patient be given antibiotic. Awaiting for all lab work to come back patient started ripping her IV and the monitor off of her patient says she is ready to get out of here. Patient will be discharged home. Medical Records I reviewed the patient's medical records. Lab Data I reviewed the patient's lab results. 03/14/24 16:33 03/14/24 18:09 Radiology Impressions Chest X-Ray 03/14/24 16:04 IMPRESSION: 1. Small left pleural effusion. 2. Poor inspiration. No visualized consolidation. Head CT 03/14/24 16:10 IMPRESSION: 1. No acute intracranial findings. 2. Chronic/age-related changes as above are similar to prior. Laboratory Results WBC 19.82 10^3/uL (3.29-11.43) H 03/14/24 16:33 RBC 5.78 10^6/uL (3.85-5.65) H 03/14/24 16:33 Hgb 17.20 g/dL (11.27-16.99) H 03/14/24 16: Hct 51.5 % (36-47) H 03/14/24 16: MCV 89.1 fl (85-98) 03/14/24 16: MCH 29.8 pg (27-33) 03/14/24 16: MCHC 33.4 g/dL (30-55) 03/14/24 16: RDW 13.4 % (12.1-15.1) 03/14/24 16: Plt Count 314 10^3/cmm (157-399) 03/14/24 16: MPV 11.1 fL (7.4-10.4) H 03/14/24 16:33 Neut % (Auto) 86.4 % 03/14/24 16:33 Lymph % (Auto) 8.8 % 03/14/24 16: [place] % (Auto) 4.0 % 03/14/24 16: Eos % (Auto) 0.0 % 03/14/24 16: Baso % (Auto) 0.3 % 03/14/24 16: Neut # (Auto) 17.13 10^3/uL (1.8-7.7) H 03/14/24 16:33 Lymph # (Auto) 1.7 10^3/uL (0.8-4.8) 03/14/24 16:33 [place] # (Auto) 0.8 10^3/uL (0.2-0.9) 03/14/24 16: Eos # (Auto) 0.0 10^3/uL (0.0-0.8) 03/14/24 16: Baso # (Auto) 0.1 10^3/uL (0.0-0.1) 03/14/24 16: Nucleated RBC % (auto) 0 % 03/14/24: Nucleated RBCs # 0.0 /100WBC 03/14/24 16:33 Sodium 141 mmol/L (136-145) 03/14/24 18:09 Potassium 3.5 mmol/L (3.5-5.1) 03/14/24 18:09 Chloride 107 mmol/L (98-107) 03/14/24 18:09 Carbon Dioxide 17 mmol/L (22-29) L 03/14/24 18:09 Anion Gap 20.5 (5-19) H 03/14/24 18:09 BUN 17 mg/dL (8-23) 03/14/24 18:09 Creatinine 0.6 mg/dL (0.5-0.9) 03/14/24 18:09 GFR Calculation Not Reportable 03/14/24 18:09 Glucose 245 mg/dL (65-115) H 03/14/24 18:09 Calculated Osmolality 302 mOsm/kg (285-295) H 03/14/24 18:09 Calcium 11.4 mg/dL (8.5-10.5) H 03/14/24 18:09 Total Bilirubin 0.3 mg/dL (0.15-1.2) 03/14/24 18:09 AST 13 U/L (0-32) 03/14/24 18:09 ALT 12 U/L (0-33) 03/14/24 18:09 Alkaline Phosphatase 126 U/L (35-105) H 03/14/24 18:09 Troponin T Baseline 16 ng/L (0-10) H 03/14/24 16:33 Troponin T 120 Minute 16.56 ng/L (0-10) H 03/14/24 18:09 Delta Troponin T 0.56 ABS# (0-10) 03/14/24 18:09 Total Protein 7.7 g/dL (6.6-8.7) 03/14/24 18:09 Albumin 4.3 g/dL (3.5-5.2) 03/14/24 18:09 Globulin 3.4 g/dL (1.3-4.6) 03/14/24 18:09 Urine Color Yellow (Yellow) 03/14/24 19:21 Urine Appearance Turbid (CLEAR) A 03/14/24 19:21 Urine pH 7.5 (5-7) 03/14/24 19:21 Ur Specific [place] 1.020 (1.005-1.030) 03/14/24 19:21 Urine Protein 1+ (Negative) A 03/14/24 19:21 Urine Glucose (UA) Negative (Normal) 03/14/24 19:21 Urine Ketones Negative (Negative) 03/14/24 19: Urine Blood Negative (Negative) 03/14/24 19:21 Urine Nitrate Negative (Negative) 03/14/24 19:21 Urine Bilirubin Negative (Negative) 03/14/24 19:21 Urine Urobilinogen 0.2 mg/dL (Negative) 03/14/24 19: Ur Leukocyte Esterase 2+ (Negative) A 03/14/24 19:21 Urine RBC 3-5 /hpf (0-2) 03/14/24 19:21 Urine WBC 51-100 /hpf (0-5) H 03/14/24 19:21 Ur Squamous Epith Cells 0-5 /hpf (0-5) 03/14/24 19: Amorphous Sediment Not Reportable 03/14/24 19: Urine Bacteria Exceeds /hpf (NONE) 03/14/24 19: Hyaline Casts 21.46 /lpf 03/14/24 19:21 Adenovirus (PCR) Not detected (NOT DETECT) 03/14/24 17:44 C. pneumoniae DNA (PCR) Not detected (NOT DETECT) 03/14/24 17:44 Coronavirus 229E (PCR) Not detected (NOT DETECT) 03/14/24 17:44 Human Metapneumovir PCR Not detected (NOT DETECT) 03/14/24 17:44 Influenza A (H1) PCR Not detected (NOT DETECT) 03/14/24 17:44 Influ A (H1/09) PCR Not detected (NOT DETECT) 03/14/24 17:44 Influenza A (H3) PCR Not detected (NOT DETECT) 03/14/24 17:44 Influenza Type A (PCR) Not detected (NOT DETECT) 03/14/24 17:44 Influenza Type B (PCR) Not detected (NOT DETECT) 03/14/24 17:44 M. pneumoniae (PCR) Not detected (NOT DETECT) 03/14/24 17:44 Parainfluenza 1 (PCR) Not detected (NOT DETECT) 03/14/24 17:44 Parainfluenza 2 (PCR) Not detected (NOT DETECT) 03/14/24 17:44 Parainfluenza 3 (PCR) Not detected (NOT DETECT) 03/14/24 17:44 Parainfluenza 4 (PCR) Not detected (NOT DETECT) 03/14/24 17:44 RSV Type A (PCR) Not detected (NOT DETECT) 03/14/24 17:44 RSV Type B (PCR) Not detected (NOT DETECT) 03/14/24 17:44 Entero/Rhino (PCR) Not detected (NOT DETECT) 03/14/24 17:44 SARS-CoV-2 (PCR) Not detected (NOT DETECT) 03/14/24 17:44 All radiology interpretation(s) finalized by discharge Discharge Plan Discharge Patient Disposition: Home Clinical Impression: Gastroenteritis Urinary tract infection Qualifiers: Urinary tract infection type: acute cystitis Hematuria presence: with hematuria Qualified Code(s): N30.01 - Acute cystitis with hematuria Condition: Stable Prescriptions: New ciprofloxacin HCl 500 mg tablet 500 mg PO Q12H Qty: 20 0RF No Action quetiapine 50 mg tablet 100 mg PO BEDTIME mirtazapine 15 mg tablet 30 mg PO BEDTIME insulin lispro [Humalog KwikPen Insulin] 100 unit/mL insulin pen 5 unit SUBCUT TID propranolol 20 mg tablet 20 mg PO TID topiramate 50 mg tablet 100 mg PO BID omeprazole 20 mg capsule,delayed release(DR/EC) 20 mg PO DAILY ropinirole 1 mg tablet 2 mg PO DAILY montelukast 10 mg tablet 10 mg PO DAILY aspirin [Adult Low Dose Aspirin] 81 mg tablet,delayed release (DR/EC) 81 mg PO DAILY albuterol sulfate 2.5 mg /3 mL (0.083 %) solution for nebulization 2.5 mg INHALATION Q4H PRN (Reason: Shortness Of Breath) Rx Instructions: pt states she uses bid everyday and on bad days she uses tid Breo Ellipta 100-25 mcg/dose blister with device 1 inh INHALATION DAILY primidone 50 mg tablet 100 mg PO Q8H nitroglycerin [Nitrostat] 0.4 mg tablet, sublingual 0.4 mg SUBLINGUAL Q5M PRN (Reason: Chest Pain) Qty: 25 6RF Rx Instructions: do not exceed 3 doses per episode methocarbamol 750 mg tablet 750 mg PO BID PRN (Reason: Muscle Spasm) ascorbate calcium (vitamin C) 500 mg tablet 500 mg PO DAILY Nurtec ODT 75 mg tablet,disintegrating 75 mg PO DAILY hydrocodone-acetaminophen 5-325 mg tablet 1 - 2 tab PO Q4H PRN (Reason: Pain) 3 Days Qty: 14 0RF Lantus Solostar U-100 Insulin 100 unit/mL (3 mL) insulin pen 47 unit SUBCUT DAILY Qty: 30 3RF (DME) FreeStyle Dasha 2 Sensor Kit See Rx Instructions .Route Qty: 6 3RF Rx Instructions: Change every 14 days. warfarin 6 mg tablet See Rx Instructions .ROUTE .COMPLEX Qty: 90 0RF Protocol: Dose Management Condition: Wednesday Dose/Route: 15 mg Instruction: 3 x 1 mg tablets, 2 x 6 mg tablets Condition: Wednesday Dose/Route: 15 mg Instruction: 3 x 1 mg tablets, 2 x 6 mg tablets Condition: Wednesday Dose/Route: 15 mg Instruction: 3 x 1 mg tablets, 2 x 6 mg tablets Condition: Wednesday Dose/Route: 15 mg Instruction: 3 x 1 mg tablets, 2 x 6 mg tablets Condition: Dose/Route: 12 mg Instruction: 2 x 6 mg tablets Condition: Wednesday Dose/Route: 15 mg Instruction: 3 x 1 mg tablets, 2 x 6 mg tablets Condition: Wednesday Dose/Route: 15 mg Instruction: 3 x 1 mg tablets, 2 x 6 mg tablets Protocol Text: Adjustment Start Date: Wednesday08/15/21 INR Value: 2.5 INR Date: 08/12/21 Recheck Date: 08/22/21 Dose Instruction: TAKE 1 TABLET BY MOUTH EVERY DAY DIRECTED Rx Instructions: TAKE 1 TABLET BY MOUTH EVERY DAY DIRECTED warfarin 10 mg tablet 5 mg PO DAILY Qty: 90 3RF Protocol: Dose Management Condition: Wednesday Dose/Route: 15 mg Instruction: 3 x 1 mg tablets, 2 x 6 mg tablets Condition: Wednesday Dose/Route: 15 mg Instruction: 3 x 1 mg tablets, 2 x 6 mg tablets Condition: Wednesday Dose/Route: 15 mg Instruction: 3 x 1 mg tablets, 2 x 6 mg tablets Condition: Wednesday Dose/Route: 15 mg Instruction: 3 x 1 mg tablets, 2 x 6 mg tablets Condition: Dose/Route: 12 mg Instruction: 2 x 6 mg tablets Condition: Wednesday Dose/Route: 15 mg Instruction: 3 x 1 mg tablets, 2 x 6 mg tablets Condition: Wednesday Dose/Route: 15 mg Instruction: 3 x 1 mg tablets, 2 x 6 mg tablets Protocol Text: Adjustment Start Date: Wednesday08/15/21 INR Value: 2.5 INR Date: 08/12/21 Recheck Date: 08/22/21 warfarin 10 mg tablet 10 mg PO DAILY Qty: 90 2RF Protocol: Dose Management Condition: Wednesday Dose/Route: 15 mg Instruction: 3 x 1 mg tablets, 2 x 6 mg tablets Condition: Wednesday Dose/Route: 15 mg Instruction: 3 x 1 mg tablets, 2 x 6 mg tablets Condition: Wednesday Dose/Route: 15 mg Instruction: 3 x 1 mg tablets, 2 x 6 mg tablets Condition: Wednesday Dose/Route: 15 mg Instruction: 3 x 1 mg tablets, 2 x 6 mg tablets Condition: Dose/Route: 12 mg Instruction: 2 x 6 mg tablets Condition: Wednesday Dose/Route: 15 mg Instruction: 3 x 1 mg tablets, 2 x 6 mg tablets Condition: Wednesday Dose/Route: 15 mg Instruction: 3 x 1 mg tablets, 2 x 6 mg tablets Protocol Text: Adjustment Start Date: Wednesday08/15/21 INR Value: 2.5 INR Date: 08/12/21 Recheck Date: 08/22/21 Rx Instructions: Take one tab as directed per INR results sotalol 80 mg tablet 80 mg PO BID@0900,2100 Qty: 240 3RF Rx Instructions: take 1 1/2 tabs in AM and take 1 tab in PM warfarin 1 mg tablet 1 mg PO DAILY Qty: 90 3RF Protocol: Dose Management Condition: Wednesday Dose/Route: 15 mg Instruction: 3 x 1 mg tablets, 2 x 6 mg tablets Condition: Wednesday Dose/Route: 15 mg Instruction: 3 x 1 mg tablets, 2 x 6 mg tablets Condition: Wednesday Dose/Route: 15 mg Instruction: 3 x 1 mg tablets, 2 x 6 mg tablets Condition: Wednesday Dose/Route: 15 mg Instruction: 3 x 1 mg tablets, 2 x 6 mg tablets Condition: Dose/Route: 12 mg Instruction: 2 x 6 mg tablets Condition: Wednesday Dose/Route: 15 mg Instruction: 3 x 1 mg tablets, 2 x 6 mg tablets Condition: Wednesday Dose/Route: 15 mg Instruction: 3 x 1 mg tablets, 2 x 6 mg tablets Protocol Text: Adjustment Start Date: Wednesday08/15/21 INR Value: 2.5 INR Date: 08/12/21 Recheck Date: 08/22/21 isosorbide mononitrate 60 mg tablet extended release 24 hr 60 mg PO DAILY Qty: 60 1RF sulfamethoxazole-trimethoprim 800-160 mg tablet See Rx Instructions .ROUTE .COMPLEX Qty: 90 1RF Dose Instruction: TAKE 1 TABLET BY MOUTH EVERYDAY AT BEDTIME Rx Instructions: TAKE 1 TABLET BY MOUTH EVERYDAY AT BEDTIME furosemide 40 mg tablet 80 mg PO QAM Mag-Zinc Tablet 2 tab PO BEDTIME atorvastatin 40 mg Tablet 40 mg PO BEDTIME Qty: 90 0RF lidocaine 5 % adhesive patch,medicated 1 patch transdermal Q12H pregabalin 50 mg capsule 50 mg PO TID Discharge Orders: Discharge ED (Routine); Ordered 03/14/24 Ordered By: Eric Victoria Patient Instructions: Urinary Tract Infection in Women (ED), Acute Nausea and Vomiting (ED) Activity Restrictions/Additional Instructions: Your lab work revealed a pretty significant urinary tract infection along with an increase in your white blood cells. Please take all your antibiotics as directed. Please follow-up with your family practice physician within the next 7 days for further evaluation and treatment. If your symptoms worsen please feel free to return to the ER. Coding Level of Care Code ED Housetrailer Servicer for Marva Leong
--- NOTE | 2024-03-14 16:22 | PC.PHAR ---
Addendum entered by Jenna Kate 03/14/24 16:32: confirmed off of last discharge list med rec completed off of that unable to track down any last fill dates Original Note: none of the three pharmacies can confirm any of the meds on her chart the only thing active is a pregabalin 50?? patient not able to confirm anything at this time.
[2024-03-14] MEDS: aspirin 81 mg Chew Tablet 324 MG PO (16:38)
[2024-03-14 16:41] LABS: Basophils # 0.1 10^3/uL (0.0-0.1); Basophils % 0.3 %; Hematocrit 51.5 % (36-47); Lymphocytes # 1.7 10^3/uL (0.8-4.8); Lymphocytes % 8.8 %; Mean Corpuscular HGB Conc 33.4 g/dL (30-55); Mean Corpuscular Hemoglobin 29.8 pg (27-33); Mean Corpuscular Volume 89.1 fl (85-98); Mean Platelet Volume 11.1 fL (7.4-10.4); Monocytes # 0.8 10^3/uL (0.2-0.9); Neutrophils # 17.13 10^3/uL (1.8-7.7); Neutrophils % 86.4 %; Nucleated Red Blood Cells % 0 %; Platelet Count 314 10^3/cmm (157-399); Red Blood Count 5.78 10^6/uL (3.85-5.65); Red Cell Distribution Width 13.4 % (12.1-15.1); White Blood Count 19.82 10^3/uL (3.29-11.43)
[2024-03-14 17:10] LABS: Troponin(5th) Baseline 16 ng/L (0-10)
[2024-03-14 18:00] VITALS: BP 139/103; PULSE 105; O2SAT 93
--- NOTE | 2024-03-14 18:09 | ECG_ITS ---
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: : [id number] Requested By: Dino Husain Order Number: [id number] Reading MD: DENNIS MCCAULEY Measurements Intervals [place] Rate: 106 P: 29 ND: 161 QRS: -46 QRSD: 130 T: 87 QT: 372 QTc: 494 Interpretive Statements SINUS TACHYCARDIA POSSIBLE LEFT ATRIAL ENLARGEMENT [-0.1mV P-WAVE IN V1/V2] RIGHT BUNDLE BRANCH BLOCK [120+ ms QRS DURATION, UPRIGHT V1, 40+ ms S IN I/aVL/V4/V5/V6] LEFT ANTERIOR FASCICULAR BLOCK [QRS AXIS <= -45, QR IN I, RS IN II] LEFT VENTRICULAR HYPERTROPHY AND ST-T CHANGE [VOLTAGE CRITERIA PLUS ST/T ABNORMALITY] ANTERIOR MYOCARDIAL INFARCTION , OF INDETERMINATE AGE [40+ ms Q WAVE AND/OR ST/T ABNORMALITY IN V3/V4] Electronically Signed On 03-20-2024 23:26:49 BILINGUAL SPEECH LANGUAGE PATHOLOGIST by DENNIS MCCAULEY [email or web address]
[2024-03-14] MEDS: albuterol 2.5 mg/3 mL Neb INHALATION (18:29)
[2024-03-14 18:30] VITALS: BP 155/124; PULSE 108; PULSE 110; RESP 22; O2SAT 92; O2SAT 94
[2024-03-14 18:36] LABS: Troponin 5 2HR 16.56 ng/L (0-10); Troponin 5 2HR Delta 0.56 ABS# (0-10)
--- NOTE | 2024-03-14 18:41 | PC.NURSE ---
PHYSICIAN AWARE OF BP, 155/124.
[2024-03-14] MEDS: acetaminophen 500 mg Tablet 1000 MG PO (18:46)
[2024-03-14 18:47] VITALS: BP 154/108
[2024-03-14] MEDS: cloNIDine 0.1 mg Tablet PO (18:47)
[2024-03-14 18:53] LABS: Alanine Aminotransferase 12 U/L (0-33); Albumin Level 4.3 g/dL (3.5-5.2); Alkaline Phosphatase 126 U/L (35-105); Aspartate Amino Transferase 13 U/L (0-32); Blood Urea Nitrogen 17 mg/dL (8-23); Calcium 11.4 mg/dL (8.5-10.5); Carbon Dioxide 17 mmol/L (22-29); Chloride 107 mmol/L (98-107); Creatinine Clr Calc Pharmacy 77.4873; Globulin 3.4 g/dL (1.3-4.6); Glucose 245 mg/dL (65-115); Osmolality Calculated 302 mOsm/kg (285-295); Sodium 141 mmol/L (136-145); Total Bilirubin 0.3 mg/dL (0.15-1.2); Total Protein 7.7 g/dL (6.6-8.7)
[2024-03-14 19:04] LABS: Anion Gap 20.5 (5-19); Potassium 3.5 mmol/L (3.5-5.1)
[2024-03-14 19:37] LABS: Bilirubin Urine Negative (Negative); Blood Urine Negative (Negative); Glucose Urine UA Negative (Normal); Ketones Urine Negative (Negative); Leukocyte Esterase Urine 2+ (Negative); Nitrate Urine Negative (Negative); Protein Urine 1+ (Negative); Urine Appearance Turbid (CLEAR); Urine Color Yellow (Yellow); Urobilinogen Urine 0.2 mg/dL (Negative); pH Urine 7.5 (5-7)
[2024-03-14 19:39] LABS: Add Urine Microscopic? YES; Bacteria Urine EXCEEDS /hpf; Hyaline Casts Urine 21.46 /lpf; Squamous Epithelial Cell Urine 0-5 /hpf (0-5); WBC Urine 51-100 /hpf (0-5)
[2024-03-14 19:58] LABS: Adenovirus Not Detected (NOT DETECT); Chlamydia Pneumoniae Not Detected (NOT DETECT); Coronavirus 229E,HKU1,NL63,OC4 Not Detected (NOT DETECT); Human Metapneumovirus Not Detected (NOT DETECT); Human Rhinovirus/Enterovirus Not Detected (NOT DETECT); Influenza A Not Detected (NOT DETECT); Influenza A H1 Not Detected (NOT DETECT); Influenza A H1-2009 Not Detected (NOT DETECT); Influenza A H3 Not Detected (NOT DETECT); Influenza B Not Detected (NOT DETECT); Mycoplasma Pneumoniae Not Detected (NOT DETECT); Parainfluenza Virus Type 1 Not Detected (NOT DETECT); Parainfluenza Virus Type 2 Not Detected (NOT DETECT); Parainfluenza Virus Type 3 Not Detected (NOT DETECT); Parainfluenza Virus Type 4 Not Detected (NOT DETECT); Respiratory Syncytial Virus A Not Detected (NOT DETECT); Respiratory Syncytial Virus B Not Detected (NOT DETECT); SARS-COV-2 Not Detected (NOT DETECT)
[2024-03-14 20:08] LABS: UA Slide Review UA Slide Review Perf
[2024-03-14 20:09] LABS: Add Urine Culture? Yes
[2024-03-14 20:16] VITALS: BP 156/115; PULSE 105; RESP 16; O2SAT 91
[2024-03-14] MEDS: ondansetron 2 mg/ML SDV 2 mL 4 MG IVP (20:34)
[2024-03-14 20:36] VITALS: BP 142/103; PULSE 107; RESP 16; O2SAT 93
[2024-03-14] MEDS: ciprofloxacin 500 mg Tablet PO (20:36)
== END 2024-03-14 20:49 | disposition home or self-care (01) ==
PROVIDERS: Emergency Provider Family Medicine
DX: K52.9 Noninfective gastroenteritis and colitis, unspecified (principal); N30.01 Acute cystitis with hematuria; Z11.52 Encounter for screening for COVID-19; Z79.82 Long term (current) use of aspirin; Z79.01 Long term (current) use of anticoagulants; E11.9 Type 2 diabetes mellitus without complications; E78.5 Hyperlipidemia, unspecified; Z85.51 Personal history of malignant neoplasm of bladder
CPT/HCPCS: 70450; 71045; 80053; 81001; 84484; 85025; 87077; 87086; 87186; 87486; 87581; 87633; 93005; 94640; 96374; 99285; J2405; J7613

== ENCOUNTER 2024-07-31 14:33 | Emergency (ER) | payer MEDICARE, SELFPAY ==
[2024-07-31] VITALS (7 sets, daily range): BP systolic 136–162; BP diastolic 70–89; PULSE 55–87; RESP 16–18; TEMP 36.6; O2SAT 96–99; BMI 36.6
--- NOTE | 2024-07-31 15:10 | W.ED.HA ---
HPI - Headache General: Chief Complaint: Headache Stated Complaint: ROGERS, n/v Time Seen by Provider: 07/31/24 14:44 Source: patient Mode of arrival: ambulatory Limitations: no limitations History of Present Illness: Patient is a nice 74-year-old female with a history of migraine headaches, currently being managed by neurology at [facility] here for evaluation/treatment of a migraine headache over the past 5 days. Patient states her migraine headache today feels identical to previous migraines. She states normally she can abort these at home with her medications prescribed by her neurologist however her headache over the past few days has been refractory. She is having sensitivity to the light and some nausea which is characteristic of her migraines. She has not had any injury or trauma. MD elicited complaint: migraine Pertinent past history: migraines Onset (ago): day(s) Severity: severe Pain scale (0-10): 8 Exacerbating factors: light Relieving factors: nothing Associated symptoms: Reports nausea; Deny chest pain, confusion, fever(s), malaise or vomiting Treatments prior to arrival: migraine medication Related Data Home Medications ?Medication ?Instructions ?Recorded ?Confirmed albuterol sulfate 2.5 mg/3 mL 2.5 mg inhalation Q4H PRN 07/26/19 03/14/24 (0.083 %) solution for nebulization Shortness Of Breath aspirin 81 mg tablet,delayed 81 mg PO DAILY 07/26/19 03/14/24 release (Adult Low Dose Aspirin) fluticasone furoate 100 1 inh inhalation DAILY 07/26/19 03/14/24 mcg-vilanterol 25 mcg/dose inhalation powder (Breo Ellipta) montelukast 10 mg tablet 10 mg PO DAILY 07/26/19 03/14/24 omeprazole 20 mg capsule,delayed 20 mg PO DAILY 07/26/19 03/14/24 release primidone 50 mg tablet 100 mg PO Q8H 07/26/19 03/14/24 ropinirole 1 mg tablet 2 mg PO DAILY 07/26/19 03/14/24 quetiapine 50 mg tablet 100 mg PO BEDTIME 10/24/19 03/14/24 furosemide 40 mg tablet 80 mg PO QAM 11/08/19 03/14/24 methocarbamol 750 mg tablet 750 mg PO BID PRN Muscle Spasm 07/30/20 03/14/24 ascorbate calcium (vitamin C) 500 500 mg PO DAILY 09/05/20 03/14/24 mg tablet mirtazapine 15 mg tablet 30 mg PO BEDTIME 11/25/20 03/14/24 Mag-Zinc Tablet 2 tab PO BEDTIME 03/31/21 03/14/24 insulin lispro 100 unit/mL 5 unit SUBCUT TID 06/06/21 03/14/24 subcutaneous pen (Humalog KwikPen (U-100) Insulin) propranolol 20 mg tablet 20 mg PO TID 06/06/21 03/14/24 rimegepant 75 mg disintegrating 75 mg PO DAILY 06/06/21 03/14/24 tablet (Nurtec ODT) topiramate 50 mg tablet 100 mg PO BID 06/06/21 03/14/24 lidocaine 5 % topical patch 1 patch transdermal Q12H 03/14/24 03/14/24 pregabalin 50 mg capsule 50 mg PO TID 03/14/24 03/14/24 Previous Rx's ?Medication ?Instructions ?Recorded nitroglycerin 0.4 mg sublingual 0.4 mg sublingual Q5M PRN Chest 05/20/20 tablet (Nitrostat) Pain #25 tabs hydrocodone 5 mg-acetaminophen 325 1 - 2 tab PO Q4H PRN Pain 3 days 03/19/21 mg tablet #14 tabs atorvastatin 40 mg tablet 40 mg PO BEDTIME #90 tabs 04/06/21 insulin glargine 100 unit/mL (3 47 unit (0.47 mL) SUBCUT DAILY #30 06/25/21 mL) subcutaneous pen (Lantus mL Solostar U-100 Insulin) flash glucose sensor (FreeStyle #6 ea 06/26/21 Dasha 2 Sensor kit) warfarin 6 mg tablet See Rx Instructions .Route 07/24/21 .COMPLEX #90 tabs warfarin 10 mg tablet 5 mg PO DAILY #90 tabs 07/25/21 sotalol 80 mg tablet 80 mg PO BID@0900,2100 #240 tabs 07/30/21 warfarin 10 mg tablet 10 mg PO DAILY #90 tabs 07/30/21 warfarin 1 mg tablet 1 mg PO DAILY #90 tabs 08/01/21 isosorbide mononitrate 60 mg 60 mg PO DAILY #60 tabs 08/05/21 tablet,extended release 24 hr sulfamethoxazole 800 See Rx Instructions .Route 11/12/21 mg-trimethoprim 160 mg tablet .COMPLEX #90 tabs ciprofloxacin HCl 500 mg tablet 500 mg PO Q12H #20 tabs 03/14/24 sumatriptan succinate 50 mg tablet See Rx Instructions PO .COMPLEX #4 07/31/24 tabs Allergies Allergy/AdvReac Type Severity Reaction Status Date / Time budesonide Allergy PT STATES Verified 06/06/21 11:05 IT CAUSED PARALISIS metformin Allergy N/V Verified 06/06/21 11:05 penicillin V Allergy HIVES. Verified 06/06/21 11:05 ITCHING propoxyphene (From Allergy HIVES. 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) Card: Denies: chest pain Resp: Denies: dyspnea GI: Reports: nausea; Denies: abdominal pain or vomiting Musc: Denies: neck pain Neuro: Reports: headache(s) and other (chronic deficits following CVAs); Denies: numbness in extremities, lack of coordination, dizziness, confusion, behavioral changes, difficulty communicating thoughts or seizure-like activity PFS ED PFSH: Medical History After cataract, bilateral MEIR (obstructive sleep apnea) Tremor Ureter, calculus History of hematuria History of throat cancer Hx of ovarian cancer History of kidney stones Recurrent UTI Essential hypertension Diastolic heart failure Bilateral lower extremity edema Hx of small bowel obstruction GERD (gastroesophageal reflux disease) Hyperlipidemia Migraines History of stroke Diabetes mellitus SVT (supraventricular tachycardia) Atrial fibrillation Surgical History History of colon resection S/P hysterectomy Family History Sister Asthma Brother Asthma Cancer Grandmother Asthma Father Cancer Emphysema lung Social History Smoking and tobacco/nicotine status: never used tobacco/nicotine Second hand smoke exposure: Yes Alcohol intake: never Substance/Drug Use: never Lives independently: Yes Household members: spouse Marital status: Current occupational status: retired Physical Exam Const: COMMON NORMALS: no acute distress, average body habitus, patient oriented x3, no limitations, healthy appearing, alert and well nourished GENERAL APPEARANCE: cooperative Resp: COMMON NORMALS: normal respiratory effort Neuro: MAULIK COMA SCALE: document GCS findings Maulik coma scale eye opening: Spontaneous [place] coma scale verbal response: Orientated [place] coma scale motor response: Obey commands Maulik coma scale total score: 15 COMMON NORMALS: patient oriented x3, moves all extremities, no focal motor deficits and no sensory deficits noted SENSORIUM/ORIENTATION: Yes alert SPEECH: speech normal GAIT: Yes Normal gait present MOTOR EXAM: 5/5 motor strength present throughout Skin: COMMON NORMALS: no rashes or lesions noted GENERAL SKIN EXAM: no rashes or lesions noted Course Vital Signs: Vital signs: Vital Signs Temperature 97.9 F 07/31/24 14:40 Pulse Rate 55 L 07/31/24 17:00 Respiratory Rate 18 07/31/24 17:15 Blood Pressure 147/89 07/31/24 17:00 Pulse Oximetry 98 07/31/24 17:15 Oxygen Delivery Me thod Room Air 07/31/24 17:00 MDM - Headache Medical Decision Making Headache trending down after medications given here. She would like to go home and try to rest. She was provided her evening dose of Robaxin which she states that she had missed and requested. She is requesting sumatriptan for tomorrow if needed. She has reportedly been on this medication previously. Recommend she follow-up with her neurologist. Return precautions discussed. Medical Records I reviewed the patient's medical records. No radiology studies performed this visit Discharge Plan Discharge Patient Disposition: Home Clinical Impression: Migraine Qualifiers: Migraine type: unspecified Status migrainosus presence: with status migrainosus Intractability: intractable Qualified Code(s): G43.911 - Migraine, unspecified, intractable, with status migrainosus Condition: Stable Prescriptions: New sumatriptan succinate 50 mg tablet See Rx Instructions .ROUTE .COMPLEX Qty: 4 0RF Rx Instructions: take 1 tab at onset of headache; if no relief may repeat 1 tab after at least 2 hrs; max = 4 tabs/24 hr No Action quetiapine 50 mg tablet 100 mg PO BEDTIME mirtazapine 15 mg tablet 30 mg PO BEDTIME insulin lispro [Humalog KwikPen Insulin] 100 unit/mL insulin pen 5 unit SUBCUT TID propranolol 20 mg tablet 20 mg PO TID topiramate 50 mg tablet 100 mg PO BID omeprazole 20 mg capsule,delayed release(DR/EC) 20 mg PO DAILY ropinirole 1 mg tablet 2 mg PO DAILY montelukast 10 mg tablet 10 mg PO DAILY aspirin [Adult Low Dose Aspirin] 81 mg tablet,delayed release (DR/EC) 81 mg PO DAILY albuterol sulfate 2.5 mg /3 mL (0.083 %) solution for nebulization 2.5 mg INHALATION Q4H PRN (Reason: Shortness Of Breath) Rx Instructions: pt states she uses bid everyday and on bad days she uses tid Breo Ellipta 100-25 mcg/dose blister with device 1 inh INHALATION DAILY primidone 50 mg tablet 100 mg PO Q8H nitroglycerin [Nitrostat] 0.4 mg tablet, sublingual 0.4 mg SUBLINGUAL Q5M PRN (Reason: Chest Pain) Qty: 25 6RF Rx Instructions: do not exceed 3 doses per episode methocarbamol 750 mg tablet 750 mg PO BID PRN (Reason: Muscle Spasm) ascorbate calcium (vitamin C) 500 mg tablet 500 mg PO DAILY Nurtec ODT 75 mg tablet,disintegrating 75 mg PO DAILY hydrocodone-acetaminophen 5-325 mg tablet 1 - 2 tab PO Q4H PRN (Reason: Pain) 3 Days Qty: 14 0RF Lantus Solostar U-100 Insulin 100 unit/mL (3 mL) insulin pen 47 unit SUBCUT DAILY Qty: 30 3RF (DME) FreeStyle Dasha 2 Sensor Kit See Rx Instructions .Route Qty: 6 3RF Rx Instructions: Change every 14 days. warfarin 6 mg tablet See Rx Instructions .ROUTE .COMPLEX Qty: 90 0RF Protocol: Dose Management Condition: Wednesday Dose/Route: 15 mg Instruction: 3 x 1 mg tablets, 2 x 6 mg tablets Condition: Wednesday Dose/Route: 15 mg Instruction: 3 x 1 mg tablets, 2 x 6 mg tablets Condition: Wednesday Dose/Route: 15 mg Instruction: 3 x 1 mg tablets, 2 x 6 mg tablets Condition: Wednesday Dose/Route: 15 mg Instruction: 3 x 1 mg tablets, 2 x 6 mg tablets Condition: Dose/Route: 12 mg Instruction: 2 x 6 mg tablets Condition: Wednesday Dose/Route: 15 mg Instruction: 3 x 1 mg tablets, 2 x 6 mg tablets Condition: Wednesday Dose/Route: 15 mg Instruction: 3 x 1 mg tablets, 2 x 6 mg tablets Protocol Text: Adjustment Start Date: Wednesday08/15/21 INR Value: 2.5 INR Date: 08/12/21 Recheck Date: 08/22/21 Dose Instruction: TAKE 1 TABLET BY MOUTH EVERY DAY DIRECTED Rx Instructions: TAKE 1 TABLET BY MOUTH EVERY DAY DIRECTED warfarin 10 mg tablet 5 mg PO DAILY Qty: 90 3RF Protocol: Dose Management Condition: Wednesday Dose/Route: 15 mg Instruction: 3 x 1 mg tablets, 2 x 6 mg tablets Condition: Wednesday Dose/Route: 15 mg Instruction: 3 x 1 mg tablets, 2 x 6 mg tablets Condition: Wednesday Dose/Route: 15 mg Instruction: 3 x 1 mg tablets, 2 x 6 mg tablets Condition: Wednesday Dose/Route: 15 mg Instruction: 3 x 1 mg tablets, 2 x 6 mg tablets Condition: Dose/Route: 12 mg Instruction: 2 x 6 mg tablets Condition: Wednesday Dose/Route: 15 mg Instruction: 3 x 1 mg tablets, 2 x 6 mg tablets Condition: Wednesday Dose/Route: 15 mg Instruction: 3 x 1 mg tablets, 2 x 6 mg tablets Protocol Text: Adjustment Start Date: Wednesday08/15/21 INR Value: 2.5 INR Date: 08/12/21 Recheck Date: 08/22/21 warfarin 10 mg tablet 10 mg PO DAILY Qty: 90 2RF Protocol: Dose Management Condition: Wednesday Dose/Route: 15 mg Instruction: 3 x 1 mg tablets, 2 x 6 mg tablets Condition: Wednesday Dose/Route: 15 mg Instruction: 3 x 1 mg tablets, 2 x 6 mg tablets Condition: Wednesday Dose/Route: 15 mg Instruction: 3 x 1 mg tablets, 2 x 6 mg tablets Condition: Wednesday Dose/Route: 15 mg Instruction: 3 x 1 mg tablets, 2 x 6 mg tablets Condition: Dose/Route: 12 mg Instruction: 2 x 6 mg tablets Condition: Wednesday Dose/Route: 15 mg Instruction: 3 x 1 mg tablets, 2 x 6 mg tablets Condition: Wednesday Dose/Route: 15 mg Instruction: 3 x 1 mg tablets, 2 x 6 mg tablets Protocol Text: Adjustment Start Date: Wednesday08/15/21 INR Value: 2.5 INR Date: 08/12/21 Recheck Date: 08/22/21 Rx Instructions: Take one tab as directed per INR results sotalol 80 mg tablet 80 mg PO BID@0900,2100 Qty: 240 3RF Rx Instructions: take 1 1/2 tabs in AM and take 1 tab in PM warfarin 1 mg tablet 1 mg PO DAILY Qty: 90 3RF Protocol: Dose Management Condition: Wednesday Dose/Route: 15 mg Instruction: 3 x 1 mg tablets, 2 x 6 mg tablets Condition: Wednesday Dose/Route: 15 mg Instruction: 3 x 1 mg tablets, 2 x 6 mg tablets Condition: Wednesday Dose/Route: 15 mg Instruction: 3 x 1 mg tablets, 2 x 6 mg tablets Condition: Wednesday Dose/Route: 15 mg Instruction: 3 x 1 mg tablets, 2 x 6 mg tablets Condition: Dose/Route: 12 mg Instruction: 2 x 6 mg tablets Condition: Wednesday Dose/Route: 15 mg Instruction: 3 x 1 mg tablets, 2 x 6 mg tablets Condition: Wednesday Dose/Route: 15 mg Instruction: 3 x 1 mg tablets, 2 x 6 mg tablets Protocol Text: Adjustment Start Date: Wednesday08/15/21 INR Value: 2.5 INR Date: 08/12/21 Recheck Date: 08/22/21 isosorbide mononitrate 60 mg tablet extended release 24 hr 60 mg PO DAILY Qty: 60 1RF sulfamethoxazole-trimethoprim 800-160 mg tablet See Rx Instructions .ROUTE .COMPLEX Qty: 90 1RF Dose Instruction: TAKE 1 TABLET BY MOUTH EVERYDAY AT BEDTIME Rx Instructions: TAKE 1 TABLET BY MOUTH EVERYDAY AT BEDTIME furosemide 40 mg tablet 80 mg PO QAM Mag-Zinc Tablet 2 tab PO BEDTIME atorvastatin 40 mg Tablet 40 mg PO BEDTIME Qty: 90 0RF lidocaine 5 % adhesive patch,medicated 1 patch transdermal Q12H pregabalin 50 mg capsule 50 mg PO TID ciprofloxacin HCl 500 mg tablet 500 mg PO Q12H Qty: 20 0RF Discharge Orders: Discharge ED (Routine); Ordered 07/31/24 Ordered By: Ruma Mcmahan Patient Instructions: Headache - Migraine (Adult), Migraine Headache (ED) Activity Restrictions/Additional Instructions: Please follow-up with neurology for further evaluation if headaches are persistent or more bothersome. You may return to the emergency department at any time for any further concerns you may have. Print Language: Romansh Coding Level of Care Code ED Community Service Worker for Marva Leong
[2024-07-31] MEDS: metoclopramide 5 mg/mL SDV 2 mL 10 MG IVP (15:25)
[2024-07-31] MEDS: ketorolac 30 mg/mL INJ 15 MG IVP (15:28)
[2024-07-31] MEDS: dexamethasone 4 mg/mL INJ IVP (15:29)
[2024-07-31] MEDS: SUMAtriptan 6 mg/0.5 mL SDV SUBCUT (16:12)
[2024-07-31] MEDS: diphenhydrAMINE 50 mg/mL SDV 1mL IVP (16:13)
[2024-07-31] MEDS: morphine 4 mg/mL SDV 1 mL IVP (17:15)
[2024-07-31] MEDS: methocarbamol 750 mg Tablet 1500 MG PO (17:15)
--- NOTE | 2024-08-01 10:05 | PM.HP ---
Providers/Chief Complaint Admitting Physician: Dr. 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 They were going to start some form of infusion on her instead. Patient was directed to come to the emergency room because of ongoing weakness for which lab studies were done it was noted to have much multiple electrolyte imbalance. In the emergency room sodium was noted to be 123 whereas a week ago it was 138. This is also concerning is states this small cell coming back at a very short time. Small cell cause much weakness along with hyponatremia. Patient is also noted to be very dry with hypochloremia in the 80s and hypoosmolar at 253. Patient urine is clean and clear. Patient had had some fall hitting the pelvic to the ground at home. X-ray did not show any fracture. Patient received IV hydration potassium of 3.4 was replaced. PT OT had been ordered for the care of this patient pain management also initiated because of patient pelvic pain. Patient is still actively smoking cigarettes 1 and half pack of cigarettes a day. Case discussed at patient's bedside and she did confess that he has had to kick the habit even in the face of cancer. Patient was counseled against smoking cigarettes and the harmful effects that because. Review of Systems Narrative: System review upon 10 organ review we are noted to be weakness debility in the musculoskeletal region pelvic pain upon falling otherwise unremarkable Medications/Allergies Home Medications ?Medication ?Instructions ?Recorded ?Confirmed ?Last Taken ?Type albuterol sulfate 2.5 mg/3 mL 2.5 mg inhalation Q4H PRN 07/26/19 03/14/24 Unknown History (0.083 %) solution for nebulization Shortness Of Breath aspirin 81 mg tablet,delayed 81 mg PO DAILY 07/26/19 03/14/24 11/07/19 History release (Adult Low Dose Aspirin) fluticasone furoate 100 1 inh inhalation DAILY 07/26/19 03/14/24 11/07/19 History mcg-vilanterol 25 mcg/dose inhalation powder (Breo Ellipta) montelukast 10 mg tablet 10 mg PO DAILY 07/26/19 03/14/24 11/07/19 History omeprazole 20 mg capsule,delayed 20 mg PO DAILY 07/26/19 03/14/24 11/07/19 History release primidone 50 mg tablet 100 mg PO Q8H 07/26/19 03/14/24 11/07/19 History ropinirole 1 mg tablet 2 mg PO DAILY 07/26/19 03/14/24 11/07/19 History quetiapine 50 mg tablet 100 mg PO BEDTIME 10/24/19 03/14/24 11/07/19 History furosemide 40 mg tablet 80 mg PO QAM 11/08/19 03/14/24 11/07/19 History nitroglycerin 0.4 mg sublingual 0.4 mg sublingual Q5M PRN Chest 05/20/20 03/14/24 Unknown Rx tablet (Nitrostat) Pain #25 tabs methocarbamol 750 mg tablet 750 mg PO BID PRN Muscle Spasm 07/30/20 03/14/24 Unknown History ascorbate calcium (vitamin C) 500 500 mg PO DAILY 09/05/20 03/14/24 Unknown History mg tablet mirtazapine 15 mg tablet 30 mg PO BEDTIME 11/25/20 03/14/24 Unknown History hydrocodone 5 mg-acetaminophen 325 1 - 2 tab PO Q4H PRN Pain 3 days 03/19/21 03/14/24 Unknown Rx mg tablet #14 tabs Mag-Zinc Tablet 2 tab PO BEDTIME 03/31/21 03/14/24 Unknown History atorvastatin 40 mg tablet 40 mg PO BEDTIME #90 tabs 04/06/21 03/14/24 Unknown Rx insulin lispro 100 unit/mL 5 unit SUBCUT TID 06/06/21 03/14/24 Unknown History subcutaneous pen (Humalog KwikPen (U-100) Insulin) propranolol 20 mg tablet 20 mg PO TID 06/06/21 03/14/24 Unknown History rimegepant 75 mg disintegrating 75 mg PO DAILY 06/06/21 03/14/24 Unknown History tablet (Nurtec ODT) topiramate 50 mg tablet 100 mg PO BID 06/06/21 03/14/24 Unknown History insulin glargine 100 unit/mL (3 47 unit (0.47 mL) SUBCUT DAILY #30 06/25/21 03/14/24 Unknown Rx mL) subcutaneous pen (Lantus mL Solostar U-100 Insulin) flash glucose sensor (FreeStyle #6 ea 06/26/21 03/14/24 Unknown Rx Dasha 2 Sensor kit) warfarin 6 mg tablet See Rx Instructions .Route 07/24/21 03/14/24 Unknown Rx .COMPLEX #90 tabs warfarin 10 mg tablet 5 mg PO DAILY #90 tabs 07/25/21 03/14/24 Unknown Rx sotalol 80 mg tablet 80 mg PO BID@0900,2100 #240 tabs 07/30/21 03/14/24 Unknown Rx warfarin 10 mg tablet 10 mg PO DAILY #90 tabs 07/30/21 03/14/24 Unknown Rx warfarin 1 mg tablet 1 mg PO DAILY #90 tabs 08/01/21 03/14/24 Unknown Rx isosorbide mononitrate 60 mg 60 mg PO DAILY #60 tabs 08/05/21 03/14/24 Unknown Rx tablet,extended release 24 hr sulfamethoxazole 800 See Rx Instructions .Route 11/12/21 03/14/24 Unknown Rx mg-trimethoprim 160 mg tablet .COMPLEX #90 tabs ciprofloxacin HCl 500 mg tablet 500 mg PO Q12H #20 tabs 03/14/24 Unknown Rx lidocaine 5 % topical patch 1 patch transdermal Q12H 03/14/24 03/14/24 Unknown History pregabalin 50 mg capsule 50 mg PO TID 03/14/24 03/14/24 Unknown History sumatriptan succinate 50 mg tablet See Rx Instructions PO .COMPLEX #4 07/31/24 Unknown Rx tabs Allergies Allergy/AdvReac Type Severity Reaction Status Date / Time budesonide Allergy PT STATES Verified 06/06/21 11:05 IT CAUSED PARALISIS metformin Allergy N/V Verified 06/06/21 11:05 penicillin V Allergy HIVES. Verified 06/06/21 11:05 ITCHING propoxyphene (From Allergy HIVES. Verified 06/06/21 11:05 Darvocet-N) SWELLING streptomycin AdvReac ITCHING/ Verified 06/06/21 11:05 SWELLING PFSH Acute PFSH: Medical History (Updated 08/01/24 @ 10:27 by Esperanza Yusuf MD) History of primary small cell carcinoma of lung After cataract, bilateral MEIR (obstructive sleep apnea) Tremor Ureter, calculus History of hematuria History of throat cancer Hx of ovarian cancer History of kidney stones Recurrent UTI Essential hypertension Diastolic heart failure Bilateral lower extremity edema Hx of small bowel obstruction GERD (gastroesophageal reflux disease) Hyperlipidemia Migraines History of stroke Diabetes mellitus SVT (supraventricular tachycardia) Atrial fibrillation Surgical History History of colon resection S/P hysterectomy Family History Sister Asthma Brother Asthma Cancer Grandmother Asthma Father Cancer Emphysema lung Social History Smoking and tobacco/nicotine status: never used tobacco/nicotine Second hand smoke exposure: Yes Alcohol intake: never Substance/Drug Use: never Lives independently: Yes Household members: spouse Marital status: Current occupational status: retired Vitals/I&O/Wt Last Vital Signs Temp 97.9 F 07/31/24 14:40 Pulse 87 07/31/24 17:51 Resp 18 07/31/24 17:15 BP 147/70 07/31/24 17:51 Pulse Ox 98 07/31/24 17:51 O2 Del Method Room Air 07/31/24 17:00 Weight last 48 hrs Weight 99.79 kg Physical Exam Narrative: Patient looks frail weak otherwise unremarkable except for a complaint of pelvic pain with she had fallen at home with negative radiographic studies here. HEENT-normocephalic/atraumatic Neck?neck is supple Cardiovascular heart rate is irregular Lungs clear with good air movement GI abdomen is soft nontender nondistended unremarkable Extremities intact no edema has good pulses Neurology has no focality A&P Assessment and plan (1) Hyponatremia: Patient with hyponatremia now on gentle hydration with normal saline because of concomitant severe dehydration follow-up with electrolytes and optimize gradually as possible (2) Weakness: Ordered PT OT for care of debility and weakness (3) Atrial fibrillation: Continue patient Coumadin daily to a therapeutic INR Keep rate control (4) Hyperlipemia, mixed: (5) Hypochloremia: Patient is with contraction alkalosis - Continue with normal saline gentle hydration (6) Hypo-osmolar hyponatremia: Patient is hypoosmolar hyponatremia - Follow-up with normal saline rehydration - Patient is following up very closely with heme oncology at [facility] (7) Pelvic pain: Continue pain management No fractures (8) Status post fall: Plan Small cell lung cancer history Patient is actively following up with the oncologist at [facility] patient need to follow-up upon being discharged PDMP PDMP Reviewed: Last Reviewed 08/01/24 10:25 by Esperanza Yusuf MD Attestations Medical Necessity Statement*: Upon multiple electrolyte imbalances and weakness, this will take 2 midnights hospital stay Coding Level of Care Code 45334 Diagnoses Hyponatremia E87.1 Weakness R53.1 Persistent atrial fibrillation I48.19 Atrial fibrillation type: persistent (not longstanding) Hyperlipemia, mixed E78.2 Hypochloremia E87.8 Hypo-osmolar hyponatremia E87.1 Pelvic pain R10.2 Status post fall Z91.81 Time Spent (min) 60
== END 2024-07-31 17:51 | disposition home or self-care (01) ==
PROVIDERS: Emergency Provider Physician Assistant
DX: G43.911 Migraine, unspecified, intractable, with status migrainosus (principal); Z79.4 Long term (current) use of insulin; Z79.01 Long term (current) use of anticoagulants; Z79.82 Long term (current) use of aspirin; E11.9 Type 2 diabetes mellitus without complications; I10 Essential (primary) hypertension; E78.5 Hyperlipidemia, unspecified; Z85.43 Personal history of malignant neoplasm of ovary; Z85.89 Personal history of malignant neoplasm of other organs and systems
CPT/HCPCS: 96372; 99284; J1100; J1200; J1885; J2270; J2765; J3030; J9999

== ENCOUNTER 2024-08-21 16:25 | Emergency (ER) | payer MEDICARE, SELFPAY ==
[2024-08-21 16:29] VITALS: BP 152/77; PULSE 59; RESP 26; TEMP 36.9; O2SAT 98; BMI 37.4
[2024-08-21 18:35] LABS: Basophils # 0.1 10^3/uL (0.0-0.1); Basophils % 0.6 %; Eosinophils # 0.2 10^3/uL (0.0-0.8); Eosinophils % 2.2 %; Hematocrit 42.1 % (36-47); Lymphocytes # 2.2 10^3/uL (0.8-4.8); Lymphocytes % 24.5 %; Mean Corpuscular HGB Conc 31.6 g/dL (30-55); Mean Corpuscular Hemoglobin 30.3 pg (27-33); Mean Corpuscular Volume 95.9 fl (85-98); Mean Platelet Volume 11.2 fL (7.4-10.4); Monocytes # 0.6 10^3/uL (0.2-0.9); Monocytes % 7.3 %; Neutrophils # 5.75 10^3/uL (1.8-7.7); Neutrophils % 65.2 %; Nucleated Red Blood Cells % 0 %; Platelet Count 256 10^3/cmm (157-399); Red Blood Count 4.39 10^6/uL (3.85-5.65); Red Cell Distribution Width 14.2 % (12.1-15.1); White Blood Count 8.81 10^3/uL (3.29-11.43)
[2024-08-21 18:52] LABS: Alanine Aminotransferase 15 U/L (0-33); Alkaline Phosphatase 81 U/L (35-105); Anion Gap 16.1 (5-19); Aspartate Amino Transferase 14 U/L (0-32); Blood Urea Nitrogen 13 mg/dL (8-23); Calcium 9.6 mg/dL (8.5-10.5); Carbon Dioxide 20 mmol/L (22-29); Chloride 109 mmol/L (98-107); Creatinine Clr Calc Pharmacy 71.9624; Globulin 2.7 g/dL (1.3-4.6); Glucose 114 mg/dL (65-115); Lipase 21 U/L (13-60); Osmolality Calculated 295 mOsm/kg (285-295); Potassium 3.1 mmol/L (3.5-5.1); Sodium 142 mmol/L (136-145); Total Bilirubin 0.2 mg/dL (0.15-1.2); Total Protein 6.7 g/dL (6.6-8.7)
[2024-08-21 19:27] VITALS: BP 150/73; PULSE 62; RESP 16; O2SAT 92
--- NOTE | 2024-08-21 19:34 | CTR_ITS ---
PROCEDURE INFORMATION: Exam: CT Abdomen And Pelvis With Contrast Exam date and time: 08/21/2024 8:44 PM Age: 74 years old Clinical indication: Abdominal pain; Generalized; Additional info: Abd pain TECHNIQUE: Imaging protocol: Computed tomography of the abdomen and pelvis with contrast. Radiation optimization: All CT scans at this facility use at least one of these dose optimization techniques: automated exposure control; mA and/or kV adjustment per patient size (includes targeted exams where dose is matched to clinical indication); or iterative reconstruction. Contrast material: OMNIPAQUE 350; Contrast volume: 100 ml; Contrast route: INTRAVENOUS (IV); COMPARISON: CT kidney stone [id number] 06/12/2020 9:37 AM RADIATION DOSE METRICS: Total DLP (mGy-cm): 1210.82 FINDINGS: Lungs: Mild atelectasis in the lung bases. Coronary arteries: Mild coronary artery calcifications. Liver: Small cyst in the right liver lobe, Hounsfield units less than 20. No follow-up imaging is recommended. Gallbladder and biliary ducts: Normal. No calcified stones. No ductal dilation. Pancreas: Fatty atrophy of the pancreas. Spleen: Normal. No splenomegaly. Adrenal glands: Normal. No mass. Kidneys and ureters: Multiple hypodense lesions in both kidneys are too small to characterize and are most likely cysts. No follow-up imaging is recommended. The kidneys are otherwise unremarkable. No calculus or hydronephrosis. Stomach and bowel: Mild diverticulosis in the distal colon. No diverticulitis. The stomach and small bowel are unremarkable. No wall thickening or obstruction. Appendix: The appendix is visualized and is normal. Intraperitoneal space: Surgical scar in the lumbar region. Vasculature: Unremarkable. No abdominal aortic aneurysm. Lymph nodes: Unremarkable. No enlarged lymph nodes. Urinary bladder: Unremarkable as visualized. Reproductive: Hysterectomy and bilateral oophorectomy. Bones/joints: Posterior mechanical fusion an anterior spacer at L4-L5. L4-L5 decompressive laminectomies. No acute fracture. Left hip arthroplasty changes. Soft tissues: Anterior laparotomy scar with sutures. CT/CT abdomen pelvis w con* [id number] IMPRESSION: No acute findings. COMMENTS: Consistent with the [employer]'s Incidental Findings Committee white paper (J Am Rodrigue Radiol 2018): Any incidental renal lesion less than 1 cm or classified as too small to characterize, or any incidental cystic renal lesion characterized as simple-appearing, is likely benign. No follow-up imaging is recommended for these lesions per consensus recommendations based on imaging criteria.
--- NOTE | 2024-08-21 19:35 | W.ED.NAVMDI ---
HPI - Nausea/Vomiting/Diarrhea General: Chief complaint: Nausea/Vomiting/Diarrhea Stated complaint: n,v,d Time Seen by Provider: 08/21/24 19:17 Source: patient Mode of arrival: ambulatory Limitations: no limitations History of Present Illness: 74-year-old female states that she has been having nausea vomiting diarrhea over the last 2 weeks. States she has has had watery diarrhea few episodes of vomiting she had abdominal cramping also states she feels like she is dehydrated she denies any recent antibiotics denies any fevers denies any severe abdominal pain. Associated nausea: Yes Associated symtoms: Reports nausea; Denies chest pain, dysuria or headache(s) Related Data Home Medications ?Medication ?Instructions ?Recorded ?Confirmed albuterol sulfate 2.5 mg/3 mL 2.5 mg inhalation Q4H PRN 07/26/19 03/14/24 (0.083 %) solution for nebulization Shortness Of Breath aspirin 81 mg tablet,delayed 81 mg PO DAILY 07/26/19 03/14/24 release (Adult Low Dose Aspirin) fluticasone furoate 100 1 inh inhalation DAILY 07/26/19 03/14/24 mcg-vilanterol 25 mcg/dose inhalation powder (Breo Ellipta) montelukast 10 mg tablet 10 mg PO DAILY 07/26/19 03/14/24 omeprazole 20 mg capsule,delayed 20 mg PO DAILY 07/26/19 03/14/24 release primidone 50 mg tablet 100 mg PO Q8H 07/26/19 03/14/24 ropinirole 1 mg tablet 2 mg PO DAILY 07/26/19 03/14/24 quetiapine 50 mg tablet 100 mg PO BEDTIME 10/24/19 03/14/24 furosemide 40 mg tablet 80 mg PO QAM 11/08/19 03/14/24 methocarbamol 750 mg tablet 750 mg PO BID PRN Muscle Spasm 07/30/20 03/14/24 ascorbate calcium (vitamin C) 500 500 mg PO DAILY 09/05/20 03/14/24 mg tablet mirtazapine 15 mg tablet 30 mg PO BEDTIME 11/25/20 03/14/24 Mag-Zinc Tablet 2 tab PO BEDTIME 03/31/21 03/14/24 insulin lispro 100 unit/mL 5 unit SUBCUT TID 06/06/21 03/14/24 subcutaneous pen (Humalog KwikPen (U-100) Insulin) propranolol 20 mg tablet 20 mg PO TID 06/06/21 03/14/24 rimegepant 75 mg disintegrating 75 mg PO DAILY 06/06/21 03/14/24 tablet (Nurtec ODT) topiramate 50 mg tablet 100 mg PO BID 06/06/21 03/14/24 lidocaine 5 % topical patch 1 patch transdermal Q12H 03/14/24 03/14/24 pregabalin 50 mg capsule 50 mg PO TID 03/14/24 03/14/24 Previous Rx's ?Medication ?Instructions ?Recorded nitroglycerin 0.4 mg sublingual 0.4 mg sublingual Q5M PRN Chest 05/20/20 tablet (Nitrostat) Pain #25 tabs hydrocodone 5 mg-acetaminophen 325 1 - 2 tab PO Q4H PRN Pain 3 days 03/19/21 mg tablet #14 tabs atorvastatin 40 mg tablet 40 mg PO BEDTIME #90 tabs 04/06/21 insulin glargine 100 unit/mL (3 47 unit (0.47 mL) SUBCUT DAILY #30 06/25/21 mL) subcutaneous pen (Lantus mL Solostar U-100 Insulin) flash glucose sensor (FreeStyle #6 ea 06/26/21 Dasha 2 Sensor kit) warfarin 6 mg tablet See Rx Instructions .Route 07/24/21 .COMPLEX #90 tabs warfarin 10 mg tablet 5 mg PO DAILY #90 tabs 07/25/21 sotalol 80 mg tablet 80 mg PO BID@0900,2100 #240 tabs 07/30/21 warfarin 10 mg tablet 10 mg PO DAILY #90 tabs 07/30/21 warfarin 1 mg tablet 1 mg PO DAILY #90 tabs 08/01/21 isosorbide mononitrate 60 mg 60 mg PO DAILY #60 tabs 08/05/21 tablet,extended release 24 hr sulfamethoxazole 800 See Rx Instructions .Route 11/12/21 mg-trimethoprim 160 mg tablet .COMPLEX #90 tabs ciprofloxacin HCl 500 mg tablet 500 mg PO Q12H #20 tabs 03/14/24 sumatriptan succinate 50 mg tablet See Rx Instructions PO .COMPLEX #4 07/31/24 tabs diphenoxylate-atropine 2.5 1 tab PO BID PRN diarrhea #7 tabs 08/21/24 mg-0.025 mg tablet (Lomotil) ondansetron 4 mg disintegrating 4 mg PO Q6H PRN nausea and 08/21/24 tablet vomiting #14 tabs Allergies Allergy/AdvReac Type Severity Reaction Status Date / Time budesonide Allergy PT STATES Verified 08/21/24 16:31 IT CAUSED PARALISIS metformin Allergy N/V Verified 08/21/24 16:31 penicillin V Allergy HIVES. Verified 08/21/24 16:31 ITCHING propoxyphene (From Allergy HIVES. Verified 08/21/24 16:31 Darvocet-N) SWELLING streptomycin AdvReac ITCHING/ Verified 08/21/24 16:31 SWELLING Review of Systems Const: Denies: fever(s), chills, body aches or change in appetite ENMT: Denies: throat pain or dental pain Card: Denies: chest pain Resp: Denies: dyspnea GI: Reports: abdominal pain, nausea, vomiting and diarrhea : Denies: dysuria Musc: Denies: neck pain or back pain Skin/Breast: Denies: rash Neuro: Denies: headache(s) PFSH ED PFSH: Medical History History of primary small cell carcinoma of lung After cataract, bilateral MEIR (obstructive sleep apnea) Tremor Ureter, calculus History of hematuria History of throat cancer Hx of ovarian cancer History of kidney stones Recurrent UTI Essential hypertension Diastolic heart failure Bilateral lower extremity edema Hx of small bowel obstruction GERD (gastroesophageal reflux disease) Hyperlipidemia Migraines History of stroke Diabetes mellitus SVT (supraventricular tachycardia) Atrial fibrillation Surgical History History of colon resection S/P hysterectomy Family History Sister Asthma Brother Asthma Cancer Grandmother Asthma Father Cancer Emphysema lung Social History Smoking and tobacco/nicotine status: never used tobacco/nicotine Second hand smoke exposure: Yes Alcohol intake: never Substance/Drug Use: never Lives independently: Yes Household members: spouse Marital status: Current occupational status: retired Physical Exam Const: COMMON NORMALS: no acute distress, patient oriented x3 and healthy appearing HENMT: COMMON NORMALS: normocephalic and atraumatic HEAD & SCALP: normocephalic and atraumatic Eye: COMMON NORMALS: conjunctivae normal CONJUNCTIVA: Yes conjunctivae normal Neck/C-Spine: COMMON NORMALS: full ROM and supple Chest: COMMONS NORMALS: normal inspection of the chest and normal palpation of entire chest wall Resp: COMMON NORMALS: normal respiratory effort, No retractions, No use of accessory muscles and clear to auscultation bilaterally AUSCULTATION: clear to auscultation bilaterally Cardio: COMMON NORMALS: regular rate, regular rhythm and No murmurs present (Cardio) RATE: regular rate RHYTHM: regular rhythm GI: COMMON NORMALS: Normal to inspection, nondistended, normoactive bowel sounds present, Soft to palpation, non-tender and no masses PALPATION: Yes Soft to palpation Extremity: COMMON NORMALS: normal to inspection and full ROM Neuro: COMMON NORMALS: patient oriented x3, moves all extremities and no focal motor deficits Psych: COMMON NORMALS: mental status grossly normal, Normal thought process present and cooperative THOUGHT PROCESS: Normal thought process present Skin: COMMON NORMALS: no rashes or lesions noted and no wounds GENERAL SKIN EXAM: no rashes or lesions noted Course Vital Signs: Vital signs: Vital Signs Temperature 98.5 F 08/21/24 16:29 Pulse Rate 62 08/21/24 19:27 Respiratory Rate 18 08/21/24 20:05 Blood Pressure 150/73 08/21/24 19:27 Pulse Oximetry 98 08/21/24 20:23 Oxygen Delivery Me thod Room Air 08/21/24 20:23 MDM - Nausea/Vomiting/Diarrhea Medical Decision Making Patient presents here with vomiting diarrhea likely gastroenteritis she is well-appearing here blood work CAT scans normal we will prescribe her Zofran Lomotil she is follow-up with PCP and return if worsening. Medical Records I reviewed the patient's medical records. Lab Data I reviewed the patient's lab results. 08/21/24 18:23 08/21/24 18:23 Radiology Impressions Abdomen/Pelvis CT 08/21/24 19:34 IMPRESSION: No acute findings. COMMENTS: Consistent with the [employer]'s Incidental Findings Committee white paper (J Am Rodrigue Radiol 2018): Any incidental renal lesion less than 1 cm or classified as too small to characterize, or any incidental cystic renal lesion characterized as simple-appearing, is likely benign. No follow-up imaging is recommended for these lesions per consensus recommendations based on imaging criteria. Laboratory Results WBC 8.81 10^3/uL (3.29-11.43) 08/21/24 18:23 RBC 4.39 10^6/uL (3.85-5.65) 08/21/24 18:23 Hgb 13.30 g/dL (11.27-16.99) 08/21/24 18:23 Hct 42.1 % (36-47) 08/21/24 18:23 MCV 95.9 fl (85-98) 08/21/24 18:23 MCH 30.3 pg (27-33) 08/21/24 18: MCHC 31.6 g/dL (30-55) 08/21/24 18:23 RDW 14.2 % (12.1-15.1) 08/21/24 18:23 Plt Count 256 10^3/cmm (157-399) 08/21/24 18:23 MPV 11.2 fL (7.4-10.4) H 08/21/24 18:23 Neut % (Auto) 65.2 % 08/21/24 18:23 Lymph % (Auto) 24.5 % 08/21/24 18:23 Guthrie % (Auto) 7.3 % 08/21/24 18:23 Eos % (Auto) 2.2 % 08/21/24 18:23 Baso % (Auto) 0.6 % 08/21/24 18:23 Neut # (Auto) 5.75 10^3/uL (1.8-7.7) 08/21/24 18:23 Lymph # (Auto) 2.2 10^3/uL (0.8-4.8) 08/21/24 18:23 Guthrie # (Auto) 0.6 10^3/uL (0.2-0.9) 08/21/24 18:23 Eos # (Auto) 0.2 10^3/uL (0.0-0.8) 08/21/24 18:23 Baso # (Auto) 0.1 10^3/uL (0.0-0.1) 08/21/24 18:23 Nucleated RBC % (auto) 0 % 08/21/24 18:23 Nucleated RBCs # 0.0 /100WBC 08/21/24 18:23 Sodium 142 mmol/L (136-145) 08/21/24 18:23 Potassium 3.1 mmol/L (3.5-5.1) L 08/21/24 18:23 Chloride 109 mmol/L (98-107) H 08/21/24 18:23 Carbon Dioxide 20 mmol/L (22-29) L 08/21/24 18:23 Anion Gap 16.1 (5-19) 08/21/24 18:23 BUN 13 mg/dL (8-23) 08/21/24 18:23 Creatinine 0.8 mg/dL (0.5-0.9) 08/21/24 18:23 GFR Calculation Not Reportable 08/21/24 18:23 Glucose 114 mg/dL (65-115) 08/21/24 18:23 Calculated Osmolality 295 mOsm/kg (285-295) 08/21/24 18:23 Calcium 9.6 mg/dL (8.5-10.5) 08/21/24 18:23 Total Bilirubin 0.2 mg/dL (0.15-1.2) 08/21/24 18:23 AST 14 U/L (0-32) 08/21/24 18:23 ALT 15 U/L (0-33) 08/21/24 18:23 Alkaline Phosphatase 81 U/L (35-105) 08/21/24 18:23 Total Protein 6.7 g/dL (6.6-8.7) 08/21/24 18:23 Albumin 4.0 g/dL (3.5-5.2) 08/21/24 18:23 Globulin 2.7 g/dL (1.3-4.6) 08/21/24 18:23 Lipase 21 U/L (13-60) 08/21/24 18:23 All radiology interpretation(s) finalized by discharge Discharge Plan Discharge Patient Disposition: Home Clinical Impression: Vomiting, Diarrhea Condition: Stable Prescriptions: New ondansetron 4 mg tablet,disintegrating 4 mg PO Q6H PRN (Reason: nausea and vomiting) Qty: 14 0RF diphenoxylate-atropine [Lomotil] 2.5-0.025 mg tablet 1 tab PO BID PRN (Reason: diarrhea) Qty: 7 0RF No Action quetiapine 50 mg tablet 100 mg PO BEDTIME mirtazapine 15 mg tablet 30 mg PO BEDTIME insulin lispro [Humalog KwikPen Insulin] 100 unit/mL insulin pen 5 unit SUBCUT TID propranolol 20 mg tablet 20 mg PO TID topiramate 50 mg tablet 100 mg PO BID omeprazole 20 mg capsule,delayed release(DR/EC) 20 mg PO DAILY ropinirole 1 mg tablet 2 mg PO DAILY montelukast 10 mg tablet 10 mg PO DAILY aspirin [Adult Low Dose Aspirin] 81 mg tablet,delayed release (DR/EC) 81 mg PO DAILY albuterol sulfate 2.5 mg /3 mL (0.083 %) solution for nebulization 2.5 mg INHALATION Q4H PRN (Reason: Shortness Of Breath) Rx Instructions: pt states she uses bid everyday and on bad days she uses tid Breo Ellipta 100-25 mcg/dose blister with device 1 inh INHALATION DAILY primidone 50 mg tablet 100 mg PO Q8H nitroglycerin [Nitrostat] 0.4 mg tablet, sublingual 0.4 mg SUBLINGUAL Q5M PRN (Reason: Chest Pain) Qty: 25 6RF Rx Instructions: do not exceed 3 doses per episode methocarbamol 750 mg tablet 750 mg PO BID PRN (Reason: Muscle Spasm) ascorbate calcium (vitamin C) 500 mg tablet 500 mg PO DAILY Nurtec ODT 75 mg tablet,disintegrating 75 mg PO DAILY hydrocodone-acetaminophen 5-325 mg tablet 1 - 2 tab PO Q4H PRN (Reason: Pain) 3 Days Qty: 14 0RF Lantus Solostar U-100 Insulin 100 unit/mL (3 mL) insulin pen 47 unit SUBCUT DAILY Qty: 30 3RF (DME) FreeStyle Dasha 2 Sensor Kit See Rx Instructions .Route Qty: 6 3RF Rx Instructions: Change every 14 days. warfarin 6 mg tablet See Rx Instructions .ROUTE .COMPLEX Qty: 90 0RF Protocol: Dose Management Condition: Wednesday Dose/Route: 15 mg Instruction: 3 x 1 mg tablets, 2 x 6 mg tablets Condition: Wednesday Dose/Route: 15 mg Instruction: 3 x 1 mg tablets, 2 x 6 mg tablets Condition: Wednesday Dose/Route: 15 mg Instruction: 3 x 1 mg tablets, 2 x 6 mg tablets Condition: Wednesday Dose/Route: 15 mg Instruction: 3 x 1 mg tablets, 2 x 6 mg tablets Condition: Dose/Route: 12 mg Instruction: 2 x 6 mg tablets Condition: Wednesday Dose/Route: 15 mg Instruction: 3 x 1 mg tablets, 2 x 6 mg tablets Condition: Wednesday Dose/Route: 15 mg Instruction: 3 x 1 mg tablets, 2 x 6 mg tablets Protocol Text: Adjustment Start Date: Wednesday08/15/21 INR Value: 2.5 INR Date: 08/12/21 Recheck Date: 08/22/21 Dose Instruction: TAKE 1 TABLET BY MOUTH EVERY DAY DIRECTED Rx Instructions: TAKE 1 TABLET BY MOUTH EVERY DAY DIRECTED warfarin 10 mg tablet 5 mg PO DAILY Qty: 90 3RF Protocol: Dose Management Condition: Wednesday Dose/Route: 15 mg Instruction: 3 x 1 mg tablets, 2 x 6 mg tablets Condition: Wednesday Dose/Route: 15 mg Instruction: 3 x 1 mg tablets, 2 x 6 mg tablets Condition: Wednesday Dose/Route: 15 mg Instruction: 3 x 1 mg tablets, 2 x 6 mg tablets Condition: Wednesday Dose/Route: 15 mg Instruction: 3 x 1 mg tablets, 2 x 6 mg tablets Condition: Dose/Route: 12 mg Instruction: 2 x 6 mg tablets Condition: Wednesday Dose/Route: 15 mg Instruction: 3 x 1 mg tablets, 2 x 6 mg tablets Condition: Wednesday Dose/Route: 15 mg Instruction: 3 x 1 mg tablets, 2 x 6 mg tablets Protocol Text: Adjustment Start Date: Wednesday08/15/21 INR Value: 2.5 INR Date: 08/12/21 Recheck Date: 08/22/21 warfarin 10 mg tablet 10 mg PO DAILY Qty: 90 2RF Protocol: Dose Management Condition: Wednesday Dose/Route: 15 mg Instruction: 3 x 1 mg tablets, 2 x 6 mg tablets Condition: Wednesday Dose/Route: 15 mg Instruction: 3 x 1 mg tablets, 2 x 6 mg tablets Condition: Wednesday Dose/Route: 15 mg Instruction: 3 x 1 mg tablets, 2 x 6 mg tablets Condition: Wednesday Dose/Route: 15 mg Instruction: 3 x 1 mg tablets, 2 x 6 mg tablets Condition: Dose/Route: 12 mg Instruction: 2 x 6 mg tablets Condition: Wednesday Dose/Route: 15 mg Instruction: 3 x 1 mg tablets, 2 x 6 mg tablets Condition: Wednesday Dose/Route: 15 mg Instruction: 3 x 1 mg tablets, 2 x 6 mg tablets Protocol Text: Adjustment Start Date: Wednesday08/15/21 INR Value: 2.5 INR Date: 08/12/21 Recheck Date: 08/22/21 Rx Instructions: Take one tab as directed per INR results sotalol 80 mg tablet 80 mg PO BID@0900,2100 Qty: 240 3RF Rx Instructions: take 1 1/2 tabs in AM and take 1 tab in PM warfarin 1 mg tablet 1 mg PO DAILY Qty: 90 3RF Protocol: Dose Management Condition: Wednesday Dose/Route: 15 mg Instruction: 3 x 1 mg tablets, 2 x 6 mg tablets Condition: Wednesday Dose/Route: 15 mg Instruction: 3 x 1 mg tablets, 2 x 6 mg tablets Condition: Wednesday Dose/Route: 15 mg Instruction: 3 x 1 mg tablets, 2 x 6 mg tablets Condition: Wednesday Dose/Route: 15 mg Instruction: 3 x 1 mg tablets, 2 x 6 mg tablets Condition: Dose/Route: 12 mg Instruction: 2 x 6 mg tablets Condition: Wednesday Dose/Route: 15 mg Instruction: 3 x 1 mg tablets, 2 x 6 mg tablets Condition: Wednesday Dose/Route: 15 mg Instruction: 3 x 1 mg tablets, 2 x 6 mg tablets Protocol Text: Adjustment Start Date: Wednesday08/15/21 INR Value: 2.5 INR Date: 08/12/21 Recheck Date: 08/22/21 isosorbide mononitrate 60 mg tablet extended release 24 hr 60 mg PO DAILY Qty: 60 1RF sulfamethoxazole-trimethoprim 800-160 mg tablet See Rx Instructions .ROUTE .COMPLEX Qty: 90 1RF Dose Instruction: TAKE 1 TABLET BY MOUTH EVERYDAY AT BEDTIME Rx Instructions: TAKE 1 TABLET BY MOUTH EVERYDAY AT BEDTIME furosemide 40 mg tablet 80 mg PO QAM Mag-Zinc Tablet 2 tab PO BEDTIME atorvastatin 40 mg Tablet 40 mg PO BEDTIME Qty: 90 0RF sumatriptan succinate 50 mg tablet See Rx Instructions .ROUTE .COMPLEX Qty: 4 0RF Rx Instructions: take 1 tab at onset of headache; if no relief may repeat 1 tab after at least 2 hrs; max = 4 tabs/24 hr lidocaine 5 % adhesive patch,medicated 1 patch transdermal Q12H pregabalin 50 mg capsule 50 mg PO TID ciprofloxacin HCl 500 mg tablet 500 mg PO Q12H Qty: 20 0RF Discharge Orders: Discharge ED (Routine); Ordered 08/21/24 Ordered By: Marcus Cartwright Discharge Diet: Advance as tolerated Discharge Activity: Resume usual activity Patient Instructions: Diarrhea - Adult, Acute Nausea and Vomiting (ED) Print Language: Ecuadorean Coding Level of Care Code ED Stack Clerk for Marva Leong
[2024-08-21] MEDS: sodium chloride 0.9% 1,000 ML 999 ML IV (19:50)
[2024-08-21] MEDS: ondansetron 2 mg/ML SDV 2 mL 4 MG IVP (19:52)
[2024-08-21 20:05] VITALS: RESP 18
[2024-08-21] MEDS: morphine 4 mg/mL SDV 1 mL IVP (20:05)
[2024-08-21] MEDS: diphenoxylate/atropine Tablet 2 TAB PO (20:06)
[2024-08-21 20:23] VITALS: O2SAT 98
[2024-08-21] MEDS: iohexol 350 mg/mL 500 mL Btl (per mL) IV (20:49)
[2024-08-21] MEDS: potassium chloride ER 20 mEq Tablet 80 MEQ PO (21:29)
[2024-08-21 21:44] VITALS: BP 141/66; PULSE 61; O2SAT 97
== END 2024-08-21 21:46 | disposition home or self-care (01) ==
PROVIDERS: Emergency Provider Emergency Medicine
DX: R11.10 Vomiting, unspecified (principal); R19.7 Diarrhea, unspecified; Z79.82 Long term (current) use of aspirin; Z79.01 Long term (current) use of anticoagulants; Z85.89 Personal history of malignant neoplasm of other organs and systems; E78.5 Hyperlipidemia, unspecified; E11.9 Type 2 diabetes mellitus without complications; I11.0 Hypertensive heart disease with heart failure; I50.30 Unspecified diastolic (congestive) heart failure; Z85.118 Personal history of other malignant neoplasm of bronchus and lung
CPT/HCPCS: 36415; 74177; 80053; 83690; 85025; 96361; 96374; 96375; 99285; J2270; J2405; J7030; J9999

== ENCOUNTER 2024-09-22 13:50 | Outpatient (CLI) | payer MEDICARE, SELFPAY ==
[2024-09-22 15:28] LABS: Hematocrit 42.4 % (36-47); Hemoglobin 14.50 g/dL (11.27-16.99); Mean Corpuscular HGB Conc 34.2 g/dL (30-55); Mean Corpuscular Hemoglobin 31.4 pg (27-33); Mean Corpuscular Volume 91.8 fl (85-98); Nucleated Red Blood Cells % 0 %; Platelet Count 282 10^3/cmm (157-399); Red Blood Count 4.62 10^6/uL (3.85-5.65); White Blood Count 7.71 10^3/uL (3.29-11.43)
[2024-09-22 15:40] LABS: Alanine Aminotransferase 12 U/L (0-33); Albumin Level 4.4 g/dL (3.5-5.2); Alkaline Phosphatase 97 U/L (35-105); Anion Gap 18.4 (5-19); Aspartate Amino Transferase 12 U/L (0-32); Blood Urea Nitrogen 27 mg/dL (8-23); Calcium 10.1 mg/dL (8.5-10.5); Carbon Dioxide 24 mmol/L (22-29); Chloride 103 mmol/L (98-107); Globulin 2.8 g/dL (1.3-4.6); Glucose 90 mg/dL (65-115); Osmolality Calculated 299 mOsm/kg (285-295); Potassium 3.4 mmol/L (3.5-5.1); Sodium 142 mmol/L (136-145); Thyroid Stimulating Hormone 1.54 uIU/mL (0.27-4.20); Total Protein 7.2 g/dL (6.6-8.7)
[2024-09-22 15:44] LABS: Calcium 10.4 mg/dL (8.5-10.5)
== END 2024-09-22 13:51 | disposition home or self-care (01) ==
LOC: LAB 13:57
PROVIDERS: PCP Family Medicine; Visit Provider Physician Assistant
DX: M81.0 Age-related osteoporosis without current pathological fracture (principal); R53.82 Chronic fatigue, unspecified
CPT/HCPCS: 36415; 80053; 82306; 82310; 83970; 84443; 85025

== ENCOUNTER 2024-09-27 13:57 | Outpatient (CLI) | payer MEDICARE, SELFPAY ==
--- NOTE | 2024-09-27 14:24 | XR_ITS ---
WS: [id number] SCREENING DEXA SCAN [facility] CLINICAL INFORMATION: OSTEOPOROSIS COMPARISON: 2019 FINDINGS: Left forearm bone density measures 0.713. This corresponds to a T score of -1.9 and Z score of 0.4. Right femoral neck bone mineral density measures 0.81. This corresponds to a T score -1.6 and Z score of -0.7. XR/XR DEXA axial skeleton* [id number] IMPRESSION: Osteopenia RIGHT femur. Osteopenia LEFT forearm Patient's FRAX calculated 10 year probability for major osteoporotic fracture i s 21.5% and osteoporotic hip fracture is 6.0%. Bone mineral density RIGHT femur increased 1.0%
== END 2024-09-27 13:58 | disposition home or self-care (01) ==
LOC: RAD 13:58
PROVIDERS: PCP Family Medicine; Visit Provider Physician Assistant
DX: Z13.820 Encounter for screening for osteoporosis (principal); M81.0 Age-related osteoporosis without current pathological fracture; M85.89 Other specified disorders of bone density and structure, multiple sites
CPT/HCPCS: 77080

== ENCOUNTER → 2024-11-08 09:35 | Outpatient (BNVA) | payer MEDICARE, SELFPAY | PROVIDERS: PCP Family Medicine; Visit Provider Surgery | DX: R19.7 Diarrhea, unspecified (principal) | CPT/HCPCS: 99204 ==

== ENCOUNTER 2024-11-09 10:48 | Outpatient (CLI) | payer MEDICARE, SELFPAY | END 2024-11-09 10:49 | disposition home or self-care (01) | LOC: LAB 10:49 | PROVIDERS: PCP Family Medicine; Visit Provider Surgery | DX: R19.7 Diarrhea, unspecified (principal) | CPT/HCPCS: 83630; 83993; 87177; 87209 ==

== ENCOUNTER 2024-11-23 07:43 | Day surgery (SDC) | payer MEDICARE, SELFPAY ==
--- NOTE | 2024-11-23 08:03 | ANES.PREANE2 ---
Pre-Anesthetic Assessment Height/Weight: Height 1.65 m Preop Diagnosis: screening Operation Date: 11/23/24 08:50 Proposed Procedures p Colonoscopy [id number] G0105 R19.7(Not Applicable) - Yanick Riddle MD Was Beta Lilia taken within 24 hours: Yes Was Clonidine taken within 24 hours: N/A Last Intake: 21:00 Social No alcohol and No tobacco Airway Submandibular: within normal limits Cervical ROM: within normal limits Mallampati: Class III Dentition: other History/ROS No significant history except as noted Pulmonary Asthma CV/HEM Atrial Fibrillation and Myocardial Infarction GI Gastroesophageal Reflux Disease Metabolic Diabetes Mellitus Anesthetic Plan ASA status: 3 Anesthesia: MAC Risk of > 500 ml blood loss (7ml/kg in children): No Medications/Allergies Home Medications ?Medication ?Instructions ?Recorded ?Confirmed ?Last Taken ?Type albuterol sulfate 2.5 mg/3 mL 2.5 mg inhalation Q4H PRN 07/26/19 11/21/24 11/21/24 History (0.083 %) solution for nebulization Shortness Of Breath aspirin 81 mg tablet,delayed 81 mg PO DAILY 07/26/19 11/21/24 11/19/24 History release (Adult Low Dose Aspirin) fluticasone furoate 100 1 inh inhalation DAILY 07/26/19 11/21/24 11/21/24 History mcg-vilanterol 25 mcg/dose inhalation powder (Breo Ellipta) montelukast 10 mg tablet 10 mg PO DAILY 07/26/19 11/21/24 11/21/24 History omeprazole 20 mg capsule,delayed 20 mg PO DAILY 07/26/19 11/21/24 11/21/24 History release primidone 50 mg tablet 300 mg PO BEDTIME 07/26/19 11/21/24 11/20/24 History ropinirole 1 mg tablet 2 mg PO DAILY 07/26/19 11/21/24 11/21/24 History quetiapine 50 mg tablet (Seroquel) 100 mg PO BEDTIME 10/24/19 11/21/24 11/20/24 History furosemide 40 mg tablet 120 mg PO QAM 11/08/19 11/21/24 11/21/24 History nitroglycerin 0.4 mg sublingual 0.4 mg sublingual Q5M PRN Chest 05/20/20 11/21/24 Unknown Rx tablet (Nitrostat) Pain #25 tabs methocarbamol 750 mg tablet 750 mg PO BID PRN Muscle Spasm 07/30/20 11/21/24 11/21/24 History ascorbate calcium (vitamin C) 500 500 mg PO DAILY 09/05/20 11/21/24 11/21/24 History mg tablet mirtazapine 15 mg tablet 30 mg PO BEDTIME 11/25/20 11/21/24 11/20/24 History insulin lispro 100 unit/mL See Rx Instructions .Route .COMPLEX 06/06/21 11/21/24 11/21/24 History subcutaneous pen (Humalog KwikPen (U-100) Insulin) rimegepant 75 mg disintegrating 75 mg PO DAILY PRN Migraine 06/06/21 11/21/24 Unknown History tablet (Nurtec ODT) Headache topiramate 50 mg tablet 100 mg PO BID 06/06/21 11/21/24 11/21/24 History flash glucose sensor (FreeStyle #6 ea 06/26/21 11/08/24 Unknown Rx Dasha 2 Sensor kit) sotalol 80 mg tablet 80 mg PO BID@0900,2100 #240 tabs 07/30/21 11/21/24 11/21/24 Rx ondansetron 4 mg disintegrating 4 mg PO Q6H PRN nausea and 08/21/24 11/21/24 Unknown Rx tablet vomiting #14 tabs rivaroxaban 2.5 mg tablet (Xarelto) 2.5 mg PO BID 11/08/24 11/21/24 11/20/24 History baclofen 10 mg tablet 10 mg PO TID PRN Muscle Spasm 11/21/24 11/21/24 11/21/24 History insulin glargine 100 unit/mL (3 54 unit SUBCUT DAILY 11/21/24 11/21/24 11/20/24 History mL) subcutaneous pen (Lantus Solostar U-100 Insulin) nitrofurantoin 100 mg PO DAILY 11/21/24 11/21/24 11/21/24 History monohydrate/macrocrystals 100 mg capsule Allergies Allergy/AdvReac Type Severity Reaction Status Date / Time budesonide Allergy PT STATES Verified 11/21/24 11:26 IT CAUSED PARALISIS metformin Allergy N/V Verified 11/21/24 11:26 penicillin V Allergy HIVES. Verified 11/21/24 11:26 ITCHING propoxyphene (From Allergy HIVES. Verified 11/21/24 11:26 Darvocet-N) SWELLING streptomycin AdvReac ITCHING/ Verified 11/21/24 11:26 SWELLING [facility] Anesthesia Medical History History of primary small cell carcinoma of lung After cataract, bilateral MEIR (obstructive sleep apnea) Tremor Ureter, calculus History of hematuria History of throat cancer Hx of ovarian cancer History of kidney stones Recurrent UTI Essential hypertension Diastolic heart failure Bilateral lower extremity edema Hx of small bowel obstruction GERD (gastroesophageal reflux disease) Hyperlipidemia Migraines History of stroke Diabetes mellitus SVT (supraventricular tachycardia) Atrial fibrillation Surgical History History of colon resection S/P hysterectomy Family History Sister Asthma Brother Asthma Cancer Grandmother Asthma Father Cancer Emphysema lung Social History Smoking and tobacco/nicotine status: never used tobacco/nicotine Second hand smoke exposure: Yes Alcohol intake: never Substance/Drug Use: never Lives independently: Yes Household members: spouse Marital status: Current occupational status: retired Data Anesthesia Cardiac Studies: Echocardiogram 04/01/21 Holter Monitor 12/13/19
[2024-11-23 08:07] VITALS: BP 155/87; PULSE 61; RESP 18; TEMP 36.3; O2SAT 97; BMI 35.7
--- NOTE | 2024-11-23 08:27 | P.HPUD_ITS ---
Surgery/Procedure H&P Update DATE OF PROCEDURE: November 23, 2024 DATE H&P PERFORMED: 11/08/24 H&P UPDATE INFORMATION: I have reviewed H&P completed within last 30 days, I have examined patient prior to procedure, No changes to prior documentation, H&P is in [facility] EMR on date indicated and Risks and benefits of the procedure reviewed PREOP DIAGNOSIS: screening PLANNED PROCEDURE: Operation Date: 11/23/24 08:50 Proposed Procedures p Colonoscopy 64026 G0105 R19.7(Not Applicable) - Yanick Riddle MD
[2024-11-23 09:07] VITALS: BP 120/69; PULSE 60; RESP 18; TEMP 36.3; O2SAT 95
[2024-11-23 09:20] VITALS: BP 114/69; PULSE 60; RESP 18; O2SAT 96
--- NOTE | 2024-11-23 09:39 | PC.NURSE ---
pt sat up on side of bed. complained of real dizzy and feel funny . pt laid back down. blood sugar 118. pt requesting coffee and crackers.
[2024-11-23 09:40] VITALS: BP 110/7; PULSE 59; RESP 18; O2SAT 97
[2024-11-23 10:02] VITALS: BP 143/78; PULSE 69; RESP 18; O2SAT 99
--- NOTE | 2024-11-23 10:05 | ANE.PACU2 ---
Inpatient post-anesthesia follow up: Airway intact: Yes Vital signs: Temperature 97.4 F Pulse Rate 69 Respiratory Rate 18 Blood Pressure 143/78 Pulse Oximetry 99 Oxygen Delivery Me thod Room Air Oxygen Flow Rate Fraction of Inspir ed Oxygen Hydration adequate: Yes Nausea and vomiting: No Pain level: 1 Mental status: Baseline
== END 2024-11-23 10:07 | disposition home or self-care (01) ==
PROVIDERS: PCP Family Medicine; Visit Provider Surgery
PROC: 0DJD8ZZ Inspection of Lower Intestinal Tract, Via Natural or Artificial Opening Endoscopic (ICD-10-PCS; CPT 45378; principal; 2024-11-23 08:50)
DX: R19.7 Diarrhea, unspecified (principal); K57.30 Diverticulosis of large intestine without perforation or abscess without bleeding; K52.832 Lymphocytic colitis; Z79.82 Long term (current) use of aspirin; Z79.4 Long term (current) use of insulin; K21.9 Gastro-esophageal reflux disease without esophagitis; G47.33 Obstructive sleep apnea (adult) (pediatric); I11.0 Hypertensive heart disease with heart failure; I50.30 Unspecified diastolic (congestive) heart failure; Z85.43 Personal history of malignant neoplasm of ovary; Z85.12 Personal history of malignant neoplasm of trachea; E78.5 Hyperlipidemia, unspecified; E11.9 Type 2 diabetes mellitus without complications; I47.10 Supraventricular tachycardia, unspecified; Z86.73 Personal history of transient ischemic attack (TIA), and cerebral infarction without residual deficits; I25.2 Old myocardial infarction; I48.91 Unspecified atrial fibrillation; J45.909 Unspecified asthma, uncomplicated
CPT/HCPCS: 36416; 45380; 82962; 88305; J2704; J7030

== ENCOUNTER → 2024-12-19 10:04 | Outpatient (BNVA) | payer MEDICARE, SELFPAY | PROVIDERS: PCP Family Medicine; Visit Provider Surgery | DX: Z09 Encounter for follow-up examination after completed treatment for conditions other than malignant neoplasm (principal); K52.832 Lymphocytic colitis; R03.0 Elevated blood-pressure reading, without diagnosis of hypertension | CPT/HCPCS: 99214 ==

== ENCOUNTER 2025-01-12 12:23 | Observation (INO) | payer MEDICARE, SELFPAY ==
[2025-01-12] VITALS (12 sets, daily range): BP systolic 105–138; BP diastolic 58–73; PULSE 54–65; RESP 16–22; TEMP 36.4–36.7; O2SAT 90–100; BMI 36.2; BMI 38.6
--- NOTE | 2025-01-12 12:26 | XR_ITS ---
WS: [id number] Exam: XR hip LT 2-3V wo/w pel* [id number] Date/Time of Exam: 01/12/2025 12:51 PM Reason For Exam: pain Total hip arthroplasty is in satisfactory position. No sign of loosening or fracture. Normal soft tissues. XR/XR hip LT 2-3V wo/w pel* [id number] IMPRESSION: 1. Stable appearing LEFT total hip arthroplasty.
--- NOTE | 2025-01-12 12:27 | CT_ITS ---
WS: [id number] CT CERVICAL SPINE HISTORY: trauma TECHNIQUE: Contiguous 2.0 mm axial imaging performed through the entire cervical spine. Sagittal and coronal reformats also performed. All CT scans at [facility] use at least one of these dose optimization techniques: automated exposure control; mA and/or kV adjustment per patient size (includes targeted exams where dose is matched to clinical indication); or iterative reconstruction. DLP: 1503.74 mGy.cm COMPARISON: 06/08/2016 Straightening of the normal cervical lordosis. Disc spaces are narrowed. Small endplate osteophytes at C5, C6 and C7. Facet joints are normally aligned. No fractures. Lateral masses of C1 and C2 are aligned. The odontoid is intact. Normal craniocervical junction. C2-C3: Normal. C3-C4: Small foraminal osteophytes. Very mild LEFT foraminal stenosis and mild facet arthritis. C4-C5: Mild osteophytic ridging and facet arthritis. Mild bilateral foraminal stenosis. C5-C6: Bilateral facet arthritis. Moderate to severe LEFT foraminal stenosis. C6-C7: Osteophytic ridging. Central disc osteophyte complex encroaching upon the ventral thecal sac. Mild central and moderate LEFT foraminal stenosis. C7-T1: No significant stenosis. Lung apices are clear. Calcification in the cervical carotid arteries near the bifurcations. CT/CT cervical spin wo con* [id number] IMPRESSION: 1. No acute cervical spine fracture. 2. Degenerative disc disease and cervical spondylosis at multiple levels. 3. Foraminal stenosis as described above, most significant on the LEFT at C5-6 .
--- NOTE | 2025-01-12 12:27 | CT_ITS ---
WS: [id number] CT HEAD NONCONTRAST HISTORY: trauma TECHNIQUE: Contiguous axial imaging performed through the brain. Bone and soft tissue windows. Sagittal and coronal reformats reviewed. All CT scans at [facility] use at least one of these dose optimization techniques: automated exposure control; mA and/or kV adjustment per patient size (includes targeted exams where dose is matched to clinical indication); or iterative reconstruction. DLP: 1503.74 mGy.cm COMPARISON: 03/14/2024 No acute intracranial hemorrhage, midline shift or mass effect. Mild cerebral and cerebellar atrophy and small vessel changes. No infarct. Ventricles: Normal size with no hydrocephalus. No inferior displacement of the cerebellar tonsils. Paranasal sinuses: As visualized are clear. Mastoid air cells: Well pneumatized. Calvarium and scalp: Hyperostosis frontalis interna. No skull fracture identified. No scalp edema. CT/CT head wo con* [id number] IMPRESSION: 1. No acute intracranial hemorrhage or edema. 2. Mild cerebral and cerebellar atrophy and mild small vessel disease is stabl e. 3. No skull fracture.
--- NOTE | 2025-01-12 12:48 | ECG_ITS ---
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 Measurements Intervals [place] Rate: 56 P: -63 MO: 179 QRS: -34 QRSD: 140 T: 36 QT: 501 QTc: 485 Interpretive Statements SINUS BRADYCARDIA WITH OCCASIONAL SUPRAVENTRICULAR PREMATURE COMPLEXES LEFT AXIS DEVIATION [QRS AXIS < -30] INTRAVENTRICULAR CONDUCTION DELAY [130+ ms QRS DURATION] POSSIBLE LEFT VENTRICULAR HYPERTROPHY [VOLTAGE CRITERIA PLUS LAE OR QRS WIDENING] POSSIBLE SEPTAL MYOCARDIAL INFARCTION , PROBABLY OLD [30 ms Q WAVE IN V1/V2] PROBABLE LATERAL MYOCARDIAL INFARCTION , PROBABLY OLD [35 ms Q WAVE IN I/aVL/V5/V6] Compared to ECG 03/14/2024 18:09:37 Left-axis deviation now present Intraventricular conduction delay now present Myocardial infarct finding still present Electronically Signed On 01-12-2025 19:42:55 TAPE CONTROL SKIN OR SPAR MILL OPERATOR by Dony Simons M.D. [email or web address]
--- NOTE | 2025-01-12 13:10 | W.ED.EXTPRO ---
HPI - Extremity Problem General: Chief complaint: Extremity Injury, Lower Stated complaint: fall- hip pain Time Seen by Provider: 01/12/25 12:26 History of Present Illness: 74-year-old female had a unprovoked syncopal episode while walking outside of a convenience store she was returned color and suddenly collapsed. She thinks she hit her head she has not had any vomiting. She is on Xarelto for atrial fibrillation. She denies chest pain or shortness of breath at this time. She has previously had syncopal episodes in the past oh unprovoked not had a full evaluation form previously Related Data Home Medications ?Medication ?Instructions ?Recorded ?Confirmed albuterol sulfate 2.5 mg/3 mL 2.5 mg inhalation Q4H PRN 07/26/19 12/19/24 (0.083 %) solution for nebulization Shortness Of Breath aspirin 81 mg tablet,delayed 81 mg PO DAILY 07/26/19 12/19/24 release (Adult Low Dose Aspirin) fluticasone furoate 100 1 inh inhalation DAILY 07/26/19 12/19/24 mcg-vilanterol 25 mcg/dose inhalation powder (Breo Ellipta) montelukast 10 mg tablet 10 mg PO DAILY 07/26/19 12/19/24 omeprazole 20 mg capsule,delayed 20 mg PO DAILY 07/26/19 12/19/24 release primidone 50 mg tablet 300 mg PO BEDTIME 07/26/19 12/19/24 ropinirole 1 mg tablet 2 mg PO BEDTIME 07/26/19 12/19/24 quetiapine 50 mg tablet (Seroquel) 100 mg PO BEDTIME 10/24/19 12/19/24 furosemide 40 mg tablet 120 mg PO QAM 11/08/19 12/19/24 methocarbamol 750 mg tablet 750 mg PO BID PRN Muscle Spasm 07/30/20 12/19/24 ascorbate calcium (vitamin C) 500 500 mg PO DAILY 09/05/20 12/19/24 mg tablet mirtazapine 15 mg tablet 30 mg PO BEDTIME 11/25/20 12/19/24 insulin lispro 100 unit/mL See Rx Instructions .Route .COMPLEX 06/06/21 12/19/24 subcutaneous pen (Humalog KwikPen (U-100) Insulin) rimegepant 75 mg disintegrating 75 mg PO DAILY PRN Migraine 06/06/21 12/19/24 tablet (Nurtec ODT) Headache topiramate 50 mg tablet 100 mg PO BID 06/06/21 12/19/24 rivaroxaban 2.5 mg tablet (Xarelto) 2.5 mg PO BID 11/08/24 12/19/24 baclofen 10 mg tablet 10 mg PO TID PRN Muscle Spasm 11/21/24 12/19/24 insulin glargine 100 unit/mL (3 54 unit SUBCUT BEDTIME 11/21/24 12/19/24 mL) subcutaneous pen (Lantus Solostar U-100 Insulin) nitrofurantoin 100 mg PO DAILY 11/21/24 12/19/24 monohydrate/macrocrystals 100 mg capsule Previous Rx's ?Medication ?Instructions ?Recorded nitroglycerin 0.4 mg sublingual 0.4 mg sublingual Q5M PRN Chest 05/20/20 tablet (Nitrostat) Pain #25 tabs flash glucose sensor (FreeStyle #6 ea 06/26/21 Dasha 2 Sensor kit) sotalol 80 mg tablet 80 mg PO BID@0900,2100 #240 tabs 07/30/21 ondansetron 4 mg disintegrating 4 mg PO Q6H PRN nausea and 08/21/24 tablet vomiting #14 tabs budesonide 6 mg capsule,extended 6 mg PO DAILY 3 weeks #21 caps 12/19/24 release Allergies Allergy/AdvReac Type Severity Reaction Status Date / Time budesonide Allergy PT STATES Verified 12/19/24 10:05 IT CAUSED PARALISIS metformin Allergy N/V Verified 12/19/24 10:05 penicillin V Allergy HIVES. Verified 12/19/24 10:05 ITCHING propoxyphene (From Allergy HIVES. Verified 12/19/24 10:05 Darvocet-N) SWELLING streptomycin AdvReac ITCHING/ Verified 12/19/24 10:05 SWELLING PFSH ED PFSH: Medical History History of primary small cell carcinoma of lung After cataract, bilateral MEIR (obstructive sleep apnea) Tremor Ureter, calculus History of hematuria History of throat cancer Hx of ovarian cancer History of kidney stones Recurrent UTI Essential hypertension Diastolic heart failure Bilateral lower extremity edema Hx of small bowel obstruction GERD (gastroesophageal reflux disease) Hyperlipidemia Migraines History of stroke Diabetes mellitus SVT (supraventricular tachycardia) Atrial fibrillation Surgical History History of colon resection S/P hysterectomy Family History Sister Asthma Brother Asthma Cancer Grandmother Asthma Father Cancer Emphysema lung Social History Smoking and tobacco/nicotine status: never used tobacco/nicotine Second hand smoke exposure: Yes Alcohol intake: never Substance/Drug Use: never Lives independently: Yes Household members: spouse Marital status: Current occupational status: retired Course Vital Signs: Vital signs: Vital Signs Temperature 98.1 F 01/12/25 12:37 Pulse Rate 57 L 01/12/25 14:20 Respiratory Rate 20 H 01/12/25 13:33 Blood Pressure 138/65 01/12/25 14:20 Pulse Oximetry 92 01/12/25 14:20 Oxygen Delivery Me thod Room Air 01/12/25 14:20 MDM - Extremity (Nontraumatic) Lab Data 01/12/25 13:53 01/12/25 12:47 Radiology Impressions Hip/Pelvis X-Ray 01/12/25 12:26 IMPRESSION: 1. Stable appearing LEFT total hip arthroplasty. Cervical Spine CT 01/12/25 12:27 IMPRESSION: 1. No acute cervical spine fracture. 2. Degenerative disc disease and cervical spondylosis at multiple levels. 3. Foraminal stenosis as described above, most significant on the LEFT at C5-6. Head CT 01/12/25 12:27 IMPRESSION: 1. No acute intracranial hemorrhage or edema. 2. Mild cerebral and cerebellar atrophy and mild small vessel disease is stable. 3. No skull fracture. Laboratory Results WBC 9.94 10^3/uL (3.29-11.43) 01/12/25 13:53 Corrected WBC Cancelled 01/12/25 12:47 RBC 4.65 10^6/uL (3.85-5.65) 01/12/25 13:53 Hgb 14.20 g/dL (11.27-16.99) 01/12/25 13:53 Hct 44.8 % (36-47) 01/12/25 13:53 MCV 96.3 fl (85-98) 01/12/25 13:53 MCH 30.5 pg (27-33) 01/12/25 13:53 MCHC 31.7 g/dL (30-55) 01/12/25 13:53 RDW 12.9 % (12.1-15.1) 01/12/25 13:53 Plt Count 265 10^3/cmm (157-399) 01/12/25 13:53 MPV 11.2 fL (7.4-10.4) H 01/12/25 13:53 Gran % Cancelled 01/12/25 12:47 Neut % (Auto) 64.2 % 01/12/25 13:53 Lymph % (Auto) 25.8 % 01/12/25 13:53 Fleming % (Auto) 6.4 % 01/12/25 13:53 Eos % (Auto) 2.6 % 01/12/25 13:53 Baso % (Auto) 0.6 % 01/12/25 13:53 Neut # (Auto) 6.38 10^3/uL (1.8-7.7) 01/12/25 13:53 Lymph # (Auto) 2.6 10^3/uL (0.8-4.8) 01/12/25 13:53 Fleming # (Auto) 0.6 10^3/uL (0.2-0.9) 01/12/25 13:53 Eos # (Auto) 0.3 10^3/uL (0.0-0.8) 01/12/25 13:53 Baso # (Auto) 0.1 10^3/uL (0.0-0.1) 01/12/25 13:53 Absolute Gran (auto) Cancelled 01/12/25 12:47 Nucleated RBC % (auto) 0 % 01/12/25 13:53 Nucleated RBCs # 0.0 /100WBC 01/12/25 13:53 Sodium 141 mmol/L (136-145) 01/12/25 12:47 Potassium 3.9 mmol/L (3.5-5.1) 01/12/25 12:47 Chloride 104 mmol/L (98-107) 01/12/25 12:47 Carbon Dioxide 22 mmol/L (22-29) 01/12/25 12:47 Anion Gap 18.9 (5-19) 01/12/25 12:47 BUN 15 mg/dL (8-23) 01/12/25 12:47 Creatinine 0.7 mg/dL (0.5-0.9) 01/12/25 12:47 GFR Calculation Not Reportable 01/12/25 12:47 Glucose 111 mg/dL (65-115) 01/12/25 12:47 Calculated Osmolality 294 mOsm/kg (285-295) 01/12/25 12:47 Calcium 9.8 mg/dL (8.5-10.5) 01/12/25 12:47 Total Bilirubin 0.2 mg/dL (0.15-1.2) 01/12/25 12:47 AST 12 U/L (0-32) 01/12/25 12:47 ALT 16 U/L (0-33) 01/12/25 12:47 Alkaline Phosphatase 109 U/L (35-105) H 01/12/25 12:47 Troponin T Baseline 16 ng/L (0-10) H 01/12/25 12:47 Total Protein 6.5 g/dL (6.6-8.7) L 01/12/25 12:47 Albumin 4.4 g/dL (3.5-5.2) 01/12/25 12:47 Globulin 2.1 g/dL (1.3-4.6) 01/12/25 12:47 Discharge Plan Discharge Condition: Stable Prescriptions: No Action quetiapine [Seroquel] 50 mg tablet 100 mg PO BEDTIME mirtazapine 15 mg tablet 30 mg PO BEDTIME insulin lispro [Humalog KwikPen Insulin] 100 unit/mL insulin pen See Rx Instructions .ROUTE .COMPLEX Rx Instructions: 12 units in am, 10 units at noon, and 12 units in pm topiramate 50 mg tablet 100 mg PO BID omeprazole 20 mg capsule,delayed release(DR/EC) 20 mg PO DAILY ropinirole 1 mg tablet 2 mg PO BEDTIME montelukast 10 mg tablet 10 mg PO DAILY aspirin [Adult Low Dose Aspirin] 81 mg tablet,delayed release (DR/EC) 81 mg PO DAILY albuterol sulfate 2.5 mg /3 mL (0.083 %) solution for nebulization 2.5 mg INHALATION Q4H PRN (Reason: Shortness Of Breath) Rx Instructions: pt states she uses bid everyday and on bad days she uses tid Breo Ellipta 100-25 mcg/dose blister with device 1 inh INHALATION DAILY primidone 50 mg tablet 300 mg PO BEDTIME nitroglycerin [Nitrostat] 0.4 mg tablet, sublingual 0.4 mg SUBLINGUAL Q5M PRN (Reason: Chest Pain) Qty: 25 6RF Rx Instructions: do not exceed 3 doses per episode methocarbamol 750 mg tablet 750 mg PO BID PRN (Reason: Muscle Spasm) ascorbate calcium (vitamin C) 500 mg tablet 500 mg PO DAILY rivaroxaban [Xarelto] 2.5 mg tablet 2.5 mg PO BID budesonide 6 mg capsule, extended release 6 mg PO DAILY 21 Days Qty: 21 0RF Nurtec ODT 75 mg tablet,disintegrating 75 mg PO DAILY PRN (Reason: Migraine Headache) (DME) Free[employer]JumpSoft Dasha 2 Sensor Kit See Rx Instructions .Route Qty: 6 3RF Rx Instructions: Change every 14 days. sotalol 80 mg tablet 80 mg PO BID@0900,2100 Qty: 240 3RF Rx Instructions: take 1 1/2 tabs in AM and take 1 tab in PM furosemide 40 mg tablet 120 mg PO QAM ondansetron 4 mg tablet,disintegrating 4 mg PO Q6H PRN (Reason: nausea and vomiting) Qty: 14 0RF baclofen 10 mg tablet 10 mg PO TID PRN (Reason: Muscle Spasm) nitrofurantoin monohyd/m-cryst 100 mg capsule 100 mg PO DAILY insulin glargine [Lantus Solostar U-100 Insulin] 100 unit/mL (3 mL) insulin pen 54 unit SUBCUT BEDTIME Referrals: Chasidy Adhikari MD [Primary Care Provider, Family Practice] Print Language: Greenlandic Coding Level of Care Code ED Clinical Data Management Director for Marva Leong
[2025-01-12 13:15] LABS: Troponin(5th) Baseline 16 ng/L (0-10)
[2025-01-12 13:16] LABS: Alanine Aminotransferase 16 U/L (0-33); Albumin Level 4.4 g/dL (3.5-5.2); Alkaline Phosphatase 109 U/L (35-105); Anion Gap 18.9 (5-19); Aspartate Amino Transferase 12 U/L (0-32); Blood Urea Nitrogen 15 mg/dL (8-23); Calcium 9.8 mg/dL (8.5-10.5); Carbon Dioxide 22 mmol/L (22-29); Chloride 104 mmol/L (98-107); Globulin 2.1 g/dL (1.3-4.6); Glucose 111 mg/dL (65-115); Osmolality Calculated 294 mOsm/kg (285-295); Potassium 3.9 mmol/L (3.5-5.1); Sodium 141 mmol/L (136-145); Total Protein 6.5 g/dL (6.6-8.7)
[2025-01-12] MEDS: morphine 4 mg/mL SDV 1 mL IVP ×3 (13:33→22:57)
[2025-01-12 14:18] LABS: Hematocrit 44.8 % (36-47); Hemoglobin 14.20 g/dL (11.27-16.99); Mean Corpuscular HGB Conc 31.7 g/dL (30-55); Mean Corpuscular Hemoglobin 30.5 pg (27-33); Mean Corpuscular Volume 96.3 fl (85-98); Nucleated Red Blood Cells % 0 %; Platelet Count 265 10^3/cmm (157-399); Red Blood Count 4.65 10^6/uL (3.85-5.65); White Blood Count 9.94 10^3/uL (3.29-11.43)
[2025-01-12 14:44] LABS: Troponin 5 2HR 16.68 ng/L (0-10); Troponin 5 2HR Delta 0.68 ABS# (0-10)
--- NOTE | 2025-01-12 15:45 | ECG_ITS ---
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 Measurements Intervals [place] Rate: 58 P: -50 VA: 187 QRS: -39 QRSD: 133 T: 35 QT: 490 QTc: 482 Interpretive Statements SINUS BRADYCARDIA WITH SINUS ARRHYTHMIA LEFT AXIS DEVIATION [QRS AXIS < -30] INTRAVENTRICULAR CONDUCTION DELAY [130+ ms QRS DURATION] SEPTAL MYOCARDIAL INFARCTION , OF INDETERMINATE AGE [40+ ms Q WAVE IN V1/V2] Compared to ECG 01/12/2025 13:25:09 No significant changes Electronically Signed On 01-12-2025 19:43:22 INSPECTOR AND CLERK by Dony Simons M.D. [email or web address] [id number]
--- NOTE | 2025-01-12 16:03 | PC.NURSE ---
Patient transferred from ED to CSU via a bed at 1600.
--- NOTE | 2025-01-12 16:53 | PC.NURSE ---
Patients dexcom read 100 and accucheck ran 87.
[2025-01-12] MEDS: pantoprazole 40 mg SDV IVP (17:24)
[2025-01-12] MEDS: APIXABAN 2.5 MG TABLET PO (17:25)
--- NOTE | 2025-01-12 18:48 | ECG_ITS ---
[facility] Test Date: 2025-01-12 Pat Name: Nathaly Jiang Department: Room: 104 Gender: Female Overhauler: : 1950 Requested By: Dino Husain Order Number: [id number] Kranthi MD: Dony Simons M.D. Measurements Intervals [place] Rate: 61 P: 78 IN: 221 QRS: -42 QRSD: 139 T: 19 QT: 478 QTc: 483 Interpretive Statements SINUS RHYTHM WITH FIRST DEGREE AV BLOCK LEFT AXIS DEVIATION [QRS AXIS < -30] INTRAVENTRICULAR CONDUCTION DELAY [130+ ms QRS DURATION] VOLTAGE CRITERIA FOR LVH [MEETS CRITERIA IN ONE OF: R(aVL), S(V1), R(V5), R(V5/V6)+S(V1)] POSSIBLE SEPTAL MYOCARDIAL INFARCTION , PROBABLY OLD [30 ms Q WAVE IN V1/V2] Compared to ECG 01/12/2025 15:45:32 First degree AV block now present Left ventricular hypertrophy now present Sinus bradycardia no longer present Sinus arrhythmia no longer present Myocardial infarct finding still present Electronically Signed On 01-12-2025 19:43:11 YARN TEXTURING MACHINE OPERATOR by Dony Simons M.D. [id number] [id number]
[2025-01-12 19:06] LABS: Troponin 5 6HR 16.57 ng/L (0-10); Troponin 5 6HR Delta 0.57 ng/L (0-12)
--- NOTE | 2025-01-12 20:33 | ECG_ITS ---
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 Measurements Intervals [place] Rate: 62 P: 243 OR: 206 QRS: -41 QRSD: 109 T: -23 QT: 415 QTc: 424 Interpretive Statements SINUS RHYTHM WITH SINUS ARRHYTHMIA INCOMPLETE RIGHT BUNDLE BRANCH BLOCK [90+ ms QRS DURATION, TERMINAL R IN V1/V2, 40+ ms S IN I/aVL/V4/V5/V6] LEFT AXIS DEVIATION LEFT VENTRICULAR HYPERTROPHY [VOLTAGE CRITERIA PLUS LAE OR QRS WIDENING] Compared to ECG 01/12/2025 18:22:38 Incomplete right bundle-branch block now present First degree AV block no longer present Electronically Signed On 01-14-2025 15:34:09 FORKLIFT TRUCK MECHANIC by Colby Moses M.D. [email or web address]
--- NOTE | 2025-01-12 20:51 | PM.HP ---
Providers/Chief Complaint Admitting Physician: Julius Mixon MD Primary Care Provider: Chasidy Adhikari MD Chief Complaint: fall- hip pain History of Present Illness Nathaly Jiang is a 74 year old female with prior medical history of HTN, HLD, CVA, GERD, SBO, DM, heart failure, osteoarthritis atrial fibrillation, renal colic, kidney stones, recurrent UTI, migraines, and falls presenting with complaints of syncope. Patient reports that last night at this morning were normal. Today, she was out shopping and she made it through the store and back to the car when she had a syncopal episode and fell, injuring her left head and left hip on the concrete. Hip and head pain both rated 7/10. EMS was called and she was transported to [facility] ED. Daughter at bedside. Patient had back surgery in 11/2023 and hip surgery in 04/2024. In the ED, BP 125/73, HR 54, RR 17, T37.6, O2 95% on room air. WBC 9.94, Hgb 14.20, PLT 265. ALP 109, AST 12, ALT 16. Troponin baseline 16. Head CT; no acute intracranial hemorrhage or edema, no skull fracture, mild cerebral and cerebellar atrophy and mild small vessel disease, stable. CT cervical spine read; no acute cervical spine fracture, degenerative disc disease and cervical spondylosis at multiple levels, foraminal stenosis as described above or significant left C5-6. Left hip/pelvis x-ray; stable appearing left total hip arthroplasty. Review of Systems Const: Denies: fever(s), chills, change in weight or fatigue Eyes: Denies: change in vision Card: Denies: chest pain Resp: Denies: dyspnea GI: Reports: diarrhea; Denies: abdominal pain or hematochezia : Denies: dysuria Skin/Breast: Denies: rash, nipple discharge or breast mass Neuro: Denies: seizure-like activity Arnie/Lymph: Denies: easy bruising Medications/Allergies Home Medications ?Medication ?Instructions ?Recorded ?Confirmed ?Last Taken ?Type aspirin 81 mg tablet,delayed 81 mg PO DAILY 07/26/19 01/12/25 01/12/25 History release (Adult Low Dose Aspirin) fluticasone furoate 100 1 inh inhalation DAILY 07/26/19 01/12/25 11/22/24 History mcg-vilanterol 25 mcg/dose inhalation powder (Breo Ellipta) montelukast 10 mg tablet 10 mg PO DAILY 07/26/19 01/12/25 01/11/25 History omeprazole 20 mg capsule,delayed 20 mg PO DAILY 07/26/19 01/12/25 11/22/24 History release primidone 50 mg tablet See Rx Instructions .Route .COMPLEX 07/26/19 01/12/25 11/22/24 History ropinirole 1 mg tablet 2 mg PO BEDTIME 07/26/19 01/12/25 01/11/25 19:00 History quetiapine 50 mg tablet (Seroquel) 100 mg PO BEDTIME 10/24/19 01/12/25 01/11/25 20:00 History furosemide 40 mg tablet 120 mg PO QAM 11/08/19 01/12/25 01/12/25 08:00 History nitroglycerin 0.4 mg sublingual 0.4 mg sublingual Q5M PRN Chest 05/20/20 01/12/25 Unknown Rx tablet (Nitrostat) Pain #25 tabs methocarbamol 750 mg tablet 750 mg PO BID PRN Muscle Spasm 07/30/20 01/12/25 01/11/25 History ascorbate calcium (vitamin C) 500 500 mg PO DAILY 09/05/20 01/12/25 01/12/25 History mg tablet insulin lispro 100 unit/mL See Rx Instructions .Route .COMPLEX 06/06/21 01/12/25 11/21/24 History subcutaneous pen (Humalog KwikPen (U-100) Insulin) rimegepant 75 mg disintegrating 75 mg PO DAILY PRN Migraine 06/06/21 01/12/25 Unknown History tablet (Nurtec ODT) Headache topiramate 50 mg tablet 100 mg PO BID 06/06/21 01/12/25 01/12/25 09:00 History flash glucose sensor (FreeStyle #6 ea 06/26/21 01/12/25 Unknown Rx Dasha 2 Sensor kit) sotalol 80 mg tablet 80 mg PO BID@0900,2100 #240 tabs 07/30/21 01/12/25 01/12/25 08:00 Rx insulin glargine 100 unit/mL (3 54 unit SUBCUT BEDTIME 11/21/24 01/12/25 01/11/25 20:00 History mL) subcutaneous pen (Lantus Solostar U-100 Insulin) apixaban 2.5 mg tablet (Eliquis) 2.5 mg PO BID 01/12/25 01/12/25 01/12/25 08:00 History budesonide 3 mg 6 mg PO DAILY 01/12/25 01/12/25 01/12/25 08:00 History capsule,delayed,extended release Allergies Allergy/AdvReac Type Severity Reaction Status Date / Time budesonide Allergy PT STATES Verified 12/19/24 10:05 IT CAUSED PARALISIS metformin Allergy N/V Verified 12/19/24 10:05 penicillin V Allergy HIVES. Verified 12/19/24 10:05 ITCHING propoxyphene (From Allergy HIVES. Verified 12/19/24 10:05 Darvocet-N) SWELLING streptomycin AdvReac ITCHING/ Verified 12/19/24 10:05 SWELLING PFSH Acute PFSH: Medical History (Updated 01/12/25 @ 21:01 by Keisha Green, KAITLIN, BRASS MOLDER HELPER) History of primary small cell carcinoma of lung After cataract, bilateral MEIR (obstructive sleep apnea) Tremor Ureter, calculus History of hematuria History of throat cancer Hx of ovarian cancer History of kidney stones Recurrent UTI Essential hypertension Diastolic heart failure Bilateral lower extremity edema Hx of small bowel obstruction GERD (gastroesophageal reflux disease) Hyperlipidemia Migraines History of stroke Diabetes mellitus SVT (supraventricular tachycardia) Atrial fibrillation Surgical History History of colon resection S/P hysterectomy Family History Sister Asthma Brother Asthma Cancer Grandmother Asthma Father Cancer Emphysema lung Social History Smoking and tobacco/nicotine status: never used tobacco/nicotine Second hand smoke exposure: Yes Alcohol intake: never Substance/Drug Use: never Lives independently: Yes Household members: spouse Marital status: Current occupational status: retired Vitals/I&O/Wt Last Vital Signs Temp 97.6 F 01/12/25 16:05 Pulse 54 L 01/12/25 16:10 Resp 17 01/12/25 18:41 BP 125/73 01/12/25 16:10 Pulse Ox 95 01/12/25 18:41 O2 Del Method Room Air 01/12/25 16:10 01/12/25 01/12/25 01/12/25 06:59 14:59 22:59 Intake Total 240 / 240 Output Total 300 / 300 Balance -60 / -60 Weight last 48 hrs Weight 98.883 kg Physical Exam Const: COMMON NORMALS: no acute distress and patient oriented x3 HENMT: COMMON NORMALS: normocephalic Chest: COMMONS NORMALS: normal inspection of the chest Resp: COMMON NORMALS: normal respiratory effort Cardio: COMMON NORMALS: no JVD and regular rhythm GI: COMMON NORMALS: Normal to inspection, nondistended, normoactive bowel sounds present and Soft to palpation Neuro: COMMON NORMALS: patient oriented x3 and CN's II-XII intact bilaterally Psych: COMMON NORMALS: mental status grossly normal, Normal thought process present and cooperative Data 01/12/25 13:53 01/12/25 12:47 A&P Assessment and plan 1. Syncope and collapse: Head CT; no acute intracranial hemorrhage or edema, no skull fracture, mild cerebral and cerebellar atrophy and mild small vessel disease, stable Serial troponins - baseline 16 EKG Telemetry Fall risk precautions Pain management 2. Status post fall: CT cervical spine read; no acute cervical spine fracture, degenerative disc disease and cervical spondylosis at multiple levels, foraminal stenosis as described above or significant left C5-6 Left hip/pelvis x-ray; stable appearing left total hip arthroplasty. Fall risk precautions PT/OT prior to discharge 3. Diabetes mellitus: Glucose WNL A1c Hyperglycemia/hypoglycemia protocol 4. Migraine: Follows Neurology with [facility] Continue home medications 5. History of stroke: On home anticoagulation- continue PDMP PDMP Reviewed: Not Reviewed Attestations Medical Necessity Statement*: Continued hospitalization for < 2 midnights to monitor for syncope and collapse. Diagnoses Syncope and collapse R55 Status post fall Z91.81 Diabetes mellitus E11.9 Migraine G43.909 History of stroke Z86.73 Time Spent (min) 70
--- NOTE | 2025-01-12 20:59 | ECG_ITS ---
[employer] Test Date: 2025-01-12 Pat Name: Nathaly Jiang Department: Room: 104 Gender: Female Route Sales Specialist: : 1950 Requested By: Tyree Fraser Order Number: [id number] Crisostomo MD: Colby Moses M.D. Measurements Intervals [place] Rate: 62 P: 36 OK: 188 QRS: -37 QRSD: 142 T: 1 QT: 447 QTc: 457 Interpretive Statements SINUS RHYTHM LEFT AXIS DEVIATION [QRS AXIS < -30] INTRAVENTRICULAR CONDUCTION DELAY [130+ ms QRS DURATION] VOLTAGE CRITERIA FOR LVH [MEETS CRITERIA IN ONE OF: R(aVL), S(V1), R(V5), R(V5/V6)+S(V1)] POSSIBLE SEPTAL MYOCARDIAL INFARCTION , PROBABLY OLD [30 ms Q WAVE IN V1/V2] Compared to ECG 01/12/2025 20:34:58 NO SIGNIFICANT CHANGE Electronically Signed On 01-14-2025 16:38:48 INSPECTOR FIREARMS by Colby Moses M.D. [id number]
[2025-01-12 21:27] LABS: Troponin(5th) Baseline 16 ng/L (0-10)
[2025-01-12 23:19] LABS: Troponin 5 2HR 15.39 ng/L (0-10)
[2025-01-12 23:20] LABS: Troponin 5 2HR Delta -0.61 ABS# (0-10)
[2025-01-13] VITALS (9 sets, daily range): BP systolic 99–117; BP diastolic 50–79; PULSE 52–69; RESP 13–24; TEMP 36.1–36.8; O2SAT 88–96; BMI 38.5
[2025-01-13 03:26] LABS: Hematocrit 39.3 % (36-47); Hemoglobin 12.80 g/dL (11.27-16.99); Mean Corpuscular HGB Conc 32.6 g/dL (30-55); Mean Corpuscular Hemoglobin 30.7 pg (27-33); Mean Corpuscular Volume 94.2 fl (85-98); Nucleated Red Blood Cells % 0 %; Platelet Count 232 10^3/cmm (157-399); Red Blood Count 4.17 10^6/uL (3.85-5.65); White Blood Count 9.65 10^3/uL (3.29-11.43)
--- NOTE | 2025-01-13 03:28 | ECG_ITS ---
[email or web address] Date: 2025-01-13 Pat Name: Nathaly Jiang Department: Room: 104 Gender: Female Digital Controls Technical Officer: : 1950 Requested By: Tyree Fraser Order Number: [id number] Crisostomo MD: Colby Moses M.D. Measurements Intervals [place] Rate: 54 P: 72 [place]: 226 QRS: -37 QRSD: 153 T: -8 QT: 475 QTc: 454 Interpretive Statements SINUS BRADYCARDIA WITH SINUS ARRHYTHMIA WITH FIRST DEGREE AV BLOCK LEFT AXIS DEVIATION [QRS AXIS < -30] INTRAVENTRICULAR CONDUCTION DELAY [130+ ms QRS DURATION] POSSIBLE LATERAL MYOCARDIAL INFARCTION , OF INDETERMINATE AGE [30 ms Q WAVE IN I/aVL/V5/V6] LEFT VENTRICULAR HYPERTROPHY Compared to ECG 01/12/2025 20:59:32 First degree AV block now present Electronically Signed On 01-14-2025 16:31:08 PROGRAM MEDICAL DIRECTOR by Colby Moses M.D. [id number]
[2025-01-13 03:48] LABS: Troponin 5 6HR 14.62 ng/L (0-10)
[2025-01-13 03:50] LABS: Troponin 5 6HR Delta -1.38 ng/L (0-12)
[2025-01-13 03:52] LABS: Blood Urea Nitrogen 19 mg/dL (8-23); Calcium 9.5 mg/dL (8.5-10.5); Carbon Dioxide 26 mmol/L (22-29); Glucose 99 mg/dL (65-115); Magnesium 2.1 mg/dL (1.7-2.3)
[2025-01-13 04:07] LABS: Anion Gap 12.9 (5-19); Chloride 106 mmol/L (98-107); Osmolality Calculated 294 mOsm/kg (285-295); Potassium 3.9 mmol/L (3.5-5.1); Sodium 141 mmol/L (136-145)
[2025-01-13] MEDS: APIXABAN 2.5 MG TABLET PO (05:36)
[2025-01-13] MEDS: morphine 4 mg/mL SDV 1 mL IVP (07:43)
--- NOTE | 2025-01-13 09:56 | P.DS_ITS ---
Discharge Providers Date of Admission: 01/12/25 14:41 Date of Discharge: January 13, 2025 Attending Provider at Admission: Julius Mixon MD Attending Provider at Discharge: Katherine Reilly NP Primary Care Provider: Chasidy Adhikari MD Diagnoses at Discharge Discharge Diagnosis 1. Syncope and collapse: 2. Status post fall: 3. Type 2 diabetes mellitus with hyperglycemia, with long-term current use of i nsulin: 4. Migraine: 5. History of stroke: Reason for Visit Reason for Visit: fall- hip pain Brief History: Admission: Nathaly Jiang is a 74 year old female with prior medical history of HTN, HLD, CVA, GERD, SBO, DM, heart failure, osteoarthritis atrial fibrillation, renal colic, kidney stones, recurrent UTI, migraines, and falls presenting with complaints of syncope. Patient reports that last night at this morning were normal. Today, she was out shopping and she made it through the store and back to the car when she had a syncopal episode and fell, injuring her left head and left hip on the concrete. Hip and head pain both rated 7/10. EMS was called and she was transported to [facility] ED. Daughter at bedside. Patient had back surgery in 11/2023 and hip surgery in 04/2024. In the ED, BP 125/73, HR 54, RR 17, T37.6, O2 95% on room air. WBC 9.94, Hgb 14.20, PL T 265. ALP 109, AST 12, ALT 16. Troponin baseline 16. Head CT; no acute intracranial hemorrhage or edema, no skull fracture, mild cerebral and cerebellar atrophy and mild small vessel disease, stable. CT cervical spine read; no acute cervical spine fracture, degenerative disc disease and cervical spondylosis at multiple levels, foraminal stenosis as described above or significant left C5-6. Left hip/pelvis x-ray; stable appearing left total hip arthroplasty. Hospital Course Hospital Course 1. Syncope and collapse: Orthostatic hypotension Head CT; no acute intracranial hemorrhage or edema, no skull fracture, mild cerebral and cerebellar atrophy and mild small vessel disease, stable Serial troponins - baseline 16 - flat delta EKG Telemetry Fall risk precautions Pain management ECHO: Normal left ventricular size, systolic function and wall thickness with ejection fraction of 59 %. Normal right ventricular size and systolic function. No significant valvular abnormalities. 2. Status post fall: CT cervical spine read; no acute cervical spine fracture, degenerative disc disease and cervical spondylosis at multiple levels, foraminal stenosis as described above or significant left C5-6 Left hip/pelvis x-ray; stable appearing left total hip arthroplasty. Fall risk precautions PT/OT prior to discharge 3. Diabetes mellitus: Glucose WNL A1c Hyperglycemia/hypoglycemia protocol 4. Migraine: Follows Neurology with [facility] Continue home medications 5. History of stroke: On home anticoagulation- continue Patient had volume repletion with NS fluids, complete resolution of dizziness. Patient had no chest pain. Orthostatics completed, no change in blood pressure laying or standing, but sitting blood pressure reduced. Advised continued safe movements, to sit if she felt dizzy, and to give herself a minute to acclimate from laying to sitting to standing. Patient also advised to wear compressive stockings. Echo completed. Physical therapy and Occupational Therapy evaluation completed. Recommended continued use of walker outpatient, no further interventions recommended. Patient will follow-up outpatient with her r&d lab technician next week at previously scheduled appointment. Patient denies any symptoms at time of discharge. Discharge is in stable condition to follow-up with primary care provider in 1 to 2 days and cardiology at the next appointment. Physical Exam Const: COMMON NORMALS: no acute distress and patient oriented x3 HENMT: COMMON NORMALS: normocephalic HEAD & SCALP: normocephalic Neck/C-Spine: COMMON NORMALS: no JVD Chest: COMMONS NORMALS: normal inspection of the chest Resp: COMMON NORMALS: normal respiratory effort Cardio: COMMON NORMALS: no JVD and regular rhythm RHYTHM: regular rhythm GI: COMMON NORMALS: Normal to inspection, nondistended, normoactive bowel sounds present and Soft to palpation PALPATION: Yes Soft to palpation Neuro: COMMON NORMALS: patient oriented x3 and CN's II-XII intact bilaterally Psych: COMMON NORMALS: mental status grossly normal, Normal thought process present and cooperative THOUGHT PROCESS: Normal thought process present Discharge Data Studies Completed and Pending Completed Studies During Hospitalization Category Date Time Status CT cervical spin wo con* [id number] Stat Cat Scan 01/12/25 12:[address] head wo con* [id number] Stat Cat Scan 01/12/25 12:27 Completed XR hip LT 2-3V wo/w pel* [id number] Stat Exams 01/12/25 12:26 Completed Pending at discharge Category Date Time Status Basic Metabolic Panel AM LABS Lab 01/14/25 04:00 Ordered Basic Metabolic Panel AM LABS Lab 01/15/25 04:00 Ordered CV. echo complete* [id number] Routine Ultrasound 01/13/25 20:53 Taken Radiology Impressions Hip/Pelvis X-Ray 01/12/25 12:26 IMPRESSION: 1. Stable appearing LEFT total hip arthroplasty. Cervical Spine CT 01/12/25 12:27 IMPRESSION: 1. No acute cervical spine fracture. 2. Degenerative disc disease and cervical spondylosis at multiple levels. 3. Foraminal stenosis as described above, most significant on the LEFT at C5-6. Head CT 01/12/25 12:27 IMPRESSION: 1. No acute intracranial hemorrhage or edema. 2. Mild cerebral and cerebellar atrophy and mild small vessel disease is stable. 3. No skull fracture. Laboratory Results WBC 9.65 10^3/uL (3.29-11.43) 01/13/25 02:44 Corrected WBC Cancelled 01/12/25 12:47 RBC 4.17 10^6/uL (3.85-5.65) 01/13/25 02:44 Hgb 12.80 g/dL (11.27-16.99) 01/13/25 02:44 Hct 39.3 % (36-47) 01/13/25 02:44 MCV 94.2 fl (85-98) 01/13/25 02:44 MCH 30.7 pg (27-33) 01/13/25 02:44 MCHC 32.6 g/dL (30-55) 01/13/25 02:44 RDW 13.0 % (12.1-15.1) 01/13/25 02:44 Plt Count 232 10^3/cmm (157-399) 01/13/25 02:44 MPV 11.4 fL (7.4-10.4) H 01/13/25 02:44 Gran % Cancelled 01/12/25 12:47 Neut % (Auto) 57.4 % 01/13/25 02:44 Lymph % (Auto) 31.3 % 01/13/25 02:44 Alexander % (Auto) 7.2 % 01/13/25 02:44 Eos % (Auto) 3.4 % 01/13/25 02:44 Baso % (Auto) 0.4 % 01/13/25 02:44 Neut # (Auto) 5.54 10^3/uL (1.8-7.7) 01/13/25 02:44 Lymph # (Auto) 3.0 10^3/uL (0.8-4.8) 01/13/25 02:44 Alexander # (Auto) 0.7 10^3/uL (0.2-0.9) 01/13/25 02:44 Eos # (Auto) 0.3 10^3/uL (0.0-0.8) 01/13/25 02:44 Baso # (Auto) 0.0 10^3/uL (0.0-0.1) 01/13/25 02:44 Absolute Gran (auto) Cancelled 01/12/25 12:47 Nucleated RBC % (auto) 0 % 01/13/25 02:44 Nucleated RBCs # 0.0 /100WBC 01/13/25 02:44 Sodium 141 mmol/L (136-145) 01/13/25 02:44 Potassium 3.9 mmol/L (3.5-5.1) 01/13/25 02:44 Chloride 106 mmol/L (98-107) 01/13/25 02:44 Carbon Dioxide 26 mmol/L (22-29) 01/13/25 02:44 Anion Gap 12.9 (5-19) 01/13/25 02:44 BUN 19 mg/dL (8-23) 01/13/25 02:44 Creatinine 0.7 mg/dL (0.5-0.9) 01/13/25 02:44 GFR Calculation Not Reportable 01/13/25 02:44 Glucose 99 mg/dL (65-115) 01/13/25 02:44 POC Glucose 167 mg/dL (70-110) H 01/12/25 22:01 Calculated Osmolality 294 mOsm/kg (285-295) 01/13/25 02:44 Calcium 9.5 mg/dL (8.5-10.5) 01/13/25 02:44 Phosphorus 3.9 mg/dL (2.5-4.5) 01/13/25 02:44 Magnesium 2.1 mg/dL (1.7-2.3) 01/13/25 02:44 Total Bilirubin 0.2 mg/dL (0.15-1.2) 01/12/25 12:47 AST 12 U/L (0-32) 01/12/25 12:47 ALT 16 U/L (0-33) 01/12/25 12:47 Alkaline Phosphatase 109 U/L (35-105) H 01/12/25 12:47 Troponin T Baseline 16 ng/L (0-10) H 01/12/25 20:57 Troponin T 120 Minute 15.39 ng/L (0-10) H 01/12/25 22:50 Delta Troponin T -0.61 ABS# (0-10) L 01/12/25 22:50 Troponin T Hi Sens 6Hr 14.62 ng/L (0-10) H 01/13/25 02:44 Troponin T Hi Sens 6Hr Delta -1.38 ng/L (0-12) L 01/13/25 02:44 Total Protein 6.5 g/dL (6.6-8.7) L 01/12/25 12:47 Albumin 4.4 g/dL (3.5-5.2) 01/12/25 12:47 Globulin 2.1 g/dL (1.3-4.6) 01/12/25 12:47 Vitals Last Vital Signs Temp 96.9 F L 01/13/25 08:00 Pulse 61 01/13/25 08:59 Resp 20 H 01/13/25 08:59 BP 111/61 01/13/25 08:57 Pulse Ox 94 01/13/25 08:59 O2 Del Method Room Air 01/13/25 08:59 O2 Flow Rate 0.5 01/13/25 04:11 Discharge Plan Discharge Patient Disposition: Home Condition: Stable Prescriptions: Continued quetiapine [Seroquel] 50 mg tablet 100 mg PO BEDTIME insulin lispro [Humalog KwikPen Insulin] 100 unit/mL insulin pen See Rx Instructions .ROUTE .COMPLEX Rx Instructions: 12 units in am, 10 units at noon, and 12 units in pm topiramate 50 mg tablet 100 mg PO BID omeprazole 20 mg capsule,delayed release(DR/EC) 20 mg PO DAILY ropinirole 1 mg tablet 2 mg PO BEDTIME montelukast 10 mg tablet 10 mg PO DAILY aspirin [Adult Low Dose Aspirin] 81 mg tablet,delayed release (DR/EC) 81 mg PO DAILY Breo Ellipta 100-25 mcg/dose blister with device 1 inh INHALATION DAILY primidone 50 mg tablet See Rx Instructions .ROUTE .COMPLEX Rx Instructions: Take 2 tabs by mouth in the morning and 12 hours later 3tabs by mouth at bedtime . nitroglycerin [Nitrostat] 0.4 mg tablet, sublingual 0.4 mg SUBLINGUAL Q5M PRN (Reason: Chest Pain) Qty: 25 6RF Rx Instructions: do not exceed 3 doses per episode methocarbamol 750 mg tablet 750 mg PO BID PRN (Reason: Muscle Spasm) ascorbate calcium (vitamin C) 500 mg tablet 500 mg PO DAILY Nurtec ODT 75 mg tablet,disintegrating 75 mg PO DAILY PRN (Reason: Migraine Headache) (DME) FreeStyle Dasha 2 Sensor Kit See Rx Instructions .Route Qty: 6 3RF Rx Instructions: Change every 14 days. sotalol 80 mg tablet 80 mg PO BID@0900,2100 Qty: 240 3RF Rx Instructions: take 1 1/2 tabs in AM and take 1 tab in PM furosemide 40 mg tablet 120 mg PO QAM budesonide 3 mg capsule,delayed,extend.release 6 mg PO DAILY Eliquis 2.5 mg Tablet 2.5 mg PO BID insulin glargine [Lantus Solostar U-100 Insulin] 100 unit/mL (3 mL) insulin pen 54 unit SUBCUT BEDTIME Discharge Order = DC NOW: Discharge Order (Routine); Ordered 01/13/25 Ordered By: Katherine Reilly Referrals: Chasidy Adhikrai MD [Primary Care Provider, Family Practice] Referral Note: Please call the office on Wednesday to schedule a follow up appointment in the next 7-10 days Discharge Diet: Cardiac and Diabetic Patient Instructions: Syncope, Headache - Migraine (Adult), Opioid Safety, Stroke Stoplight, Patient Portal & Jonah Instructions Discharge Attestations Time Spent in Discharge Care*: greater than 30 min Quality Metrics Clinical Quality Measures [ No reported AMI, CVA or VTE this stay] Coding Level of Care Code 20543 Diagnoses Syncope and collapse R55 Status post fall Z91.81 Type 2 diabetes mellitus with hyperglycemia, with long-term current use of insulin E11.65; Z79.4 Diabetes mellitus complication status: with hyperglycemia Diabetes mellitus terminal operations supervisor insulin use: with terminal operations supervisor use Diabetes mellitus type: type 2 Migraine G43.909 History of stroke Z86.73
--- NOTE | 2025-01-13 20:53 | USCV_ITS ---
Nathaly Jiang Age: 74 Gender: F : 1950 Exam Date: 01/13/2025 06:52 Ordering Phys: Tyree Fraser MD Technologist: HUMERA Exam Location: [facility] [place] Indication: sob BP: 106 / 59 HR: 59 Rhythm: Sinus Technical Quality: Adequate MEASUREMENTS (Male / Female) Normal Values 2D ECHO LV Diastolic Diameter PLAX 4.1 cm 4.2 - 5.9 / 3.9 - 5.3 cm IVS Diastolic Thickness 0.9 cm 0.6 - 1.0 / 0.6 - 0.9 cm IVS Systolic Thickness 1.4 cm LVPW Diastolic Thickness 0.9 cm 0.6 - 1.0 / 0.6 - 0.9 cm LVPW Systolic Thickness 1.5 cm LVOT Diameter 2.0 cm LV Ejection Fraction 2D Teich 64.5 % LV Ejection Fraction MOD 4C 69.4 % LV Ejection Fraction MOD 2C 58.8 % LV Ejection Fraction 2C AL 61.4 % LA Diameter 4.2 cm RA Systolic Volume 4C AL 39.9 ml RA Systolic Volume 4C MOD 40.5 ml LA Sys Volume AL 57.5 cm cubed LA Sys Volume Index AL 25.6 cm cubed/m squared Aorta at Sinotubular Diameter 2.4 cm IVC Diameter 1.6 cm M-MODE LA Ao Ratio MM 1.6 AV Cusp Separation MM 0.9 cm DOPPLER AV Peak Velocity 179.3 cm/s LVOT Peak Velocity 122.0 cm/s AV Area Cont Eq vti 1.8 cm squared AV Area Cont Eq pk 2.1 cm squared MV Peak Velocity 79.0 cm/s MV Area PHT 4.3 cm squared Mitral E to A Ratio 0.7 TR Peak Velocity 128.0 cm/s TR Peak Gradient 6.6 mmHg TR Mean Velocity 101.0 cm/s TR Mean Gradient 4.5 mmHg TR Velocity Time Integral 29.5 cm PV Peak Velocity 77.0 cm/s RV Ejection Time 0.3 s FINDINGS Left Ventricle Normal left ventricular size, systolic function and wall thickness with no regional wall motion abnormality. Left ventricular ejection fraction is 59%. Normal left ventricular diastolic function. Right Ventricle Normal right ventricular size and systolic function. Right Atrium Normal right atrial size. Left Atrium Normal left atrial size. IA Septum Normal appearance of the interatrial septum. Mitral Valve Normal mitral valve structure. Trace regurgitation. Aortic Valve Mild aortic valve calcification. No aortic valve stenosis or regurgitation. Tricuspid Valve Normal tricuspid valve structure. No tricuspid valve stenosis or regurgitation. Normal pulmonary pressure. Pulmonic Valve Mild pulmonary valve regurgitation. Pericardium No pericardial effusion. Aorta Normal diameter of the aortic root and ascending thoracic aorta. IVC Normal IVC diameter. CONCLUSIONS Normal left ventricular size, systolic function and wall thickness with ejection fraction of 59 %. Normal right ventricular size and systolic function. No significant valvular abnormalities. Colby Moses MD, FACC (Electronically Signed) Final Date: 13 January 2025 11:37 S
== END 2025-01-13 12:58 | disposition home or self-care (01) ==
LOC: ER 13:12 → CSU 15:36
PROVIDERS: Clinical Nurse Specialist Acute Care; Family Medicine; Admitting Provider Family Medicine; Emergency Provider Family Medicine; PCP Family Medicine; Visit Provider Registered Nurse
DX: R55 Syncope and collapse (principal); Z91.81 History of falling; E11.65 Type 2 diabetes mellitus with hyperglycemia; Z79.4 Long term (current) use of insulin; G43.909 Migraine, unspecified, not intractable, without status migrainosus; Z86.73 Personal history of transient ischemic attack (TIA), and cerebral infarction without residual deficits; Z79.01 Long term (current) use of anticoagulants; Z79.82 Long term (current) use of aspirin; K21.9 Gastro-esophageal reflux disease without esophagitis; I11.0 Hypertensive heart disease with heart failure; I50.30 Unspecified diastolic (congestive) heart failure; E78.5 Hyperlipidemia, unspecified; G47.33 Obstructive sleep apnea (adult) (pediatric); Z85.43 Personal history of malignant neoplasm of ovary; Z85.21 Personal history of malignant neoplasm of larynx; Z85.118 Personal history of other malignant neoplasm of bronchus and lung; Z80.9 Family history of malignant neoplasm, unspecified; E11.9 Type 2 diabetes mellitus without complications
CPT/HCPCS: 36415; 36416; 70450; 72125; 73502; 80048; 80053; 82962; 83735; 84100; 84484; 85025; 93005; 93306; 94640; 96372; 97110; 97161; 97166; 97530; G0378; J1815; J2270; J2470; J7030; J9999